=== PATIENT | female | born 1970 | race Caucasian/White ===

== ENCOUNTER 2023-02-14 13:06 | Outpatient (OUT) | payer BC, SELFPAY ==
--- NOTE | 2023-02-14 13:17 | XR_ITS ---
The [address] [address] Patient Name: FAUSTO CINTRON MRN: [id number] date: 1970 Sex: F Assigned Patient Location: [facility] Current Patient Location: [facility] Accession/Order Number: [id number] Exam Date: 02/14/2023 13:20 Report Date: 02/14/2023 13:38 At the request of: FANTASMA ALVAREZ Procedure: XR abdomen 1V EXAM: XR abdomen 1V HISTORY: Kidney Stone N20.0 COMPARISON: None. TECHNIQUE: AP view of the abdomen. FINDINGS: Nonobstructive bowel gas pattern is noted. There is no suspicious calcification. The osseous structures are intact. XR/XR abdomen 1V IMPRESSION: Nonobstructive bowel gas pattern. Constipation. Electronically authenticated by: DAYANA VALDERRAMA Date: 02/14/2023 13:38
== END 2023-02-14 13:07 | disposition home or self-care (01) ==
LOC: RAD 13:11
PROVIDERS: PCP Family Medicine; Visit Provider Urology
DX: N20.0 Calculus of kidney (principal)
CPT/HCPCS: 74018

== ENCOUNTER 2023-03-01 12:26 | Outpatient (REF) | payer BC, SELFPAY ==
[2023-03-01 13:23] LABS: Calcium 8.2 mg/dL (8.5-10.1); Carbon Dioxide 26.1 mmol/L (21.0-32.0); Chloride 106 mmol/L (98-107); Estimated GFR (African America >60 (>=60); Estimated GFR (Non-African Ame >60 (>=60); Phosphorus 3.4 mg/dL (2.6-4.7); Sodium 139 mmol/L (136-145)
[2023-03-01 13:44] LABS: Calcium Urine Random 5.2 mg/dL (5.1-21.0); Sodium Urine Random 55 mmol/L (30-90)
[2023-03-01 14:34] LABS: Calcium 24 Hour Urine 153.4 mg/24hr (100.0-300.0); Sodium 24 Hour Urine 162 mmol/24h (40-220); Total Volume 24 Hour Urine 2950 mL/24hr
[2023-03-02 06:09] LABS: Magnesium, U 3.9 mg/dL (Not Estab.); Magnesium,Urine 24hr 115.1 mg/24 hr (12.0-293.0); Phosphorus,Urine 24h 649 mg/24 hr (261-1078); Uric Acid, Urine 11.6 mg/dL (Not Estab.); Uric Acid,Urine 24hr 342.2 mg/24 hr (173.7-902.1)
[2023-03-02 11:09] LABS: PTH, Intact 28 pg/mL (15-65)
[2023-03-02 14:09] LABS: Citric Acid, U, 24hr 516 mg/24 hr (320-1240); Citric Acid, Urine 175 mg/L (Undefined)
[2023-03-08 15:08] LABS: Oxalates, Urine 5 mg/L (Undefined); Oxalates, Urine 24hr 15 mg/24 hr (4-31)
== END 2023-03-01 12:27 | disposition home or self-care (01) ==
LOC: LAB 12:26
PROVIDERS: PCP Family Medicine; Visit Provider Urology
DX: N20.0 Calculus of kidney (principal)
CPT/HCPCS: 36415; 82310; 82340; 82374; 82435; 82507; 82565; 82570; 83735; 83945; 83970; 84100; 84105; 84295; 84300; 84520; 84550; 84560

== ENCOUNTER 2023-09-10 15:19 | Outpatient (OUT) | payer BC, SELFPAY ==
[2023-09-10 15:45] LABS: Basophils Absolute Auto 0.1 10^3/uL (0.0-0.1); Basophils Percent Auto 0.8 % (0.2-2.0); Eosinophils Absolute Auto 0.4 10^3/uL (0.0-0.7); Hematocrit 37.7 % (36.0-48.0); Hemoglobin 12.4 g/dL (12.0-16.0); Immature Granulocytes Abs Auto 0.02 10^3/uL (0.00-0.03); Immature Granulocytes Pct Auto 0.2 % (0.0-0.5); Lymphocytes Absolute Auto 3.2 10^3/uL (1.2-3.8); Lymphocytes Percent Auto 30.1 % (20.5-60.0); Mean Corpuscular HGB Conc 32.9 g/dL (29.9-35.2); Mean Corpuscular Hemoglobin 32.5 pg (26.7-34.0); Mean Corpuscular Volume 98.7 fL (81.0-99.0); Mean Platelet Volume 10.6 fL (9.5-13.5); Monocytes Absolute Auto 0.7 10^3/uL (0.3-0.8); Monocytes Percent Auto 6.7 % (1.7-12.0); Neutrophils Absolute Auto 6.2 10^3/uL (1.4-6.5); Neutrophils Percent Auto 58.2 % (43.0-75.0); Platelet Count 233 10^3/uL (150-450); Red Blood Count 3.82 10^6/uL (4.20-5.40); Red Cell Distribution Width 13.1 % (11.0-15.0); White Blood Count 10.7 10^3/uL (4.0-11.0)
[2023-09-11 05:15] LABS: C-Reactive Protein, Cardiac 1.51 mg/L (0.00-3.00)
== END 2023-09-10 15:20 | disposition home or self-care (01) ==
LOC: LAB 15:23
PROVIDERS: PCP Family Medicine; Visit Provider Internal Medicine
DX: R19.7 Diarrhea, unspecified (principal)
CPT/HCPCS: 36415; 85025; 86140

== ENCOUNTER 2023-09-13 10:01 | Outpatient (OUT) | payer BC, SELFPAY ==
[2023-09-14 15:10] LABS: Cryptosporidium EIA Negative (Negative); Giardia lamblia Ag, EIA Negative (Negative)
[2023-09-20 16:09] LABS: Ova + Parasite Exam Final report (.)
== END 2023-09-13 10:02 | disposition home or self-care (01) ==
LOC: LAB 10:04
PROVIDERS: PCP Family Medicine; Visit Provider Internal Medicine
DX: R19.7 Diarrhea, unspecified (principal)
CPT/HCPCS: 87045; 87046; 87177; 87209; 87328; 87329; 87427

== ENCOUNTER 2023-12-20 15:55 | Outpatient (OUT) | payer BC, SELFPAY ==
--- NOTE | 2023-12-20 16:03 | XR_ITS ---
The [address] [address] Patient Name: FAUSTO CINTRON MRN: [id number] date: 1970 Sex: F Assigned Patient Location: [facility] Current Patient Location: Accession/Order Number: [id number] Exam Date: 12/20/2023 16:04 Report Date: 12/21/2023 07:04 At the request of: NON-STAFF PHYSICIAN Procedure: XR abdomen 1V EXAMINATION: XR abdomen 1V HISTORY: Renal calculus N20.0 COMPARISON: No relevant comparison available. FINDINGS: KIDNEY/URETER - RIGHT: Punctate nephroliths KIDNEY/URETER - LEFT: r nephrolithiasis, the largest measures 1.2 cm PELVIS: No visible ureteral calcifications. Any visible calcifications favor phleboliths. BOWEL: No abnormal dilation or deviation. Moderate stool right colon BONES: No acute abnormality. Mild levocurvature OTHER: Negative. No abnormal gaseous collections. XR/XR abdomen 1V IMPRESSION: Bilateral nephrolithiasis Electronically authenticated by: YAN JOHNSON Date: 12/21/2023 07:04
--- OUTSIDE RECORDS SUMMARY | 2023-12-20 16:07 | XMS_ITS | CCD ---
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 Name Role Phone Jerson Goldsmith Unavailable LARRY JONES Primary Care Physician [phone] KIM, DR MEEK Consulting Unavailable YVONNE, DR MERCADO Primary Care Unavailable KIM, DR MEEK Admitting Unavailable KIM, DR MEEK Attending Unavailable BUDDY, DR CRISTOFER Broderick Consulting Unavailable YVONNE, DR MERCADO Primary Care Unavailable KIM, DR MEEK Admitting Unavailable KIM, DR MEEK Attending Unavailable KIM, DR MEEK Consulting Unavailable YVONNE, DR MERCADO Admitting Unavailable YVONNE, DR MERCADO Attending Unavailable YVONNE, DR MERCADO Consulting Unavailable YVONNE, DR MERCADO Primary Care Unavailable MD Phuong Hall Primary Care Provider [phone] MD Arash Field Attending Provider MD Phuong Hall Primary Care Provider MD Arash Field Attending Provider Arash Field Admitting Unavailable Arash Field Attending Unavailable Phuong Hall Primary Care Unavailable LARRY JONES Primary Care Physician Arash FIELD Attending Unavailable Arash FIELD Attending Unavailable Phuong Hall MD Primary Care Provider KIMBERLY BURTON Referring Unavailable PHUONG HALL Primary Care Unavailable KIMBERLY BURTON Referring Unavailable PHUONG HALL Primary Care Unavailable KIMBERLY BURTON Admitting Unavailable KIMBERLY BURTON Attending Unavailable PHUONG HALL Primary Care Unavailable Medications Current Medications Medication Drug Class(es) Dates Sig (Normalized) Sig (Original) 24 hr buPROPion hydrochloride 300 mg extended release oral tablet (5 sources) Aminoketone Start: 09-21-2021 take 300 mg by mouth once daily Bupropion Hcl Active 300 MG PO Daily September 20, 2021 11:00pm Start: 03-26-2020 take 1 tablet by naveen th every twenty-four hours Wellbutrin XL 300 mg/24 hours Tab-ER mg tab(s), Oral, q24hr, Refills(s) 0 Start Date: 03/26/20 Status: Ordered esomeprazole 40 mg delayed release oral capsule (10 sources) Proton Pump Inhibitor Start: 09-13-2023 take 1 capsule by mouth once daily before breakfast esomeprazole (NEXIUM) 40 MG delayed release capsule Take 1 capsule by mouth every morning (before breakfast) 0 09/13/2023 Active Start: 03-26-2020 take 1 mg by mouth once daily Nexium 40 mg Cap-EC mg cap(s), Oral, Daily, Refills(s) 0 Start Date: 03/26/20 Status: Ordered fluticasone propionate 0.05 mg/actuat metered dose nasal spray (8 sources) Corticosteroid Start: 07-30-2023 fluticasone (F LONASE) 50 MCG/ACT nasal spray 1 spray by Nasal route daily 0 07/30/2023 Active Start: 03-26-2020 Flonase Nasal, Daily, Refill(s) 0 Start Date: 03/26/20 Status: Ordered take 1 spray(s) nasa l route once daily Flonase 50 MCG/DOSE 1 spray in each nostril Nasally Once a day Active take 1 spray(s) nasa l route once daily Flonase 50 MCG/DOSE 1 spray in each nostril Nasally Once a day Active levothyroxine sodium 0.125 mg oral tablet (10 sources) l-Thyroxine Start: 07-06-2023 End: 07-05-2024 take 1 tablet by mouth once daily levothyroxine (SYNTHROID) 125 MCG tablet Take 1 tablet by mouth Daily 0 07/06/2023 07/05/2024 Active Start: 01-02-2022 levothyroxine 112 mcg (0.112 mg) Tab Refills(s) 0 Start Date: 01/02/22 Status: Ordered Start: 09-21-2021 take 137 ug by mouth once hugo y Levothyroxine Active 137 MCG PO Daily September 20, 2021 11:00pm take 1 tablet by naveen th once daily in the morning Synthroid 137 MCG 1 tablet on an empty stomach in the morning Orally Once a day for 30 day(s) Active mesalamine 1200 mg delayed release oral tablet (10 sources) Aminosalicylate Start: 03-26-2020 Lialda gram, O ral, Daily, Refill(s) 0 Start Date: 03/26/20 Status: Ordered Start: 07-04-2013 take 4 tablets by [facility] once daily mesalamine (LIALDA) 1.2 g EC tablet Take 4 tablets by mouth daily 0 07/12/2023 Active Start: 07-04-2013 take 4 tablets by [facility] every twenty-four hours Lialda 1.2 GM 4 tablets Orally Once a day for 90 days Jun, Active valACYclovir 1000 mg oral tablet (10 sources) Herpesvirus Nucleoside Analog DNA Polymerase Inhibitor, Herpes Simplex Virus Nucleoside Analog DNA Polymerase Inhibitor, Herpes Zoster Virus Nucleoside Analog DNA Polymerase Inhibitor Start: 09-21-2021 take 1000 mg by mouth once daily Valacyclovir Active 1000 MG PO Daily September 20, 2021 11:00pm Start: 03-26-2020 take 1 tablet by [facility] twice daily Valtrex 1 g Tab gram tab(s), Oral, BID, Refills(s) 0 Start Date: 03/26/20 Status: Ordered take 1 tablet by [facility] twice daily valACYclovir (VALTREX) 500 MG tablet Take 1 tablet by mouth 2 times daily 0 Active take 2 tablets by [facility] every twelve hours Valtrex 500 MG 2 tablets Orally every 12 hrs for 10 day(s) Active Vitamin D (3 sources) Start: 03-26-2020 Vitamin D Oral , Refills(s) 0 Start Date: 03/26/20 Status: Ordered Vitamin D 63280 U (4 sources) Vitamin D 12019 U as directed Orally Active Completed/Discontinued Medications Medication Drug Class(es) Dates Sig (Normalized) Sig (Original) Ketorolac (4 sources) Nonsteroidal Anti-inflammatory Drug, Cyclooxygenase Inhibitor Start: 02-13-2020 Toradol per 15 mg Jan, 30 mg Triamcinolone (4 sources) Corticosteroid Start: 02-13-2020 KENALOG - 10 mg Jan, 10 mg Problems Problem Classification Problem Date Documented Da te Episodic/Chronic Abdominal pain (10 sources) Abdominal pain; Translations: [Unspecified abdominal pain] Onset: 2 Episodic Calculus of urinary tract (14 sources) Kidney stone; Translations: [Calculus of kidney] Onset: 2 Episodic Deficiency and other anemia (4 sources) Iron deficiency anemia; Translations: [Iron deficiency anemia, unspecified] Episodic Deficiency and other anemia (3 sources) Anemia 03-26-2020 Episodic Esophageal disorders (7 sources) Gastroesophageal reflux disease; Translations: [Gastro-esophageal reflux disease without esophagitis] 03-26-2020 Chronic Gastrointestinal hemorrhage (4 sources) Hematochezia; Translations: [Melena] Episodic Genitourinary symptoms and ill-defined conditions (6 sources) Stress incontinence (female) (male); Translations: [Genuine stress incontinence] Onset: 2 Chronic Headache; including migraine (3 sources) Headache 03-26-2020 Episodic Mood disorders (3 sources) Depressive disorder 03-26-2020 Chronic Osteoarthritis (3 sources) Arthritis 03-26-2020 Chronic Regional enteritis and ulcerative colitis (11 sources) Ulcerative colitis; Translations: [Ulcerative colitis, unspecified, without complications] Onset: 2 Resolved: 2 Chronic Spondylosis; intervertebral disc disorders; other back problems (8 sources) Sciatica; Translations: [Sciatica, left side] Episodic Thyroid disorders (7 sources) Hypothyroidism; Translations: [Hypothyroidism, unspecified] Onset: 1 03-26-2020 Chronic Results Test Name Value Interpretation Reference Range Facility FLUORO FOR SURGICAL PROCEDUR ESon 10-23-2023 FLUORO FOR SURGICAL PROCEDURES Radiology exam is complete. No Radiologist dictation. Please follow up with ordering provider. Final result Normal [facility] HCG, ,Urineon 10-22 Beta HCG ( test) Ql (U) Negative Normal NEG [facility] Comment on above: Result Comment: Spec imens with hCG levels near the threshold of the test (25 mIU/mL) may give a negative or indeterminate result. In such cases, another test should be performed with a new specimen in 48-72 hours. If early is suspected clinically in this setting, correlation with quantitative serum b-hCG level is suggested. [employer] has confirmed the use of plasma for this test. This has not been cleared or approved by the U.S. Food and Drug Administration. The FDA has determined that such clearance is not necessary. Performed By: #### U HCG #### [facility] [address] [place], [place] [id number] Health/Safety Job Titles: Michoacano Gomez MD Basic Metabolic Profon 09-19 Anion gap [Moles/Vol] 9 mmol/L Normal 9-17 [facility] Comment on above: Performed By: #### B MP, CDP #### [facility] [address] [place], [place] [id number] Health/Safety Job Titles: Michoacano Gomez MD BUN/CRE Ratio 23 High 9-20 [facility] Comment on above: Performed By: #### B MP, CDP #### [facility] [address] [place], [place] [address] Health/Safety Job Titles: Michoacano Gomez MD Calcium [Mass/Vol] 8.7 mg/dL Normal 8.6-10.4 [facility] Comment on above: Performed By: #### B MP, CDP #### [facility] [address] [place], [place] [id number] Health/Safety Job Titles: Michoacano Gomez MD Chloride [Moles/Vol] 105 mmol/L Normal 98-107 [facility] Comment on above: Performed By: #### B MP, CDP #### [facility] [address] [place], [place] [address] Health/Safety Job Titles: Michoacano Gomez MD CO2 [Moles/Vol] 25 mmol/L Normal 20-31 [facility] Comment on above: Performed By: #### B MP, CDP #### [facility] [address] [place], [place] [id number] Health/Safety Job Titles: Michoacano Gomez MD Creatinine [Mass/Vol] 0.7 mg/dL Normal 0.5-0.9 [facility] Comment on above: Performed By: #### B MP, CDP #### [facility] [address] [place], [place] [id number] Health/Safety Job Titles: Michoacano Gomez MD GFR/1.73 sq M.predicted among non-blacks MDRD (S/P/Bld) [Vol rate/Area] mL/min/{1.73_m2} Normal >60 [facility] Comment on above: Result Comment: These results are not intended for use in patients <18 years of age. eGFR results are calculated without a race factor using the 2020 CKD-EPI equation. Careful clinical correlation is recommended, particularly when comparing to results calculated using previous equations. The CKD-EPI equation is less accurate in patients with extremes of muscle mass, extra-renal metabolism of creatine, excessive creatine ingestion, or following therapy that affects renal tubular secretion. Performed By: #### B FRANKLIN, CDP #### [facility] [address] [place] [address] [place] [address] Health/Safety Job Titles: Michoacano Gomez MD Glucose [Mass/Vol] 97 mg/dL Normal 70-99 [facility] Comment on above: Performed By: #### B FRANKLIN, CDP #### [facility] [address] [place] [address] [place] [address] Health/Safety Job Titles: Michoacano Gomez MD Potassium [Moles/Vol] 4.0 mmol/L Normal 3.7-5.3 [facility] Comment on above: Performed By: #### B FRANKLIN, CDP #### [address] [place], [place] [id number] Health/Safety Job Titles: Michoacano Gomez MD Sodium [Moles/Vol] 139 mmol/L Normal 135-144 [facility] Comment on above: Performed By: #### B FRANKLIN, CDP #### [facility] [address] [place] [address] [place] [address] Health/Safety Job Titles: Michoacano Gomez MD Urea nitrogen [Mass/Vol] 16 mg/dL Normal 6-20 [facility] Comment on above: Performed By: #### B FRANKLIN, CDP #### [facility] [address] [place] [address] [place] [address] Health/Safety Job Titles: Michoacano Gomez MD CBC with Diffon 09-20-2023 Abs. Basophil 0.07 k/uL Normal 0.00-0.20 [facility] Comment on above: Performed By: #### B FRANKLIN, CDP #### [facility] [address] [place] [address] [place] [address] Health/Safety Job Titles: Michoacano Gomez MD Abs.Imm.Granulocyte <0.03 Normal 0.00-0.30 [facility] Comment on above: Performed By: #### B MP, CDP #### [facility] [address] [place], [facility] Health/Safety Job Titles: Michoacano Gomez MD Abs.Neutrophil (Seg) 3.98 k/uL Normal 1.50-8.10 [facility] Comment on above: Performed By: #### B FRANKLIN, CDP #### [address] [place], [facility] Health/Safety Job Titles: Michoacano Gomez MD Basophils/100 WBC (Bld) 1 % Normal 0-2 [facility] Comment on above: Performed By: #### B FRANKLIN, CDP #### [address] [place] [address] Health/Safety Job Titles: Michoacano Gomez MD Eosinophils (Bld) [#/Vol] 0.43 10*3/uL Normal 0.00-0.44 [facility] Comment on above: Performed By: #### B FRANKLIN, CDP #### [facility] [address] [place] [address] [place] [address] Health/Safety Job Titles: Michoacano Gomez MD Eosinophils/100 WBC (Bld) 6 % High 1-4 [facility] Comment on above: Performed By: #### B FRANKLIN, CDP #### [address] [place], [place] [address] Health/Safety Job Titles: Michoacano Gomez MD Erythrocyte distribution width (RBC) [Ratio] 13.1 % Normal 11.8-14.4 [facility] Comment on above: Performed By: #### B MP, CDP #### [facility] [address] [place], [place] [id number] Health/Safety Job Titles: Michoacano Gomez MD Hematocrit (Bld) [Volume fraction] 38.3 % Normal 36.3-47.1 [facility] Comment on above: Performed By: #### B MP, CDP #### [facility] [address] [place], [place] [id number] Health/Safety Job Titles: Michoacano Gomez MD Hemoglobin (Bld) [Mass/Vol] 12.9 g/dL Normal 11.9-15.1 [facility] Comment on above: Performed By: #### B MP, CDP #### [address] [place], [place] [address] Health/Safety Job Titles: Michoacano Gomez MD Immature granulocytes/100 WBC (Bld) 0 % Normal 0 [facility] Comment on above: Performed By: #### B MP, CDP #### [facility] [address] [place] [address] [place] [place], [place] [address] Health/Safety Job Titles: Michoacano Gomez MD Lymphocytes (Bld) [#/Vol] 2.69 10*3/uL Normal 1.10-3.70 [facility] Comment on above: Performed By: #### B MP, CDP #### [facility] [address] [place] [address] [address] [place], [place] [address]83 Health/Safety Job Titles: Michoacano Gomez MD Lymphocytes/100 WBC (Bld) 35 % Normal 24-43 [facility] Comment on above: Performed By: #### B MP, CDP #### [facility] [address] [place], [place] [address] Health/Safety Job Titles: Michoacano Gomez MD MCH (RBC) [Entitic mass] 33.2 pg Normal 25.2-33.5 [facility] Comment on above: Performed By: #### B MP, CDP #### [facility] [address] [place] [address] [address] [place], [place] [address]83 Health/Safety Job Titles: Michoacano Gomez MD MCHC (RBC) [Mass/Vol] 33.7 g/dL Normal 28.4-34.8 [facility] Comment on above: Performed By: #### B MP, CDP #### [facility] [address] [place] [address] [address] [place], [place] 137[address]183 Health/Safety Job Titles: Michoacano Gomez MD MCV (RBC) [Entitic vol] 98.7 fL Normal 82.6-102.9 [facility] Comment on above: Performed By: #### B MP, CDP #### [address] [place], [place] [address] Health/Safety Job Titles: Michoacano Gomez MD Monocytes (Bld) [#/Vol] 0.55 10*3/uL Normal 0.10-1.20 [facility] Comment on above: Performed By: #### B MP, CDP #### [address] [place], [place] [address] Health/Safety Job Titles: Michoacano Gomez MD Monocytes/100 WBC (Bld) 7 % Normal 3-12 [facility] Comment on above: Performed By: #### B MP, CDP #### [address] [place], [place] [address]83 Health/Safety Job Titles: Michoacano Gomez MD Neutrophil (Seg) 51 % Normal 36-65 [facility] Comment on above: Performed By: #### B MP, CDP #### [facility] [address] [place] [address] [address] [place], [place] [address]3583 Health/Safety Job Titles: Michoacano Gomez MD NRBC Automated 0.0 per 100 WBC Normal 0.0 [facility] Comment on above: Performed By: #### B MP, CDP #### [facility] [address] [place] [address] [place] [place], [place] [address]83 Health/Safety Job Titles: Michoacano Gomez MD Platelet mean volume (Bld) [Entitic vol] 10.1 fL Normal 8.1-13.5 [facility] Comment on above: Performed By: #### B FRANKLIN, CDP #### [facility] [address] [place] [address] Health/Safety Job Titles: Michoacano Gomez MD Platelets (Bld) [#/Vol] 252 10*3/uL Normal 138-453 [facility] Comment on above: Performed By: #### B FRANKLIN, CDP #### [facility] [address] [place] [address] Health/Safety Job Titles: Michoacano Gomez MD RBC (Bld) [#/Vol] 3.88 10*6/uL Low 3.95-5.11 [facility] Comment on above: Performed By: #### B FRANKLIN, CDP #### [facility] [address] [place] [address] Health/Safety Job Titles: Michoacano Gomez MD WBC (Bld) [#/Vol] 7.7 10*3/uL Normal 3.5-11.3 [facility] Comment on above: Performed By: #### B FRANKLIN, CDP #### [facility] [address] [place] [address] Health/Safety Job Titles: Michoacano Gomez MD EKG 12 LeadOrdered By: Julito Marino hmamy on 09-20-2023 Atrial Rate 64 BPM [facility] [employer] [facility]Contently Phone: P [place] -4 degrees [facility] [employer] [facility] Phone: P-R Interval 132 ms [facility] Phone: Q-T Interval 420 ms [facility] [employer] [facility] Phone: QRS Duration 74 ms [employer] [facility] Phone: QTc Calculation (Bazett) 433 ms [employer] [facility] Phone: R [place] 65 degrees [employer] [facility] Phone: T [place] 54 degrees [employer] Work Phone: Ventricular Rate 64 BPM [employer] Work Phone: [employer] Work Phone: EKG 12 Leadon 09-20-2023 Normal sinus rhythm Normal ECG No previous ECGs available Confirmed by Julito Pate MD ([id number]) on 09/20/2023 8:55:15 PM [facility] RADIOLOGY Julito Pate MD - 09/20/2023 Normal sinus rhythm Normal ECG No previous ECGs available Confirmed by Julito Pate MD ([id number]) on 09/20/2023 8:55:15 PM [facility]apVid [facility] Physician Orderon 06-07-2023 Physician Order [id number]#1.0 0TIFF Normal [facility] RAD - CT Reporton 05-16-2023 RAD - CT Report [id number]#1.0 0TIFF Normal [facility] Reminderson 05-16-2023 Reminders - From: Celena Beauchamp To: [facility] - Recalls Field; Sent: 02/23/2023 12:29:57 EDT Show up: 07/26/2023 12:29:00 EST Subject: Ct urogram Due Date/Time: 08/13/2023 12:29:00 EST Reminder/Recall Pt needs Ct Urogram done prior to August 2023 appt. Pt needs to have done at [facility] per PRW. pt completed in Apr. already addressed. BG Normal [facility] CT urogramon 05-08-2023 CT urogram [facility] Main [address] [address] [address] Scan Report Signed Patient: Fausto Merrill MR#: [id number] : 1970 Acct:[id number] Age/Sex: 52 / F ADM Date: 05/08/23 Loc: CT Room: Type: [facility] Attending Dr: Arash Field MD Copies to: Arash Field MD Ordering Provider: Arash Field MD Date of Service: 05/08/23 CT/CT urogram: N20.0 CT ABDOMEN AND PELVIS WITH AND WITHOUT INTRAVENOUS CONTRAST: CLINICAL HISTORY: Left-sided kidney stone failed lithotripsy. COMPARISON: CT urogram 01/23/2022 TECHNIQUE: Spiral images were obtained through the abdomen and pelvis before and after the administration of intravenous contrast. This CT exam was performed using one or more following dose reduction techniques: Automated exposure control, adjustment of the mA and/or kV according to patient size, or use of iterative reconstruction technique. FINDINGS: Lung Bases: [No acute findings.] Organs:Noncontrast images demonstrate bilateral nephrolithiasis, largest stone measuring 1 cm in greatest axial dimension involving the left kidney. No ureteral or urinary bladder calculus. Postcontrast imaging demonstrates no enhancing renal or collecting system mass. Opacified ureters appear grossly unremarkable. Urinary bladder is grossly unremarkable. Liver gallbladder portal vein spleen pancreas and adrenal glands all appear unremarkable. Abdominal aorta appears normal in caliber.[ GI: Stomach is grossly unremarkable. Small bowel appears nondilated. No acute colonic abnormality.[ Pelvis:[Occlusion device placement is seen. Uterus is grossly unremarkable. No adnexal mass. Peritoneum/Retroperito neum:No free air, free fluid or lymphadenopathy.[ Abd wall/Bones:Abdominal wall demonstrates no acute findings. Osseous structures demonstrate degenerative change.[ CT/CT urogram IMPRESSION: Bilateral nephrolithiasis largest stone measuring 1 cm involving the left kidney. No obstructive uropathy Impression dictated by: Erwin Waldron Jr., D.OMaggi05/08/2023 2:21 PM Dictation Location: [place] [address] Transcribed By: [facility] 05/08/23 1421 Dictated By: Erwin Waldron Jr, DO 05/08/23 1419 Signed By: 05/08/23 1421 [facility] Lab Reportson 03-30-2023 Lab Reports [id number] 0TIFF [facility] Lab Reports [id number]#1.0 0TIFF Normal [facility] Lab Reportson 03-04-2023 Lab Reports [id number]#1.00 CD:127 Normal [facility] Lab Reports [id number] 0CD:127 Normal [facility] Lab Reports [id number] CD:127 Normal [facility] Ambulatory Visit Summaryon 0 02-23-2023 Ambulatory Visit Summary FAUSTO MERRILL :1970 Visit Date:02/23/2023 Ambulatory Visit Instructions Your Diagnosis Kidney stone Flank pain Stress incontinence Tests Performed Urnls Dip Stick Auto w/o Microscopy POC [id number] CT Urogram -- Results Pending -- Please visit your patient portal for your results or contact your primary care physician. Your Care Team Attending Physician - Arash FIELD MD Primary Care Physician - LARRY JONES CNP This Is Your Medications List Contact prescribing physician if questions or concerns ergocalciferol (Vitamin D) esomeprazole (Nexium 40 mg Cap-EC) fluticasone nasal (Flonase) levothyroxine (levothyroxine 112 mcg (0.112 mg) Tab) mesalamine (Lialda) valacyclovir (Valtrex 1 g Tab) Procedures Performed ESWL of kidney (03/2020), Colonoscopy, Colonoscopy, Tubal ligation. Discharge Vitals Temperature (Tympanic) 37.1 ?C Heart Rate (Peripheral) 71 Respiratory Rate 16 Blood Pressure 106/75 Height 165 cm Height 65 in Weight 56 kg Weight 123.2 lb BMI 20.57 What to do next You Need to Schedule the Following Appointments Follow Up with Arash FIELD MD, SEGUNDO When: In 6 months Comments: w/CTU & 24hr Urine Where: [facility] [address] [place] [address]- Medications What How Much When Instructions Unchanged ergocalciferol (Vitamin D) Contact prescribing physician if questions or concerns Unchanged esomeprazole (Nexium 40 mg Cap-EC) Every day Contact prescribing physician if questions or concerns Unchanged fluticasone nasal (Flonase) Every day Contact prescribing physician if questions or concerns Unchanged levothyroxine (levothyroxine 112 mcg (0.112 mg) Tab) Contact prescribing physician if questions or concerns Unchanged mesalamine (Lialda) Every day Contact prescribing physician if questions or concerns Unchanged valacyclovir (Valtrex 1 g Tab) 2 times a day Contact prescribing physician if questions or concerns Test Results Urnls Dip Stick Auto w/o Microscopy POC 18319 (02/23/2023) Bilirubin Urine Dipstick - Negative Blood Urine Dipstick - 2+ Moderate Glucose Urine Dipstick - Negative Ketones Urine Dipstick - Negative Leukocytes Urine Dipstick - Negative Nitrite Urine Dipstick - Negative Protein Urine Dipstick - Negative Specific [place] Urine Dipstick - 1.025 Urine Appearance Urine Dipstick - Clear Urine Color Urine Dipstick - Yellow Urobilinogen Urine Dipstick - Normal 0.2-1 EU/dl pH Urine Dipstick - 5.5 Allergies No Known Allergies Problems Ongoing - Any problem that you are currently receiving treatment for. Anemia Arthritis Chronic GERD Depression Flank pain Headache Hypothyroid Kidney stone Stress incontinence UC (ulcerative colitis) Education Materials Dietary Guidelines to Help Prevent Kidney Stones Kidney stones are deposits of minerals and salts that form inside your kidneys. Your risk of developing kidney stones may be greater depending on your diet, your lifestyle, the medicines you take, and whether you have certain medical conditions. Most people can lower their chances of developing kidney stones by following the instructions below. Your dietitian may give you more specific instructions depending on your overall health and the type of kidney stones you tend to develop. What are tips for following this plan? Reading food labels ? Choose foods with no salt added or low-salt labels. Limit your salt (sodium) intake to less than 1,500 mg a day. ? Choose foods with calcium for each meal and snack. Try to eat about 300 mg of calcium at each meal. Foods that contain 200?500 mg of calcium a serving include: ? 8 oz (237 mL) of milk, nbdzxeb-piytwhnekkdg-t airy milk, and calcium-fortifiedfruit juice. Calcium-fortified means that calcium has been added to these drinks. ? 8 oz (237 mL) of kefir, yogurt, and soy yogurt. ? 4 oz (114 g) of tofu. ? 1 oz (28 g) of cheese. ? 1 cup (150 g) of dried figs. ? 1 cup (91 g) of cooked broccoli. ? One 3 oz (85 g) can of sardines or mackerel. Most people need 1,000?1,500 mg of calcium a day. Talk to your dietitian about how much calcium is recommended for you. Shopping ? Buy plenty of fresh fruits and vegetables. Most people do not need to avoid fruits and vegetables, even if these foods contain nutrients that may contribute to kidney stones. ? When shopping for convenience foods, choose: ? Whole pieces of fruit. ? Pre-made salads with dressing on the side. ? Low-fat fruit and yogurt smoothies. ? Avoid buying frozen meals or prepared deli foods. These can be high in sodium. ? Look for foods with live cultures, such as yogurt and kefir. ? Choose high-fiber grains, such as whole-wheat breads, oat bran, and wheat cereals. Cooking ? Do not add salt to food when cooking. Place a salt shaker on the table and allow each person to add his (more content not included)... Normal [facility] Patient Educationon 02-24-20 Patient Education Nephrology Dietary Guidelines to Help Prevent Kidney Stones Kidney stones are deposits of minerals and salts that form inside your kidneys. Your risk of developing kidney stones may be greater depending on your diet, your lifestyle, the medicines you take, and whether you have certain medical conditions. Most people can lower their chances of developing kidney stones by following the instructions below. Your dietitian may give you more specific instructions depending on your overall health and the type of kidney stones you tend to develop. What are tips for following this plan? Reading food labels ? Choose foods with no salt added or low-salt labels. Limit your salt (sodium) intake to less than 1,500 mg a day. ? Choose foods with calcium for each meal and snack. Try to eat about 300 mg of calcium at each meal. Foods that contain 200?500 mg of calcium a serving include: ? 8 oz (237 mL) of milk, rgsaazi-uajfilijorrs-d airy milk, and calcium-fortifiedfruit juice. Calcium-fortified means that calcium has been added to these drinks. ? 8 oz (237 mL) of kefir, yogurt, and soy yogurt. ? 4 oz (114 g) of tofu. ? 1 oz (28 g) of cheese. ? 1 cup (150 g) of dried figs. ? 1 cup (91 g) of cooked broccoli. ? One 3 oz (85 g) can of sardines or mackerel. Most people need 1,000?1,500 mg of calcium a day. Talk to your dietitian about how much calcium is recommended for you. Shopping ? Buy plenty of fresh fruits and vegetables. Most people do not need to avoid fruits and vegetables, even if these foods contain nutrients that may contribute to kidney stones. ? When shopping for convenience foods, choose: ? Whole pieces of fruit. ? Pre-made salads with dressing on the side. ? Low-fat fruit and yogurt smoothies. ? Avoid buying frozen meals or prepared deli foods. These can be high in sodium. ? Look for foods with live cultures, such as yogurt and kefir. ? Choose high-fiber grains, such as whole-wheat breads, oat bran, and wheat cereals. Cooking ? Do not add salt to food when cooking. Place a salt shaker on the table and allow each person to add his or her own salt to taste. ? Use vegetable protein, such as beans, textured vegetable protein (TVP), or tofu, instead of meat in pasta, casseroles, and soups. Meal planning ? Eat less salt, if told by your dietitian. To do this: ? Avoid eating processed or pre-made food. ? Avoid eating fast food. ? Eat less animal protein, including cheese, meat, poultry, or fish, if told by your dietitian. To do this: ? Limit the number of times you have meat, poultry, fish, or cheese each week. Eat a diet free of meat at least 2 days a week. ? Eat only one serving each day of meat, poultry, fish, or seafood. ? When you prepare animal protein, cut pieces into small portion sizes. For most meat and fish, one serving is about the size of the palm of your hand. ? Eat at least five servings of fresh fruits and vegetables each day. To do this: ? Keep fruits and vegetables on hand for snacks. ? Eat one piece of fruit or a handful of berries with breakfast. ? Have a salad and fruit at lunch. ? Have two kinds of vegetables at dinner. ? Limit foods that are high in a substance called oxalate. These include: ? Spinach (cooked), rhubarb, beets, sweet potatoes, and Kosovan chard. ? Peanuts. ? Potato chips, icelandic fries, and baked potatoes with skin on. ? Nuts and nut products. ? Chocolate. ? If you regularly take a diuretic medicine, make sure to eat at least 1 or 2 servings of fruits or vegetables that are high in potassium each day. These include: ? Avocado. ? Banana. ? [place], prune, carrot, or tomato juice. ? Baked potato. ? Cabbage. ? Beans and split peas. Lifestyle ? Drink enough fluid to keep your urine pale yellow. This is the most important thing you can do. Spread your fluid intake throughout the day. ? If you drink alcohol: ? Limit how much you use to: ? 0?1 drink a day for women who are not . ? 0?2 drinks a day for men. ? Be aware of how much alcohol is in your drink. In the [place] one drink equals one 12 oz bottle of beer (355 mL), one 5 oz glass of wine (148 mL), or one 1? oz glass of hard liquor (44 mL). ? Lose weight if told by your health care provider. Work with your dietitian to find an eating plan and weight loss strategies that work best for you. General information ? Talk to your health care provider and dietitian about taking daily supplements. You may be told the following depending on your health and the cause of your kidney stones: ? Not to take supplements with vitamin C. ? To take a calcium supplement. ? To take a daily probiotic supplement. ? To take other supplements such as magnesium, fish oil, or vitamin B6. ? Take xwnz-yme-dyiiukv and prescription medicines only as told by your health care provider. These include supplements. What foods should I limit? Limit your in (more content not included)... Normal [facility] Urology Office/Clinic Noteon 02-23-2023 Urology Office/Clinic Note Chief Complaint 1 year with KUB HPI Staff 1 year f/u with KUB. Previous dx of kidney stone, flank pain left sided and stress incontinence. Current KUB done 02/14/23 shows no suspicious calcification. Dysuria: no Incomplete bladder emptying: no Hematuria: no Frequency: every couple of hours. Drinks a lot of water Urgency: no Nocturia: most nights pt does not get up Stream: no straining Leaking: no Post void dripping: no Wearing pads/ Depends: no Urge incontinence: no Stress incontinence: yes Incontinence without Sensory Awareness: no Abdominal pain: no Flank pain: left sided every now and then pt states it is not sharp just a discomfort Sexual complaints: no History of Present Illness Tests reviewed: reviewed UA and KUB I have reviewed the previous health record information and history for this patient from . I have reviewed and verified the staff HPI to be accurate for this encounter. There have been no associated fever, chills, flank pain, or blood in the urine. Denies any urinary infections since last encounter. Review of Systems PHQ Score Initial Depression Screen Score: 0 ROS - Provider Constitutional: denies weight loss, denies hot flashes. Eyes: denies eye problems. Gastrointestinal: denies nausea, denies vomiting. Cardiovascular: denies chest pain or angina. Integumentary: no dryness Musculoskeletal: denies musculoskeletal symptoms. ENMT: denies otolaryngeal symptoms. Respiratory: no shortness of breath. Heme/Lymph: denies easy bleeding tendency, denies easy bruising tendency. Psychiatric: no confusion, no anxiety. Genitourinary: See HPI. Physical Exam Vitals & Measurements T: 37.1 ?C(Tympanic) HR: 71(Peripheral) RR: 16 BP: 106/75 HT: 65 in HT: 165 cm WT: 56 kg WT: 123.2 lb BMI: 20.57 General Appearance: alert , no acute distress, well nourished, well developed female. Genitourinary: bladder nonpalpable, no flank pain. Assessment/Plan 1. Kidney stone (N20.0: Calculus of kidney) IVP 06/02/20 - suggests stone is separate from the urinary tract S/p Left ESWL 04/15/20 KUB 12/30/21 shows stable 1.4cm calcification suspected to be within the superior pole of the left kidney, stone is cracked into several pieces. Discussed at prior OV, that if the stones are in a sac that will not allow patient to pass fragments. CTU 01/23/22 - bilat stone, largest measuring 12mm in the Lt upper pole in a diverticulum KUB 02/14/23 - no suspicious calcification. UA today shows moderate blood. Pt states that the flank pain comes and goes on the Lt. Discussed the findings from recent imaging w/pt, advised pt that due to where the stones are and how big they are, we will not be able to do ESWL. Advised pt that there is a point where the pt will have to have these removed in the future, advised pt that this is not truly needed now due to the pt not having any bothersome sxs. Advised pt that we should do a repeat 24hr urine to see what we can do about prevention. After the metabolic workup, we can discuss stone prevention. Pt states her daughter just had 2 surgeries due to recently being dx w/ thyroid cancer and her mom has some surgeries that need done, due to these things going on, she would like to wait. Pt states she is willing to do the 24hr urine done. Advised pt to have a repeat CTU. Follow up in 6 mos w/ 24 hr urine and CTU. All questions/concerns were discussed. Pt to call the office if she encounters any issues prior. Pt acknowledges understanding. -Increase fluid intake. -24 hr Urine. -Will order a CTU, pt prefers [facility]. 2. Flank pain (R10.9: Unspecified abdominal pain) pt c/o of mild discomfort on the left side that comes and goes. She states it is not daily and not severe with the discomfort. Patient has a high tolerance for pain due to headaches almost daily. 3. Stress incontinence (N39.3: Stress incontinence (female) (male)) Mild leaking with sneezing and jumping. She does not wear any pads for leaking. Follow-up With When Contact Information KIM ADLER, Arash Broderick, SEGUNDO In 6 months [facility] [address], [place] [address]- Additional Instructions: w/CTU & 24hr Urine Patient Education Dietary Guidelines to Help Prevent Kidney Stones I, Edwige Barahona , personally scribed for Dr. Field on 02/23/2023 12:23:23. . Documentation recorded by the scribeEdwige, accurately reflects the services(s) I performed and decisions made by me. Problem List/Past Medical History Ongoing Anemia Arthritis Chronic GERD Depression Flank pain Headache Hypothyroid Kidney stone Stress incontinence UC (ulcerative colitis) Historical No qualifying data Procedure/Surgical History ESWL of kidney (03/2020), Colonoscopy, Colonoscopy, Tubal ligation. Medications Flonase, Nasal, Daily levothyroxine 112 mcg (0.112 mg) Tab Lialda, Oral, Daily Nexium 40 mg Cap-EC, (more content not included)... [facility] Comment on above: Result Comment: Elec tronically Signed By: KIM ADLER, Arash Broderick\.br\Date and Time Signed: 02/23/23 12:26 EDT\.br\Electronically Co-Signed By: Edwige Barahona\.br\Date and Time Co-Signed: 02/23/23 12:23 EDT RAD - MISCon 02-16-2023 RAD - MISC [id number] [facility] October 03, 2022 FAUSTO MERRILL [address] [place] [phone] FAUSTO MERRILL 1970 Dear Fausto Merrill, Our records indicate it is time to schedule your follow up appointment with Dr. Filed for kidney stones. Please call the office to schedule this appointment and have the KUB x-ray done prior (slip enclosed). Thank You, [facility] at [facility] option #3 [facility] XR KUB 1 VIEWon 12-30-2021 XR KUB 1 VIEW EXAMINATION: XR KUB 1 VIEW HISTORY: Kidney stone ; intermittent pain, left kidney stone COMPARISON: XR KUB 01/04/2021 FINDINGS: KIDNEY/URETER - RIGHT: No visible renal or ureteral calcifications. KIDNEY/URETER - LEFT: Stable 1.4 cm calcification within upper pole of left kidney. PELVIS: No visible ureteral stones. Stable pelvic calcifications favor phleboliths. Bilateral fallopian tube occlusive devices. BOWEL: No abnormal dilation or deviation. BONES: No acute abnormality. OTHER: Negative. No abnormal gaseous collections. IMPRESSION: 1. Stable 1.4 cm calcification suspected to be within superior pole of left kidney. This could also represent a granuloma overlying the kidney. Electronically authenticated by: CRISTOFER GOODWIN Date: 2021-12-30 17:52 Normal [facility] Free T4on 11-18-2021 Free T4 [Mass/Vol] 1.45 ng/dL Normal 0.80-1.80 [facility] Specialist Comment on above: Performed By: #### T SH reflex FT4, FT4 #### [facility] [address], [place] [id number] TSH w/ Reflex to Free T4on 0 11-18-2021 FT4 reflex Free T4 Normal [facility] Comment on above: Performed By: #### T SH reflex FT4, FT4 #### [facility] [address], [place] [id number] TSH 0.293 uIU/mL Low 0.400-4.500 [facility] Curriculum Development Manager Comment on above: Performed By: #### T SH reflex FT4, FT4 #### [facility] [address], [place] [id number] SCREENING MAMMOGRAM W/DAINA, BILATERAL*on 10-17-2021 SCREENING MAMMOGRAM W/DAINA, BILATERAL* COMPARISON: Dating back to November 13, 2018 and August 28, 2016 TECHNIQUE: 2D and 3D Tomosynthesis of the right and left breasts was performed. FINDINGS: Breast composition demonstrates scattered fibroglandular densities. Stable. No suspicious microcalcifications, asymmetry, architectural distortion or associated features are present. Typically benign calcifications. IMPRESSION: BI RADS 2 : BENIGN MAMMOGRAM Board Certified Radiologist. Accredited by the ACR and FDA. MAMMOGRAPHY IS VERY IMPORTANT TO YOUR HEALTH. THE CURRENT [employer] GUIDELINES RECOMMENDS ANNUAL MAMMOGRAPHY BEGINNING AT AGE 40. THIS FACILITY USES A REMINDER SYSTEM TO ENSURE ALL PATIENTS RECEIVE REMINDER NOTIFICATIONS AT THE APPROPRIATE TIME BASED ON THE RECOMMENDATIONS OF THIS EXAM. Report reported and signed by Erwin Blake on 10/25/2021 1137 Normal [facility] Complete Blood Count with Au to Diffon 10-05-2021 Basophils (Bld) [#/Vol] 0.08 10*3/uL Normal 0.00-0.20 [facility] Specialist Comment on above: Performed By: #### F T4, CMP, TSH reflex FT4, VITD, LIPD #### [facility] [address], [place] [id number] Basophils/100 WBC (Bld) 1.3 % Normal [facility] Specialist Comment on above: Performed By: #### F T4, CMP, TSH reflex FT4, VITD, LIPD #### [facility] [address], [place] [id number] Eosinophils (Bld) [#/Vol] 0.45 10*3/uL Normal 0.02-0.50 [facility] Specialist Comment on above: Performed By: #### F T4, CMP, TSH reflex FT4, VITD, LIPD #### [facility] [address], [place] [id number] Eosinophils/100 WBC (Bld) 7.3 % Normal [facility] Specialist Comment on above: Performed By: #### F T4, CMP, TSH reflex FT4, VITD, LIPD #### [facility] [address], [place] [id number] Erythrocyte distribution width (RBC) [Ratio] 13.6 % Normal 11.0-15.0 [facility] Specialist Comment on above: Performed By: #### F T4, CMP, TSH reflex FT4, VITD, LIPD #### [facility] [address], [place] [id number] Hematocrit (Bld) [Volume fraction] 38.1 % Normal 35.0-47.0 [facility] Specialist Comment on above: Performed By: #### F T4, CMP, TSH reflex FT4, VITD, LIPD #### [facility] [address], [place] [id number] Hemoglobin (Bld) [Mass/Vol] 12.3 g/dL Normal 11.6-15.5 [facility] Specialist Comment on above: Performed By: #### F T4, CMP, TSH reflex FT4, VITD, LIPD #### [facility] [address], [place] [id number] Lymphocytes (Bld) [#/Vol] 2.7 10*3/uL Normal 0.9-3.9 [facility] Specialist Comment on above: Performed By: #### F T4, CMP, TSH reflex FT4, VITD, LIPD #### [facility] [address], [place] [id number] Lymphocytes/100 WBC (Bld) 43.0 % Normal [facility] Specialist Comment on above: Performed By: #### F T4, CMP, TSH reflex FT4, VITD, LIPD #### [facility] [address], [place] [id number] MCH (RBC) [Entitic mass] 29.9 pg Normal 27.0-33.0 [facility] Specialist Comment on above: Performed By: #### F T4, CMP, TSH reflex FT4, VITD, LIPD #### [facility] [address], [place] [id number] MCHC (RBC) [Mass/Vol] 32.3 g/dL Normal 32.0-36.0 [facility] Specialist Comment on above: Performed By: #### F T4, CMP, TSH reflex FT4, VITD, LIPD #### [facility] [address], [place] [id number] MCV (RBC) [Entitic vol] 93 fL Normal 80-100 [facility] Specialist Comment on above: Performed By: #### F T4, CMP, TSH reflex FT4, VITD, LIPD #### [facility] [address], [place] [id number] Monocytes (Bld) [#/Vol] 0.4 10*3/uL Normal 0.2-0.9 [facility] Specialist Comment on above: Performed By: #### F T4, CMP, TSH reflex FT4, VITD, LIPD #### [facility] [address], [place] [id number] Monocytes/100 WBC (Bld) 6.8 % Normal [facility] Specialist Comment on above: Performed By: #### F T4, CMP, TSH reflex FT4, VITD, LIPD #### [facility] [address], [place] [id number] Neutrophils (Bld) [#/Vol] 2.6 10*3/uL Normal 1.5-7.8 [facility] Comment on above: Performed By: #### F T4, CMP, TSH reflex FT4, VITD, LIPD #### [facility] [address], [place] [id number] Neutrophils/100 WBC (Bld) 41.4 % Normal [facility] Comment on above: Performed By: #### F T4, CMP, TSH reflex FT4, VITD, LIPD #### [facility] [address], [place] [id number] Platelet mean volume (Bld) [Entitic vol] 11.00 fL Normal 7.50-12.50 [facility] Comment on above: Performed By: #### F T4, CMP, TSH reflex FT4, VITD, LIPD #### [facility] [address], [place] [id number] Platelets (Bld) [#/Vol] 264 10*3/uL Normal 140-400 [facility] Comment on above: Performed By: #### F T4, CMP, TSH reflex FT4, VITD, LIPD #### [facility] [address], [place] [id number] RBC (Bld) [#/Vol] 4.12 10*6/uL Normal 3.90-5.20 [facility] Comment on above: Performed By: #### F T4, CMP, TSH reflex FT4, VITD, LIPD #### [facility] [address], [place] [id number] RDW-SD 46.7 fL Normal 37.0-50.0 [facility] Comment on above: Performed By: #### F T4, CMP, TSH reflex FT4, VITD, LIPD #### [facility] [address], [place] [id number] WBC (Bld) [#/Vol] 6.2 10*3/uL Normal 3.8-11.0 [facility] Comment on above: Performed By: #### F T4, CMP, TSH reflex FT4, VITD, LIPD #### [facility] [address], [place] [id number] Comprehensive Metabolic Pane vanessa 10-05-2021 Albumin [Mass/Vol] 4.6 g/dL Normal 3.6-5.1 [facility] Comment on above: Performed By: #### F T4, CMP, TSH reflex FT4, VITD, LIPD #### [facility] [address], [place] [id number] Albumin/Globulin [Mass ratio] 1.5 {ratio} Normal 1.0-2.5 [facility] Comment on above: Performed By: #### F T4, CMP, TSH reflex FT4, VITD, LIPD #### [facility] [address], [place] [id number] ALP [Catalytic activity/Vol] 72 U/L Normal 35-119 [facility] Comment on above: Performed By: #### F T4, CMP, TSH reflex FT4, VITD, LIPD #### [facility] [address], [place] [id number] ALT [Catalytic activity/Vol] 15 U/L Normal 6-33 [facility] Comment on above: Result Comment: 05/25 Female reference range changed. Performed By: #### F T4, CMP, TSH reflex FT4, VITD, LIPD #### [facility] [address], [place] [id number] Anion gap [Moles/Vol] 17 mmol/L Normal 12-20 [facility] Comment on above: Result Comment: Effe ctive 06/30/2019 reference range changed. Performed By: #### F T4, CMP, TSH reflex FT4, VITD, LIPD #### [facility] [address], [place] [id number] AST [Catalytic activity/Vol] 18 U/L Normal 9-34 [facility] Comment on above: Performed By: #### F T4, CMP, TSH reflex FT4, VITD, LIPD #### [facility] [address], [place] [id number] Bilirubin [Mass/Vol] 0.35 mg/dL Normal 0.30-1.20 [facility] Comment on above: Performed By: #### F T4, CMP, TSH reflex FT4, VITD, LIPD #### [facility] [address], [place] [id number] BUN/CREA 18 Ratio Normal 6-22 [facility] Comment on above: Performed By: #### F T4, CMP, TSH reflex FT4, VITD, LIPD #### [facility] [address], [place] [id number] Calcium [Mass/Vol] 9.3 mg/dL Normal 8.6-10.2 [facility] Comment on above: Performed By: #### F T4, CMP, TSH reflex FT4, VITD, LIPD #### [facility] [address], [place] [id number] Chloride [Moles/Vol] 104 mmol/L Normal 98-107 [facility] Comment on above: Performed By: #### F T4, CMP, TSH reflex FT4, VITD, LIPD #### [facility] [address], [place] [id number] CO2 [Moles/Vol] 20 mmol/L Normal 20-31 [facility] Comment on above: Performed By: #### F T4, CMP, TSH reflex FT4, VITD, LIPD #### [facility] [address], [place] [id number] Creatinine [Mass/Vol] 0.8 mg/dL Normal 0.6-1.4 [facility] Comment on above: Performed By: #### F T4, CMP, TSH reflex FT4, VITD, LIPD #### [facility] [address], [place] [id number] eGFRAA 92 mL/min/1.73m2 Normal >60 [facility] Comment on above: Performed By: #### F T4, CMP, TSH reflex FT4, VITD, LIPD #### [facility] [address] [place], [place] [id number] eGFRNAA 76 mL/min/1.73m2 Normal >60 [facility] Comment on above: Performed By: #### F T4, CMP, TSH reflex FT4, VITD, LIPD #### [facility] [address] [place], [place] [id number] Globulin (S) [Mass/Vol] 3.0 g/dL Normal 1.9-3.7 [facility] [employer] Comment on above: Performed By: #### F T4, CMP, TSH reflex FT4, VITD, LIPD #### [facility] [address] [place], [place] [id number] Glucose [Mass/Vol] 87 mg/dL Normal 65-99 [facility] [employer] Comment on above: Result Comment: For FASTING Glucose --- ADA reference ranges: Normal 65-99 mg/dl Prediabetes 100-125 Diabetes >/= 126 Performed By: #### F T4, CMP, TSH reflex FT4, VITD, LIPD #### [facility] [address] [place], [place] [id number] Potassium [Moles/Vol] 4.3 mmol/L Normal 3.5-5.5 [facility] [employer] Comment on above: Performed By: #### F T4, CMP, TSH reflex FT4, VITD, LIPD #### [facility] [address] [place], [place] [id number] Protein [Mass/Vol] 7.6 g/dL Normal 6.1-8.1 [facility] [employer] Comment on above: Performed By: #### F T4, CMP, TSH reflex FT4, VITD, LIPD #### [facility] [address] [place], [place] [id number] Sodium [Moles/Vol] 137 mmol/L Normal 135-146 [facility] [employer] Comment on above: Performed By: #### F T4, CMP, TSH reflex FT4, VITD, LIPD #### [facility] [address] [place], [place] [id number] Urea nitrogen [Mass/Vol] 14 mg/dL Normal 7-25 [facility] [employer] Comment on above: Performed By: #### F T4, CMP, TSH reflex FT4, VITD, LIPD #### [facility] [address] [place], [place] [id number] Free T4on 10-05-2021 Free T4 [Mass/Vol] 1.23 ng/dL Normal 0.80-1.80 [facility] [employer] Comment on above: Performed By: #### F T4, CMP, TSH reflex FT4, VITD, LIPD #### [facility] [address] [place], [place] [id number] Lipid Panelon 10-05-2021 Cholesterol [Mass/Vol] 239 mg/dL High 125-200 [facility] Comment on above: Result Comment: Low risk < 200mg/dL Borderline risk 201-239 mg/dl High risk > or equal to 240 Performed By: #### F T4, CMP, TSH reflex FT4, VITD, LIPD #### [facility] [address] [place], [place] [id number] Cholesterol in HDL [Mass/Vol] 55 mg/dL Normal >40 [facility] Comment on above: Result Comment: High Cardiovascular Risk HDL <40 mg/dL Low Cardiovascular Risk HDL > or equal to 60 mg/dl Performed By: #### F T4, CMP, TSH reflex FT4, VITD, LIPD #### [facility] [address] [place], [place] [id number] Cholesterol in LDL [Mass/Vol] 168 mg/dL Normal [facility] Comment on above: Result Comment: LDL ATP III CLASSIFICATION LDL less than 100 mg/dl Optimal LDL 100-129 mg/dl Near or above optimal LDL 130-159 Borderline high LDL 160-189 High LDL greater than 189 mg/dl Very High Performed By: #### F T4, CMP, TSH reflex FT4, VITD, LIPD #### [facility] [address] [place], [place] [id number] Cholesterol in VLDL [Mass/Vol] 16 mg/dL Normal [facility] Comment on above: Performed By: #### F T4, CMP, TSH reflex FT4, VITD, LIPD #### [facility] [address] [place], [place] [id number] Cholesterol.total/C holesterol in HDL [Mass ratio] 4 {ratio} Normal [facility] Comment on above: Performed By: #### F T4, CMP, TSH reflex FT4, VITD, LIPD #### [facility] [address] [place], [place] [id number] Triglyceride [Mass/Vol] 78 mg/dL Normal 30-150 [facility] [employer] Comment on above: Result Comment: TRIG ATPIII CLASSIFICATIONS TRIG less than 150 mg/dl Normal TRIG 150-199 mg/dl Borderline High TRIG 200-500 mg/dl High TRIG greather than 500 mg/dl Very High Performed By: #### F T4, CMP, TSH reflex FT4, VITD, LIPD #### [facility] [address] [place], [place] [id number] TSH w/ Reflex to Free T4on 0 10-05-2021 FT4 reflex Free T4 Normal [facility] Comment on above: Performed By: #### F T4, CMP, TSH reflex FT4, VITD, LIPD #### [facility] [address] [place], [place] [id number] TSH 22.300 uIU/mL High 0.400-4.500 [facility] Comment on above: Performed By: #### F T4, CMP, TSH reflex FT4, VITD, LIPD #### [facility] [address] [place], [place] [id number] Vitamin B12/Folateon 022 Cobalamin (Vitamin B12) [Mass/Vol] 365 pg/mL Normal 211-946 [facility] Comment on above: Performed By: #### B 12/Fol #### [facility] [address] [place], [place] [id number] FOL 6.4 ng/mL Normal >4.7 [facility] Comment on above: Result Comment: Refe rence range change 05/11/2017. Prior reference range F 4.8-37.3 ng/mL, M 4.5-32.2 ng/mL. Performed By: #### B 12/Fol #### [facility] [address] [place], [place] [id number] Vitamin D 25-OHon 10-05-2021 VIT D 25 OH 31 ng/ml Normal >29 [facility] [employer] Development Manager Comment on above: Result Comment: Mckenzie min D Status Deficiency <20 ng/mL Insufficiency 20-29 ng/mL Optimal 30-100 ng/mL Possible Toxicity >=150 ng/mL Performed By: #### F T4, CMP, TSH reflex FT4, VITD, LIPD #### [facility] [address] [place], [place] [id number] XR Spine Cervical Complete w /Flex AND [place] 10-05-2021 XR Spine Cervical Complete w/Flex AND Ext FINDINGS: Mild to moderate disc space loss with minimal anterior and posterior osteophyte formation C5-6 and C6-7. Diffuse facet arthropathy. Mild neuroforaminal stenosis, left C5-6, bilateral C6-7. Flexion and extension: C1-2 through C4-5: Normal alignment, no change. C5-6 and C6-7: 1 mm retrolisthesis, no change. C7-T1: 1 mm anterolisthesis, no change. IMPRESSION: 1. Mid cervical arthritis, mild bilateral neuroforaminal stenosis. 2. No significant motion with flexion and extension. Report reported and signed by Erwin Blake on 10/05/2021 1150 Normal [facility] XR Spine Lumbar Complete w/F adolfo AND [place] 10-05-2021 XR Spine Lumbar Complete w/Flex AND Ext FINDINGS: Vertebral body heights are normal. Disc space heights are fairly well maintained. Sclerosis involves posterior elements of the mid and distal lumbar spine; however, no spondylolysis or spondylolisthesis is seen. SI joints are normal for this age. No acute fracture is identified. Soft tissues are relatively unremarkable. FLEXION AND EXTENSION: Normal alignment, no instability. 1.5 cm dense calcification within the left upper quadrant consistent with an intrarenal stone visualized on the prior CT of February 2020 (minimal change). IMPRESSION: 1. Minimal arthritis. 2. Normal alignment, no instability. 3. Left intrarenal stone. Report reported and signed by Erwin Blake on 10/05/2021 1151 Normal [facility] TSH w/ Reflex to Free T4on 0 09-08-2021 TSH 2.640 uIU/mL Normal 0.400-4.500 [facility] [employer] Development Manager Comment on above: Performed By: #### F T4, CMP, TSH reflex FT4, VITD, LIPD #### [facility] [address] [place], [place] [id number] FREE T4on 03-18-2021 Free T4 [Mass/Vol] 1.38 ng/dL Normal 0.78-2.19 [facility] Comment on above: Performed By: #### F T4 #### [facility] [address] [place], [place] [address] Dr. Jose Walden TSHon 03-18-2021 TSH 0.187 uIU/mL Critically low 0.470-4.680 [facility] Comment on above: Result Comment: refl ex FT4 Performed By: #### T SH #### [facility] [address] [place] [address] Dr. Jose Walden TSH RANGE SEE BELOW Normal [facility] Comment on above: Result Comment: <0.3 4 UIU/ml HYPERTHYROID 0.34-5.60 UIU/ml EUTHYROID >5.60 UIU/ml HYPOTHYROID Performed By: #### T SH #### [facility] [address] [place] [address] Dr. Jose Walden CITRATE URINE 24HRon 021 Citric Acid, U, 24hr Comment Normal 320-1240 [facility] Comment on above: Result Comment: No t otal volume submitted. Unable to calculate 24 hour result. This test was developed and its performance characteristics determined by [facility]. It has not been cleared or approved by the Food and Drug Administration. Performed By: #### C ITRATU #### [facility] [address] [place] [address] Allie Arianna Citric Acid, Urine 440 mg/L Normal [facility] Comment on above: Performed By: #### C ITRATU #### [facility] [address] [place] [address] Allie Arianna OXALATE 24HR URINEon 021 Oxalates, Urine 19 mg/L Normal Undefined [facility] Comment on above: Performed By: #### T SH #### [facility] [address] [place] [address] Dr. Jose Walden Oxalates, Urine 24hr 18 mg/24 hr Normal 4-31 [facility] Comment on above: Performed By: #### T SH #### [facility] [address] [place] [address] Dr. Jose Walden MAGNESIUM 24HR URINEon 01-26 Magnesium 24hr Urine 67.5 mg/24 hr Normal 12.0-293.0 [facility] Comment on above: Performed By: #### T SH #### [facility] [address] [place] [address] Dr. Jose Walden Magnesium UR 7.1 mg/dL Normal Not Estab. [facility] Comment on above: Performed By: #### T SH #### [facility] [address] [place] [address] [address] Jose Walden PHOSPHORUS 24HR URINEon Phosphorus, Urine 56.0 mg/dL Normal Not Estab. [facility] Comment on above: Performed By: #### P HOS 24 #### [facility] [address] [place], [place] [id number] Allie Arianna Phosphorus, Urine 24hr 532 mg/24 hr Normal 261-1078 [facility] Comment on above: Performed By: #### P HOS 24 #### [facility] [address] [place], [place] [id number] Allie Arianna URIC ACID 24 HR URINEon Uric Acid, Urine 38.5 mg/dL Normal Not Estab. [facility] Comment on above: Performed By: #### U JORGE 24 #### [facility] [address] [place] [address] Allie Arianna Uric Acid, Urine 24hr 365.8 mg/24 hr Normal 173.7-902.1 [facility] Comment on above: Performed By: #### U JORGE 24 #### [facility] [address] [place], [place] [id number] Allie Arianna CALCIUM 24 HR URINEon 2020 CALC, 24 HR UR 177.7 mg/24 hr Normal 100.0-300.0 [facility] Comment on above: Performed By: #### C ALC24U #### [facility] [address] [place], [place] [id number] Allie Arianna UR CALCIUM 18.7 mg/dL Normal 0.0-21.0 [facility] Comment on above: Performed By: #### C ALC24U #### [facility] [address] [place], [place] [id number] Allie Arianna CREA 24 HR URINEon CREA, 24 HR UR 1195.29 mg/24 hr Normal 800.00-1, 800.0 0 [facility] Comment on above: Performed By: #### N A24U, [id number] #### [facility] [address] [place] [address] Allie Arianna UR TOT VOL 950 ml/24 HR Normal [facility] Comment on above: Performed By: #### N A24U, [id number] #### [facility] [address] [place] [address] Allie Arianna Performed By: #### C ALC24U #### [facility] [address] [place] [address] Allie Arianna URINE CREAT 125.82 mg/dL Normal 20.00-300.[address] [facility] Comment on above: Performed By: #### N A24U, [id number] #### [facility] [address] [place] [address] Allie Arianna SODIUM 24 HR URINEon 021 NA, 24 HR UR 118 mmol/24 hr Normal 40-220 [facility] Comment on above: Performed By: #### N A24U, [id number] #### [facility] [address] [place] [address] Allie Arianna Sodium (U) [Moles/Vol] 124 mmol/L Critically high 30-90 [facility] Comment on above: Performed By: #### N A24U, [id number] #### [facility] [address] [place] [address] Allie Arianna PTH INTACTon 01-19-2021 PTH, Intact 27 pg/mL Normal 15-65 [facility] Comment on above: Performed By: #### P THINT #### [facility] [address] [place] [address] Allie Arianna BUNon 01-18-2021 Urea nitrogen [Mass/Vol] 14.0 mg/dL Normal 7.0-17.0 [facility] Comment on above: Performed By: #### T SH #### [facility] [address] [place] [address] Dr. Jose Walden CALCIUMon 01-18-2021 Calcium [Mass/Vol] 8.6 mg/dL Normal 8.4-10.2 [facility] Comment on above: Performed By: #### T SH #### [facility] [address] [place] [address] [address] Jose Walden CREATININEon 01-18-2021 Creatinine [Mass/Vol] 0.87 mg/dL Normal 0.52-1.04 [facility] Comment on above: Performed By: #### T SH #### [facility] [address] [place] [address] Dr. Jose Walden EGFR-AF SWISS >60 Normal >=60 [facility] Comment on above: Performed By: #### T SH #### [facility] [address] [place] [address] Dr. Jose Walden EGFR-NON AF SWISS >60 Normal >=60 [facility] Comment on above: Performed By: #### T SH #### [facility] [address] [place] [address] Dr. Jose Walden ELECTROLYTESon 01-18-2021 Anion gap [Moles/Vol] 13.3 mmol/L Normal [facility] Comment on above: Performed By: #### T SH #### [facility] [address] [place] [address] Dr. Jose Walden Chloride [Moles/Vol] 108 mmol/L Critically high 98-107 [facility] Comment on above: Performed By: #### T SH #### [facility] [address] [place] [address] Dr. Jose Walden CO2 [Moles/Vol] 25.4 mmol/L Normal 22.0-30.0 [facility] Comment on above: Performed By: #### T SH #### [facility] [address] [place] [address] Dr. Jose Walden Potassium [Moles/Vol] 3.7 mmol/L Normal 3.4-5.0 [facility] Comment on above: Performed By: #### T SH #### [facility] [address] [place] [address] Dr. Jose Walden Sodium [Moles/Vol] 143 mmol/L Normal 137-145 [facility] Comment on above: Performed By: #### T SH #### [facility] [address] [place], [place] [address] Dr. Jose Walden URIC ACID SERUMon 01-18-2021 Urate [Mass/Vol] 3.3 mg/dL Normal 2.5-6.2 [facility] Comment on above: Performed By: #### T SH #### [facility] [address] [place] [address] [address] Jose Walden Vital Signs Date Time Vital Sign Value Performing Clinician Facility 02-23-2023 11:13-0400 Blood Pressure Location Arash FIELD [facility] 02-23-2023 11:13-0400 Body temperature 98.78 [degF] Arash FIELD [facility] 02-23-2023 11:13-0400 Diastolic blood pressure 75 mm[Hg] Arash FIELD [facility] 02-23-2023 11:13-0400 Heart rate 71 /min Arash FIELD [facility] 02-23-2023 11:13-0400 Respiratory rate 16 /min Arash FIELD [facility] 02-23-2023 11:13-0400 Systolic blood pressure 106 mm[Hg] Arashkatherine FIELD [facility] 01-11-2023 13:15-0400 Body height 165.1 cm Jerson Goldsmith Other [facility] 01-11-2023 13:15-0400 Body mass index (BMI) [Ratio] 22.46 kg/m2 Jerson Goldsmith Other [facility] 01-11-2023 13:15-0400 Body weight 61.24 kg Jerson Goldsmith Other [facility] Other 01-11-2023 13:15-0400 Diastolic blood pressure 60 mm[Hg] Jerson Goldsmith Other [facility] Other 01-11-2023 13:15-0400 Systolic blood pressure 94 mm[Hg] Jerson Varelacristy Other [facility] Other 01-02-2022 10:14-0400 Blood Pressure Location Arash FIELD [facility] 01-02-2022 10:14-0400 Diastolic blood pressure 67 mm[Hg] Arash FIELD [facility] 01-02-2022 10:14-0400 Heart rate 74 /min Arash FIELD [facility] 01-02-2022 10:14-0400 Respiratory rate 16 /min Arash FIELD [facility] 01-02-2022 10:14-0400 Systolic blood pressure 98 mm[Hg] Arash FIELD [facility] 09-02-2021 12:15-0500 Body height 165.1 cm Jerson Goldsmith Other [facility] Other 09-02-2021 12:15-0500 Body mass index (BMI) [Ratio] 22.13 kg/m2 Jerson Goldsmith Other [facility] Other 09-02-2021 12:15-0500 Body weight 60.33 kg Jerson Goldsmith Other [facility] Other Encounters Encounter Date Encounter Type Care Provider Facility Start: 10-23-2023 End: 10-23-2023 ambulatory [facility] Start: 09-20-2023 End: 09-21-2023 ambulatory KIMBERLY [facility] Start: 09-20-2023 End: 09-20-2023 Subsequent hospital visit by physician Phuong Hall MD Work Phone: [facility] EKG Comment on above: Renal calculus Start: 09-03-2023 End: 09-04-2023 ambulatory Arash FIELD Facility: [facility] Start: 09-03-2023 End: 09-03-2023 Patient encounter procedure Arash FIELD [facility] Start: 07-12-2023 End: 07-12-2023 ambulatory Jerson Goldsmith Other [facility] Other Start: 07-12-[address] [facility] Start: 05-08-2023 End: 05-08-2023 ambulatory Arash Field Facility:[facility] Start: 05-08-2023 End: 05-08-2023 ambulatory MD Phuong Hall Work Phone: [facility] Work Phone: Start: 05-08-2023 End: 05-08-2023 Patient encounter procedure MD Phuong Hall Work Phone: [facility] [place] Work Phone: Start: 02-23-2023 End: 02-24-2023 ambulatory Arash FIELD Facility:[facility] Start: 02-23-2023 End: 02-23-2023 Patient encounter procedure Arash FIELD [facility] Start: 01-11-2023 End: 01-11-2023 ambulatory Jerson Goldsmith Other [facility] Other Start: 01-11-2023 Patient encounter procedure Jerson Goldsmith [facility] Start: 01-23-2022 End: 01-23-2022 Patient encounter procedure MD Phuong Hall Work Phone: [facility] Start: 01-02-2022 End: 01-02-2022 Patient encounter procedure Arash FIELD [facility] Start: 12-30-2021 End: 12-31-[address] ARASH FIELD Facility:[facility] Start: 10-24-2021 End: 10-24-2021 ambulatory Jerson Goldsmith Other [facility] Other Start: 10-24-2021 Telephone encounter Jerson Goldsmith [facility] Start: 09-02-2021 End: 09-02-2021 ambulatory Jerson Goldsmith Other [facility] Other Start: 09-02-2021 Patient encounter procedure Jerson Goldsmith [facility] Start: 03-18-2021 End: 03-19-[address] PHUONG HALL Facility:[facility] Start: 01-18-2021 End: 01-19-[address] PHUONG HALL Facility:[facility] Procedures Date Procedure Procedure Detail Performing Clinician Start: 09-20-2023 Ecg routine ecg w/le ast 12 lds w/i&r Kimberly Burton MD Work Phone: Start: 11-14-2023 CT of urinary tract MD Phuong Hall Work Phone: Start: 01-23-2022 CT of urinary tract MD Phuong Hall Work Phone: Start: 03-25-2020 Extracorporeal shock wave lithotripsy of calculus of kidney Arash FIELD Colonoscopy Arash FIELD Colonoscopy Arash FIELD Ligation of fallopian tube P clarita FIELD Plan of Treatment Date Care Activity Detail Author Start: 10-18-2023 Screening for malign ant neoplasm of breast Breast cancer screen [facility] [place] Start: 01-23-2023 Influenza vaccination Flu vaccine (# 1) [facility] Start: 2022 Shingles vaccine (1 of 2) Shingles vaccine (1 of 2) [facility] Start: 2017 Screening for malign ant neoplasm of colon [facility] [employer] Start: 2012 Lipid panel Lipids [facility] [employer] Start: 2002 Screening for malign ant neoplasm of cervix [facility] Start: 1993 Screening for malign ant neoplasm of cervix Pap smear [facility] Start: 1991 DTaP/Tdap/Td vaccine (1 - Tdap) DTaP/Tdap/Td vaccine (1 - Tdap) [facility] Start: 1990 Hepatitis C screening Hepatitis C sc reen [facility] Start: 1987 HIV screening HIV screen [facility] Start: 1984 Depression Screen Depression Screen [facility] Start: 01-11-1973 COVID-19 Vaccine (#1) COVID-19 Vacci ne (#1) [facility] Start: 1972 Hepatitis B vaccine (1 of 3 - 3-dose series) Hepatitis B vaccine (1 of 3 - 3-dose series) [facility] Immunizations Immunization Date Immunization Notes Care Provider Fa cility NEGATED: Highlighted row has not occurred!01-10-2021 SARS-CoV-2 (COVID-19) mRNA-1273 vaccine Arash FIELD [facility] Payers Date Payer Category Payer Self-pay [id number] 1970 Unknown [id number] 2.16.84 [id number] 1972 Unknown [id number] 2.16.84 [id number] 1972 Unknown [id number] 2.16.84 [id number] 1972 Unknown [id number] 2.16.8 [id number] 1972 Unknown [id number] 2.16.8 [id number] 1972 Unknown [id number] 2.16.8 [id number] 1972 Unknown [id number] 2.16.8 [id number] 1972 Unknown [id number] 2.16.8 [id number] 1957 [employer] [id number] Unknown [id number] 2.16.8 [id number] Social History Date Type Detail Facility Unknown if ever smoked [facility] Other Start: 09-20-2023 Sex Assigned At [facility] Start: 01-10-2021 End: 09-20-2023 Tobacco smoking status Never smoked tobacco (finding) [facility] Start: 1970 Sex Assigned At Female [facility] Start: 09-20-2023 Tobacco use and exposure Smokeless tobacco non-user [facility] Start: 09-20-2023 Alcohol intake Ex-drinker (finding) [facility] Start: 09-20-2023 History of Social function [facility] Start: 1970 Sex Assigned At Not on file [facility] NEGATED: Highlighted rowStart: NINF History of tobacco use Passive smoker [facility] Functional Status Date Assessment Result Facility 02-23-2023 Functional Status N/A [facility] 01-02-2022 Functional Status N/A [facility] Clinical Notes 09-02-2021 to 07-12-2023 Note Date & Type Note Facility 07-12-2023 Evaluation note Encounter Date Diagnosis Assessment Notes Jun, Ulcerative colitis (ICD-10 - K51.90) [facility] 09-01-2023 Hospital Discharge instructions Follow Up Care 02/23/2023 12:26:27 With:KIM ADLER, Arash Broderick, URL Address: [facility] [address], [place] [phone] When: Unknown [facility] 09-01-2023 Hospital Discharge instructions Patient Education 02/23/2023 12:19:32 Dietary Guidelines to Help Prevent Kidney Stones Dietary Guidelines to Help Prevent Kidney Stones Kidney stones are deposits of minerals and salts that form inside your kidneys. Your risk of developing kidney stones may be greater depending on your diet, your lifestyle, the medicines you take, and whether you have certain medical conditions. Most people can lower their chances of developing kidney stones by following the instructions below. Your dietitian may give you more specific instructions depending on your overall health and the type of kidney stones you tend to develop. What are tips for following this plan? Reading food labels Choose foods with no salt added or low-salt labels. Limit your salt (sodium) intake to less than 1,500 mg a day. Choose foods with calcium for each meal and snack. Try to eat about 300 mg of calcium at each meal.Foods that contain 200 500 mg of calcium a serving include: ?8 oz (237 mL) of milk, kammfjp-vdhsfwhkvfgn-kpfvw milk, and calcium- fortifiedfruit juice. Calcium-fortified means that calcium has been added to these drinks. ?8 oz (237 mL) of kefir, yogurt, and soy yogurt. ?4 oz (114 g) of tofu. ?1 oz (28 g) of cheese. ?1 cup (150 g) of dried figs. ?1 cup (91 g) of cooked broccoli. ?One 3 oz (85 g) can of sardines or mackerel. Most people need 1,000 1,500 mg of calcium a day. Talk to your dietitian about how much calcium is recommended for you. Shopping Buy plenty of fresh fruits and vegetables. Most people do not need to avoid fruits and vegetables, even if these foods contain nutrients that may contribute to kidney stones. When shopping for convenience foods, choose: ?Whole pieces of fruit. ?Pre-made salads with dressing on the side. ?Low-fat fruit and yogurt smoothies. Avoid buying frozen meals or prepared deli foods. These can be high in sodium. Look for foods with live cultures, such as yogurt and kefir. Choose high-fiber grains, such as whole-wheat breads, oat bran, and wheat cereals. Cooking Do not add salt to food when cooking. Place a salt shaker on the table and allow each person to addhis or her own salt to taste. Use vegetable protein, such as beans, textured vegetable protein (TVP), or tofu, instead of meat inpasta, casseroles, and soups. Meal planning Eat less salt, if told by your dietitian. To do this: ?Avoid eating processed or pre-made food. ?Avoid eating fast food. Eat less animal protein, including cheese, meat, poultry, or fish, if told by your dietitian. To dothis: ?Limit the number of times you have meat, poultry, fish, or cheese each week. Eat a diet free of meat at least 2 days a week. ?Eat only one serving each day of meat, poultry, fish, or seafood. ?When you prepare animal protein, cut pieces into small portion sizes. For most meat and fish, one serving is about the size of the palm of your hand. Eat at least five servings of fresh fruits and vegetables each day. To do this: ?Keep fruits and vegetables on hand for snacks. ?Eat one piece of fruit or a handful of berries with breakfast. ?Have a salad and fruit at lunch. ?Have two kinds of vegetables at dinner. Limit foods that are high in a substance called oxalate. These include: ?Spinach (cooked), rhubarb, beets, sweet potatoes, and Kosovan chard. ?Peanuts. ?Potato chips, icelandic fries, and baked potatoes with skin on. ?Nuts and nut products. ?Chocolate. If you regularly take a diuretic medicine, make sure to eat at least 1 or 2 servings of fruits or vegetables that are high in potassium each day. These include: ?Avocado. ?Banana. ?[place], prune, carrot, or tomato juice. ?Baked potato. ?Cabbage. ?Beans and split peas. Lifestyle Drink enough fluid to keep your urine pale yellow. This is the most important thing you can do. Spread your fluid intake throughout the day. If you drink alcohol: ?Limit how much you use to: ?0 1 drink a day for women who are not . ?0 2 drinks a day for men. ?Be aware of how much alcohol is in your drink. In the [place] one drink equals one 12 oz bottle of beer (355 mL), one 5 oz glass of wine (148 mL), or one 1 oz glass of hard liquor (44 mL). Lose weight if told by your health care provider. Work with your dietitian to find an eating plan and weight loss strategies that work best for you. General information Talk to your health care provider and dietitian about taking daily supplements. You may be told thefollowing depending on your health and the cause of your kidney stones: ?Not to take supplements with vitamin C. ?To take a calcium supplement. ?To take a daily probiotic supplement. ?To take other supplements such as magnesium, fish oil, or vitamin B6. Take mgfw-rnn-sixmvvb and prescription medicines only as told by your health care provider. These include supplements. What foods should I limit? Limit your intake of the following foods, or eat them as told by your dietitian. Vegetables Spinach. Rhubarb. Beets. Canned vegetables. Pickles. Olives. Baked potatoes with skin. Grains Wheat bran. Baked goods. Salted crackers. Cereals high in sugar. Meats and other proteins Nuts. Nut butters. Large portions of meat, poultry, or fish. Salted, precooked, or cured meats, such as sausages, meat loaves, and hot dogs. Dairy Cheese. Beverages Regular soft drinks. Regular vegetable juice. Seasonings and condiments Seasoning blends with salt. Salad dressings. Soy sauce. Ketchup. Barbecue sauce. Other foods Canned soups. Canned pasta sauce. Casseroles. Pizza. Lasagna. Frozen meals. Potato chips. Khmer fries. The items listed above may not be a complete list of foods and beverages you should limit. Contact a dietitian for more information. What foods should I avoid? Talk to your dietitian about specific foods you should avoid based on the type of kidney stones youhave and your overall health. Fruits Grapefruit. The item listed above may not be a complete list of foods and beverages you should avoid. Contact adietitian for more information. Summary Kidney stones are deposits of minerals and salts that form inside your kidneys. You can lower your risk of kidney stones by making changes to your diet. The most important thing you can do is drink enough fluid. Drink enough fluid to keep your urine pale yellow. Talk to your dietitian about how much calcium you should have each day, and eat less salt and animal protein as told by your dietitian. This information is not intended to replace advice given to you by your health care provider. Make sure you discuss any questions you have with your health care provider. Document Revised: 02/20/2022 Document Reviewed: 02/20/2022 [employer] Patient Education 2022 [employer] Follow Up Care 10/09/2022 10:30:40 With:KIM ADLER, Arash Broderick, URL Address: [facility] [address], [place] [address]- When:Within 6 Month(s) Comments:w/CTU & 24hr Urine [facility] [place] 07-20-2023 Evaluation note* Encounter Date Diagnosis Assessment Notes Treatment Notes Treatment Clinical Notes Dec, Ulcerative colitis (ICD-10 - K51.90) Continue lialda 4 tablets daily Rto 1 yr First [facility] Other 07-11-2022 Hospital Discharge instructions Patient Education 01/02/2022 10:36:11 Kidney Stones, Ziub-li-Dqgh Kidney Stones Kidney stones are rock-like masses that form inside of the kidneys. Kidneys are organs that make pee (urine). A kidney stone may move into other parts of the urinary tract, including: The tubes that connect the kidneys to the bladder (ureters). The bladder. The tube that carries urine out of the body (urethra). Kidney stones can cause very bad pain and can block the flow of pee. The stone usually leaves your body (passes) through your pee. You may need to have a doctor take out the stone. What are the causes? Kidney stones may be caused by: A condition in which certain glands make too much parathyroid hormone (primary hyperparathyroidism). A buildup of a type of crystals in the bladder made of a chemical called uric acid. The body makes uric acid when you eat certain foods. Narrowing (stricture) of one or both of the ureters. A kidney blockage that you were born with. Past surgery on the kidney or the ureters, such as gastric bypass surgery. What increases the risk? You are more likely to develop this condition if: You have had a kidney stone in the past. You have a family history of kidney stones. You do not drink enough water. You eat a diet that is high in protein, salt (sodium), or sugar. You are overweight or very overweight (obese). What are the signs or symptoms? Symptoms of a kidney stone may include: Pain in the side of the belly, right below the ribs (flank pain). Pain usually spreads (radiates) to the groin. Needing to pee often or right away (urgently). Pain when going pee (urinating). Blood in your pee (hematuria). Feeling like you may vomit (nauseous). Vomiting. Fever and chills. How is this treated? Treatment depends on the size, location, and makeup of the kidney stones. The stones will often pass out of the body through peeing. You may need to: Drink more fluid to help pass the stone. In some cases, you may be given fluids through an IV tube put into one of your veins at the hospital. Take medicine for pain. Make changes in your diet to help keep kidney stones from coming back. Sometimes, medical procedures are needed to remove a kidney stone. This may involve: A procedure to break up kidney stones using a beam of light (laser) or shock waves. Surgery to remove the kidney stones. Follow these instructions at home: Medicines Take amyk-qkk-mvzoblj and prescription medicines only as told by your doctor. Ask your doctor if the medicine prescribed to you requires you to avoid driving or using heavy machinery. Eating and drinking Drink enough fluid to keep your pee pale yellow. You may be told to drink at least 8 10 glasses of water each day. This will help you pass the stone. If told by your doctor, change your diet. This may include: ?Limiting how much salt you eat. ?Eating more fruits and vegetables. ?Limiting how much meat, poultry, fish, and eggs you eat. Follow instructions from your doctor about eating or drinking restrictions. General instructions Collect pee samples as told by your doctor. You may need to collect a pee sample: ?24 hours after a stone comes out. ?8 12 weeks after a stone comes out, and every 6 12 months after that. Strain your pee every time you pee (urinate), for as long as told. Use the strainer that your doctor recommends. Do not throw out the stone. Keep it so that it can be tested by your doctor. Keep all follow-up visits as told by your doctor. This is important. You may need follow-up tests. How is this prevented? To prevent another kidney stone: Drink enough fluid to keep your pee pale yellow. This is the best way to prevent kidney stones. Eat healthy foods. Avoid certain foods as told by your doctor. You may be told to eat less protein. Stay at a healthy weight. Where to find more information National Kidney Foundation (NKF): www.kidney.org Urology Care Foundation (UCF): www.urologyhealth.org Contact a doctor if: You have pain that gets worse or does not get better with medicine. Get help right away if: You have a fever or chills. You get very bad pain. You get new pain in your belly (abdomen). You pass out (faint). You cannot pee. Summary Kidney stones are rock-like masses that form inside of the kidneys. Kidney stones can cause very bad pain and can block the flow of pee. The stones will often pass out of the body through peeing. Drink enough fluid to keep your pee pale yellow. This information is not intended to replace advice given to you by your health care provider. Make sure you discuss any questions you have with your health care provider. Document Released: 11/27/2008 Document Revised: 10/28/2019 Document Reviewed: 10/28/2019 [employer] Patient Education 2020 [employer]. Follow Up Care 01/10/2021 10:24:51 With:KIM ADLER, Arash Broderick, URL Address: [facility] [address], [place] [address]- [phone] When: Unknown Comments:Will schedule Ct scan w/o * stone protocal [facility] 05-02-2022 Evaluation note* Encounter Date Diagnosis Assessment Notes Treatment Notes Treatment Clinical Notes October, Ulcerative colitis (ICD-10 - K51.90) [facility] Other 03-11-2022 Evaluation note* Encounter Date Diagnosis Assessment Notes Treatment Notes Treatment Clinical Notes Aug, Ulcerative colitis (ICD-10 - K51.90) PATIENT DOES CONTINUE ON THE LIALDA CONTINUE ON THE MEDICATION PROCEED WITH COLON [facility] Other Evaluation + Plan note No data available for this section [facility] evaluation + Plan note Future Appointments Appointment Date:09/03/2023 08:45:00 AM Scheduled Provider:Arash FIELD MD Location:[facility] Appointment Type:URO Office Visit [facility] evaluation noteNo assessment information available [facility] Work Phone: Evaluation note* Diagnosis Renal calculus Calculus of kidney documented in this encounter [facility] general Narrative - Reported* Type Description Date Medical History Hypothyroidism Medical History GERD (gastroesophageal reflux di sease) Medical History Depression Medical History Ulcerative colitis Surgical History inguinal hernia repair Surgical History laparoscopy [facility] Other Progress note No data available for this section [facility] Summary Purpose Family History No Family History Records Found Relationship Condition Age at Onset Recorded Date/T compa sister Malignant neoplasm of breast Unknown grandparent Diabetes mellitus Unknown Heart disease Unknown Advance Directives No Advanced Directives Records Found Advance Directive Response Recorded Date/ Time Advance Directives No February 1:26pm Advance Directive Response Recorded Date/ Time Advance Directives No February 12:26pm Chief Complaint and Reason for Visit Chief Complaint N20 R10.9 N39.3 Chief Complaint n20.0 Reason for Referral Specialty Diagnoses / Procedures Referred By Contac t Referred To Contact Cardiology Diagnoses Renal calculus Procedures EKG 12 Lead Kimberly Burton MD [address] [facility], [address] [place] [address] Referral ID Status Reason Start Date Expiration Date Visits Re quested Visits Authorized [id number] Open 09/20/2023 09/19/2024 1 1 Additional Source Comments INFORMATION SOURCE (unrecogn ized section and content) DATE CREATED AUTHOR 11/19/2021 [facility] dical Specialist DATE CREATED AUTHOR AUTHOR'S ORGANIZ ATION 01/10/2022 [facility] DATE CREATED AUTHOR AUTHOR'S ORGANIZ ATION 05/14/2023 [facility] DATE CREATED AUTHOR AUTHOR'S ORGANIZ ATION 09/05/2023 [facility] DATE CREATED AUTHOR AUTHOR'S ORGANIZ ATION 10/24/2023 [facility] REASON FOR VISIT (unrecogniz ed section and content) PATIENT HERE FOR FOLLOW UP U LCERATIVE COLITIS. 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 This clinical summary was aggregated from multiple sources. Caution should be exercised in using it in the provision of clinical care. This summary normalizes information from multiple sources, and as a consequence, information in this document may materially change the coding, format and clinical context of patient data. In addition, data may be omitted in some cases. CLINICAL DECISIONS SHOULD BE BASED ON THE PRIMARY CLINICAL RECORDS. [employer] [facility]. provides no warranty or guarantee of the accuracy or completeness of information in this document.
== END 2023-12-20 15:56 | disposition home or self-care (01) ==
LOC: RAD 15:58
PROVIDERS: PCP Family Medicine
DX: N20.0 Calculus of kidney (principal)
CPT/HCPCS: 74018

== ENCOUNTER 2024-12-15 14:18 | Outpatient (OUT) | payer BC, SELFPAY ==
--- OUTSIDE RECORDS SUMMARY | 2024-07-28 07:28 | XMS_ITS | Continuity of Care Document ---
Author Organization [facility] Address [address] [place] [address] Phone Care Team Providers Care Corporate Communications Specialist Name Role Phone Theron Higgins Unavailable Unavailable Procedures Procedure Date IMMUNIZATION ADMIN HEP B VACCINE, ADULT, IM ROUTINE VENIPUNCTURE IMMUNIZATION ADMIN, EACH ADD Covid-19 Vaccine, 50 Mcg Moderna 12y Plu s IMMUNIZATION ADMIN TDAP VACCINE >7 IM Advance Directives Directive Yes / No Effective Date File Name No Information Encounters Encounter Description Practice Location Reason(s) For Visit Diagnoses Date Provider Providers Copied on Encounter [facility], [address] [place] [address], [id number], tel:[phone] [facility] No Information Bibi Briseno. [address] [place] [address], [id number], [place]. tel:[phone] [facility], [address] [place] [address], [id number], [place] tel:[phone] [facility] lab draw (chief complaint) Encounter for screening for other viral diseases Bibi Briseno. [address] [place] [address], [id number], [place]. tel:[phone] Family History Family Member Type Diagnosis Age At Onset No Information Immunizations Vaccine Date Status Comments Hep B, adult, 3 dose administered Source: New Immunization Record Spikevax 12y+ administered Source: New Im munization Record Tdap (Boostrix) administered Source: New Immunization Record Influenza, MDCK, trivalent, PF administered Source: Other Regist ry Influenza, split virus, quadrivalent, PF administered Source: Other Regist ry Influenza, split virus, quadrivalent, PF administered Source: Other Regist ry MMR administered Source: Other R egistry MMR administered Source: Other R egistry Influenza, split virus, trivalent, PF administered Source: Other Regist ry tetanus toxoid, adsorbed administered Louann rce: Other Registry Payers Payer name Insurance type Covered libertarian ID Authoriza tion(s) Self Pay Cap 09 Self Pay Cap 09 Social History Type Description Quantity Date Captured Comments Alcohol Use Details Unknown Caffeine Use Details Unknown Tobacco Use Status No Information Smoking Status No Information Sex Female Sexual Orientation Straight or heterosexual Jun Gender Identity Female Chief Complaint And Reason For Visit No Information Reason For Referral Reason For Referral No Information Plan Of Treatment Date Type Action Status Goal PRAPARE ASSESSMENT. Due on due Goal Lipid panel. Due on due Goal Colonoscopy. Due on due Goal Zoster vaccine (1st). Due on due Goal FIT. Due on due Goal FOBT. Due on due Goal Influenza vaccine. Due on due Goal FIT-DNA. Due on due Goal Unhealthy drug use screening . Due on due Goal CT-Colonography. Due on due Goal Mammogram. Due on due Goal Hepatitis C screening. Due o n due Goal Tdap Vaccine. Due on 2034 due Goal HPV. Due on due Goal Depression screening. Due on due Goal Tdap due Goal FOBT. Due on due Goal FIT-DNA. Due on due Goal Colonoscopy. Due on due Goal CT-Colonography. Due on due Goal Zoster vaccine (). Due on due Goal Hepatitis C screening. Due o n due Goal HPV. Due on due Goal Tdap due Goal Mammogram. Due on due Goal Unhealthy drug use screening . Due on due Goal PRAPARE ASSESSMENT. Due on due Goal Lipid panel. Due on due Goal FIT. Due on due Goal Tdap Vaccine. Due on 2034 due Goal Influenza vaccine. Due on due Goal Depression screening. Due on due History Of Present Illness Encounter Date Complaint History Of Prese nt Illness lab draw Labs obtained LA C x1 attempt. 2x2 and bandage applied. Patient tolerated well.//JOSER OBERTO Morel Functional Status Date Functional Assessmen t No Information Instructions Date Instruction Additional Infor mation No Information Assessments Type Assessment Date No Information Patient Care Teams Name Effective Dates (start - stop) Status Members No Information
--- OUTSIDE RECORDS SUMMARY | 2024-12-15 14:22 | XMS_ITS | Clinical Summary ---
Author Organization [employer] [facility] tem Address [id number] [address] [place] [address] Care Team Providers Care Sole Conditioner Name Role Phone Phuong Hall MD Primary Care Provider [phone] Social History Tobacco Use Types Packs/Day Years Used Date Smoking Tobacco: Never Assessed Childcare Answer Date Recorded Childcare Unknown 12/04/2018 Employment Answer Date Recorded Employment Unknown 12/04/2018 Purpose - Life Answer Date Recorded Purpose and direction in life Unknown Comments Unknown Sex and Gender Information Value Date Recorded Sex Assigned at Not on file Legal Sex Female 11:44 AM EDT Gender Identity Not on file Sexual Orientation Not on file Plan of Treatment Health Maintenance Due Date Last Done Comments Depression Screening 1984 Tobacco Screening 1984 Adult BMI Screening 1990 DTaP,Tdap and Td Vaccines (1 - Tdap) 1991 Pap Smear 1993 Zoster (Shingles) Vaccine (1 of 2) 2022 Influenza Vaccine 02/23/2025 Medical Devices Not on file Insurance ANTHEM Care Teams Sole Conditioner Relationship Specialty Start Date End Date Phuong Hall MD PCP - General Family Medicine 12/05/18
--- OUTSIDE RECORDS SUMMARY | 2024-12-15 14:22 | XMS_ITS | Encounter Summary ---
Author Organization [facility] Address [address] [place] [address] Care Team Providers Care Forklift Truck Operator Name Role Phone Phuong Hall MD Primary Care Provider [phone] Encounter Details Date Type Department Care Team (Late st Contact Info) Description 10/16/2023 Orders Only [facility] [address] [place] [phone] Provider, MD Sandra Social History Tobacco Use Types Packs/Day Years Used Date Smoking Tobacco: Never Passive Smoke Exposure: Never Smokeless Tobacco: Never Alcohol Use Standard Drinks/Week Comments Not Currently 0 (1 standard drink = 0.6 oz pur e alcohol) Interpersonal Safety Domain Source: IP Abuse Scr eening Answer Date Recorded Read-Only, Retired: Physical Abuse Denies 10/10/2023 Read-Only, Retired: Verbal Abuse Denies 10/10/2023 Read-Only, Retired: Emotional abuse Denies 10/10/2023 Read-Only, Retired: Financial Abuse Denies 10/10/2023 Read-Only, Retired: Sexual abuse Denies 10/10/2023 Comments Unknown Sex and Gender Information Value Date Recorded Sex Assigned at Not on file Legal Sex Female 9:44 AM EDT Gender Identity Not on file Sexual Orientation Not on file documented as of this encounter Plan of Treatment Upcoming Encounters Date Type Department Care Team (Late st Contact Info) Description 12/24/2024 3:15 PM EDT Office Visit [facility] [address]OLOG[address] [place] [address] Hugh Stern PA-C [address] [place], [place] [id number] 1 year KUB documented as of this encounter Procedures Procedure Name Priority Date/Time Associated Diagnosis Comments URIC ACID Routine 03/01/2023 5:10 PM EDT documented in this encounter Results * Uric Acid (03/01/2023 5:10 PM EDT) Blood BLOOD SPECIMEN / Unknown us Historical Provider CHEMISTRY ORDERABLES Cleo l Result documented in this encounter Visit Diagnoses Not on filedocumented in this encounter Care Teams Forklift Truck Operator Relationship Specialty Start Date End Date Phuong Hall MD [address] [place] [address] PCP - General 09/20/23 documented as of this encounter
--- OUTSIDE RECORDS SUMMARY | 2024-12-15 14:22 | XMS_ITS | Referral Summary ---
Author Organization [facility] Address [address] [place] [address] Care Team Providers Care Library Historian Name Role Phone Unavailable Primary Care Provider Unavailabl e Social History Tobacco Use Types Packs/Day Years Used Date Smoking Tobacco: Never Assessed Comments Unknown Sex and Gender Information Value Date Recorded Sex Assigned at Not on file Legal Sex Female 12:15 AM EDT Gender Identity Not on file Sexual Orientation Not on file Last Filed Vital Signs Vital Sign [place] Time Taken Comments Blood Pressure 114/77 12/04/2018 1:56 PM EDT Pulse 76 12/04/2018 1:57 PM EDT Temperature - - Respiratory Rate 15 12/04/2018 1:56 PM EDT Oxygen Saturation 99% 12/04/2018 1:56 PM EDT Inhaled Oxygen Concentration - - Weight 58.6 kg (129 lb 1.6 oz) 12/04/2018 1:43 P M EDT Height 165.1 cm (5' 5 ) 12/04/2018 1:45 PM EDT Body Mass Index 21.48 12/04/2018 1:43 PM EDT Plan of Treatment Not on file
--- OUTSIDE RECORDS SUMMARY | 2024-12-15 14:22 | XMS_ITS | Clinical Summary ---
Author Organization [facility] Address [address] [place] [address] Care Team Providers Care Crane Operator Name Role Phone Phuong Hall MD Primary Care Provider [phone] Allergies No known active allergies Medications levothyroxine (SYNTHROID) 125 MCG tablet Take 1 tablet by mouth Daily 07/06/2023 Active fluticasone (FLONASE) 50 MCG/ACT nasal spray 1 spray by Nasal route daily 07/30/2023 Active esomeprazole (NEXIUM) 40 MG delayed release capsule Take 1 capsule by mouth every morning (before breakfast) 09/13/2023 Active mesalamine (LIALDA) 1.2 g EC tablet Take 4 tablets by mouth daily 07/12/2023 Active valACYclovir (VALTREX) 500 MG tablet Take 1 tablet by mouth 2 times daily Active Active Problems Problem Noted Date Diagnosed Date Renal calculus 10/22/2023 Social History Tobacco Use Types Packs/Day Years Used Date Smoking Tobacco: Never Passive Smoke Exposure: Never Smokeless Tobacco: Never Tobacco Cessation:Counseling Given: Not Answered Alcohol Use Standard Drinks/Week Comments Not Currently 0 (1 standard drink = 0.6 oz pur e alcohol) Interpersonal Safety Domain Source: IP Abuse Scr eening Answer Date Recorded Read-Only, Retired: Physical Abuse Denies 10/23/2023 Read-Only, Retired: Verbal Abuse Denies 10/23/2023 Read-Only, Retired: Emotional abuse Denies 10/23/2023 Read-Only, Retired: Financial Abuse Denies 10/23/2023 Read-Only, Retired: Sexual abuse Denies 10/23/2023 Comments Unknown Sex and Gender Information Value Date Recorded Sex Assigned at Not on file Legal Sex Female 9:44 AM EDT Gender Identity Not on file Sexual Orientation Not on file Last Filed Vital Signs Vital Sign [place] Time Taken Comments Blood Pressure 101/68 12/26/2023 3:23 PM EDT Pulse 78 12/26/2023 3:23 PM EDT Temperature 37.1 C (98.7 F) 12/26/2023 3:23 PM EDT Respiratory Rate 16 10/23/2023 11:45 AM EDT Oxygen Saturation 98% 10/23/2023 11:45 AM EDT Inhaled Oxygen Concentration - - Weight 63.6 kg (140 lb 3.2 oz) 12/26/2023 3:23 P M EDT Height 165.1 cm (5' 5 ) 12/26/2023 3:23 PM EDT Body Mass Index 23.33 12/26/2023 3:23 PM EDT Plan of Treatment Upcoming Encounters Date Type Department Care Team (Late st Contact Info) Description 12/24/2024 3:15 PM EDT Office Visit [facility] UROLOGY Part of [address] [place] [address] Hugh Stern PALelaC [address] [place] [address] [address] [place] [id number] 1 year KUB Health Maintenance Due Date Last Done Comments Depression Screen 1984 HIV screen 1987 Hepatitis C screen 1990 DTaP/Tdap/Td vaccine (1 - Tdap) 1991 Hepatitis B vaccine (1 of 3 - 19+ 3-dose series) 1991 Pap smear 1993 Cervical cancer screen 2002 HPV (without or with Pap) 2002 Lipids 2012 Colonoscopy 2017 Colorectal Cancer Screen 2017 FIT/FOBT: Average risk 2017 Fecal-DNA (Cologuard): [place] ge risk 2017 Sigmoidoscopy/CT colonography 2017 Pneumococcal 50+ years Vacci ne (1 of 1 - PCV) 2022 Shingles vaccine (1 of 2) 2022 Breast cancer screen 10/18/2023 10/17/2021, 11/13/2018, 11/13/2018 COVID-19 Vaccine (1 - 2023-2 5 season) 2024 Flu vaccine (Season Ended) 2025 Hepatitis A vaccine Aged Out No longe r eligible based on patient's age to complete this topic Hib vaccine Aged Out No longer eligi ble based on patient's age to complete this topic Meningococcal (ACWY) vaccine Aged Out No longer eligible based on patient's age to complete this topic Meningococcal B vaccine Aged Out No l onger eligible based on patient's age to complete this topic Polio vaccine Aged Out No longer elig ible based on patient's age to complete this topic Medical Devices Implanted Type Area Electrical Appliance Mechanic Device Identifier Shelf Expiration Date Model / Serial / Lot Stent Uret 6fr L26cm Hydr+ Pgtl Tapr Tip Grad Bldr Mrk - [id number] Implanted:Qty: 1 on 10/23/2023 by Jasper Steele MD at [facility] Left: Ureter [facility] 04/18/2026 [id number] / / [id number] Insurance BCBS OUT OF STATE Advance Directives * Full Code (Latest Code Status on File) Date Activated Date Inactivated Comments 10/23/2023 7:42 AM 10/23/2023 2:07 PM Care Teams Crane Operator Relationship Specialty Start Date End Date Phuong Hall MD [address] [place] [address] PCP - General 09/20/23
--- NOTE | 2024-12-15 14:28 | XR_ITS ---
[facility] [place] [id number] Patient Name: FAUSTO CINTRON MRN: [id number] date: 1970 Sex: F Assigned Patient Location: [facility] Current Patient Location: [facility] Accession/Order Number: [id number] Exam Date: 12/15/2024 16:37 Report Date: 12/15/2024 16:40 At the request of: ROGELIO RUSSELL Procedure: XR abdomen 1V XR abdomen 1V 12/15/2024 2:52 PM SIGNS AND SYMPTOMS: ^Renal Calculus PROTOCOL: Frontal radiographs of the abdomen and pelvis COMPARISON: 01/23/2022 and 02/14/2023 FINDINGS: There are bilateral radiodense renal stones redemonstrated measuring up to 1.2 cm in greatest dimension on the left and 3 mm in greatest dimension on the right. There is a nonobstructive bowel gas pattern. The bony structures are within normal limits. XR/XR abdomen 1V IMPRESSION: There are bilateral radiodense renal stones redemonstrated measuring up to 1.2 cm in greatest dimension on the left and 3 mm in greatest dimension on the right. Impression dictated by: Javier Lopez M.D. 12/15/2024 4:40 PM Dictation Location: [place] [address] Electronically authenticated by: [id number] Y Date: 12/15/2024 16:40
== END 2024-12-15 14:19 | disposition home or self-care (01) ==
LOC: RAD 14:20
PROVIDERS: PCP Family Medicine; Visit Provider Family Medicine
DX: N20.0 Calculus of kidney (principal)
CPT/HCPCS: 74018

== ENCOUNTER 2024-12-15 14:21 | Outpatient (OUT) | payer BC, SELFPAY ==
[2024-12-16 04:14] LABS: DHEA-Sulfate 50.5 ug/dL (41.2-243.7); Progesterone <0.1 ng/mL (.)
== END 2024-12-15 14:22 | disposition home or self-care (01) ==
LOC: LAB 14:22
PROVIDERS: PCP Family Medicine; Visit Provider Nurse Practitioner Family
DX: N20.0 Calculus of kidney (principal); E34.9 Endocrine disorder, unspecified
CPT/HCPCS: 36415; 74018; 82530; 82627; 82652; 82670; 82679; 84144; 84402; 84403

== ENCOUNTER 2025-01-12 15:41 | Outpatient (REF) | payer BC, SELFPAY ==
--- OUTSIDE RECORDS SUMMARY | 2024-07-28 07:28 | XMS_ITS | Continuity of Care Document ---
Author Organization [facility] Address [address] [place] [address] Phone Care Team Providers Care Repeat Chief Name Role Phone Theron Higgins Unavailable Unavailable [...] Diagnoses Date Provider Providers Copied on Encounter [facility], [address] [place] [address], [id number], tel:[phone] [facility] No Information Bibi Briseno. [address] [place] [address], [id number], [place]. tel:[phone] [facility], [address] [place] [address], [id number], [place] tel:[phone] [facility] lab draw (chief complaint) Encounter for screening for other viral diseases Bibi Briseno. [address] [place] [address], [id number], [place]. tel:[phone] Family History Family Member Type Diagnosis Age [...] Registry Payers Payer name Insurance type Covered republican ID Authoriza tion(s) Self Pay Cap 09 [...] attempt. 2x2 and bandage applied. Patient tolerated well.//JOSE ROBERTO Morel Functional Status Date Functional Assessmen t No Information Instructions Date Instruction Additional Infor mation No Information Assessments Type Assessment Date No Information Patient Care Teams Name Effective Dates (start - stop) Status Members No Information
--- OUTSIDE RECORDS SUMMARY | 2025-01-12 15:44 | XMS_ITS | Clinical Summary ---
Author Organization [facility] Address [address], [address] [place] [address] Care Team Providers Care Home School Teacher Name Role Phone Phuong Hall MD Primary Care Provider [phone] Allergies No known active allergies Medications levothyroxine (SYNTHROID) 125 MCG tablet Take 112 mcg by mouth Daily 4 Active fluticasone (FLONASE) 50 MCG/ACT nasal spray 1 spray by Nasal route daily 4 Active esomeprazole (NEXIUM) 40 MG delayed release capsule Take 1 capsule by mouth every morning (before breakfast) 4 Active mesalamine (LIALDA) 1.2 g EC tablet Take 4 tablets by mouth daily ulcerative colitis 4 Active valACYclovir (VALTREX) 500 MG tablet Take 1 tablet by mouth 2 times daily Active Active Problems Problem Noted Date Diagnosed Date Renal calculus 10/22/2023 Encounters Date Type Department Care Team Description 12/24/2024 3:15 PM EDT Office Visit [facility] UROLOGY Part of [address] [place] [address] Hugh Stern PA-C Renal calculus (Primary Dx) 12/24/2024 Orders Only [facility] UROLOGY Part [address] [place] [address] Nils Haywood nurse clinician calculus from Last 3 Months Social History Tobacco Use Types Packs/Day Years Used Date Smoking Tobacco: Never Passive Smoke Exposure: Never Smokeless Tobacco: Never Tobacco Cessation:Counseling Given: No Alcohol Use Standard Drinks/Week Comments Not Currently [...] Sign [place] Time Taken Comments Blood Pressure 97/61 12/24/2024 3:14 PM EDT Pulse 62 12/24/2024 3:14 PM EDT Temperature 36.5 C (97.7 F) 12/24/2024 3:14 PM EDT Respiratory Rate 16 10/23/2023 11:45 AM EDT Oxygen Saturation 98% 10/23/2023 11:45 AM EDT Inhaled Oxygen Concentration - - Weight 63 kg (139 lb) 12/24/2024 3:14 PM EDT Height 165.1 cm (5' 5 ) 12/24/2024 3:14 PM EDT Body Mass Index 23.13 12/24/2024 3:14 PM EDT Plan of Treatment Upcoming Encounters Date Type Department Care Team (Late st Contact Info) Description 06/26/2025 9:15 AM EST Appointment [facility] CT Scan [address] [place] [address] epic sched with ofc nils 07/03/2025 10:00 AM EST Office Visit [facility] UROLOGY Part of [address] [place] [address] Jasper Steele MD [address] [facility], [address] [place] [address]/ with Health Maintenance Due Date Last Done Comments Depression Screen 1984 HIV screen 1987 Hepatitis C screen 1990 Hepatitis B vaccine (1 of 3 - 19+ 3-dose series) 1991 Pap smear 1993 Cervical cancer screen 2002 HPV (without or with Pap) 2002 Lipids 2012 Colonoscopy 2017 Colorectal Cancer Screen 2017 FIT/FOBT: Average risk 2017 Fecal-DNA (Cologuard): Average risk 2017 Sigmoidoscopy/CT colonography 2017 Pneumococcal 50+ years Vaccine (1 of 1 - PCV) 2022 Shingles vaccine (1 of 2) 2022 Flu vaccine (#1) 01/23/2025 06/24/2024, , 05/24/2021 Breast cancer screen 09/01/2026 09/01/2024, 10/17/2021, 11/13/2018, Additional history exists DTaP/Tdap/Td vaccine (2 - Td or Tdap) 07/07/2034 07/07/2024 COVID-19 Vaccine Completed 07/07/2024 Hepatitis A vaccine Aged Out No longe [...] this topic Medical Devices Implanted Type Area Supervisor Filtration Device Identifier Shelf Expiration Date Model / Serial / Lot Stent Uret 6fr L26cm Hydr+ Pgtl Tapr Tip Grad Bldr Mrk Lo - [id number] Implanted:Qty: 1 on 10/23/2023 by Jasper Steele MD at [facility] Left: [employer] [facility] 04/18/2026 [id number] / / [id number] Insurance BCBS OUT OF STATE Advance Directives * Full Code (Latest Code Status on File) Date Activated Date Inactivated Comments 10/23/2023 7:42 AM 10/23/2023 2:07 PM Care Teams Home School Teacher Relationship Specialty Start Date End Date Phuong Hall MD [address] [place] [address] PCP - General 09/20/23
--- OUTSIDE RECORDS SUMMARY | 2025-01-12 15:44 | XMS_ITS | Encounter Summary ---
Author Organization [facility] Address [address] [facility], [address] [place] [address] Care Team Providers Care Electroencephalogram Technologist Name Role Phone Phuong Hall MD Primary Care Provider [phone] Encounter Details Date Type Department Care Team (Late st Contact Info) Description 10/16/[address] [facility] UROLOGY Part of [facility] [address] [address] [place] [address] Provider, MD Sandra Social History Tobacco Use [...] Info) Description 06/26/2025 9:15 AM EST Appointment [facility] CT Scan [address] [place], [place] [id number] epic sched with ofc nils 07/03/2025 10:00 AM EST Office Visit [facility] UROLOGY Part of [address] [place] [address] Jasper Steele MD [address] [facility], [address] [place] [address]/ with dr documented as of this encounter Procedures Procedure Name Priority Date/Time Associated Diagnosis Comments URIC ACID Routine 03/01/2023 5:10 PM EDT documented in this encounter Results * Uric Acid (03/01/2023 5:10 PM EDT) Blood BLOOD SPECIMEN / Unknown us Historical Provider CHEMISTRY ORDERABLES Cleo l Result documented in this encounter Visit Diagnoses Not on filedocumented in this encounter Care Teams Electroencephalogram Technologist Relationship Specialty Start Date End Date Phuong Hall MD [address] [place] [address] PCP - General 09/20/23 documented as of this encounter
--- OUTSIDE RECORDS SUMMARY | 2025-01-12 15:44 | XMS_ITS | Clinical Summary ---
Author Organization [facility] Address [id number] [address] [place] [address] Care Team Providers Care Accounting Supervisor Name Role Phone Phuong Hall MD Primary Care Provider [phone] Social History Tobacco Use Types Packs/Day Years [...] Not on file Insurance ANTHEM Care Teams Accounting Supervisor Relationship Specialty Start Date End Date Phuong Hall MD PCP - General Family Medicine 12/05/18
--- OUTSIDE RECORDS SUMMARY | 2025-01-12 15:44 | XMS_ITS | Encounter Summary ---
Author Organization [facility] Address [address], [address] [place] [address] Care Team Providers Care Desulphurizer Operator Name Role Phone Phuong Hall MD Primary Care Provider [phone] Encounter Details Date Type Department Care Team (Late st Contact Info) Description 12/24/2024 Orders Only [facility] UROLOGY Part of [facility] [address] [facility] [address] [place] [phone] Nils Haywood library page calculus Social History Tobacco Use Types Packs/Day Years [...] Info) Description 06/26/2025 9:15 AM EST Appointment [facility] CT Scan [address] [place] [id number] epic sched with ofc nils 07/03/2025 10:00 AM EST Office Visit [facility] UROLOGY Part of [facility] [address] [facility] [address] [place] [address] Jasper Steele MD [address] [facility], [address] [place] [address]/ with dr documented as of this encounter Visit Diagnoses Diagnosis Renal calculus Calculus of kidney documented in this encounter Care Teams Desulphurizer Operator Relationship Specialty Start Date End Date Phuong Hall MD [address] [place] [address] PCP - General 09/20/23 documented as of this encounter
--- OUTSIDE RECORDS SUMMARY | 2025-01-12 15:44 | XMS_ITS | Clinical Summary ---
Author Organization [facility] Address [address] [place] [address] Care Team Providers Care Vp Research Name Role Phone Unavailable Primary Care Provider [...]
--- OUTSIDE RECORDS SUMMARY | 2025-01-12 17:03 | XMS_ITS | CCD ---
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 Name Role Phone Jerson Goldsmith Unavailable LARRY JONES Primary Care Physician [phone] EMIR, DR MEEK Consulting Unavailable RAFAEL, DR MERCADO Primary Care Unavailable EMIR, DR MEEK Admitting Unavailable FIELD, DR MEEK Attending Unavailable ZIEBER, DR CRISTOFER Broderick Consulting Unavailable RAFAEL, DR MERCADO Primary Care Unavailable EMIR, DR MEEK Admitting Unavailable EMIR, DR MEEK Attending Unavailable EMIR, DR MEEK Consulting Unavailable RAFAEL, DR MERCADO Admitting Unavailable RAFAEL, DR MERCADO Attending Unavailable RAFAEL, DR MERCADO Consulting Unavailable RAFAEL, DR MERCADO Primary Care Unavailable MD Phuong Hall Primary Care Provider MD Arash Field Attending Provider [phone] MD Phoung Hall Primary Care Provider MD Arash Field Attending Provider Arash Field Admitting Unavailable Arash Field Attending Unavailable Rafael, Phuong Primary Care Unavailable LARRY JONES Primary Care Physician Arash FIELD Attending Unavailable Arash FIELD Attending Unavailable Phuong Hall MD Primary Care Provider [phone] KIMBERLY BURTON Referring Unavailable PHUONG HALL Primary Care Unavailable KIMBERLY BURTON Referring Unavailable PHUONG HALL Primary Care Unavailable KIMBERLY BURTON Admitting Unavailable KIMBERLY BURTON Attending Unavailable PHUONG HALL Primary Care Unavailable Phuong Hall MD Primary Care Provider DIANA WANG Attending Unavailable PHUONG HALL Attending Unavailable PHUONG HALL Referring Unavailable QIANA TORO Attending Unavailable Medications Current Medications Medication Drug Class(es) [...] esomeprazole 40 mg delayed release oral capsule (20 sources) Proton Pump Inhibitor Start: 12-15-2024 End: 03-15-2025 take 1 capsule by mouth once daily esomeprazole (NexIUM) [address] capsule Indications: Acute gastroenteritis TAKE 1 CAPSULE BY MOUTH EVERY DAY FOR 90 DAYS 30 capsule 5 12/15/2024 03/15/2025 Active Start: 03-26-2020 End: 08-22-2024 take 1 capsule by mouth once daily esomeprazole (NexIUM) [address] capsule Indications: Acute gastroenteritis TAKE 1 CAPSULE BY MOUTH EVERY DAY FOR 90 DAYS 30 capsule 20 11/20/2023 Active estradiol 0.1 mg/ml vaginal cream (2 sources) Estrogen Start: 01-12-2025 estradiol (Est race) 0.1 MG/GM vaginal cream Indications: Postmenopausal state 2g vaginal daily for 2 weeks, then 2 times weekly following initial 2 weeks 42.5 g 01/12/2025 Active Start: 01-12-2025 estradiol (Est race) 0.1 MG/GM vaginal cream Indications: Postmenopausal state 2g vaginal daily for 2 weeks, then 2 times weekly following initial 2 weeks 42.5 g 01/12/2025 Active fluticasone propionate 0.05 mg/actuat metered dose nasal spray (20 sources) Corticosteroid Start: 07-30-2023 End: 05-16-2024 fluticasone (Flonase) 50 MCG/ACT nasal spray Indications: Seasonal allergic rhinitis due to pollen USE 1-2 SPRAYS IN EACH NOSTRIL IN MORNING.SHAKE GENTLY.PRIME PUMP BEFORE FIRST USE.CLEAN TIP AFTER. 48 mL 11 05/16/2024 Active Start: 07-30-2023 fluticasone (F LONASE) 50 MCG/ACT nasal spray 1 spray by Nasal route daily 0 07/30/2023 Active Start: 03-26-2020 Flonase Nasal, Daily, Refill(s) 0 Start Date: 03/26/20 Status: Ordered End: 08-22-2024 fluticasone (Flonase) 50 MCG /ACT nasal spray 1 (one) time each day at the same time 08/22/2024 Discontinued (Therapy completed) take 1 spray(s) nasa l route once daily Flonase 50 MCG/DOSE 1 spray in each nostril Nasally Once a day Active take 1 spray(s) nasa l route once daily Flonase 50 MCG/DOSE 1 spray in each nostril Nasally Once a day Active levothyroxine sodium 0.112 mg oral tablet (20 sources) l-Thyroxine Start: 08-24-2024 End: 08-24-2025 take 1 tablet by mouth before mealtime levothyroxine (Synthroid, Levoxyl) 112 MCG tablet Indications: Hypothyroidism, unspecified type Take 1 tablet (112 mcg) by mouth in the morning. Take before meals. 90 tablet 3 08/24/2024 08/24/2025 Active Start: 07-06-2023 End: 08-12-2025 take 1 tablet by mouth before mealtime levothyroxine (Synthroid, Levoxyl) 125 MCG tablet Indications: Hypothyroidism, unspecified type (CMS/HCC) Take 1 tablet (125 mcg) by mouth in the morning. Take before meals. 90 tablet 3 08/12/2024 08/24/2024 Discontinued (Reorder) Start: 01-02-2022 levothyroxine 112 mcg (0.112 mg) Tab Refills(s) 0 Start Date: 01/02/22 Status: Ordered Start: 09-21-2021 take 137 ug by mouth once daily Levothyroxine Active 137 MCG PO Daily September 20, 2021 11:00pm take 1 tablet by naveen once daily in the morning Synthroid 137 MCG 1 tablet on an empty stomach in the morning Orally Once a day for 30 day(s) Active mesalamine 1200 mg delayed release oral tablet (20 sources) Aminosalicylate Start: 03-26-2020 Lialda gram, O ral, Daily, Refill(s) 0 Start Date: 03/26/20 Status: Ordered Start: 07-04-2013 take 4 tablets by mo [facility] once daily mesalamine (LIALDA) 1.2 g EC tablet Take 4 tablets by mouth daily 0 07/12/2023 Active Start: 07-04-2013 take 4 tablets by [facility] every twenty-four hours Lialda 1.2 GM 4 tablets Orally Once a day for 90 days Jun, Active Lialda 1.2 g EC tablet Take 1,200 mg by mouth Active methylPREDNISolone (2 sources) Corticosteroid Start: 10-13-2024 End: 10-20-2024 methylPREDNISolone (Medrol Dospak) 4 MG tablets Indications: Leg pain, left Follow schedule on package instructions 21 tablet 10/13/2024 10/20/2024 Active valACYclovir 500 mg oral tablet (20 sources) Herpesvirus Nucleoside Analog DNA Polymerase Inhibitor, Herpes Simplex Virus Nucleoside Analog DNA Polymerase Inhibitor, Herpes Zoster Virus Nucleoside Analog DNA Polymerase Inhibitor Start: 12-18-2024 take 2 tablets by mouth once daily valACYclovir (Valtrex) 500 MG tablet Indications: Herpes TAKE 2 TABLETS BY MOUTH DAILY 60 tablet 2 12/18/2024 Active Start: 08-08-2024 End: 09-07-2024 take 2 tablets by mouth once daily valACYclovir (Valtrex) 500 MG tablet Indications: Herpes Take 2 tablets (1,000 mg) by mouth Daily 60 tablet 2 08/08/2024 09/07/2024 Active Start: 09-21-2021 take 1000 mg by mout h once daily Valacyclovir Active 1000 MG PO Daily September 20, 2021 11:00pm Start: 03-26-2020 take 1 tablet by naveen th twice daily Valtrex 1 g Tab gram tab(s), Oral, BID, Refills(s) 0 Start Date: 03/26/20 Status: Ordered take 1 tablet by naveen twice daily valACYclovir (VALTREX) 500 MG tablet Take 1 tablet by mouth 2 times daily 0 Active take 2 tablets by [facility] every twelve hours Valtrex 500 MG 2 tablets Orally every 12 hrs for 10 day(s) Active 24 hr venlafaxine 37.5 mg extended release oral capsule (20 sources) Serotonin and Norepinephrine Reuptake Inhibitor Start: 08-18-2024 End: 01-12-2025 take 1 capsule by mouth once daily venlafaxine XR (Effexor XR) 37.5 MG 24 hr capsule Indications: Perimenopausal vasomotor symptoms Take 1 capsule (37.5 mg) by mouth Daily Do not crush or chew. 08/22/2024 01/12/2025 Discontinued Vitamin D (3 sources) Start: 03-26-2020 Vitamin D Oral, Refills(s) 0 Start Date: 03/26/20 Status: Ordered Vitamin D 91936 U (4 sources) Vitamin D 74268 U as directed Orally Active Completed/Discontinued Medications Medication Drug Class(es) Dates Sig (Normalized) Sig (Original) Ketorolac (4 sources) Nonsteroidal Anti-inflammatory Drug, Cyclooxygenase Inhibitor Start: 02-13-2020 Toradol per 15 mg Jan, 30 mg Triamcinolone (4 sources) Corticosteroid Start: 02-13-2020 KENALOG - 10 mg Jan, 10 mg Problems Problem Classification Problem Date Documented Da te Episodic/Chronic Abdominal pain (12 sources) Abdominal pain; Translations: [Unspecified abdominal pain] [...] including migraine (3 sources) Headache 03-26-2020 Episodic Menopausal disorders (4 sources) Menopausal flushing; Translations: [Menopausal and female climacteric states] 08-18-2024 Chronic Mood disorders (5 sources) Depressive disorder; Translations: [Depression, unspecified depression type (CMS/HCC)] 03-26-2020 Chronic Osteoarthritis (3 sources) Arthritis 03-26-2020 Chronic Other connective tissue disease (4 sources) Pain in left lower limb; Translations: [Pain in left leg] 10-13-2024 Episodic Other endocrine disorders (2 sources) Disorder of endocrine system; Translations: [Endocrine disorder, unspecified] 08-18-2024 Episodic Other gastrointestinal disorders (2 sources) Dysphagia; Translations: [Dysphagia, unspecified] 08-22-2024 Episodic Other nervous system disorders (4 sources) Numbness; Translations: [Anesthesia of skin] 10-13-2024 Episodic Other screening for suspected conditions (not mental disorders or infectious disease) (4 sources) Patient encounter status; Translations: [Encounter for screening mammogram for malignant neoplasm of breast] 08-22-2024 Episodic Other upper respiratory disease (1 source) Allergic rhinitis due to pollen; Translations: [Allergic rhinitis due to pollen] 05-16-2024 Chronic Regional enteritis and ulcerative colitis (11 sources) Ulcerative colitis; Translations: [Ulcerative colitis, unspecified, without complications] Onset: 2 Resolved: 2 Chronic Residual codes; unclassified (2 sources) Menopause present; Translations: [Asymptomatic menopausal state] 08-18-2024 Episodic Residual codes; unclassified (2 sources) Postmenopausal state; Translations: [Asymptomatic menopausal state] 01-12-2025 Episodic Spondylosis; intervertebral disc disorders; other back problems (8 sources) Sciatica; Translations: [Sciatica, left side] Episodic Thyroid disorders (20 sources) Hypothyroidism; Translations: [Hypothyroidism, unspecified] Onset: 1 03-26-2020 Chronic Results Test Name Value Interpretation Reference Range Facility XR ABDOMEN 1Von 12-15-2024 [place] [address] XRay Report Signed Patient: FAUSTO MERRILL MR#: [id number] : 1970 Acct:[id number] Age/Sex: 54 / F ADM Date: 12/15/24 Loc: RAD Attending Dr: PHUONG HALL Ordering Physician: PHUONG HALL Date of Service: 12/15/24 Procedure(s): XR abdomen 1V Accession Number(s): [id number] cc: PHUONG HALL [place] [address] Patient Name: FAUSTO MERRILL MRN: [id number] date: 1970 Sex: F Assigned Patient Location: RAD Current Patient Location: RAD Accession/Order Number: [id number] Exam Date: 12/15/2024 16:37 Report Date: 12/15/2024 16:40 At the request of: PHUONG HALL Procedure: XR abdomen 1V XR abdomen 1V 12/15/2024 2:52 PM SIGNS AND SYMPTOMS: Renal Calculus PROTOCOL: Frontal radiographs of the abdomen and pelvis COMPARISON: 01/23/2022 and 02/14/2023 FINDINGS: There are bilateral radiodense renal stones redemonstrated measuring up to 1.2 cm in greatest dimension on the left and 3 mm in greatest dimension on the right. There is a nonobstructive bowel gas pattern. The bony structures are within normal limits. XR/XR abdomen 1V IMPRESSION: There are bilateral radiodense renal stones redemonstrated measuring up to 1.2 cm in greatest dimension on the left and 3 mm in greatest dimension on the right. Impression dictated by: Javier Lopez M.D. 12/15/2024 4:40 PM Dictation Location: [place] [address] Electronically authenticated by: [id number] Y Date: 12/15/2024 16:40 Dictated By: Javier Lopez M.D. Signed By: 12/15/24 1643 DD/ 1640 TD/TT: Electronic Engineering Draftsperson: [facility] Radiology, Radiologist, MD - 12/15/2024 [place] [address] XRay Report Signed Patient: FAUSTO MERRILL MR#: [id number] : 1970 Acct:[id number] Age/Sex: 54 / F ADM Date: 12/15/24 Loc: RAD Attending Dr: PHUONG HALL Ordering Physician: PHUONG HALL Date of Service: 12/15/24 Procedure(s): XR abdomen 1V Accession Number(s): [id number] cc: PHUONG HALL [place] [address] Patient Name: FAUSTO MERRILL MRN: [facility]:[id number] date: 1970 Sex: F Assigned Patient Location: RAD Current Patient Location: RAD Accession/Order Number: [id number] Exam Date: 12/15/2024 16:37 Report Date: 12/15/2024 16:40 At the request of: PHUONG HALL Procedure: XR abdomen 1V XR abdomen 1V 12/15/2024 2:52 PM SIGNS AND SYMPTOMS: Renal Calculus PROTOCOL: Frontal radiographs of the abdomen and pelvis COMPARISON: 01/23/2022 and 02/14/2023 FINDINGS: There are bilateral radiodense renal stones redemonstrated measuring up to 1.2 cm in greatest dimension on the left and 3 mm in greatest dimension on the right. There is a nonobstructive bowel gas pattern. The bony structures are within normal limits. XR/XR abdomen 1V IMPRESSION: There are bilateral radiodense renal stones redemonstrated measuring up to 1.2 cm in greatest dimension on the left and 3 mm in greatest dimension on the right. Impression dictated by: Javier Lopez M.D. 12/15/2024 4:40 PM Dictation Location: [place] [address] Electronically authenticated by: [id number] Y Date: 12/15/2024 16:40 Dictated By: Javier Lopez M.D. Signed By: 12/15/24 1643 DD/ 1640 TD/TT: Electronic Engineering Draftsperson: [facility] [employer] Radiology Study observation (narrative) [facility] [employer] XR ABDOMEN 1VOrdered By: Johan iologist Radiology on 12-15-2024 [facility] [employer] Work Phone: BI MAMMOGRAM SCREENING TOMOS YNTHESIS BILATERALon 09-01-2024 BI MAMMOGRAM SCREENING TOMOSYNTHESIS BILATERAL This is a summary report. The complete report is available in the patient's medical record. If you cannot access the medical record, please contact the sending organization for a detailed fax or copy. Examination: BI MAMMOGRAM SCREENING TOMOSYNTHESIS BILATERAL Clinical History: screen Technique: Screening digital mammography study of both breasts was performed with 2-D and 3-D tomosynthesis imaging. Study was compared to the prior exam dated 10/17/2021. Findings: There is no evidence of interval dominant spiculated mass, grouped microcalcifications, or skin thickening which would be suggestive of malignancy. A few benign-appearing calcifications are seen bilaterally. Axillary lymph nodes are noted bilaterally which appear grossly unremarkable. IMPRESSION: Impression: No specific evidence of malignancy seen in either breast. BIRADS 2 - Benign Findings DENSITY: There are scattered areas of fibroglandular density. FOLLOW-UP: Routine Screening Mammogram ELECTRONICALLY SIGNED BY: Cristobal Husain M.D. Normal Not Available US THYROIDon 09-01-2024 US THYROID Exam: US THYROID Clinical History: Enlarged thyroid Reference Exam: No comparison TECHNIQUE: Real-time ultrasonographic evaluation with color-flow Doppler imaging is provided for the soft tissues of the neck to evaluate the thyroid gland. FINDINGS: The right lobe of the thyroid gland measures 3.3 x 0.6 x 1.2 cm. The left lobe of the thyroid gland measures 2.7 x 0.7 x 1.0 cm. Subtle heterogeneity of echotexture of each lobe of the thyroid gland. No cystic or solid mass identified. Normal color flow Doppler imaging. IMPRESSION: Slightly heterogeneous parenchymal echotexture of each lobe of the thyroid gland. No space-occupying mass identified. ASSESSMENT: TI-RADS 1 Recommendation: Follow-up as per clinical indication. Dictated on: 09/01/2024 3:09 PM This report has been electronically signed and approved by the interpreting Radiologist. Normal Not Available FLUORO FOR SURGICAL PROCEDUR ESon 10-23-2023 FLUORO FOR SURGICAL PROCEDURES Radiology exam is complete. No Radiologist dictation. Please follow up with ordering provider. Final result Normal [facility] HCG, ,Urineon 10-22 Beta HCG ( test) Ql (U) Negative Normal NEG [facility] Comment on above: Result Comment: Spec imens with hCG levels near the threshold of the test (25 mIU/mL) may give a negative or indeterminate result. In such cases, another test should be performed with a new specimen in 48-72 hours. If early is suspected clinically in this setting, correlation with quantitative serum b-hCG level is suggested. [facility] the use of plasma for this test. This has not been cleared or approved by the U.S. Food and Drug Administration. The FDA has determined that such clearance is not necessary. Performed By: #### U HCG #### [facility] [address] [place] [address] [place] [address] Manager Pulmonary: Michoacano Gomez MD Basic Metabolic Profon 09-19 Anion gap [Moles/Vol] 9 mmol/L Normal 9-17 [facility] Comment on above: Performed By: #### B FRANKLIN, CDP #### [facility] [address] [place] [address] Manager Pulmonary: Michoacano Gomez MD BUN/CRE Ratio 23 High 9-20 [facility] Comment on above: Performed By: #### B FRANKLIN, CDP #### [facility] [address] [place], [place] [id number] Manager Pulmonary: Michoacano Gomez MD Calcium [Mass/Vol] 8.7 mg/dL Normal 8.6-10.4 [facility] Comment on above: Performed By: #### B FRANKLIN, CDP #### [facility] [address] [place], [place] [phone] Manager Pulmonary: Michoacano Gomez MD Chloride [Moles/Vol] 105 mmol/L Normal 98-107 [facility] Comment on above: Performed By: #### B FRANKLIN, CDP #### [facility] [address] [place], [place] [id number] Manager Pulmonary: Michoacano Gomez MD CO2 [Moles/Vol] 25 mmol/L Normal 20-31 [facility] Comment on above: Performed By: #### B FRANKLIN, CDP #### [facility] [address] [place], [place] [id number] Manager Pulmonary: Michoacano Gomez MD Creatinine [Mass/Vol] 0.7 mg/dL Normal 0.5-0.9 [facility] Comment on above: Performed By: #### B FRANKLIN, CDP #### [facility] [address] [place] [address] Manager Pulmonary: Michoacano Gomez MD GFR/1.73 sq M.predicted among non-blacks MDRD (S/P/Bld) [Vol rate/Area] mL/min/{1.73_m2} Normal >60 [facility] Comment on above: Result Comment: These results [...] Performed By: #### B FRANKLIN, CDP #### [facility] [address] [place] [address] [place] [address] Manager Pulmonary: Michoacano Gomez MD Glucose [Mass/Vol] 97 mg/dL Normal 70-99 [facility] Comment on above: Performed By: #### B FRANKLIN, CDP #### [facility] [address] [place] [address] [place] [address] Manager Pulmonary: Michoacano Gomez MD Potassium [Moles/Vol] 4.0 mmol/L Normal 3.7-5.3 [facility] Comment on above: Performed By: #### B FRANKLIN, CDP #### [facility] [address] [place] [address] [place] [address] Manager Pulmonary: Michoacano Gomez MD Sodium [Moles/Vol] 139 mmol/L Normal 135-144 [facility] Comment on above: Performed By: #### B FRANKLIN, CDP #### [facility] [address] [place] [address] [place] [address] Manager Pulmonary: Michoacano Gomez MD Urea nitrogen [Mass/Vol] 16 mg/dL Normal 6-20 [facility] Comment on above: Performed By: #### B FRANKLIN, CDP #### [facility] [address] [place] [address] [place], [place] [id number] Manager Pulmonary: Michoacano Gomez MD CBC with Diffon 09-20-2023 Abs. Basophil 0.07 k/uL Normal 0.00-0.20 [facility] Comment on above: Performed By: #### B FRANKLIN, CDP #### [facility] [address] [place] [address] [place] [place], [place] [id number] Manager Pulmonary: Michoacano Gomez MD Abs.Imm.Granulocyte <0.03 Normal 0.00-0.30 [facility] Comment on above: Performed By: #### B MP, CDP #### [address] [place], [facility] Manager Pulmonary: Michoacano Gomez MD Abs.Neutrophil (Seg) 3.98 k/uL Normal 1.50-8.10 [facility] Comment on above: Performed By: #### B MP, CDP #### [address] [place], [facility] Manager Pulmonary: Michoacano Gomez MD Basophils/100 WBC (Bld) 1 % Normal 0-2 [facility] Comment on above: Performed By: #### B FRANKLIN, CDP #### [address] [place], [facility] Manager Pulmonary: Michoacano Gomez MD Eosinophils (Bld) [#/Vol] 0.43 10*3/uL Normal 0.00-0.44 [facility] Comment on above: Performed By: #### B MP, CDP #### [address] [place], [facility] Manager Pulmonary: Michoacano Gomez MD Eosinophils/100 WBC (Bld) 6 % High 1-4 [facility] Comment on above: Performed By: #### B MP, CDP #### [address] [place], [place] [id number] Manager Pulmonary: Michoacano Gomez MD Erythrocyte distribution width (RBC) [Ratio] 13.1 % Normal 11.8-14.4 [facility] Comment on above: Performed By: #### B MP, CDP #### [address] [place], [facility] Manager Pulmonary: Michoacano Gomez MD Hematocrit (Bld) [Volume fraction] 38.3 % Normal 36.3-47.1 [facility] Comment on above: Performed By: #### B FRANKLIN, CDP #### [facility] [address] [place] [address] [place]. [place], [place] [id number] Manager Pulmonary: Michoacano Gomez MD Hemoglobin (Bld) [Mass/Vol] 12.9 g/dL Normal 11.9-15.1 [facility] Comment on above: Performed By: #### B FRANKLIN, CDP #### [facility] [address] [place] [address] [place] [address] Manager Pulmonary: Michoacano Gomez MD Immature granulocytes/100 WBC (Bld) 0 % Normal 0 [facility] Comment on above: Performed By: #### B FRANKLIN, CDP #### [address] [place], [place] [phone] Manager Pulmonary: Michoacano Gomez MD Lymphocytes (Bld) [#/Vol] 2.69 10*3/uL Normal 1.10-3.70 [facility] Comment on above: Performed By: #### B FRANKLIN, CDP #### [address] [place], [place] [id number] Manager Pulmonary: Michoacano Gomez MD Lymphocytes/100 WBC (Bld) 35 % Normal 24-43 [facility] Comment on above: Performed By: #### B FRANKLIN, CDP #### [facility] [address] [place] [address] [place]. [place], [place] [phone] Manager Pulmonary: Michoacano Gomez MD MCH (RBC) [Entitic mass] 33.2 pg Normal 25.2-33.5 [facility] Comment on above: Performed By: #### B MP, CDP #### [address] [place], [place] [id number] Manager Pulmonary: Michoacano Gomez MD MCHC (RBC) [Mass/Vol] 33.7 g/dL Normal 28.4-34.8 [facility] Comment on above: Performed By: #### B MP, CDP #### [facility] [address] [place] [address] Dr. [place], [facility]83 Manager Pulmonary: Michoacano Gomez MD MCV (RBC) [Entitic vol] 98.7 fL Normal 82.6-102.9 [facility] Comment on above: Performed By: #### B MP, CDP #### [address] [place], [facility]83 Manager Pulmonary: Michoacano Gomez MD Monocytes (Bld) [#/Vol] 0.55 10*3/uL Normal 0.10-1.20 [facility] Comment on above: Performed By: #### B MP, CDP #### [address] [place], [facility]83 Manager Pulmonary: Michoacano Gomez MD Monocytes/100 WBC (Bld) 7 % Normal 3-12 [facility] Comment on above: Performed By: #### B MP, CDP #### [address] [place], [facility]83 Manager Pulmonary: Michoacano Gomez MD Neutrophil (Seg) 51 % Normal 36-65 [facility] Comment on above: Performed By: #### B MP, CDP #### [address] [place], [place] [address] Manager Pulmonary: Michoacano Gomez MD NRBC Automated 0.0 per 100 WBC Normal 0.0 [facility] Comment on above: Performed By: #### B MP, CDP #### [address] [place], [facility]83 Manager Pulmonary: Michoacano Gomez MD Platelet mean volume (Bld) [Entitic vol] 10.1 fL Normal 8.1-13.5 [facility] Comment on above: Performed By: #### B MP, CDP #### [address] [place], [place] [id number] Manager Pulmonary: Michoacano Gomez MD Platelets (Bld) [#/Vol] 252 10*3/uL Normal 138-453 [facility] Comment on above: Performed By: #### B MP, CDP #### [facility] [address] [place] [address] [place] [place], [place] [id number] Manager Pulmonary: Michoacano Gomez MD RBC (Bld) [#/Vol] 3.88 10*6/uL Low 3.95-5.11 [facility] Comment on above: Performed By: #### B MP, CDP #### [address] [place], [place] [id number] Manager Pulmonary: Michoacano Gomez MD WBC (Bld) [#/Vol] 7.7 10*3/uL Normal 3.5-11.3 [facility] Comment on above: Performed By: #### B MP, CDP #### [address] [place], [place] [address] Manager Pulmonary: Michoacano Gomez MD EKG 12 LeadOrdered By: Julito gutierrez on 09-20-2023 Atrial Rate 64 BPM [employer] Phone: P [place] -4 degrees [employer] Phone: P-R Interval 132 ms [employer] Phone: Q-T Interval 420 ms [employer] Phone: QRS Duration 74 ms [employer] Phone: QTc Calculation (Bazett) 433 ms [employer] Phone: R [place] 65 degrees [employer] Phone: T [place] 54 degrees [employer] Phone: Ventricular Rate 64 BPM [facility] [employer] Phone: [facility] [employer] Phone: EKG 12 Leadon 09-20-2023 Normal sinus rhythm Normal ECG No previous ECGs available Confirmed by Julito Pate MD ([id number]) on 09/20/2023 8:55:15 PM [facility] RADIOLOGY Julito Pate MD - 09/20/2023 Normal sinus rhythm Normal ECG No previous ECGs available Confirmed by Julito Pate MD ([id number]) on 09/20/2023 8:55:15 PM [facility] Physician Orderon 06-07-2023 Physician Order [id number]#1.0 0TIFF [facility] RAD - CT Reporton 05-16-20[address] RAD - CT Report [id number] 0TIFF [facility] Reminderson 05-16-2023 Reminders - From: Celena Beauchamp To: EU - Recalls Emir; Sent: 02/23/2023 12:29:57 EDT Show up: 07/26/2023 12:29:00 EST Subject: Ct urogram Due Date/Time: 08/13/2023 12:29:00 EST Reminder/Recall Pt needs Ct Urogram done prior to August 2023 appt. Pt needs to have done at [facility] per PRW. pt completed in Apr. already addressed. BG Normal [facility] CT urogramon 05-08-2023 CT urogram [facility] [place] [address] CT Scan Report Signed Patient: Fausto Merrill MR#: [id number] : 1970 Acct:[id number] Age/Sex: 52 / F ADM Date: 05/08/23 Loc: CT Room: Type: [facility] Attending Dr: Arash Field MD Copies to: [...] uropathy Impression dictated by: Erwin Waldron Jr., WilliamsOMaggi05/08/2023 2:21 PM Dictation Location: [place] [address] Transcribed By: [facility] 05/08/23 1421 Dictated By: Erwin Waldron Jr, DO 05/08/23 1419 Signed By: 05/08/23 1421 [facility] Lab Reportson 03-30-2023 Lab Reports [id number] 0TIFF Normal [facility] Lab Reports [id number]#1.0 0TIFF Normal [facility] Lab Reportson 03-04-2023 Lab Reports [id number]#1.00 CD:127 Normal [facility] Lab Reports [id number] 0CD:127 Normal [facility] Lab Reports [id number] CD:127 Normal [facility] Ambulatory Visit Summaryon 0 02-23-2023 Ambulatory Visit Summary FASUTO MERRILL :1970 Visit Date:02/23/2023 Ambulatory Visit Instructions Your Diagnosis Kidney stone Flank pain Stress incontinence Tests Performed Urnls Dip Stick Auto w/o Microscopy POC [address] CT Urogram -- Results Pending -- Please [...] Schedule the Following Appointments Follow Up with EMIR ADLER, Arash Broderick, SEGUNDO When: In 6 months Comments: w/CTU & 24hr Urine Where: [facility] [address] [place] [address]- Medications What How Much When Instructions Unchanged [...] Urnls Dip Stick Auto w/o Microscopy POC 94289 (02/23/2023) Bilirubin Urine Dipstick - Negative Blood Urine Dipstick - 2+ Moderate Glucose Urine Dipstick - Negative Ketones Urine Dipstick - Negative Leukocytes Urine Dipstick - Negative Nitrite Urine Dipstick - Negative Protein Urine Dipstick - Negative Specific [place] Urine Dipstick - 1.025 Urine Appearance Urine [...] ? 8 oz (237 mL) of milk, kcsbavb-irxzdmxntjnq-x airy milk, and calcium-fortifiedfruit juice. Calcium-fortified means [...] add his (more content not included)... Normal [facility] Patient Educationon 02-24-20 Patient Education Nephrology [...] ? 8 oz (237 mL) of milk, cogbced-hfrdkuvwaeul-f airy milk, and calcium-fortifiedfruit juice. Calcium-fortified means [...] Spinach (cooked), rhubarb, beets, sweet potatoes, and Citizen [place] chard. ? Peanuts. ? Potato chips, tajik fries, and baked potatoes with skin on. ? Nuts and nut products. ? Chocolate. ? If you regularly take a diuretic medicine, make sure to eat at least 1 or 2 servings of fruits or vegetables that are high in potassium each day. These include: ? Avocado. ? Banana. ? [place], prune, carrot, or tomato juice. ? Baked [...] fish oil, or vitamin B6. ? Take gjld-fgs-ffowdax and prescription medicines only as told by your health care provider. These include supplements. What foods should I limit? Limit your in (more content not included)... Normal [facility] Urology Office/Clinic Noteon 02-23-2023 Urology Office/Clinic Note [...] Urine. -Will order a CTU, pt prefers [facility]. 2. Flank pain (R10.9: Unspecified abdominal pain) [...] for leaking. Follow-up With When Contact Information EMIR ADLER, SEGUNDO Padgett In 6 months [facility] [address], [place] [address]- Additional Instructions: w/CTU & 24hr Urine Patient Education Dietary Guidelines to Help Prevent Kidney Stones I, Edwige Barahona , personally scribed for Dr. Field on 02/23/2023 12:23:23. . Documentation recorded by the scribe, Edwige Barahona, accurately reflects the services(s) I performed and [...] 40 mg Cap-EC, (more content not included)... Normal [facility] Comment on above: Result Comment: Elec tronically Signed By: EMIR ADLER, Arash Broderick\.br\Date and Time Signed: 02/23/23 12:26 EDT\.br\Electronically Co-Signed By: Edwige Barahona\.br\Date and Time Co-Signed: 02/23/23 12:23 EDT RAD - MISCon 02-16-2023 RAD - MISC [id number] 0CD:127 Normal [facility] [place] [facility] [place] [place] Patient Letter [facility] [place] [place] October 03, 2022 FAUSTO MERRILL [address] [place] [id number] FAUSTO MERRILL 1970 Dear Fausto Merrill, Our records indicate it is time to schedule your follow up appointment with Dr. Field for kidney stones. Please call the office to schedule this appointment and have the KUB x-ray done prior (slip enclosed). Thank You, [facility] at [facility] [place] [place] option #3 Normal [facility] XR KUB 1 VIEWon 12-30-2021 XR KUB [...] by: CRISTOFER GOODWIN Date: 2021-12-30 17:52 Normal [facility] Free T4on 11-18-2021 Free T4 [Mass/Vol] 1.45 ng/dL Normal 0.80-1.80 [facility] Entomology Teacher Comment on above: Performed By: #### T SH reflex FT4, FT4 #### [facility] [address] [place], [place] [id number] TSH w/ Reflex to Free T4on 0 11-18-2021 FT4 reflex Free T4 Normal [facility] Comment on above: Performed By: #### T SH reflex FT4, FT4 #### [facility] [address] [place], [place] [id number] TSH 0.293 uIU/mL Low 0.400-4.500 [facility] Entomology Teacher Comment on above: Performed By: #### T SH reflex FT4, FT4 #### [facility] [address], [place] [id number] SCREENING MAMMOGRAM W/DAINA, BILATERAL*on 10-17-2021 SCREENING MAMMOGRAM [...] VERY IMPORTANT TO YOUR HEALTH. THE CURRENT [employer] GUIDELINES RECOMMENDS ANNUAL MAMMOGRAPHY BEGINNING AT AGE 40. THIS FACILITY USES A REMINDER SYSTEM TO ENSURE ALL PATIENTS RECEIVE REMINDER NOTIFICATIONS AT THE APPROPRIATE TIME BASED ON THE RECOMMENDATIONS OF THIS EXAM. Report reported and signed by Erwin Blake on 10/25/2021 1137 Normal [facility] Specialist Complete Blood Count with Au to Diffon 10-05-2021 Basophils (Bld) [#/Vol] 0.08 10*3/uL Normal 0.00-0.20 [facility] Comment on above: Performed By: #### F T4, CMP, TSH reflex FT4, VITD, LIPD #### [facility] [address] [place], [place] [id number] Basophils/100 WBC (Bld) 1.3 % Normal [facility] Specialist Comment on above: Performed By: #### F T4, CMP, TSH reflex FT4, VITD, LIPD #### [facility] [address] [place], [place] [id number] Eosinophils (Bld) [#/Vol] 0.45 10*3/uL Normal 0.02-0.50 [facility] Specialist Comment on above: Performed By: #### F T4, CMP, TSH reflex FT4, VITD, LIPD #### [facility] [address] [place], [place] [id number] Eosinophils/100 WBC (Bld) 7.3 % Normal [facility] Specialist Comment on above: Performed By: #### F T4, CMP, TSH reflex FT4, VITD, LIPD #### [facility] [address], [place] [id number] Erythrocyte distribution width (RBC) [Ratio] 13.6 % Normal 11.0-15.0 [facility] Special[facility] Comment on above: Performed By: #### F T4, CMP, TSH reflex FT4, VITD, LIPD #### [facility] [address] [place], [place] [id number] Hematocrit (Bld) [Volume fraction] 38.1 % Normal 35.0-47.0 [facility] Special[facility] Comment on above: Performed By: #### F T4, CMP, TSH reflex FT4, VITD, LIPD #### [facility] [address] [place], [place] [id number] Hemoglobin (Bld) [Mass/Vol] 12.3 g/dL Normal 11.6-15.5 [facility] Special[facility] Comment on above: Performed By: #### F T4, CMP, TSH reflex FT4, VITD, LIPD #### [facility] [address], [place] [id number] Lymphocytes (Bld) [#/Vol] 2.7 10*3/uL Normal 0.9-3.9 [facility] Special[facility] Comment on above: Performed By: #### F T4, CMP, TSH reflex FT4, VITD, LIPD #### [facility] [address], [place] [id number] Lymphocytes/100 WBC (Bld) 43.0 % Normal [facility] Comment on above: Performed By: #### F T4, CMP, TSH reflex FT4, VITD, LIPD #### [facility] [address] [place], [place] [id number] MCH (RBC) [Entitic mass] 29.9 pg Normal 27.0-33.0 [facility] Special[facility] Comment on above: Performed By: #### F T4, CMP, TSH reflex FT4, VITD, LIPD #### [facility] [address] [place], [place] [id number] MCHC (RBC) [Mass/Vol] 32.3 g/dL Normal 32.0-36.0 [facility] Comment on above: Performed By: #### F T4, CMP, TSH reflex FT4, VITD, LIPD #### [facility] [address] [place], [place] [id number] MCV (RBC) [Entitic vol] 93 fL Normal 80-100 [facility] Special[facility] Comment on above: Performed By: #### F T4, CMP, TSH reflex FT4, VITD, LIPD #### [facility] [address], [place] [id number] Monocytes (Bld) [#/Vol] 0.4 10*3/uL Normal 0.2-0.9 [facility] Specialist Comment on above: Performed By: #### F T4, CMP, TSH reflex FT4, VITD, LIPD #### [facility] [address], [place] [id number] Monocytes/100 WBC (Bld) 6.8 % Normal [facility] Specialist Comment on above: Performed By: #### F T4, CMP, TSH reflex FT4, VITD, LIPD #### [facility] [address] [place], [place] [id number] Neutrophils (Bld) [#/Vol] 2.6 10*3/uL Normal 1.5-7.8 [facility] Special[facility] Comment on above: Performed By: #### F T4, CMP, TSH reflex FT4, VITD, LIPD #### [facility] [address] [place], [place] [id number] Neutrophils/100 WBC (Bld) 41.4 % Normal [facility] Entomology Teacher Comment on above: Performed By: #### F T4, CMP, TSH reflex FT4, VITD, LIPD #### [facility] [address] [place], [place] [id number] Platelet mean volume (Bld) [Entitic vol] 11.00 fL Normal 7.50-12.50 [facility] Entomology Teacher Comment on above: Performed By: #### F T4, CMP, TSH reflex FT4, VITD, LIPD #### [facility] [address] [place], [place] [id number] Platelets (Bld) [#/Vol] 264 10*3/uL Normal 140-400 [facility] Entomology Teacher Comment on above: Performed By: #### F T4, CMP, TSH reflex FT4, VITD, LIPD #### [facility] [address] [place], [place] [id number] RBC (Bld) [#/Vol] 4.12 10*6/uL Normal 3.90-5.20 [facility] Entomology Teacher Comment on above: Performed By: #### F T4, CMP, TSH reflex FT4, VITD, LIPD #### [facility] [address] [place], [place] [id number] RDW-SD 46.7 fL Normal 37.0-50.0 [facility] Entomology Teacher Comment on above: Performed By: #### F T4, CMP, TSH reflex FT4, VITD, LIPD #### [facility] [address] [place], [place] [id number] WBC (Bld) [#/Vol] 6.2 10*3/uL Normal 3.8-11.0 [facility] Entomology Teacher Comment on above: Performed By: #### F T4, CMP, TSH reflex FT4, VITD, LIPD #### [facility] [address], [place] [id number] Comprehensive Metabolic Pane vanessa 10-05-2021 Albumin [Mass/Vol] 4.6 g/dL Normal 3.6-5.1 [facility] Entomology Teacher Comment on above: Performed By: #### F T4, CMP, TSH reflex FT4, VITD, LIPD #### [facility] [address], [place] [id number] Albumin/Globulin [Mass ratio] 1.5 {ratio} Normal 1.0-2.5 [facility] Specialist Comment on above: Performed By: #### F T4, CMP, TSH reflex FT4, VITD, LIPD #### [facility] [address] [place], [place] [id number] ALP [Catalytic activity/Vol] 72 U/L Normal 35-119 [facility] Specialist Comment on above: Performed By: #### F T4, CMP, TSH reflex FT4, VITD, LIPD #### [facility] [address] [place], [place] [id number] ALT [Catalytic activity/Vol] 15 U/L Normal 6-33 [facility] Specialist Comment on above: Result Comment: 05/25 Female reference range changed. Performed By: #### F T4, CMP, TSH reflex FT4, VITD, LIPD #### [facility] [address] [place], [place] [id number] Anion gap [Moles/Vol] 17 mmol/L Normal 12-20 [facility] Specialist Comment on above: Result Comment: Effe ctive 06/30/2019 reference range changed. Performed By: #### F T4, CMP, TSH reflex FT4, VITD, LIPD #### [facility] [address] [place], [place] [id number] AST [Catalytic activity/Vol] 18 U/L Normal 9-34 [facility] Special[facility] Comment on above: Performed By: #### F T4, CMP, TSH reflex FT4, VITD, LIPD #### [facility] [address] [place], [place] [id number] Bilirubin [Mass/Vol] 0.35 mg/dL Normal 0.30-1.20 [facility] Specialist Comment on above: Performed By: #### F T4, CMP, TSH reflex FT4, VITD, LIPD #### [facility] [address], [place] [id number] BUN/CREA 18 Ratio Normal 6-22 [facility] Specialist Comment on above: Performed By: #### F T4, CMP, TSH reflex FT4, VITD, LIPD #### [facility] [address], [place] [id number] Calcium [Mass/Vol] 9.3 mg/dL Normal 8.6-10.2 [facility] Comment on above: Performed By: #### F T4, CMP, TSH reflex FT4, VITD, LIPD #### [facility] [address] [place], [place] [id number] Chloride [Moles/Vol] 104 mmol/L Normal 98-107 [facility] Comment on above: Performed By: #### F T4, CMP, TSH reflex FT4, VITD, LIPD #### [facility] [address], [place] [id number] CO2 [Moles/Vol] 20 mmol/L Normal 20-31 [facility] Comment on above: Performed By: #### F T4, CMP, TSH reflex FT4, VITD, LIPD #### [facility] [address], [place] [id number] Creatinine [Mass/Vol] 0.8 mg/dL Normal 0.6-1.4 [facility] Comment on above: Performed By: #### F T4, CMP, TSH reflex FT4, VITD, LIPD #### [facility] [address] [place], [place] [id number] eGFRAA 92 mL/min/1.73m2 Normal >60 [facility] Specialist Comment on above: Performed By: #### F T4, CMP, TSH reflex FT4, VITD, LIPD #### [facility] [address] [place], [place] [id number] eGFRNAA 76 mL/min/1.73m2 Normal >60 [facility] Specialist Comment on above: Performed By: #### F T4, CMP, TSH reflex FT4, VITD, LIPD #### [facility] [address], [place] [id number] Globulin (S) [Mass/Vol] 3.0 g/dL Normal 1.9-3.7 [facility] Comment on above: Performed By: #### F T4, CMP, TSH reflex FT4, VITD, LIPD #### [facility] [address] [place], [place] [id number] Glucose [Mass/Vol] 87 mg/dL Normal 65-99 [facility] [place] [facility] Teacher Comment on above: Result Comment: For FASTING Glucose --- ADA reference ranges: Normal 65-99 mg/dl Prediabetes 100-125 Diabetes >/= 126 Performed By: #### F T4, CMP, TSH reflex FT4, VITD, LIPD #### [facility] [address] [place], [place] [id number] Potassium [Moles/Vol] 4.3 mmol/L Normal 3.5-5.5 [facility] Entomology Teacher Comment on above: Performed By: #### F T4, CMP, TSH reflex FT4, VITD, LIPD #### [facility] [address] [place], [place] [id number] Protein [Mass/Vol] 7.6 g/dL Normal 6.1-8.1 [facility] [facility] [place] [facility] Teacher Comment on above: Performed By: #### F T4, CMP, TSH reflex FT4, VITD, LIPD #### [facility] [address] [place], [place] [id number] Sodium [Moles/Vol] 137 mmol/L Normal 135-146 [facility] Entomology Teacher Comment on above: Performed By: #### F T4, CMP, TSH reflex FT4, VITD, LIPD #### [facility] [address] [place], [place] [id number] Urea nitrogen [Mass/Vol] 14 mg/dL Normal 7-25 [facility] Entomology Teacher Comment on above: Performed By: #### F T4, CMP, TSH reflex FT4, VITD, LIPD #### [facility] [address], [place] [id number] Free T4on 10-05-2021 Free T4 [Mass/Vol] 1.23 ng/dL Normal 0.80-1.80 [facility] Entomology Teacher Comment on above: Performed By: #### F T4, CMP, TSH reflex FT4, VITD, LIPD #### [facility] [address], [place] [id number] Lipid Panelon 10-05-2021 Cholesterol [Mass/Vol] 239 mg/dL High 125-200 [place] [facility] Teacher Comment on above: Result Comment: Low risk < 200mg/dL Borderline risk 201-239 mg/dl High risk > or equal to 240 Performed By: #### F T4, CMP, TSH reflex FT4, VITD, LIPD #### [facility] [address] [place], [place] [id number] Cholesterol in HDL [Mass/Vol] 55 mg/dL Normal >40 [facility] Specialist Comment on above: Result Comment: High Cardiovascular Risk HDL <40 mg/dL Low Cardiovascular Risk HDL > or equal to 60 mg/dl Performed By: #### F T4, CMP, TSH reflex FT4, VITD, LIPD #### [facility] [address], [place] [id number] Cholesterol in LDL [Mass/Vol] 168 mg/dL Normal [facility] Specialist Comment on above: Result Comment: LDL ATP III CLASSIFICATION LDL less than 100 mg/dl Optimal LDL 100-129 mg/dl Near or above optimal LDL 130-159 Borderline high LDL 160-189 High LDL greater than 189 mg/dl Very High Performed By: #### F T4, CMP, TSH reflex FT4, VITD, LIPD #### [facility] [address], [place] [id number] Cholesterol in VLDL [Mass/Vol] 16 mg/dL Normal [facility] Specialist Comment on above: Performed By: #### F T4, CMP, TSH reflex FT4, VITD, LIPD #### [facility] [address], [place] [id number] Cholesterol.total/C holesterol in HDL [Mass ratio] 4 {ratio} Normal [facility] Specialist Comment on above: Performed By: #### F T4, CMP, TSH reflex FT4, VITD, LIPD #### [facility] [address] [place], [place] [id number] Triglyceride [Mass/Vol] 78 mg/dL Normal 30-150 [facility] Specialist Comment on above: Result Comment: TRIG ATPIII CLASSIFICATIONS TRIG less than 150 mg/dl Normal TRIG 150-199 mg/dl Borderline High TRIG 200-500 mg/dl High TRIG greather than 500 mg/dl Very High Performed By: #### F T4, CMP, TSH reflex FT4, VITD, LIPD #### [facility] [address] [place], [place] [id number] TSH w/ Reflex to Free T4on 0 10-05-2021 FT4 reflex Free T4 Normal [facility] Specialist Comment on above: Performed By: #### F T4, CMP, TSH reflex FT4, VITD, LIPD #### [facility] [address] [place], [place] [id number] TSH 22.300 uIU/mL High 0.400-4.500 [facility] Specialist Comment on above: Performed By: #### F T4, CMP, TSH reflex FT4, VITD, LIPD #### [facility] [address] [place], [place] [id number] Vitamin B12/Folateon 022 Cobalamin (Vitamin B12) [Mass/Vol] 365 pg/mL Normal 211-946 [facility] Specialist Comment on above: Performed By: #### B 12/Fol #### [facility] [address], [place] [id number] FOL 6.4 ng/mL Normal >4.7 [facility] Specialist Comment on above: Result Comment: Refe rence range change 05/11/2017. Prior reference range F 4.8-37.3 ng/mL, M 4.5-32.2 ng/mL. Performed By: #### B 12/Fol #### [facility] [address] [place], [place] [id number] Vitamin D 25-OHon 10-05-2021 VIT D 25 OH 31 ng/ml Normal >29 [facility] Entomology Teacher Comment on above: Result Comment: Mckenzie min D Status Deficiency <20 ng/mL Insufficiency 20-29 ng/mL Optimal 30-100 ng/mL Possible Toxicity >=150 ng/mL Performed By: #### F T4, CMP, TSH reflex FT4, VITD, LIPD #### [facility] [address] [place], [place] [id number] XR Spine Cervical Complete w /Flex AND [place] 10-05-2021 XR Spine Cervical Complete w/Flex AND [...] by Erwin Blake on 10/05/2021 1150 Normal [facility] Entomology Teacher XR Spine Lumbar Complete w/F adolfo AND [place] 10-05-2021 XR Spine Lumbar Complete w/Flex AND [...] by Erwin Blake on 10/05/2021 1151 Normal [facility] Entomology Teacher TSH w/ Reflex to Free T4on 0 09-08-2021 TSH 2.640 uIU/mL Normal 0.400-4.500 [facility] Entomology Teacher Comment on above: Performed By: #### F T4, CMP, TSH reflex FT4, VITD, LIPD #### [facility] [address] [place], [place] [id number] FREE T4on 03-18-2021 Free T4 [Mass/Vol] 1.38 ng/dL Normal 0.78-2.19 [facility] Comment on above: Performed By: #### F T4 #### [facility] [address] [place], [place] [address] Dr. Jose Walden TSHon 03-18-2021 TSH 0.187 uIU/mL Critically low 0.470-4.680 [facility] Comment on above: Result Comment: refl ex FT4 Performed By: #### T SH #### [facility] [address] [place] [address] [address] Jose Walden TSH RANGE SEE BELOW Normal [facility] Comment on above: Result Comment: <0.3 4 UIU/ml HYPERTHYROID 0.34-5.60 UIU/ml EUTHYROID >5.60 UIU/ml HYPOTHYROID Performed By: #### T SH #### [facility] [address] [place] [address] Dr. Jose Walden CITRATE URINE 24HRon 021 Citric Acid, U, 24hr Comment Normal 320-1240 [facility] Comment on above: Result Comment: No t otal volume submitted. Unable to calculate 24 hour result. This test was developed and its performance characteristics determined by [employer]. It has not been cleared or approved by the Food and Drug Administration. Performed By: #### C ITRATU #### [facility] [address] [place] [address] Allie Arianna Citric Acid, Urine 440 mg/L Normal [facility] Comment on above: Performed By: #### C ITRATU #### [facility] [address] [place] [address] Allie Arianna OXALATE 24HR URINEon 021 Oxalates, Urine 19 mg/L Normal Undefined [facility] Comment on above: Performed By: #### T SH #### [facility] [address] [place] [address] Dr. Jose Walden Oxalates, Urine 24hr 18 mg/24 hr Normal 4-31 [facility] Comment on above: Performed By: #### T SH #### [facility] [address] [place] [address] Dr. Jose Walden MAGNESIUM 24HR URINEon 01-26 Magnesium 24hr Urine 67.5 mg/24 hr Normal 12.0-293.0 [facility] Comment on above: Performed By: #### T SH #### [facility] [address] [place] [address] Dr. Jose Walden Magnesium UR 7.1 mg/dL Normal Not Estab. [facility] Comment on above: Performed By: #### T SH #### [facility] [address] [place] [address] [address] [address] Jose Walden PHOSPHORUS 24HR URINEon Phosphorus, Urine 56.0 mg/dL Normal Not Estab. [facility] Comment on above: Performed By: #### P HOS 24 #### [facility] [address] [place], [place] [address] Allie Arianna Phosphorus, Urine 24hr 532 mg/24 hr Normal 261-1078 [facility] Comment on above: Performed By: #### P HOS 24 #### [facility] [address] [place] [address] Allie Arianna URIC ACID 24 HR URINEon Uric Acid, Urine 38.5 mg/dL Normal Not Estab. [facility] Comment on above: Performed By: #### U JORGE 24 #### [facility] [address] [place] [address] Allie Arianna Uric Acid, Urine 24hr 365.8 mg/24 hr Normal 173.7-902.1 [facility] [facility] Comment on above: Performed By: #### U JORGE 24 #### [facility] [address] [place] [id number] Allie Arianna CALCIUM 24 HR URINEon 2020 CALC, 24 HR UR 177.7 mg/24 hr Normal 100.0-300.0 [facility] Comment on above: Performed By: #### C [id number] #### [facility] [address] [place] [address] Allie Arianna UR CALCIUM 18.7 mg/dL Normal 0.0-21.0 [facility] Comment on above: Performed By: #### C [id number] #### [facility] [address] [place] [address] Allie Arianna CREA 24 HR URINEon CREA, 24 HR UR 1195.29 mg/24 hr Normal 800.00-1, 800.0 0 [facility] Comment on above: Performed By: #### N A24U, [id number] #### [facility] [address] [place] [address] Allie Arianna UR TOT VOL 950 ml/24 HR Normal [facility] Comment on above: Performed By: #### N A24U, [id number] #### [facility] [address] [place] [address] Allie Arianna Performed By: #### C [id number] #### [facility] [address] [place] [address] Allie Arianna URINE CREAT 125.82 mg/dL Normal 20.00-300.00 [facility] Comment on above: Performed By: #### N A24U, [id number] #### [facility] [address] [place] [address] Allie Arianna SODIUM 24 HR URINEon 021 NA, 24 HR UR 118 mmol/24 hr Normal 40-220 [facility] Comment on above: Performed By: #### N A24U, [id number] #### [facility] [address] [place] [address] Allie Arianna Sodium (U) [Moles/Vol] 124 mmol/L Critically high 30-90 [facility] Comment on above: Performed By: #### N A24U, [id number] #### [facility] [address] [place] [address] Allie Arianna PTH INTACTon 01-19-2021 PTH, Intact 27 pg/mL Normal 15-65 [facility] Comment on above: Performed By: #### P THINT #### [facility] [address] [place] [address] Allie Arianna BUNon 01-18-2021 Urea nitrogen [Mass/Vol] 14.0 mg/dL Normal 7.0-17.0 [facility] Comment on above: Performed By: #### T SH #### [facility] [address] [place] [address] Dr. Jose Walden CALCIUMon 01-18-2021 Calcium [Mass/Vol] 8.6 mg/dL Normal 8.4-10.2 [facility] Comment on above: Performed By: #### T SH #### [facility] [address] [place] [address] Dr. Jose Walden CREATININEon 01-18-2021 Creatinine [Mass/Vol] 0.87 mg/dL Normal 0.52-1.04 [facility] Comment on above: Performed By: #### T SH #### [facility] [address] [place] [address] Dr. Jose Walden EGFR-AF GERMAN >60 Normal >=60 [facility] Comment on above: Performed By: #### T SH #### [facility] [address] [place] [address] Dr. Jose Walden EGFR-NON AF GERMAN >60 Normal >=60 [facility] Comment on above: Performed By: #### T SH #### [facility] [address] [place] [address] Dr. Jose Walden ELECTROLYTESon 01-18-2021 Anion gap [Moles/Vol] 13.3 mmol/L Normal [facility] Comment on above: Performed By: #### T SH #### [facility] [address] [place] [address] Dr. Jose Walden Chloride [Moles/Vol] 108 mmol/L Critically high 98-107 [facility] Comment on above: Performed By: #### T SH #### [facility] [address] [place] [address] Dr. Jose Walden CO2 [Moles/Vol] 25.4 mmol/L Normal 22.0-30.0 [facility] Comment on above: Performed By: #### T SH #### [facility] [address] [place] [address] Dr. Jose Walden Potassium [Moles/Vol] 3.7 mmol/L Normal 3.4-5.0 [facility] Comment on above: Performed By: #### T SH #### [facility] [address] [place] [address] Dr. Jose Walden Sodium [Moles/Vol] 143 mmol/L Normal 137-145 [facility] Comment on above: Performed By: #### T SH #### [facility] [address] [place] [address] Dr. Jose Walden URIC ACID SERUMon 01-18-2021 Urate [Mass/Vol] 3.3 mg/dL Normal 2.5-6.2 [facility] Comment on above: Performed By: #### T #### [facility] [address] [place] [address] Dr. Jose Walden Vital Signs Date Time Vital Sign Value Performing Clinician Facility 01-12-2025 11:14-0400 Body mass index (BMI) [Ratio] 23.53 kg/m2 Diana CARLOS Work Phone: [facility] 01-12-2025 11:14-0400 Body weight 64.14 kg Diana CARLOS Work Phone: [facility] 01-12-2025 11:14-0400 Diastolic blood pressure 68 mm[Hg] Diana Wang PA Work Phone: [facility] 01-12-2025 11:14-0400 Systolic blood pressure 110 mm[Hg] Diana Wang PA Work Phone: [facility] 10-13-2024 09:00-0400 Body mass index (BMI) [Ratio] 23.13 kg/m2 Qiana Toro [employer] Work Phone: [facility] 10-13-2024 09:00-0400 Body temperature 97.3 [degF] Qiana Majors [employer] Work Phone: [facility] 10-13-2024 09:00-0400 Body weight 63.05 kg Qiana Majors [employer] Work Phone: [facility] 10-13-2024 09:00-0400 Diastolic blood pressure 64 mm[Hg] Qiana Majors [employer] Work Phone: [facility] 10-13-2024 09:00-0400 Heart rate 76 /min Qiana Majors [employer] Work Phone: [facility] 10-13-2024 09:00-0400 SaO2% (BldA) [Mass fraction] 97 % Qiana Majors [employer] Work Phone: [facility] 10-13-2024 09:00-0400 Systolic blood pressure 108 mm[Hg] Qiana Majors [employer] Work Phone: [facility] 08-22-2024 14:06-0500 Body height 165.1 cm Phuong Hall MD Work Phone: [facility] 08-22-2024 14:06-0500 Body mass index (BMI) [Ratio] 23.5 kg/m2 Phuong Hall MD Work Phone: [facility] 08-22-2024 14:06-0500 Body weight 64.05 kg Phuong Hall MD Work Phone: [facility] 08-22-2024 14:06-0500 Diastolic blood pressure 62 mm[Hg] Phuong Hall MD Work Phone: [facility] 08-22-2024 14:06-0500 Heart rate 69 /min Phuong Hall MD Work Phone: [facility] 08-22-2024 14:06-0500 Respiratory rate 18 /min Phuong Hall MD Work Phone: [facility] 08-22-2024 14:06-0500 SaO2% (BldA) [Mass fraction] 99 % Phuong Hall MD Work Phone: [facility] 08-22-2024 14:06-0500 Systolic blood pressure 118 mm[Hg] Phuong Hall MD Work Phone: [facility] 02-23-2023 11:13-0400 Blood Pressure Location Arash FIELD [facility] 02-23-2023 11:13-0400 Body temperature 98.78 [degF] Arash FIELD [facility] 02-23-2023 11:13-0400 Diastolic blood pressure 75 mm[Hg] Arash FIELD [facility] 02-23-2023 11:13-0400 Heart rate 71 /min Arash FIELD [facility] 02-23-2023 11:13-0400 Respiratory rate 16 /min Arash FIELD [facility] 02-23-2023 11:13-0400 Systolic blood pressure 106 mm[Hg] Arash FIELD [facility] 01-11-2023 13:15-0400 Body height 165.1 cm Jerson Goldsmith Other [employer] Other 01-11-2023 13:15-0400 Body mass index (BMI) [Ratio] 22.46 kg/m2 Jerson Goldsmith Other [employer] Other 01-11-2023 13:15-0400 Body weight 61.24 kg Jerson Goldsmith Other [employer] Other 01-11-2023 13:15-0400 Diastolic blood pressure 60 mm[Hg] Jerson Varelay Other [employer] Other 01-11-2023 13:15-0400 Systolic blood pressure 94 mm[Hg] Jerson Varelay Other [employer] Other 01-02-2022 10:14-0400 Blood Pressure Location Arash FIELD [facility] 01-02-2022 10:14-0400 Diastolic blood pressure 67 mm[Hg] Arash FIELD [facility] 01-02-2022 10:14-0400 Heart rate 74 /min Arash FIELD [facility] 01-02-2022 10:14-0400 Respiratory rate 16 /min Arash FIELD [facility] 01-02-2022 10:14-0400 Systolic blood pressure 98 mm[Hg] Arash FIELD [facility] 09-02-2021 12:15-0500 Body height 165.1 cm Jerson Varelacristy Other [employer] Other 09-02-2021 12:15-0500 Body mass index (BMI) [Ratio] 22.13 kg/m2 Jerson Goldsmith Other [employer] Other 09-02-2021 12:15-0500 Body weight 60.33 kg Jerson Goldsmith Other [employer] Other Encounters Encounter Date Encounter Type Care Provider Facility Start: 01-12-2025 End: 01-12-2025 Bamboo flowsheet Diana CARLOS Work Phone: [facility] Start: 01-12-2025 End: 01-12-2025 Bamboo flowsheet Diana CARLOS Work Phone: [facility] Start: 01-12-2025 End: 01-12-2025 Patient encounter procedure Diana CARLOS Work Phone: [facility] Work Phone: Start: 01-12-2025 End: 01-12-2025 Periodic preventive med est patient 40-64yrs Diana CARLOS Work Phone: [facility] Comment on above: Well woman exam with routine gynecological exam; Breast cancer screening by mammogram; Postmenopausal state Start: 12-15-2024 End: 12-15-2024 Clinisync Result Encounter Phuong Hall MD Work Phone: [facility] Unsolicited Start: 12-15-2024 End: 12-15-2024 Clinisync Result Encounter Phuong Hall MD Work Phone: [facility] Unsolicited Start: 10-13-2024 End: 10-13-2024 Bamboo flowsheet Qiana Toro [employer]URE TE[employer] Work Phone: [facility] Start: 10-13-2024 End: 10-13-2024 Bamboo flowsheet Qiana Gutierrezs [employer]URE TE[employer] Work Phone: [facility] Start: 10-13-2024 End: 10-13-2024 Office outpatient visit 15 minutes Qiana Toro [employer] Work Phone: [facility] Comment on above: Numbness (Primary Dx ); Leg pain, left Start: 10-13-2024 End: 10-13-2024 ambulatory QIANA TORO Not Available Start: 09-01-2024 End: 09-01-2024 ambulatory PHUONG HALL Not Available Start: 08-24-2024 End: 08-24-2024 Orders Only Phuong Hall MD Work Phone: [facility] Comment on above: Hypothyroidism, unsp ecified type (CMS/HCC) (Primary Dx) Start: 08-22-2024 End: 08-22-2024 Bamboo flowsheet Phuong Hall MD Work Phone: [facility] Start: 08-22-2024 End: 08-22-2024 Bamboo flowsheet Phuong Hall MD Work Phone: [facility] Start: 08-22-2024 End: 08-22-2024 Patient encounter status Phuong Hall MD Work Phone: [facility] Start: 08-22-2024 End: 08-22-2024 Periodic preventive med est patient 40-64yrs Phuong Hall MD Work Phone: [facility] Comment on above: Hypothyroidism, unsp ecified type (CMS/HCC) (Primary Dx); Depression, unspecified depression type (CMS/HCC); Screening mammogram for breast cancer; Dysphagia, unspecified type; Thyroid enlargement (CMS/HCC); Perimenopausal vasomotor symptoms; Routine general medical examination at a health care facility Start: 08-22-2024 End: 08-22-2024 ambulatory PHUONG HALL Not Available Start: 08-18-2024 End: 08-18-2024 Office outpatient visit 15 minutes Diana CARLOS Work Phone: [facility] Comment on above: Perimenopausal vasom otor symptoms (Primary Dx); Menopause; Hormone disorder; Pelvic pain in female Start: 08-18-2024 End: 08-18-2024 ambulatory DIANA WANG Not Available Start: 08-18-2024 End: 08-18-2024 Bamboo flowsheet Diana CARLOS Work Phone: [facility] Start: 08-18-2024 End: 08-18-2024 Bamboo flowsheet Diana CARLOS Work Phone: [facility] Start: 08-12-2024 End: 08-12-2024 Refill Phuong Hall MD Work Phone: [facility] Comment on above: Hypothyroidism, unsp ecified type (CMS/HCC) Start: 07-18-2024 End: 07-18-2024 Refill Phuong Hall MD Work Phone: [facility] Comment on above: Hypothyroidism, unsp ecified type (CMS/HCC) Start: 05-16-2024 End: 05-16-2024 Refill Phuong Hall MD Work Phone: [facility] Comment on above: Seasonal allergic rh initis due to pollen Start: 10-23-2023 End: 10-23-2023 ambulatory KIMBERLY Asencio [facility] Start: 09-20-2023 End: 09-21-2023 ambulatory KIMBERLY Asencio [facility] Start: 09-20-2023 End: 09-20-2023 Subsequent hospital visit by physician Phuong Hall MD Work Phone: [facility] Comment on above: Renal calculus Start: 09-03-2023 End: 09-04-2023 ambulatory Arashkatherine FIELD Facility:[facility] Start: 09-03-2023 End: 09-03-2023 Patient encounter procedure Arash FIELD [facility] Start: 07-12-2023 End: 07-12-2023 ambulatory Jerson Goldsmith Other [employer] Other Start: 07-12-[address] [facility] Start: 05-08-2023 End: 05-08-2023 ambulatory Arashkatherine Field Facility:[facility] Start: 05-08-2023 End: 05-08-2023 ambulatory MD Phuong Hall Work Phone: [facility] Work Phone: Start: 05-08-2023 End: 05-08-2023 Patient encounter procedure MD Phuong Hall Work Phone: [facility] Work Phone: Start: 02-23-2023 End: 02-24-2023 ambulatory Arashkatherine FIELD Facility:[facility] Start: 02-23-2023 End: 02-23-2023 Patient encounter procedure Arash Broderick FIELD [facility] Start: 01-11-2023 End: 01-11-2023 ambulatory Jerson Goldsmith Other [employer] Other Start: 01-11-2023 Patient encounter procedure Jerson Goldsmith [facility] Start: 01-23-2022 End: 01-23-2022 Patient encounter procedure MD Phuong Hall Work Phone: [facility] [place] Start: 01-02-2022 End: 01-02-2022 Patient encounter procedure Arash FIELD [facility] Start: 12-30-2021 End: 12-31-[address] ARASH FIELD Facility:[facility] Start: 10-24-2021 End: 10-24-2021 ambulatory Jerson Goldsmith Other [employer] Other Start: 10-24-2021 Telephone encounter Jerson Goldsmith [facility] Start: 09-02-2021 End: 09-02-2021 ambulatory Jerson Goldsmith Other [employer] Other Start: 09-02-2021 Patient encounter procedure Jerson RUBIN [facility] Start: 03-18-2021 End: 03-19-[address] PHUONG HALL Facility:[facility] Start: 01-18-2021 End: 01-19-[address] PHUONG HALL Facility:[facility] Procedures Date Procedure Procedure Detail Performing Clinician Start: 12-15-2024 XR ABDOMEN 1V Phuong hazel MD Work Phone: Start: 09-01-2024 Mammography Qiana rios [employer] Work Phone: Start: 09-20-2023 Ecg routine ecg w/le ast 12 lds w/i&r Kimberly Burton MD Work Phone: Start: 05-08-2023 CT of urinary tract MD Phuong Hall Work Phone: Start: 01-23-2022 CT of urinary tract MD Phuong Hall Work Phone: Start: 10-17-2021 Mammography Phuong Hall MD Work Phone: Start: 09-22-2021 Colonoscopy Phuong Hall MD Work Phone: Start: 03-25-2020 Extracorporeal shock wave lithotripsy of calculus of kidney Arash FIELD Colonoscopy Arash FIELD Colonoscopy Arash FIELD Ligation of fallopian tube P clarita FIELD Plan of Treatment Date Care Activity Detail Author Start: 09-23-2031 Screening for malign ant neoplasm of colon [facility] Start: 09-01-2025 Screening for malign ant neoplasm of breast Mammogram [facility] Start: 02-23-2025 Influenza vaccination Influenza Vacc ine (#1) [facility] Start: 01-12-2025 End: 01-12-2026 DXA Skeletal system Views for bone density DEXA bone density Imaging Routine Postmenopausal state Expected: 01/12/2025 (Approximate), Expires: 01/12/2026 [facility] [employer] Work Phone: Comment on above: Expected: 01/12/2025 (Approximate), Expires: 01/12/2026 Start: 01-12-2025 End: 01-12-2025 Patient encounter procedure [facility] Comment on above: Arrived Start: 11-24-2024 End: 08-24-2025 TSH W/REFLEX TO FT4 TSH W/REFLEX TO FT4 Lab Routine Hypothyroidism, unspecified type (CMS/HCC) Expected: 11/24/2024 (Approximate), Expires: 08/24/2025 [facility] Work Phone: Comment on above: Expected: 11/24/2024 (Approximate), Expires: 08/24/2025 Start: 10-13-2024 End: 10-13-2025 EMG AND NERVE CONDUCTION STUDY EMG AND NERVE CONDUCTION STUDY Neurology Routine Numbness Leg pain, left Expected: 10/13/2024 (Approximate), Expires: 10/13/2025 [facility] Work Phone: Comment on above: Expected: 10/13/2024 (Approximate), Expires: 10/13/2025 Start: 10-13-2024 End: 10-13-2024 Patient encounter procedure 10/13/2024 9:00 AM EDT Office Visit [facility] [address] [facility] [address] [place] [address] Qiana Toro NP [address] [place] [address] Arrived [facility] Comment on above: Arrived Start: 09-29-2024 End: 09-29-2024 Patient encounter procedure 09/29/2024 2:00 PM EDT Office Visit [facility] [address] [place] [id number] Diana Wang PA [address] [place] [address] [facility] Start: 09-09-2024 End: 09-09-2024 Professional / ancillary services management 09/09/2024 8:00 AM EDT Ancillary Procedure [facility] [address] [place] [id number] [facility] Start: 08-22-2024 End: 08-22-2025 CBC W Auto Differential panel - Blood CBC and differential Lab Routine Hypothyroidism, unspecified type (CMS/HCC) Expected: 08/22/2024 (Approximate), Expires: 08/22/2025 [facility] Comment on above: Expected: 08/22/2024 (Approximate), Expires: 08/22/2025 Start: 08-22-2024 End: 08-22-2025 Comprehensive metabolic 2000 panel - Serum or Plasma Comprehensive metabolic panel Lab Routine Hypothyroidism, unspecified type (CMS/HCC) Expected: 08/22/2024, Expires: 08/22/2025 [facility] Comment on above: Expected: 08/22/2024 , Expires: 08/22/2025 Start: 08-22-2024 End: 10-20-2025 DBT Breast - bilateral screening Bilateral screening mammogram with tomosynthesis Imaging Routine Screening mammogram for breast cancer Expected: 08/22/2024, Expires: 10/20/2025 [facility] Comment on above: Expected: 08/22/2024 , Expires: 10/20/2025 Start: 08-22-2024 End: 08-22-2025 Lipid 1996 panel - Serum or Plasma Lipid panel Lab Routine Hypothyroidism, unspecified type (CMS/HCC) Expected: 08/22/2024 (Approximate), Expires: 08/22/2025 [facility] Comment on above: Expected: 08/22/2024 (Approximate), Expires: 08/22/2025 Start: 08-22-2024 End: 08-22-2024 Patient encounter procedure [facility] Comment on above: Arrived Start: 08-22-2024 End: 08-22-2025 TSH W/REFLEX TO FT4 TSH W/REFLEX TO FT4 Lab Routine Hypothyroidism, unspecified type (CMS/HCC) Expected: 08/22/2024 (Approximate), Expires: 08/22/2025 [facility] Work Phone: Comment on above: Expected: 08/22/2024 (Approximate), Expires: 08/22/2025 Start: 08-22-2024 End: 08-22-2025 US Thyroid gland US thyroid Imaging Routine Thyroid enlargement (CMS/HCC) Expected: 08/22/2024, Expires: 08/22/2025 [facility] Comment on above: Expected: 08/22/2024 , Expires: 08/22/2025 Start: 08-18-2024 End: 08-18-2024 Patient encounter procedure [facility] Comment on above: Arrived Start: 08-18-2024 End: 08-18-2025 Cortisol free Cortisol, free Lab Routine Hormone disorder Expected: 08/18/2024 (Approximate), Expires: 08/18/2025 [facility] Comment on above: Expected: 08/18/2024 (Approximate), Expires: 08/18/2025 Start: 08-18-2024 End: 08-18-2025 US Pelvis US Pelvis w/ TV Imaging Routine Pelvic pain in female Expected: 08/18/2024, Expires: 08/18/2025 [facility] Work Phone: Comment on above: Expected: 08/18/2024 , Expires: 08/18/2025 Start: 02-24-2024 Influenza vaccination Influenza Vacc ine (#1) [facility] Start: 10-18-2023 Screening for malign ant neoplasm of breast Breast cancer screen [facility] Start: 01-23-2023 Influenza vaccination Flu vaccine (# 1) [facility] Start: 10-17-2022 Screening for malign ant neoplasm of breast Mammogram [facility] Start: 2022 Shingles vaccine (1 of 2) Shingles vaccine (1 of 2) [facility] Start: 2017 Screening for malign ant neoplasm of colon [facility] Start: 2012 Lipid panel Lipids [facility] Start: 2002 Screening for malign ant neoplasm of cervix [facility] Start: 1993 Screening for malign ant neoplasm of cervix Pap smear [facility] Start: 1991 DTaP/Tdap/Td vaccine (1 - Tdap) DTaP/Tdap/Td vaccine (1 - Tdap) [facility] Start: 1990 Hepatitis C screening Hepatitis C sc reen [facility] Start: 1987 HIV screening HIV screen [facility] Start: 1984 Depression Screen Depression Screen [facility] Start: 01-11-1973 COVID-19 Vaccine (#1) COVID-19 Vacci ne (#1) [facility] Start: 1972 Hepatitis B vaccine (1 of 3 - 3-dose series) Hepatitis B vaccine (1 of 3 - 3-dose series) [facility] Start: 1972 Screening for malign ant neoplasm of colon [facility] DHEA-sulfate DHEA-sulfate Lab Routine Hormone disorder Ordered: 08/18/2024 [facility] Comment on above: Ordered: 08/18/2024 Estradiol Estradiol Lab Ro utine Hormone disorder Ordered: 08/18/2024 [facility] Comment on above: Ordered: 08/18/2024 Estrone Estrone Lab Rout ine Hormone disorder Ordered: 08/18/2024 [facility] Comment on above: Ordered: 08/18/2024 Progesterone Progesterone Lab Routine Hormone disorder Ordered: 08/18/2024 [facility] Comment on above: Ordered: 08/18/2024 TESTOSTERONE, FREE TESTOSTERONE, FREE Lab Routine Hormone disorder Ordered: 08/18/2024 [facility] Comment on above: Ordered: 08/18/2024 Testosterone, free, total Testosterone, free, total Lab Routine Hormone disorder Ordered: 08/18/2024 [facility] Comment on above: Ordered: 08/18/2024 THIN PREP TIS PAP AN D HR HPV DNA THIN PREP TIS PAP AND HR HPV DNA Pathology and Cytology Routine Well woman exam with routine gynecological exam Ordered: 01/12/2025 [facility] Comment on above: Ordered: 01/12/2025 Vitamin D 1,25 dihydroxy Vitamin D 1,25 dihydroxy Lab Routine Hormone disorder Ordered: 08/18/2024 [facility] Comment on above: Ordered: 08/18/2024 Immunizations Immunization Date Immunization Notes Care Provider Fa cili 06-24-2024 influenza virus vaccine, unspecified formulation Diana CARLOS Work Phone: [facility] 06-22-2022 influenza virus vaccine, unspecified formulation Phuong Hall MD Work Phone: [facility] NEGATED: Highlighted row has not occurred!01-10-2021 SARS-CoV-2 (COVID-19) mRNA-1273 vaccine Arash FIELD [facility] Payers Date Payer Category Payer Self-pay [id number] 2022 [facility] er [id number] 1972 Unknown [id number]. 2.593 1972 Unknown [id number] 2.16.840.1.922948.3.579. 2.593 1972 Unknown [id number] 2.16.840.1.918634.3.579. 2.593 1972 Unknown [id number] 2.16.840.1.670951.3.579. 2.727 1972 Unknown [id number] 2.16.840.1.822538.3.579. 2.727 1972 Unknown [id number] 2.16.840.1.995782.3.579. 2.173 1972 Unknown [id number] 2.16.840.1.695834.3.579. 2.173 1972 Unknown [id number] 2.16.840.1.951234.3.579. 2.173 1972 Unknown [id number] 2.16.840.1.039713.3.579. 2.1259 1972 Unknown [id number] 2.16.840.1.655692.3.579. 2.1259 1972 Unknown [id number] 2.16.840.1.176294.3.579. 2.1259 1972 Unknown [id number] 2.16.840.1.602418.3.579. 2.1259 1972 Unknown [id number] 2.16.840.1.268148.3.579. 2.1259 1959 [facility] [id number] Unknown [id number] [id number]. 2.531 Social History Date Type Detail Facility Unknown if ever smoked [employer] Other Start: 09-20-2023 End: 10-11-2024 Sex Assigned At [employer] Other Start: 01-10-2021 End: 08-22-2024 Tobacco smoking status Never smoked tobacco (finding) [facility] Start: 1970 Sex Assigned At Female F [facility] Start: 09-20-2023 End: 08-22-2024 Tobacco use and exposure Smokeless tobacco non-user [facility] [employer] Start: 09-20-2023 End: 01-12-2025 Alcohol intake Ex-drinker (finding) [employer] Start: 09-20-2023 End: 10-11-2024 History of Social function [facility] [employer] Start: 1970 Sex Assigned At Not on file B [facility] [employer] Tobacco [facility] stat [facility] [facility] How often do you nee d to have someone help you when you read instructions, pamphlets, or other written material from your doctor or pharmacy [SILS] Never [facility] Within the last year , have you been afraid of your partner or ex-partner? No [facility] Do you belong to any clubs or organizations such as gnosticism groups, unions, fraFon or athletic groups, or school groups? Yes [facility] Are you now , , , , never or living with a partner? [facility] How many standard drinks containing alcohol do you have on a typical day? Patient does not drink [facility] Do you feel stress - tense, restless, nervous, or anxious, or unable to sleep at night because your mind is troubled all the time - these days [OSQ] To some extent [facility] (I/We) worried wheth er (my/our) food would run out before (I/we) got money to buy more. Never true [facility] NEGATED: Highlighted rowStart: NINF History of tobacco use Passive smoker [facility] [employer] Functional Status Date Assessment Result Facility 02-23-2023 Functional Status N/A [facility] 01-02-2022 Functional Status N/A [facility] Clinical Notes 09-02-2021 to 01-12-2025 TERRANCE Ruiz - 01/12/2025 11:00 AM John Toro NP - 10/13/2024 9:00 AM Iman Hall MD - 08/22/2024 2:00 PM TERRANCE Chow - 08/18/2024 3:30 PM EST Note Date & Type Note Facility 01-12-2025 History of Presen t illness Narrative Images from the original note were not included. Reason for Appointment: Patient ID: Fausto Merrill is a 54 y.o. female who presents for Well Women Visit Patient presents today for Annual Exam. MEDICATIONS Current Outpatient Medications Medication Instructions esomeprazole (NEXIUM) 40 mg, Oral, Daily estradiol (Estrace) 0.1 MG/GM vaginal cream 2g vaginal daily for 2 weeks, then 2 times weekly following initial 2 weeks fluticasone (Flonase) 50 MCG/ACT nasal spray USE 1-2 SPRAYS IN EACH NOSTRIL IN MORNING.SHAKE GENTLY.PRIME PUMP BEFORE FIRST USE.CLEAN TIP AFTER. levothyroxine (SYNTHROID, LEVOXYL) 112 mcg, Oral, Daily before breakfast Lialda 1,200 mg valACYclovir (VALTREX) 1,000 mg, Oral, Daily ALLERGIES No Known Allergies PROBLEMS Active Ambulatory Problems Diagnosis Date Noted Hypothyroidism 08/22/2024 Resolved Ambulatory Problems Diagnosis Date Noted No Resolved Ambulatory Problems No Additional Past Medical History HISTORY PAST MEDICAL HISTORY SOCIAL HISTORY History reviewed. No pertinent past medical history. Social History Tobacco Use Smoking status: Never Smokeless tobacco: Never Substance Use Topics Alcohol use: Not Currently Drug use: Never FAMILY HISTORY Family History Problem Relation Name Age of Onset Other (fatty liver) Son Ulcerative colitis Son SURGICAL HISTORY Past Surgical History: Procedure Laterality Date TUBAL LIGATION HAS ESSURES COILS REVIEW OF SYSTEMS Review of Systems: Review of Systems Constitutional: Negative. HENT: Negative. Eyes: Negative. Respiratory: Negative. Cardiovascular: Negative. Gastrointestinal: Negative. Genitourinary: Negative. Musculoskeletal: Negative. Skin: Negative. Neurological: Negative. All other systems reviewed and are negative. Hematological: Negative. Endocrine: Negative. Allergic/Immunologic: Negative. OBJECTIVE Objective: Physical Exam Constitutional: Appearance: Normal appearance. Genitourinary: Genitourinary Comments: Linear crease with redness and tenderness to touch Right Adnexa: not tender and no mass present. Left Adnexa: not tender and no mass present. No cervical discharge. Breasts: Breasts are soft. Right: Normal. Left: Normal. HENT: Head: Normocephalic. Nose: Nose normal. Mouth/Throat: Mouth: Mucous membranes are moist. Cardiovascular: Rate and Rhythm: Normal rate. Pulmonary: Effort: Pulmonary effort is normal. Abdominal: General: Bowel sounds are normal. Palpations: Abdomen is soft. Musculoskeletal: General: Normal range of motion. Cervical back: Normal range of motion. Neurological: General: No focal deficit present. Mental Status: She is alert. Skin: General: Skin is warm and dry. Psychiatric: Mood and Affect: Mood normal. Vitals and nursing note reviewed. Exam conducted with a rural health consultant present. Vitals: Estimated body mass index is 23.53 kg/m as calculated from the following: Height as of 08/22/24: 5' 5 . Weight as of this encounter: 141 lb 6.4 oz. BP: 110/68 Patient's last menstrual period was 01/02/2025. ASSESSMENT & PLAN ICD-10-CM 1. Well woman exam with routine gynecological exam Z01.419 THIN PREP TIS PAP AND HR HPV DNA 2. Breast cancer screening by mammogram Z12.31 3. Postmenopausal state Z78.0 DEXA bone density estradiol (Estrace) 0.1 MG/GM vaginal cream Annual: Patient presents today for an annual exam. Patient states she is doing well and has no complaints. Pap was obtained without difficulty and patient given mammogram order to have scheduled/obtained. Orders Placed This Encounter Procedures DEXA bone density Patient has a linear crease along outer edge of labia that is red and tender to touch states she has had on and off for years. We will try estradiol cream apply once a day for 2 weeks followed by twice weekly. Patient also states she had to stop effexor due to lack of meeting climax. We discussed trying Bijuva for perimenopausal symptoms. Pt will follow up with telehealth or may call back earlier if she decides to start using hormone replacement Follow Up: Patient is to return in one year for annual unless needed otherwise. Documented by TERRANCE Ruiz on behalf of: TERRANCE Ruiz documented in this encounter [facility] 10-13-2024 History of Presen t illness Narrative Images from the original note were not included. Fausto Merrill is a 54 y.o. female presents with chief complaint of Knee Pain HPI: History of Present Illness The patient presents for evaluation of leg pain and toe pain. A persistent burning sensation in the leg has been experienced for several months, suspected to be neuropathy. The discomfort is localized to a specific area on the leg, with no symptoms reported in the foot or other areas. The sensation is described as similar to road rash, with any contact exacerbating the discomfort. Occasional tingling and throbbing sensations are reported, jermaine to pins and needles, particularly when experiencing goosebumps or chills. The intensity of the discomfort appears to be less severe upon waking in the morning but tends to worsen as the day progresses. Uncertainty exists regarding whether the discomfort disrupts sleep. No associated back pain or weakness in the affected leg is reported. No injury to area. Additionally, chronic pain of her right big toe is reported, attributed to arthritis. The pain intensifies during certain activities such as planking, push-ups, or wearing heels. No symptoms suggestive of gout, such as redness, swelling, or extreme tenderness upon touch, are experienced. HPI SUBJECTIVE: MEDICATIONS: Current Outpatient Medications Medication Instructions esomeprazole (NexIUM) [address] capsule TAKE 1 CAPSULE BY MOUTH EVERY DAY FOR 90 DAYS fluticasone (Flonase) 50 MCG/ACT nasal spray USE 1-2 SPRAYS IN EACH NOSTRIL IN MORNING.SHAKE GENTLY.PRIME PUMP BEFORE FIRST USE.CLEAN TIP AFTER. levothyroxine (SYNTHROID, LEVOXYL) 112 mcg, Oral, Daily before breakfast Lialda 1,200 mg venlafaxine XR (EFFEXOR XR) 37.5 mg, Oral, Daily, Do not crush or chew. I have reviewed and reconciled the history and medication list with the patient today. REVIEW OF SYMPTOMS: Review of Systems Constitutional: Negative. HENT: Negative. Respiratory: Negative. Gastrointestinal: Negative. Genitourinary: Negative. Musculoskeletal: Negative. Skin: Negative. Neurological: Positive for numbness. Burning sensation left lateral ankle up to mid calf Psychiatric/Behavioral: Negative. OBJECTIVE: Visit Vitals BP 108/64 (BP Location: Left arm, Patient Position: Sitting, BP Cuff Size: Adult) Pulse 76 Temp 97.3 F (Temporal) Wt 139 lb SpO2 97% BMI 23.13 kg/m Smoking Status Never BSA 1.7 m Physical Exam Vitals and nursing note reviewed. Constitutional: Appearance: Normal appearance. HENT: Head: Normocephalic and atraumatic. Cardiovascular: Rate and Rhythm: Normal rate and regular rhythm. Pulses: Normal pulses. Heart sounds: Normal heart sounds. Pulmonary: Effort: Pulmonary effort is normal. No respiratory distress. Breath sounds: Normal breath sounds. No stridor. No wheezing, rhonchi or rales. Musculoskeletal: Left ankle: Normal. No swelling, deformity or ecchymosis. No tenderness. Normal range of motion. Legs: Comments: Burning/prickling sensation left lateral ankle up to mid calf with touch. Skin: General: Skin is warm and dry. Neurological: General: No focal deficit present. Mental Status: She is alert and oriented to person, place, and time. Sensory: Sensation is intact. Motor: No weakness. Psychiatric: Mood and Affect: Mood normal. Behavior: Behavior normal. ASSESSMENT AND PLAN: Assessment/Plan Problem List Items Addressed This Visit None Visit Diagnoses Numbness - Primary Relevant Orders EMG AND NERVE CONDUCTION STUDY Leg pain, left Relevant Medications methylPREDNISolone (Medrol Dospak) 4 MG tablets Follow schedule on package instructions Other Relevant Orders EMG AND NERVE CONDUCTION STUDY Assessment & Plan 1. Leg pain. - Reports a burning sensation in the leg, ongoing for months, described as similar to road rash, exacerbated by touch, chills, or goosebumps. - No numbness or tingling, but occasional throbbing and prickly sensations are noted. Pain is better in the mornings and worsens throughout the day. No associated back pain, foot involvement, or weakness. EMG will be ordered to rule out any nerve issues. Medrol dose pack will be prescribed in case any inflammation is causing this sensation. 2. Toe pain. - Reports chronic pain in a toe, believed to be due to arthritis. Pain is constant and worsens with activities like planking or wearing heels. - No redness, swelling, or extreme pain indicative of gout. - An x-ray of the affected toe will be considered if the pain persists or worsens. Declined x-ray at this visit Follow up in 1-2 weeks to reassess left lower extremity documented in this encounter [facility] 08-22-2024 History of Presen t illness Narrative Images from the original note were not included. Fausto Merrill is a 54 y.o. female presents with chief complaint of Follow-up HPI: HPI History of Present Illness The patient is a 54-year-old female who presents for evaluation of thyroid issues, depression, and kidney stones. She has been experiencing fluctuations in her thyroid hormone levels, which she believes may be contributing to her current symptoms. She has been on thyroid medication for approximately 8 weeks. She reports feeling overwhelmed due to the recent loss of her mother in January 2024 and her daughter's diagnosis of thyroid cancer, which required two surgeries. Additionally, her [id number] recently suffered a miscarriage. She has been experiencing amenorrhea for the past 50 days, which she initially attributed to menopause, but menstruation resumed this morning. She describes feeling macias and emotional. She has been engaging in regular exercise, including treadmill walking and weightlifting, and maintains a healthy diet. However, she admits to occasional indulgences, such as pizza pops. She has been experiencing fatigue and feels as though she is struggling. She has been consuming a healthy breakfast and lunch daily but often skips dinner. 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 She has an upcoming appointment with a counselor, which she previously canceled but plans to reschedule. She was prescribed low-dose Effexor on Sunday but has not yet started the medication as she had previously weaned herself off it years ago. She has multiple kidney stones and is unsure about the treatment plan. FAMILY HISTORY Her mother had stomach cancer and at the end of January. Her daughter has thyroid cancer and has undergone two surgeries. MEDICATIONS Current: Effexor (not yet picked up) SUBJECTIVE: MEDICATIONS: Current Outpatient Medications Medication Instructions esomeprazole (NexIUM) [address] capsule TAKE 1 CAPSULE BY MOUTH EVERY DAY FOR 90 DAYS esomeprazole (NexIUM) [address] capsule 1 capsule, Every 24 hours fluticasone (Flonase) 50 MCG/ACT nasal spray USE 1-2 SPRAYS IN EACH NOSTRIL IN MORNING.SHAKE GENTLY.PRIME PUMP BEFORE FIRST USE.CLEAN TIP AFTER. fluticasone (Flonase) 50 MCG/ACT nasal spray Every 24 hours levothyroxine (Synthroid, Levoxyl) 125 MCG tablet TAKE 1 TABLET BY MOUTH EVERY DAY IN THE MORNING ON EMPTY STOMACH FOR 30 DAYS for 30 levothyroxine (SYNTHROID, LEVOXYL) 125 mcg, Oral, Daily before breakfast Lialda 1,200 mg valACYclovir (VALTREX) 1,000 mg, Oral, Daily venlafaxine XR (EFFEXOR XR) 37.5 mg, Oral, Daily, Do not crush or chew. venlafaxine XR (EFFEXOR XR) 37.5 mg, Oral, Daily, Do not crush or chew. ALLERGIES: No Known Allergies SURGICAL HISTORY: Past Surgical History: Procedure Laterality Date TUBAL LIGATION HAS ESSURES COILS FAMILY HISTORY: No family history on file. SOCIAL HISTORY: Social History Tobacco Use Smoking status: Never Smokeless tobacco: Never Substance Use Topics Alcohol use: Not Currently Drug use: Never Depression: Not at risk (08/22/2024) PHQ-2 PHQ-2 Score: 0 REVIEW OF SYMPTOMS: Review of Systems Respiratory: Negative. Cardiovascular: Negative. OBJECTIVE: Visit Vitals BP 118/62 (BP Location: Left arm, Patient Position: Sitting, BP Cuff Size: Adult) Pulse 69 Resp 18 Ht 5' 5 Wt 141 lb 3.2 oz SpO2 99% BMI 23.50 kg/m Smoking Status Never BSA 1.71 m Physical Exam Constitutional: Appearance: Normal appearance. She is normal weight. HENT: Head: Normocephalic and atraumatic. Nose: Nose normal. Mouth/Throat: Mouth: Mucous membranes are moist. Eyes: Pupils: Pupils are equal, round, and reactive to light. Cardiovascular: Rate and Rhythm: Normal rate and regular rhythm. Heart sounds: No murmur heard. Pulmonary: Effort: Pulmonary effort is normal. Breath sounds: Normal breath sounds. No wheezing or rhonchi. Abdominal: General: Bowel sounds are normal. Palpations: Abdomen is soft. There is no mass. Tenderness: There is no abdominal tenderness. Musculoskeletal: General: No swelling. Cervical back: Normal range of motion and neck supple. Right lower leg: No edema. Left lower leg: No edema. Skin: General: Skin is warm and dry. Findings: No rash. Neurological: Mental Status: She is alert and oriented to person, place, and time. Sensory: No sensory deficit. Gait: Gait normal. Psychiatric: Mood and Affect: Mood normal. Thought Content: Thought content normal. Judgment: Judgment normal. ASSESSMENT AND PLAN: Assessment/Plan Problem List Items Addressed This Visit Hypothyroidism (CMS/HCC) - Primary Relevant Orders TSH W/REFLEX TO FT4 CBC and differential Comprehensive metabolic panel Lipid panel Other Visit Diagnoses Depression, unspecified depression type (CMS/HCC) Screening mammogram for breast cancer Relevant Orders Bilateral screening mammogram with tomosynthesis Dysphagia, unspecified type Thyroid enlargement (CMS/HCC) Relevant Orders US thyroid Perimenopausal vasomotor symptoms Relevant Medications venlafaxine XR (Effexor XR) 37.5 MG 24 hr capsule As of your wellness visit , the medical team reviewed your chart and chronic problems and treatment. Your information regarding healthy diet, activity, immunizations, depression screening, cancer screening and risk factors for disease were reviewed or addressed Assessment & Plan 1. Thyroid dysfunction. Her symptoms suggest that her thyroid condition may be under-treated. An ultrasound of the thyroid will be conducted to assess its current state. Blood work will be ordered to evaluate kidney function, liver function, thyroid levels, blood count, and cholesterol levels. 2. Depression. She has been experiencing significant stress and grief due to multiple family issues, including the passing of her mother and her daughter's thyroid cancer. She is encouraged to follow up with her electron beam machine welder setter and consider professional counseling to address ongoing emotional and psychological stress. Effexor has been prescribed but not yet picked up; she is advised to start taking it. 3. Kidney stones. She reports having multiple kidney stones and difficulty with their management. 4. Health maintenance. A mammogram will be ordered as she is due for this screening. Follow-up The patient will follow up in 12 weeks. documented in this encounter [facility] 08-18-2024 History of Presen t illness Narrative Reason for Appointment: Patient ID: Fausto Merrill is a 54 y.o. female who presents for perimenopause symptoms Patient presents today for Acute Visit.Reason for Appointment: Patient ID: Fausto Merrill is a 54 y.o. female who presents for Discuss menopause She reports symptoms of hot flashes, concerns with e-sure clips and pelvic pain, mood changes from feelings of anger to crying. Would like to know if she is in menopause and would like to control some of her symptoms. Current Medications: has a current medication list which includes the following prescription(s): esomeprazole, esomeprazole, fluticasone, fluticasone, levothyroxine, levothyroxine, lialda, valacyclovir, and venlafaxine xr. Medical History: Active Ambulatory Problems Diagnosis Date Noted No Active Ambulatory Problems Resolved Ambulatory Problems Diagnosis Date Noted No Resolved Ambulatory Problems No Additional Past Medical History No family history on file. Social History Tobacco Use Smoking status: Not on file Smokeless tobacco: Not on file Substance Use Topics Alcohol use: Not on file Drug use: Not on file Past Surgical History: Procedure Laterality Date TUBAL LIGATION HAS ESSURES COILS No Known Allergies Vitals: Estimated body mass index is 22.63 kg/m as calculated from the following: Height as of 06/22/22: 5' 5 . Weight as of 06/22/22: 136 lb. BP: No LMP recorded. Assessment/Plan Encounter Diagnoses Name Primary? Menopause Perimenopausal vasomotor symptoms Yes Hormone disorder Pelvic pain in female Complaints of perimenopausal/menopausal symptoms with mood swings, hot flashes, decreased sex drive and intermittent pelvic pain and concern related to e sure clips. We discussed the use of hormonal versus nonhormonal treatment. She has opted for non hormonal treatment and will trial Effexor. Given complaints of intermittent pelvic pain we have ordered a transvaginal ultrasound and discussed possible removal of e sure clips. Perimenopausal labs were ordered. She will follow up in our office for review of labs and ultrasound and will schedule her yearly exam. Documented by Krystina Funk NP on behalf of: TERRANCE Ruiz MEDICATIONS Current Outpatient Medications Medication Instructions esomeprazole (NexIUM) [address] capsule TAKE 1 CAPSULE BY MOUTH EVERY DAY FOR 90 DAYS esomeprazole (NexIUM) [address] capsule 1 capsule, Every 24 hours fluticasone (Flonase) 50 MCG/ACT nasal spray USE 1-2 SPRAYS IN EACH NOSTRIL IN MORNING.SHAKE GENTLY.PRIME PUMP BEFORE FIRST USE.CLEAN TIP AFTER. fluticasone (Flonase) 50 MCG/ACT nasal spray Every 24 hours levothyroxine (Synthroid, Levoxyl) 125 MCG tablet TAKE 1 TABLET BY MOUTH EVERY DAY IN THE MORNING ON EMPTY STOMACH FOR 30 DAYS for 30 levothyroxine (SYNTHROID, LEVOXYL) 125 mcg, Oral, Daily before breakfast Lialda 1,200 mg, Oral valACYclovir (VALTREX) 1,000 mg, Oral, Daily venlafaxine XR (EFFEXOR XR) 37.5 mg, Oral, Daily, Do not crush or chew. ALLERGIES No Known Allergies PROBLEMS Active Ambulatory Problems Diagnosis Date Noted No Active Ambulatory Problems Resolved Ambulatory Problems Diagnosis Date Noted No Resolved Ambulatory Problems No Additional Past Medical History HISTORY PAST MEDICAL HISTORY SOCIAL HISTORY No past medical history on file. Social History Tobacco Use Smoking status: Not on file Smokeless tobacco: Not on file Substance Use Topics Alcohol use: Not on file Drug use: Not on file FAMILY HISTORY No family history on file. SURGICAL HISTORY Past Surgical History: Procedure Laterality Date TUBAL LIGATION HAS ESSURES COILS REVIEW OF SYSTEMS Review of Systems: Review of Systems Constitutional: Positive for night sweats and hot flashes. Reports mood changes and is quick to anger and sometimes feels just like crying Genitourinary: Positive for pelvic pain. Reports pelvic discomfort and is concerned that it is related to her e-sure clips. All other systems reviewed and are negative. OBJECTIVE Objective: Physical Exam Constitutional: Appearance: Normal appearance. She is normal weight. HENT: Head: Normocephalic. Pulmonary: Effort: Pulmonary effort is normal. Breath sounds: Normal breath sounds. Abdominal: General: Abdomen is flat. Palpations: Abdomen is soft. Musculoskeletal: General: Normal range of motion. Neurological: General: No focal deficit present. Mental Status: She is alert and oriented to person, place, and time. Mental status is at baseline. Skin: General: Skin is warm and dry. Psychiatric: Mood and Affect: Mood normal. Behavior: Behavior normal. Thought Content: Thought content normal. Vitals: Estimated body mass index is 22.63 kg/m as calculated from the following: Height as of 06/22/22: 5' 5 . Weight as of 06/22/22: 136 lb. BP: No LMP recorded. ASSESSMENT & PLAN ICD-10-CM 1. Perimenopausal vasomotor symptoms N95.1 venlafaxine XR (Effexor XR) 37.5 MG 24 hr capsule 2. Menopause Z78.0 3. Hormone disorder E34.9 Estradiol Estrone Cortisol, free DHEA-sulfate Progesterone Vitamin D 1,25 dihydroxy TESTOSTERONE, FREE Testosterone, free, total Cortisol, free 4. Pelvic pain in female R10.2 US Pelvis w/ TV Patient give lab orders and will be started on low dose effexor to help with hot flashed. Patient will follow up with annual and is scheduled for ultrasound in near future Documented by Krystina Funk NP on behalf of: TERRANCE Ruiz documented in this encounter [facility] 05-16-2024 Telephone encount er Note Approvals with refills [facility] 05-16-2024 Miscellaneous Notes Formattin g of this note might be different from the original. Approvals with refills documented in this encounter [facility] 07-12-2023 Evaluation note Encounter Date Diagnosis Assessment Notes Jun, Ulcerative colitis (ICD-10 - K51.90) [employer] Other 09-01-2023 Hospital Discharge instructions Follow Up Care 02/23/2023 12:26:27 With:EMIR ADLER, Arash Broderick, URL Address: [facility] [address] [place] [address] [phone] When: Unknown [facility] 09-01-2023 Hospital Discharge instructions Patient Education 02/23/2023 [...] include: ?8 oz (237 mL) of milk, tdokebs-tqjyzrlqncpp-kmcqd milk, and calcium- fortifiedfruit juice. Calcium-fortified means [...] ?Spinach (cooked), rhubarb, beets, sweet potatoes, and Citizen [place] chard. ?Peanuts. ?Potato chips, tajik fries, and baked potatoes with skin on. ?Nuts and nut products. ?Chocolate. If you regularly take a diuretic medicine, make sure to eat at least 1 or 2 servings of fruits or vegetables that are high in potassium each day. These include: ?Avocado. ?Banana. ?[place], prune, carrot, or tomato juice. ?Baked potato. [...] magnesium, fish oil, or vitamin B6. Take dxpl-wiq-gddfsdb and prescription medicines only as told by [...] Casseroles. Pizza. Lasagna. Frozen meals. Potato chips. Hungarian fries. The items listed above may not [...] provider. Document Revised: 02/20/2022 Document Reviewed: 02/20/2022 [employer] Patient Education 2022 [employer]. Follow Up Care 10/09/2022 10:30:40 With:EMIR ADLER, Arash Broderick, URL Address: [facility] [address] [place] [address]- When:Within 6 Month(s) Comments:w/CTU & 24hr Urine [facility] 07-20-2023 Evaluation note* Encounter Date Diagnosis Assessment Notes Treatment Notes Treatment Clinical Notes Dec, Ulcerative colitis (ICD-10 - K51.90) Continue lialda 4 tablets daily Rto 1 yr [employer] Other 07-11-2022 Hospital Discharge instructions Patient Education 01/02/2022 10:36:11 Kidney Stones, [id number] Kidney Stones Kidney stones are rock-like masses [...] Follow these instructions at home: Medicines Take [id number] and prescription medicines only as told by [...] 11/27/2008 Document Revised: 10/28/2019 Document Reviewed: 10/28/2019 [employer] Patient Education 2020 [employer]. Follow Up Care 01/10/2021 10:24:51 With:EMIR ADLER, Arash Broderick, URL Address: [facility] [address] , [place] [id number]- [phone] When: Unknown Comments:Will schedule Ct scan w/o * stone protocal [facility] 05-02-2022 Evaluation note* Encounter Date Diagnosis Assessment Notes Treatment Notes Treatment Clinical Notes October, Ulcerative colitis (ICD-10 - K51.90) [employer] Other 03-11-2022 Evaluation note* Encounter Date Diagnosis Assessment Notes Treatment Notes Treatment Clinical Notes Aug, Ulcerative colitis (ICD-10 - K51.90) PATIENT DOES CONTINUE ON THE LIALDA CONTINUE ON THE MEDICATION PROCEED WITH COLON [employer] Other Evaluation + Plan note No data available for this section [facility] evaluation + Plan note Future Appointments Appointment Date:09/03/2023 08:45:00 AM Scheduled Provider:Arash FIELD MD Location:[facility] Appointment Type:URO Office Visit [facility] evaluation noteNo assessment information available [facility] Work Phone: Evaluation note* Diagnosis Renal calculus Calculus of kidney [facility] Diagnosis Seasonal allergic rhinitis due to pollen [facility] Diagnosis Hypothyroidism, unspecified type (CMS/HCC) [facility] Diagnosis Hypothyroidism, unspecified type (CMS/HCC) [facility] Diagnosis Perimenopausal vasomotor symptoms- Primary Menopause Symptomatic menopausal or female climacteric states Hormone disorder Unspecified endocrine disorder Pelvic pain in female Unspecified symptom associated with female genital organs [facility] Diagnosis Hypothyroidism, unspecified type (CMS/HCC)- Primary Depression, unspecified depression type (CMS/HCC) Screening mammogram for breast cancer Dysphagia, unspecified type Thyroid enlargement (CMS/HCC) Goiter, unspecified Perimenopausal vasomotor symptoms Routine general medical examination at a health care facility documented [facility] encounter [facility]* Diagnosis Hypothyroidism, unspecified type (CMS/HCC)- Primary documented in this encounter [facility]* Diagnosis Numbness- Primary Disturbance of skin sensation Leg pain, left Pain in soft tissues of limb [facility]* Diagnosis Well woman exam with routine gynecological exam Routine gynecological examination Breast cancer screening by mammogram Postmenopausal state Asymptomatic postmenopausal status (age-related) (natural) [facility] N[facility]ative - Reported* Type Description Date Medical History Hypothyroidism Medical History GERD (gastroesophageal reflux di sease) Medical History Depression Medical History Ulcerative colitis Surgical History inguinal hernia repair Surgical History laparoscopy [employer] Other Progress note No data available for this section [facility] Summary Purpose Family History Relationship Condition Age at Onset Recorded Date/T compa sister Malignant neoplasm of breast Unknown grandparent Diabetes mellitus Unknown Heart disease Unknown Advance Directives Advance Directive Response Recorded Date/ Time Advance Directives No February 1:26pm Advance Directive Response Recorded Date/ Time Advance Directives No February 12:26pm Chief Complaint and Reason for Visit Chief Complaint N20 R10.9 N39.3 Chief Complaint n20.0 Reason for Referral Specialty Diagnoses / Procedures Referred By Contac t Referred To Contact Cardiology Diagnoses Renal calculus Procedures EKG 12 Lead Kimberly Burton MD [address] [place], [address] [place] [address] Referral ID Status Reason Start Date Expiration Date Visits Re quested Visits Authorized [id number] Open 09/20/2023 09/19/2024 1 1 Additional Source Comments INFORMATION SOURCE (unrecogn ized section and content) DATE CREATED AUTHOR 11/19/2021 [facility] dical Specialist DATE CREATED AUTHOR AUTHOR'S ORGANIZ ATION 01/10/2022 [facility] DATE CREATED AUTHOR AUTHOR'S ORGANIZ ATION 05/14/2023 [facility] DATE CREATED AUTHOR AUTHOR'S ORGANIZ ATION 09/05/2023 Abel Bernardo [facility] DATE CREATED AUTHOR AUTHOR'S ORGANIZ ATION 10/24/2023 [facility] DATE CREATED AUTHOR AUTHOR'S ORGANIZ ATION 10/13/2024 [facility] dical Specialists EPIC REASON FOR VISIT (unrecogniz ed section and content) Reason Comments Med Refill Reason Comments Med Change Request Reason Comments Discuss menopause Reason Comments Follow-up Reason Comments Knee Pain Reason Comments [facility] Visit Care Team (unrecognized sect ion and content) Team Status: Active Member Role Status Tiesha Hall MD Primary Care Provider Active Team Status: Inactive Member Role Status Tiesha Hall MD Primary Care Provider Active Arash Field MD Attending Provider Active 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 Relationship Specialty Start Date End Date Phuong Hall MD [address] [facility] [place] [address] PCP - General 09/20/23 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 Relationship Specialty Start Date End Date Phuong Hall MD [address] [facility] [address] [place], [place] [id number] PCP - General Family Medicine 10/31/22 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 Relationship Specialty Start Date End Date Phuong Hall MD [address] [facility] [place], [place] [id number] PCP - General Family Medicine 10/31/22 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 Relationship Specialty Start Date End Date Phuong Hall MD [address] [facility] [place] [address] PCP - General Family Medicine 10/31/22 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 Relationship Specialty Start Date End Date Phuong Hall MD [address] [facility] [place] [address] PCP - General Family Medicine 10/31/22 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 Relationship Specialty Start Date End Date Phuong Hall MD [address] [facility] [place] [address] PCP - General Family Medicine 10/31/22 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 Relationship Specialty Start Date End Date Phuong Hall MD [address] [facility] [place] [address] PCP - General Family Medicine 10/31/22 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 Relationship Specialty Start Date End Date Phuong Hall MD [address] [facility] [place] [address] PCP - General Family Medicine 10/31/22 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 Relationship Specialty Start Date End Date Phuong Hall MD [address] [facility] [place] [address] PCP - General Family Medicine 10/31/22 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 Relationship Specialty Start Date End Date Phuong Hall MD [address] [facility] [place] [address] PCP - General Family Medicine 10/31/22 Goals (unrecognized section and content) Goals may [...] BE BASED ON THE PRIMARY CLINICAL RECORDS. [facility], [facility]. provides no warranty or guarantee of the accuracy or completeness of information in this document.
[2025-01-15 16:09] LABS: Age Gdln ACOG Testing Note (.); IGP, Aptima HPV, rfx 16/18,45 Note (.)
== END 2025-01-12 15:42 | disposition home or self-care (01) ==
LOC: LAB 15:41
PROVIDERS: PCP Family Medicine; Visit Provider Physician Assistant
DX: Z01.419 Encounter for gynecological examination (general) (routine) without abnormal findings (principal)
CPT/HCPCS: 87624; 88175

== ENCOUNTER 2025-01-30 10:54 | Outpatient (OUT) | payer BC, SELFPAY ==
--- OUTSIDE RECORDS SUMMARY | 2025-01-30 11:13 | XMS_ITS | CCD ---
Author Organization [facility] Care Team Providers Care Remote Inpatient Coder Name Role Phone Jerson Goldsmith Unavailable LARRY JONES Primary Care Physician [phone] KIM, DR MEEK Consulting Unavailable YVONNE, DR MERCADO Primary Care Unavailable KIM, DR MEEK Admitting Unavailable FIELD, DR MEEK Attending Unavailable ZIEBER, DR CRISTOFER Broderick Consulting Unavailable YVONNE, DR MERCADO Primary Care Unavailable KIM, DR MEEK Admitting Unavailable KIM, DR MEEK Attending Unavailable KIM, DR MEEK Consulting Unavailable YVONNE, DR MERCADO Admitting Unavailable YVONNE, DR MERCADO Attending Unavailable YVONNE, DR MERCADO Consulting Unavailable YVONNE, DR MERCADO Primary Care Unavailable MD Phuong Hall Primary Care Provider [phone] MD Arash Field Attending Provider MD Phuong Hall Primary Care Provider MD Arash Field Attending Provider Arash Field Admitting Unavailable Arash Field Attending Unavailable Phuong Hall Primary Care Unavailable LARRY JONES Primary Care Physician [phone] Arash FIELD Attending Unavailable Arash FIELD Attending Unavailable Phuong Hall MD Primary Care Provider [phone] KIMBERLY BURTON Referring Unavailable PHUONG HALL Primary Care Unavailable KIMBERLY BURTON Referring Unavailable PHUONG HALL Primary Care Unavailable KIMBERLY BURTON Admitting Unavailable KIMBERLY BURTON Attending Unavailable PHUONG HALL Primary Care Unavailable Phuong Hall MD Primary Care Provider DIANA WANG Attending Unavailable PHUONG HALL Attending Unavailable PHUONG HALL Referring Unavailable QIANA TORO Attending Unavailable DIANA WANG Attending Unavailable Medications Current Medications Medication Drug [...] 11/20/2023 Active estradiol 0.1 mg/ml vaginal cream (3 sources) Estrogen Start: 01-12-2025 estradiol (Est race) [...] Start: 07-04-2013 take 4 tablets by mo [facility] once daily mesalamine (LIALDA) 1.2 g EC tablet Take 4 tablets by mouth daily 0 07/12/2023 Active Start: 07-04-2013 take 4 tablets by mo [facility] every twenty-four hours Lialda 1.2 GM [...] Start: 09-21-2021 take 1000 mg by mout once daily Valacyclovir Active 1000 MG PO Daily September 20, 2021 11:00pm Start: 03-26-2020 take 1 tablet by naveen twice daily Valtrex 1 g Tab gram tab(s), Oral, BID, Refills(s) 0 Start Date: 03/26/20 Status: Ordered take 1 tablet by naveen twice daily valACYclovir (VALTREX) 500 MG tablet Take 1 tablet by mouth 2 times daily 0 Active take 2 tablets by mo [facility] every twelve hours Valtrex 500 MG [...] Start Date: 03/26/20 Status: Ordered Vitamin D 01332 U (4 sources) Vitamin D 67368 U as directed Orally Active Completed/Discontinued Medications [...] Test Name Value Interpretation Reference Range Facility IGP,APTIMA HPV,AGE GDLNon AGE GDLN ACOG TESTING Note . [facility] Comment on above: TESTS RESULT FLAG UN ITS REF RANGE LAB Clinician Provided Cytology Information Source.............Cervix;Endocervix No. of containers..01 ThinPrep Vial Age Algo ACOG Niyah... 3065 FLAG LEGEND: L-Low Normal,H-High Normal,LL-Alert Low,HH-Alert High <-Panic Low,>-Panic High,A-Abnormal,AA-Critical Abnormal Performed at: 01 =[address] [address] Trixie Ramirez MD, HPV APTIMA Negative Negative [facility] Comment on above: This nucleic acid am plification test detects fourteen high- risk HPV types (16,18,31,33,35,39,45,51,52,56,58,59,66,68) without differentiation. Performed at: =[address] [id number] Chief Technician: Trixie Ramirez MD, Phone: [phone] Performed at: [address] [id number] Chief Technician: Trixie Ramirez MD, Phone: [phone] IGP, APTIMA HPV, RFX 16/18,45 Note . [facility] Comment on above: TESTS RESULT FLAG UN ITS REF RANGE LAB DIAGNOSIS: 02 NEGATIVE FOR INTRAEPITHELIAL LESION OR MALIGNANCY. Specimen adequacy: 02 Satisfactory for evaluation. No endocervical component is identified. Performed by: 02 Nixon Marin, [employer] ([facility]) . 02 Note: Note 02 The Pap smear is a screening test designed to aid in the detection of premalignant and malignant conditions of the uterine cervix. It is not a diagnostic procedure and should not be used as the sole means of detecting cervical cancer. Both false-positive and false-negative reports do occur. Test Methodology: Note 02 This liquid based ThinPrep(R) pap test was screened with the use of an image guided system. HPV Genotype Reflex Note 02 Criteria not met, HPV Genotype not performed. FLAG LEGEND: L-Low Normal,H-High Normal,LL-Alert Low,HH-Alert High <-Panic Low,>-Panic High,A-Abnormal,AA-Critical Abnormal Performed at: 02 [facility] [address] [address] Trixie Ramirez MD, BRUSH-SPATULA CERVIX ENDOCERVIX [facility] XR ABDOMEN 1Von 12-15-[address] [address] XRay Report Signed Patient: FAUSTO MERRILL MR#: [id number] : 1970 Acct:[id number] Age/Sex: 54 / F ADM Date: 12/15/24 Loc: [facility] Attending Dr: PHUONG HALL Ordering Physician: PHUONG HALL Date of Service: 12/15/24 Procedure(s): XR abdomen 1V Accession Number(s): [id number] cc: PHUONG HALL [address] [address] Patient Name: FAUSTO MERRILL MRN: [id number] date: 1970 Sex: F Assigned Patient Location: [facility] Current Patient Location: RAD Accession/Order Number: [id number] Exam Date: 12/15/2024 16:37 Report Date: 12/15/2024 [...] Lopez M.D. 12/15/2024 4:40 PM Dictation Location: [place] [address] Electronically authenticated by: [id number] Y Date: 12/15/2024 16:40 Dictated By: Javier Lopez M.D. Signed By: 12/15/24 1643 DD/ 1640 TD/TT: Digital Production Manager: [facility] Radiology, Radiologist, MD - 12/15/2024 [facility] [place] [id number] XRay Report Signed Patient: FAUSTO MERRILL MR#: [id number] : 1970 Acct:[id number] Age/Sex: 54 / F ADM Date: 12/15/24 Loc: RAD Attending Dr: PHUONG HALL Ordering Physician: PHUONG HALL Date of Service: 12/15/24 Procedure(s): XR abdomen 1V Accession Number(s): [id number] cc: PHUONG HALL [address] [address] Patient Name: FAUSTO MERRILL MRN: [facility]:[id number] date: 1970 Sex: F Assigned Patient Location: RAD Current Patient Location: RAD Accession/Order Number: [id number] Exam Date: 12/15/2024 16:37 Report Date: 12/15/2024 [...] Lopez M.D. 12/15/2024 4:40 PM Dictation Location: [place] [address] Electronically authenticated by: [id number] Y Date: 12/15/2024 16:40 Dictated By: Javier Lopez M.D. Signed By: 12/15/24 1643 DD/ 1640 TD/TT: Digital Production Manager: [facility] Radiology Study observation (narrative) [facility] XR ABDOMEN 1VOrdered By: Johan nioggeorgiana Radiology on 12-15-2024 [facility] Work Phone: BI MAMMOGRAM SCREENING TOMOS YNTHESIS [...] ordering provider. Final result Normal [facility] HCG, ,Urineon 10-22 Beta HCG ( test) Ql (U) Negative Normal NEG [facility] Comment on above: Result Comment: Spec imens with hCG levels near the threshold of the test (25 mIU/mL) may give a negative or indeterminate result. In such cases, another test should be performed with a new specimen in 48-72 hours. If early is suspected clinically in this setting, correlation with quantitative serum b-hCG level is suggested. [facility] has confirmed the use of plasma for this test. This has not been cleared or approved by the U.S. Food and Drug Administration. The FDA has determined that such clearance is not necessary. Performed By: #### U HCG #### [facility] [address] [place] [address] Chief Technician: Michoacano Gomez MD Basic Metabolic Profon 09-19 Anion gap [Moles/Vol] 9 mmol/L Normal 9-17 [facility] Comment on above: Performed By: #### B MP, CDP #### [facility] [address] [place], [place] [address] Chief Technician: Michoacano Gomez MD BUN/CRE Ratio 23 High 9-20 [facility] Comment on above: Performed By: #### B MP, CDP #### [facility] [address] [place], [place] [address] Chief Technician: Michoacano Gomez MD Calcium [Mass/Vol] 8.7 mg/dL Normal 8.6-10.4 [facility] Comment on above: Performed By: #### B MP, CDP #### [facility] [address] [place], [place] [address] Chief Technician: Michoacano Gomez MD Chloride [Moles/Vol] 105 mmol/L Normal 98-107 [facility] Comment on above: Performed By: #### B FRANKLIN, CDP #### [facility] [address] [place], [place] [address] Chief Technician: Michoacano Gomez MD CO2 [Moles/Vol] 25 mmol/L Normal 20-31 [facility] Comment on above: Performed By: #### B MP, CDP #### [facility] [address] [place], [place] [address] Chief Technician: Michoacano Gomez MD Creatinine [Mass/Vol] 0.7 mg/dL Normal 0.5-0.9 [facility] Comment on above: Performed By: #### B MP, CDP #### [facility] [address] [place], [place] [address] Chief Technician: Michoacano Gomez MD GFR/1.73 sq M.predicted among non-blacks MDRD (S/P/Bld) [Vol rate/Area] mL/min/{1.73_m2} Normal >60 [facility] Comment on above: Result Comment: These results are not intended for use in patients <18 years of age. eGFR results are calculated without a race factor using the 2021 CKD-EPI equation. Careful clinical correlation is recommended, particularly when comparing to results calculated using previous equations. The CKD-EPI equation is less accurate in patients with extremes of muscle mass, extra-renal metabolism of creatine, excessive creatine ingestion, or following therapy that affects renal tubular secretion. Performed By: #### B FRANKLIN, CDP #### [facility] [address] [place] [address] Chief Technician: Michoacano Gomez MD Glucose [Mass/Vol] 97 mg/dL Normal 70-99 [facility] Comment on above: Performed By: #### B FRANKLIN, CDP #### [address] [place] [address] Chief Technician: Michoacano Gomez MD Potassium [Moles/Vol] 4.0 mmol/L Normal 3.7-5.3 [facility] Comment on above: Performed By: #### B FRANKLIN, CDP #### [facility] [address] [place] [address] [place] [address] Chief Technician: Michoacano Gomez MD Sodium [Moles/Vol] 139 mmol/L Normal 135-144 [facility] Comment on above: Performed By: #### B FRANKLIN, CDP #### [address] [place] [address] Chief Technician: Michoacano Gomez MD Urea nitrogen [Mass/Vol] 16 mg/dL Normal 6-20 [facility] Comment on above: Performed By: #### B FRANKLIN, CDP #### [facility] [address] [place] [address] [place] [address] Chief Technician: Michoacano Gomez MD CBC with Diffon 09-20-2023 Abs. Basophil 0.07 k/uL Normal 0.00-0.20 [facility] Comment on above: Performed By: #### B FRANKLIN, CDP #### [facility] [address] [place] [address] [place] [address] Chief Technician: Michoacano Gomez MD Abs.Imm.Granulocyte <0.03 Normal 0.00-0.30 [facility] Comment on above: Performed By: #### B FRANKLIN, CDP #### [address] [place], [place] [address] Chief Technician: Michoacano Gomez MD Abs.Neutrophil (Seg) 3.98 k/uL Normal 1.50-8.10 [facility] Comment on above: Performed By: #### B MP, CDP #### [address] [place], [place] [address] Chief Technician: Michoacano Gomez MD Basophils/100 WBC (Bld) 1 % Normal 0-2 [facility] Comment on above: Performed By: #### B FRANKLIN, CDP #### [address] [place], [facility] Chief Technician: Michoacano Gomez MD Eosinophils (Bld) [#/Vol] 0.43 10*3/uL Normal 0.00-0.44 [facility] Comment on above: Performed By: #### B FRANKLIN, CDP #### [address] [place], [place] [address] Chief Technician: Michoacano Gomez MD Eosinophils/100 WBC (Bld) 6 % High 1-4 [facility] Comment on above: Performed By: #### B FRANKLIN, CDP #### [address] [place], [place] [address] Chief Technician: Michoacano Gomez MD Erythrocyte distribution width (RBC) [Ratio] 13.1 % Normal 11.8-14.4 [facility] Comment on above: Performed By: #### B FRANKLIN, CDP #### [address] [place] [address] Chief Technician: Michoacano Gomez MD Hematocrit (Bld) [Volume fraction] 38.3 % Normal 36.3-47.1 [facility] Comment on above: Performed By: #### B MP, CDP #### [facility] [address] [place], [place] [address] Chief Technician: Michoacano Gomez MD Hemoglobin (Bld) [Mass/Vol] 12.9 g/dL Normal 11.9-15.1 [facility] Comment on above: Performed By: #### B MP, CDP #### [facility] [address] [place], [place] [address] Chief Technician: Michoacano Gomez MD Immature granulocytes/100 WBC (Bld) 0 % Normal 0 [facility] Comment on above: Performed By: #### B MP, CDP #### [address] [place], [place] [address] Chief Technician: Michoacano Gomez MD Lymphocytes (Bld) [#/Vol] 2.69 10*3/uL Normal 1.10-3.70 [facility] Comment on above: Performed By: #### B FRANKLIN, CDP #### [address] [place], [place] [address]783 Chief Technician: Michoacano Gomez MD Lymphocytes/100 WBC (Bld) 35 % Normal 24-43 [facility] Comment on above: Performed By: #### B MP, CDP #### [address] [place], [place] [address]83 Chief Technician: Michoacano Gomez MD MCH (RBC) [Entitic mass] 33.2 pg Normal 25.2-33.5 [facility] Comment on above: Performed By: #### B MP, CDP #### [address] [place], [place] [address] Chief Technician: Michoacano Gomez MD MCHC (RBC) [Mass/Vol] 33.7 g/dL Normal 28.4-34.8 [facility] Comment on above: Performed By: #### B MP, CDP #### [address] [place], [place] [address]383 Chief Technician: Michoacano Gomez MD MCV (RBC) [Entitic vol] 98.7 fL Normal 82.6-102.9 [facility] Comment on above: Performed By: #### B FRANKLIN, CDP #### [facility] [address] [place] [address] Chief Technician: Michoacano Gomez MD Monocytes (Bld) [#/Vol] 0.55 10*3/uL Normal 0.10-1.20 [facility] Comment on above: Performed By: #### B FRANKLIN, CDP #### [address] [place] [address] Chief Technician: Michoacano Gomez MD Monocytes/100 WBC (Bld) 7 % Normal 3-12 [facility] Comment on above: Performed By: #### B FRANKLIN, CDP #### [address] [place], [facility] Chief Technician: Michoacano Gomez MD Neutrophil (Seg) 51 % Normal 36-65 [facility] Comment on above: Performed By: #### B FRANKLIN, CDP #### [address] [place] [address] Chief Technician: Michoacano Gomez MD NRBC Automated 0.0 per 100 WBC Normal 0.0 [facility] Comment on above: Performed By: #### B FRANKLIN, CDP #### [address] [place], [facility]83 Chief Technician: Michoacano Gomez MD Platelet mean volume (Bld) [Entitic vol] 10.1 fL Normal 8.1-13.5 [facility] Comment on above: Performed By: #### B FRANKLIN, CDP #### [address] [place] [address] Chief Technician: Michoacano Gomez MD Platelets (Bld) [#/Vol] 252 10*3/uL Normal 138-453 [facility] Comment on above: Performed By: #### B MP, CDP #### [facility] [address] [place], [place] [address] Chief Technician: Michoacano Gomez MD RBC (Bld) [#/Vol] 3.88 10*6/uL Low 3.95-5.11 [facility] Comment on above: Performed By: #### B MP, CDP #### [facility] [address] [place], [place] [address] Chief Technician: Michoacano Gomez MD WBC (Bld) [#/Vol] 7.7 10*3/uL Normal 3.5-11.3 [facility] Comment on above: Performed By: #### B MP, CDP #### [facility] [address] [place], [place] [address] Chief Technician: Michoacano Gomez MD EKG 12 LeadOrdered By: Julito gutierrez on 09-20-2023 Atrial Rate 64 BPM [email or web address] Work Phone: P [place] -4 degrees [email or web address] Work Phone: P-R Interval 132 ms [email or web address] Work Phone: Q-T Interval 420 ms [employer] Phone: QRS Duration 74 ms [email or web address] Work Phone: QTc Calculation (Bazett) 433 ms [email or web address] Work Phone: R [place] 65 degrees [employer] Phone: T [place] 54 degrees [employer] Work Phone: Ventricular Rate 64 BPM [facility] [employer] Work Phone: [facility] [employer] Phone: EKG 12 Leadon 09-20-2023 Normal sinus rhythm Normal ECG No previous ECGs available Confirmed by Julito Pate MD ([id number]) on 09/20/2023 8:55:15 PM [facility] Julito Pate MD - 09/20/2023 Normal sinus rhythm Normal ECG No previous ECGs available Confirmed by Julito Pate MD ([id number]) on 09/20/2023 8:55:15 PM [facility] Physician Orderon 06-07-2023 Physician Order [id number]#1.0 0TIFF [address] [facility] RAD - CT Reporton 05-16-2023 RAD - CT Report [id number]#1.0 0TIFF Normal [facility] Reminderson 05-16-2023 Reminders - From: Celena Beauchamp To: JULIÁN - Sylvia Field; Sent: 02/23/2023 12:29:57 EDT Show up: 07/26/2023 12:29:00 EST Subject: Ct urogram Due Date/Time: 08/13/2023 12:29:00 EST Reminder/Recall Pt needs Ct Urogram done prior to August 2023 appt. Pt needs to have done at [facility] per PRW. pt completed in Apr. already addressed. BG Normal [facility] CT urogramon 05-08-2023 CT urogram [facility] [place] [address] CT Scan Report Signed Patient: Fausto Merrill MR#: [id number] : 1970 Acct:[id number] Age/Sex: 52 / F ADM Date: 05/08/23 Loc: CT Room: Type: [facility] Attending Dr: Arash Field MD Copies to: [...] kidney. No obstructive uropathy Impression dictated by: rEwin Waldron Jr., DMaggiOMaggi05/08/2023 2:21 PM Dictation Location: [place] [address] Transcribed By: [facility] 05/08/23 1421 Dictated By: Erwin Waldron Jr, DO 05/08/23 1419 Signed By: 05/08/23 1421 [facility] Lab Reportson 03-30-2023 Lab Reports [id number] 0TIFF [facility] Lab Reports [id number]#1.0 0TIFF [facility] Lab Reportson 03-04-2023 Lab Reports [id number]#1.00 CD:[address] [facility] Lab Reports [id number]#1.0 0CD:[address] [facility] Lab Reports [id number]#1.00 CD:127 Normal [facility] Ambulatory Visit Summaryon 0 02-23-2023 Ambulatory Visit Summary FAUSTO MERRILL :1970 Visit Date:02/23/2023 Ambulatory Visit Instructions Your Diagnosis Kidney stone Flank pain Stress incontinence Tests Performed Urnls Dip Stick Auto w/o Microscopy POC [address] CT Urogram -- Results Pending -- Please [...] Schedule the Following Appointments Follow Up with KIM ADLER, SEGUNDO Padgett When: In 6 months Comments: w/CTU & 24hr Urine Where: [facility] [address] [place] [address]- Medications What How Much When Instructions Unchanged [...] Urnls Dip Stick Auto w/o Microscopy POC 27982 (02/23/2023) Bilirubin Urine Dipstick - Negative Blood Urine Dipstick - 2+ Moderate Glucose Urine Dipstick - Negative Ketones Urine Dipstick - Negative Leukocytes Urine Dipstick - Negative Nitrite Urine Dipstick - Negative Protein Urine Dipstick - Negative Specific Phenix Urine Dipstick - 1.025 Urine Appearance Urine [...] ? 8 oz (237 mL) of milk, lcjvtrv-sdhhgitsimgj-j airy milk, and calcium-fortifiedfruit juice. Calcium-fortified means [...] add his (more content not included)... Normal [facility] Patient Educationon 02-24-20 Patient Education Nephrology [...] ? 8 oz (237 mL) of milk, xqlaggk-pwjmjoxjqeau-t airy milk, and calcium-fortifiedfruit juice. Calcium-fortified means [...] Spinach (cooked), rhubarb, beets, sweet potatoes, and Kyrgyz chard. ? Peanuts. ? Potato chips, zambian fries, and baked potatoes with skin on. ? Nuts and nut products. ? Chocolate. ? If you regularly take a diuretic medicine, make sure to eat at least 1 or 2 servings of fruits or vegetables that are high in potassium each day. These include: ? Avocado. ? Banana. ? [place], prune, carrot, or tomato juice. ? Baked [...] fish oil, or vitamin B6. ? Take ngfg-qwd-ogvncbr and prescription medicines only as told by your health care provider. These include supplements. What foods should I limit? Limit your in (more content not included)... Normal [facility] Urology Office/Clinic Noteon 02-23-2023 Urology Office/Clinic [...] Urine. -Will order a CTU, pt prefers [facility]. 2. Flank pain (R10.9: Unspecified abdominal pain) [...] Follow-up With When Contact Information KIM ADLER, SEGUNDO Padgett In 6 months [facility] [address] [place] [address]- Additional Instructions: w/CTU & 24hr Urine Patient [...] mg Cap-EC, (more content not included)... Normal [facility] Comment on above: Result Comment: Elec tronically Signed By: Arash FIELD MD\.br\Date and Time Signed: 02/23/23 12:26 EDT\.br\Electronically Co-Signed By: Edwige [email or web address].br\Date and Time Co-Signed: 02/23/23 12:23 EDT RAD - MISCon 02-16-2023 RAD - MISC [id number] 0CD:[address] [facility] October 03, 2022 FAUSTO MERRILL [address] [place] [phone] FAUSTO MERRILL 1970 Dear Fausto Merrill, Our records indicate it is time to schedule your follow up appointment with Dr. Field for kidney stones. Please call the office to schedule this appointment and have the KUB x-ray done prior (slip enclosed). Thank You, [facility] at [facility] option #[address] [facility] XR KUB 1 VIEWon 12-30-2021 XR [...] by: CRISTOFER GOODWIN Date: 2021-12-30 17:52 Normal [facility] Free T4on 11-18-2021 Free T4 [Mass/Vol] 1.45 ng/dL Normal 0.80-1.80 [facility] Specialist Comment on above: Performed By: #### T SH reflex FT4, FT4 #### [facility] [address] [place], [place] [id number] TSH w/ Reflex to Free T4on 0 11-18-2021 FT4 reflex Free T4 Normal [facility] Comment on above: Performed By: #### T SH reflex FT4, FT4 #### [facility] [address] [place], [place] [id number] TSH 0.293 uIU/mL Low 0.400-4.500 [facility] Hot Dip Plating Supervisor Comment on above: Performed By: #### T SH reflex FT4, FT4 #### [facility] [address] [place], [place] [id number] SCREENING MAMMOGRAM W/DAINA, BILATERAL*on 10-17-2021 SCREENING MAMMOGRAM [...] VERY IMPORTANT TO YOUR HEALTH. THE CURRENT [employer] GUIDELINES RECOMMENDS ANNUAL MAMMOGRAPHY BEGINNING AT AGE 40. THIS FACILITY USES A REMINDER SYSTEM TO ENSURE ALL PATIENTS RECEIVE REMINDER NOTIFICATIONS AT THE APPROPRIATE TIME BASED ON THE RECOMMENDATIONS OF THIS EXAM. Report reported and signed by Erwin Blake on 10/25/2021 1137 Normal [facility] Complete Blood Count with Au to Diffon 10-05-2021 Basophils (Bld) [#/Vol] 0.08 10*3/uL Normal 0.00-0.20 [facility] Specialist Comment on above: Performed By: #### F T4, CMP, TSH reflex FT4, VITD, LIPD #### [facility] [address] [place], [place] [id number] Basophils/100 WBC (Bld) 1.3 % Normal [facility] Comment on above: Performed By: #### F T4, CMP, TSH reflex FT4, VITD, LIPD #### [facility] [address], [place] [id number] Eosinophils (Bld) [#/Vol] 0.45 10*3/uL Normal 0.02-0.50 [facility] Comment on above: Performed By: #### F T4, CMP, TSH reflex FT4, VITD, LIPD #### [facility] [address], [place] [id number] Eosinophils/100 WBC (Bld) 7.3 % Normal [facility] Comment on above: Performed By: #### F T4, CMP, TSH reflex FT4, VITD, LIPD #### [facility] [address], [place] [id number] Erythrocyte distribution width (RBC) [Ratio] 13.6 % Normal 11.0-15.0 [facility] [employer] Comment on above: Performed By: #### F T4, CMP, TSH reflex FT4, VITD, LIPD #### [facility] [address], [place] [id number] Hematocrit (Bld) [Volume fraction] 38.1 % Normal 35.0-47.0 [facility] [employer] Comment on above: Performed By: #### F T4, CMP, TSH reflex FT4, VITD, LIPD #### [facility] [address], [place] [id number] Hemoglobin (Bld) [Mass/Vol] 12.3 g/dL Normal 11.6-15.5 [facility] [employer] Comment on above: Performed By: #### F T4, CMP, TSH reflex FT4, VITD, LIPD #### [facility] [address], [place] [id number] Lymphocytes (Bld) [#/Vol] 2.7 10*3/uL Normal 0.9-3.9 [facility] [employer] Comment on above: Performed By: #### F T4, CMP, TSH reflex FT4, VITD, LIPD #### [facility] [address], [place] [id number] Lymphocytes/100 WBC (Bld) 43.0 % Normal [facility] Comment on above: Performed By: #### F T4, CMP, TSH reflex FT4, VITD, LIPD #### [facility] [address], [place] [id number] MCH (RBC) [Entitic mass] 29.9 pg Normal 27.0-33.0 [facility] Comment on above: Performed By: #### F T4, CMP, TSH reflex FT4, VITD, LIPD #### [facility] [address], [place] [id number] MCHC (RBC) [Mass/Vol] 32.3 g/dL Normal 32.0-36.0 [facility] Comment on above: Performed By: #### F T4, CMP, TSH reflex FT4, VITD, LIPD #### [facility] [address], [place] [id number] MCV (RBC) [Entitic vol] 93 fL Normal 80-100 [facility] [employer] Comment on above: Performed By: #### F T4, CMP, TSH reflex FT4, VITD, LIPD #### [facility] [address], [place] [id number] Monocytes (Bld) [#/Vol] 0.4 10*3/uL Normal 0.2-0.9 [facility] [employer] Comment on above: Performed By: #### F T4, CMP, TSH reflex FT4, VITD, LIPD #### [facility] [address], [place] [id number] Monocytes/100 WBC (Bld) 6.8 % Normal [facility] [employer] Comment on above: Performed By: #### F T4, CMP, TSH reflex FT4, VITD, LIPD #### [facility] [address], [place] [id number] Neutrophils (Bld) [#/Vol] 2.6 10*3/uL Normal 1.5-7.8 [facility] [employer] Comment on above: Performed By: #### F T4, CMP, TSH reflex FT4, VITD, LIPD #### [facility] [address], [place] [id number] Neutrophils/100 WBC (Bld) 41.4 % Normal [facility] [employer] Comment on above: Performed By: #### F T4, CMP, TSH reflex FT4, VITD, LIPD #### [facility] [address], [place] [id number] Platelet mean volume (Bld) [Entitic vol] 11.00 fL Normal 7.50-12.50 [facility] Comment on above: Performed By: #### F T4, CMP, TSH reflex FT4, VITD, LIPD #### [facility] [address], [place] [id number] Platelets (Bld) [#/Vol] 264 10*3/uL Normal 140-400 [facility] [employer] Comment on above: Performed By: #### F T4, CMP, TSH reflex FT4, VITD, LIPD #### [facility] [address], [place] [id number] RBC (Bld) [#/Vol] 4.12 10*6/uL Normal 3.90-5.20 [facility] [employer] Comment on above: Performed By: #### F T4, CMP, TSH reflex FT4, VITD, LIPD #### [facility] [address], [place] [id number] RDW-SD 46.7 fL Normal 37.0-50.0 [facility] Comment on above: Performed By: #### F T4, CMP, TSH reflex FT4, VITD, LIPD #### [facility] [address], [place] [id number] WBC (Bld) [#/Vol] 6.2 10*3/uL Normal 3.8-11.0 [facility] [employer] Comment on above: Performed By: #### F T4, CMP, TSH reflex FT4, VITD, LIPD #### [facility] [address], [place] [id number] Comprehensive Metabolic Pane vanessa 10-05-2021 Albumin [Mass/Vol] 4.6 g/dL Normal 3.6-5.1 [facility] [employer] Comment on above: Performed By: #### F T4, CMP, TSH reflex FT4, VITD, LIPD #### [facility] [address], [place] [id number] Albumin/Globulin [Mass ratio] 1.5 {ratio} Normal 1.0-2.5 [facility] Comment on above: Performed By: #### F T4, CMP, TSH reflex FT4, VITD, LIPD #### [facility] [address], [place] [id number] ALP [Catalytic activity/Vol] 72 U/L Normal 35-119 [facility] Comment on above: Performed By: #### F T4, CMP, TSH reflex FT4, VITD, LIPD #### [facility] [address], [place] [id number] ALT [Catalytic activity/Vol] 15 U/L Normal 6-33 [facility] Comment on above: Result Comment: 05/25 Female reference range changed. Performed By: #### F T4, CMP, TSH reflex FT4, VITD, LIPD #### [facility] [address], [place] [id number] Anion gap [Moles/Vol] 17 mmol/L Normal 12-20 [facility] Comment on above: Result Comment: Effe ctive 06/30/2019 reference range changed. Performed By: #### F T4, CMP, TSH reflex FT4, VITD, LIPD #### [facility] [address], [place] [id number] AST [Catalytic activity/Vol] 18 U/L Normal 9-34 [facility] Comment on above: Performed By: #### F T4, CMP, TSH reflex FT4, VITD, LIPD #### [facility] [address], [place] [id number] Bilirubin [Mass/Vol] 0.35 mg/dL Normal 0.30-1.20 [facility] Comment on above: Performed By: #### F T4, CMP, TSH reflex FT4, VITD, LIPD #### [facility] [address], [place] [id number] BUN/CREA 18 Ratio Normal 6-22 [facility] Comment on above: Performed By: #### F T4, CMP, TSH reflex FT4, VITD, LIPD #### [facility] [address], [place] [id number] Calcium [Mass/Vol] 9.3 mg/dL Normal 8.6-10.2 [facility] [place] [employer] Comment on above: Performed By: #### F T4, CMP, TSH reflex FT4, VITD, LIPD #### [facility] [address], [place] [id number] Chloride [Moles/Vol] 104 mmol/L Normal 98-107 [facility] [employer] [facility] Comment on above: Performed By: #### F T4, CMP, TSH reflex FT4, VITD, LIPD #### [facility] [address], [place] [id number] CO2 [Moles/Vol] 20 mmol/L Normal 20-31 [facility] [employer] Comment on above: Performed By: #### F T4, CMP, TSH reflex FT4, VITD, LIPD #### [facility] [address], [place] [id number] Creatinine [Mass/Vol] 0.8 mg/dL Normal 0.6-1.4 [facility] [employer] [facility] Comment on above: Performed By: #### F T4, CMP, TSH reflex FT4, VITD, LIPD #### [facility] [address], [place] [id number] eGFRAA 92 mL/min/1.73m2 Normal >60 [facility] [employer] [facility] Comment on above: Performed By: #### F T4, CMP, TSH reflex FT4, VITD, LIPD #### [facility] [address], [place] [id number] eGFRNAA 76 mL/min/1.73m2 Normal >60 [facility] [employer] [facility] Comment on above: Performed By: #### F T4, CMP, TSH reflex FT4, VITD, LIPD #### [facility] [address], [place] [id number] Globulin (S) [Mass/Vol] 3.0 g/dL Normal 1.9-3.7 [facility] [employer] [facility] Comment on above: Performed By: #### F T4, CMP, TSH reflex FT4, VITD, LIPD #### [facility] [address], [place] [id number] Glucose [Mass/Vol] 87 mg/dL Normal 65-99 [facility] [place] [employer] [facility] Comment on above: Result Comment: For FASTING Glucose --- ADA reference ranges: Normal 65-99 mg/dl Prediabetes 100-125 Diabetes >/= 126 Performed By: #### F T4, CMP, TSH reflex FT4, VITD, LIPD #### [facility] [address], [place] [id number] Potassium [Moles/Vol] 4.3 mmol/L Normal 3.5-5.5 [facility] [employer] [facility] Comment on above: Performed By: #### F T4, CMP, TSH reflex FT4, VITD, LIPD #### [facility] [address], [place] [id number] Protein [Mass/Vol] 7.6 g/dL Normal 6.1-8.1 [facility] [place] [employer] [facility] Comment on above: Performed By: #### F T4, CMP, TSH reflex FT4, VITD, LIPD #### [facility] [address], [place] [id number] Sodium [Moles/Vol] 137 mmol/L Normal 135-146 [facility] [place] [employer] [facility] Comment on above: Performed By: #### F T4, CMP, TSH reflex FT4, VITD, LIPD #### [facility] [address], [place] [id number] Urea nitrogen [Mass/Vol] 14 mg/dL Normal 7-25 [facility] [employer] [facility] Comment on above: Performed By: #### F T4, CMP, TSH reflex FT4, VITD, LIPD #### [facility] [address], [place] [id number] Free T4on 10-05-2021 Free T4 [Mass/Vol] 1.23 ng/dL Normal 0.80-1.80 [facility] [place] [employer] [facility] Comment on above: Performed By: #### F T4, CMP, TSH reflex FT4, VITD, LIPD #### [facility] [address], [place] [id number] Lipid Panelon 10-05-2021 Cholesterol [Mass/Vol] 239 mg/dL High 125-200 [facility] [employer] [facility] Comment on above: Result Comment: Low risk < 200mg/dL Borderline risk 201-239 mg/dl High risk > or equal to 240 Performed By: #### F T4, CMP, TSH reflex FT4, VITD, LIPD #### [facility] [address], [place] [id number] Cholesterol in HDL [Mass/Vol] 55 mg/dL Normal >40 [facility] [employer] [facility] Comment on above: Result Comment: High Cardiovascular Risk HDL <40 mg/dL Low Cardiovascular Risk HDL > or equal to 60 mg/dl Performed By: #### F T4, CMP, TSH reflex FT4, VITD, LIPD #### [facility] [address], [place] [id number] Cholesterol in LDL [Mass/Vol] 168 mg/dL Normal [facility] Comment on above: Result Comment: LDL ATP III CLASSIFICATION LDL less than 100 mg/dl Optimal LDL 100-129 mg/dl Near or above optimal LDL 130-159 Borderline high LDL 160-189 High LDL greater than 189 mg/dl Very High Performed By: #### F T4, CMP, TSH reflex FT4, VITD, LIPD #### [facility] [address], [place] [id number] Cholesterol in VLDL [Mass/Vol] 16 mg/dL Normal [facility] Comment on above: Performed By: #### F T4, CMP, TSH reflex FT4, VITD, LIPD #### [facility] [address], [place] [id number] Cholesterol.total/C holesterol in HDL [Mass ratio] 4 {ratio} Normal [facility] Comment on above: Performed By: #### F T4, CMP, TSH reflex FT4, VITD, LIPD #### [facility] [address], [place] [id number] Triglyceride [Mass/Vol] 78 mg/dL Normal 30-150 [facility] Comment on above: Result Comment: TRIG ATPIII CLASSIFICATIONS TRIG less than 150 mg/dl Normal TRIG 150-199 mg/dl Borderline High TRIG 200-500 mg/dl High TRIG greather than 500 mg/dl Very High Performed By: #### F T4, CMP, TSH reflex FT4, VITD, LIPD #### [facility] [address], [place] [id number] TSH w/ Reflex to Free T4on 0 10-05-2021 FT4 reflex Free T4 Normal [facility] Comment on above: Performed By: #### F T4, CMP, TSH reflex FT4, VITD, LIPD #### [facility] [address], [place] [id number] TSH 22.300 uIU/mL High 0.400-4.500 [facility] Comment on above: Performed By: #### F T4, CMP, TSH reflex FT4, VITD, LIPD #### [facility] [address], [place] [id number] Vitamin B12/Folateon 022 Cobalamin (Vitamin B12) [Mass/Vol] 365 pg/mL Normal 211-946 [facility] [employer] [facility] Comment on above: Performed By: #### B 12/Fol #### [facility] [address], [place] [id number] FOL 6.4 ng/mL Normal >4.7 [facility] [employer] [facility] Comment on above: Result Comment: Refe rence range change 05/11/2017. Prior reference range F 4.8-37.3 ng/mL, M 4.5-32.2 ng/mL. Performed By: #### B 12/Fol #### [facility] [address], [place] [id number] Vitamin D 25-OHon 10-05-2021 VIT D 25 OH 31 ng/ml Normal >29 [facility] [employer] [facility] Comment on above: Result Comment: Mckenzie min D Status Deficiency <20 ng/mL Insufficiency 20-29 ng/mL Optimal 30-100 ng/mL Possible Toxicity >=150 ng/mL Performed By: #### F T4, CMP, TSH reflex FT4, VITD, LIPD #### [facility] [address], [place] [id number] XR Spine Cervical Complete w /Flex AND Low [place] 10-05-2021 XR Spine Cervical Complete w/Flex AND [...] by Erwin Blake on 10/05/2021 1150 Normal [facility] [employer] [facility] XR Spine Lumbar Complete w/F adolfo AND Low [place] 10-05-2021 XR Spine Lumbar Complete w/Flex AND [...] by Erwin Blake on 10/05/2021 1151 Normal [facility] [employer] [facility] TSH w/ Reflex to Free T4on 0 09-08-2021 TSH 2.640 uIU/mL Normal 0.400-4.500 [facility] [employer] Comment on above: Performed By: #### F T4, CMP, TSH reflex FT4, VITD, LIPD #### [facility] [address], [place] [id number] FREE T4on 03-18-2021 Free T4 [Mass/Vol] 1.38 ng/dL Normal 0.78-2.19 [facility] Comment on above: Performed By: #### F T4 #### [facility] [address] [address] [address] Jose Walden TSHon 03-18-2021 TSH 0.187 uIU/mL Critically low 0.470-4.680 [facility] Comment on above: Result Comment: refl ex FT4 Performed By: #### T SH #### [facility] [address] [address] [address] Jose Walden TSH RANGE SEE BELOW Normal [facility] Comment on above: Result Comment: <0.3 4 UIU/ml HYPERTHYROID 0.34-5.60 UIU/ml EUTHYROID >5.60 UIU/ml HYPOTHYROID Performed By: #### T SH #### [facility] [address] [place] [address] Dr. Jose Walden CITRATE URINE 24HRon 021 Citric Acid, U, 24hr Comment Normal 320-1240 [facility] Comment on above: Result Comment: No t otal volume submitted. Unable to calculate 24 hour result. This test was developed and its performance characteristics determined by [employer]. It has not been cleared or approved by the Food and Drug Administration. Performed By: #### C ITRATU #### [facility] [address] [place] [address] Allie Arianna Citric Acid, Urine 440 mg/L Normal [facility] Comment on above: Performed By: #### C ITRATU #### [facility] [address] [place] [address] Allie Arianna OXALATE 24HR URINEon 021 Oxalates, Urine 19 mg/L Normal Undefined [facility] Comment on above: Performed By: #### T SH #### [facility] [address] [place] [address] Dr. Jose Walden Oxalates, Urine 24hr 18 mg/24 hr Normal 4-31 [facility] Comment on above: Performed By: #### T SH #### [facility] [address] [place] [address] Dr. Jose Walden MAGNESIUM 24HR URINEon 01-26 Magnesium 24hr Urine 67.5 mg/24 hr Normal 12.0-293.0 [facility] Comment on above: Performed By: #### T SH #### [facility] [address] [place] [address] Dr. Jose Walden Magnesium UR 7.1 mg/dL Normal Not Estab. [facility] Comment on above: Performed By: #### T SH #### [facility] [address] [place] [address] Dr. Jose Walden PHOSPHORUS 24HR URINEon 08-0 Phosphorus, Urine 56.0 mg/dL Normal Not Estab. [facility] Comment on above: Performed By: #### P HOS 24 #### [facility] [address] [place] [address] Allie Arianna Phosphorus, Urine 24hr 532 mg/24 hr Normal 261-1078 [facility] Comment on above: Performed By: #### P HOS 24 #### [facility] [address] [place] [address] Allie Arianna URIC ACID 24 HR URINEon 08 Uric Acid, Urine 38.5 mg/dL Normal Not Estab. [facility] Comment on above: Performed By: #### U JORGE 24 #### [facility] [address] [place] [address] Allie Arianna Uric Acid, Urine 24hr 365.8 mg/24 hr Normal 173.7-902.1 [facility] Comment on above: Performed By: #### U JORGE 24 #### [facility] [address] [place], [place] [id number] Allie Arianna CALCIUM 24 HR URINEon 2020 CALC, 24 HR UR 177.7 mg/24 hr Normal 100.0-300.0 [facility] Comment on above: Performed By: #### C [id number] #### [facility] [address] [place], [place] [id number] Allie Arianna UR CALCIUM 18.7 mg/dL Normal 0.0-21.0 [facility] Comment on above: Performed By: #### C [id number] #### [facility] [address] [place], [place] [address] Allie Arianna CREA 24 HR URINEon CREA, 24 HR UR 1195.29 mg/24 hr Normal 800.00-1, 800.0 0 [facility] Comment on above: Performed By: #### N A24U, [id number] #### [facility] [address] [place], [place] [address] Allie Arianna UR TOT VOL 950 ml/24 HR Normal [facility] Comment on above: Performed By: #### N A24U, [id number] #### [facility] [address] [place] [address] Allie Arianna Performed By: #### C [id number] #### [facility] [address] [place] [address] Allie Keller URINE CREAT 125.82 mg/dL Normal 20.00-300.00 [facility] Comment on above: Performed By: #### N A24U, [id number] #### [facility] [address] [place], [place] [id number] Allie Keller SODIUM 24 HR URINEon 021 NA, 24 HR UR 118 mmol/24 hr Normal 40-220 [facility] Comment on above: Performed By: #### N A24U, [id number] #### [facility] [address] [place] [address] Allie Keller Sodium (U) [Moles/Vol] 124 mmol/L Critically high 30-90 [facility] Comment on above: Performed By: #### N A24U, [id number] #### [facility] [address] [place] [address] Allie Keller PTH INTACTon 01-19-2021 PTH, Intact 27 pg/mL Normal 15-65 [facility] Comment on above: Performed By: #### P THINT #### [facility] [address] [place] [address] Allie Keller BUNon 01-18-2021 Urea nitrogen [Mass/Vol] 14.0 mg/dL Normal 7.0-17.0 [facility] Comment on above: Performed By: #### T SH #### [facility] [address] [place] [address] Dr. Jose Walden CALCIUMon 01-18-2021 Calcium [Mass/Vol] 8.6 mg/dL Normal 8.4-10.2 [facility] Comment on above: Performed By: #### T SH #### [facility] [address] [place] [address] Dr. Jose Walden CREATININEon 01-18-2021 Creatinine [Mass/Vol] 0.87 mg/dL Normal 0.52-1.04 [facility] Comment on above: Performed By: #### T SH #### [facility] [address] [address] [address] Jose Walden EGFR-AF FIJIAN >60 Normal >=60 [facility] Comment on above: Performed By: #### T SH #### [facility] [address] [place] [address] Dr. Jose Walden EGFR-NON AF FIJIAN >60 Normal >=60 [facility] Comment on above: Performed By: #### T SH #### [facility] [address] [address] [address] Jose Walden ELECTROLYTESon 01-18-2021 Anion gap [Moles/Vol] 13.3 mmol/L Normal [facility] Comment on above: Performed By: #### T SH #### [facility] [address] [place] [address] Dr. Jose Walden Chloride [Moles/Vol] 108 mmol/L Critically high 98-107 [facility] Comment on above: Performed By: #### T SH #### [facility] [address] [place] [address] Dr. Jose Walden CO2 [Moles/Vol] 25.4 mmol/L Normal 22.0-30.0 [facility] Comment on above: Performed By: #### T SH #### [facility] [address] [place] [address] Dr. Jose Walden Potassium [Moles/Vol] 3.7 mmol/L Normal 3.4-5.0 [facility] Comment on above: Performed By: #### T SH #### [facility] [address] [place] [address] Dr. Jose Walden Sodium [Moles/Vol] 143 mmol/L Normal 137-145 [facility] Comment on above: Performed By: #### T SH #### [facility] [address] [place] [address] Dr. Jose Walden URIC ACID SERUMon 01-18-2021 Urate [Mass/Vol] 3.3 mg/dL Normal 2.5-6.2 [facility] Comment on above: Performed By: #### T SH #### [facility] [address] [address] [address] Jose Walden Vital Signs Date Time Vital Sign Value Performing Clinician Facility 01-12-2025 11:14-0400 Body mass index (BMI) [Ratio] 23.53 kg/m2 Diana CARLOS [facility] 01-12-2025 11:14-0400 Body weight 64.14 kg Diana CARLOS Work Phone: [facility] 01-12-2025 11:14-0400 Diastolic blood pressure 68 mm[Hg] Diana CARLOS Work Phone: [facility] 01-12-2025 11:14-0400 Systolic blood pressure 110 mm[Hg] Diana CARLOS Work Phone: [facility] 10-13-2024 09:00-0400 Body mass index (BMI) [Ratio] 23.13 kg/m2 Qiana Toro [employer] Work Phone: [facility] 10-13-2024 09:00-0400 Body temperature 97.3 [degF] Qiana Toro [employer] Work Phone: [facility] 10-13-2024 09:00-0400 Body weight 63.05 kg Qiana Toro [employer] Work Phone: [facility] 10-13-2024 09:00-0400 Diastolic blood pressure 64 mm[Hg] Qiana Toro [employer] Work Phone: [facility] 10-13-2024 09:00-0400 Heart rate 76 /min Qiana Toro [employer] Work Phone: [facility] 10-13-2024 09:00-0400 SaO2% (BldA) [Mass fraction] 97 % Qiana Toro [employer] Work Phone: [facility] 10-13-2024 09:00-0400 Systolic blood pressure 108 mm[Hg] Qiana Toro [employer] Work Phone: [facility] 08-22-2024 14:06-0500 Body height 165.1 cm Phuong Hall MD Work Phone: [facility] 08-22-2024 14:06-0500 Body mass index (BMI) [Ratio] 23.5 kg/m2 Phuong Hall MD Work Phone: [facility] 08-22-2024 14:06-0500 Body weight 64.05 kg Phuong Hall MD Work Phone: [facility] 08-22-2024 14:06-0500 Diastolic blood pressure 62 mm[Hg] Phuong Hall MD Work Phone: [facility] 08-22-2024 14:06-0500 Heart rate 69 /min Phuong Hall MD Work Phone: [facility] 08-22-2024 14:06-0500 Respiratory rate 18 /min Phuong Hall MD Work Phone: [facility] 08-22-2024 14:06-0500 SaO2% (BldA) [Mass fraction] 99 % Phuong Hall MD Work Phone: [facility] 08-22-2024 14:06-0500 Systolic blood pressure 118 mm[Hg] Phuong Hall MD Work Phone: [facility] 02-23-2023 11:13-0400 Blood Pressure Location Arash FIELD [facility] 02-23-2023 11:13-0400 Body temperature 98.78 [degF] Arash FIELD [facility] 02-23-2023 11:13-0400 Diastolic blood pressure 75 mm[Hg] Arash FIELD [facility] 02-23-2023 11:13-0400 Heart rate 71 /min Arash FIELD [facility] 02-23-2023 11:13-0400 Respiratory rate 16 /min Arash FIELD [facility] 02-23-2023 11:13-0400 Systolic blood pressure 106 mm[Hg] Arash FIELD [facility] 01-11-2023 13:15-0400 Body height 165.1 cm Jerson Nicholecristy Other [employer] Other 01-11-2023 13:15-0400 Body mass index (BMI) [Ratio] 22.46 kg/m2 Jerson Goldsmith Other [employer] Other 01-11-2023 13:15-0400 Body weight 61.24 kg Jerson Goldsmith Other [employer] Other 01-11-2023 13:15-0400 Diastolic blood pressure 60 mm[Hg] Jerson Goldsmith Other [employer] Other 01-11-2023 13:15-0400 Systolic blood pressure 94 mm[Hg] Jerson Goldsmith Other [employer] Other 01-02-2022 10:14-0400 Blood Pressure Location Arash FIELD [facility] 01-02-2022 10:14-0400 Diastolic blood pressure 67 mm[Hg] Arash FIELD [facility] 01-02-2022 10:14-0400 Heart rate 74 /min Arash FIELD [facility] 01-02-2022 10:14-0400 Respiratory rate 16 /min Arash FIELD [facility] [place] 01-02-2022 10:14-0400 Systolic blood pressure 98 mm[Hg] Arash FIELD [facility] 09-02-2021 12:15-0500 Body height 165.1 cm Jerson Varelacristy Other [employer] Other 09-02-2021 12:15-0500 Body mass index (BMI) [Ratio] 22.13 kg/m2 Jerson Solizbeto Other [employer] Other 09-02-2021 12:15-0500 Body weight 60.33 kg Jerson Varelacristy Other [employer] Other Encounters Encounter Date Encounter Type Care Provider Facility Start: 01-12-2025 End: 01-12-2025 Bamboo flowsheet Diana CARLOS Work Phone: [facility] Start: 01-12-2025 End: 01-15-2025 Bamboo flowsheet Diana CARLOS Work Phone: [facility] Start: 01-12-2025 End: 01-15-2025 Clinisync Result Encounter Diana CARLOS Work Phone: [facility] External Department Unsolicited Start: 01-12-2025 End: 01-12-2025 Patient encounter procedure Diana CARLOS Work Phone: [facility] Work Phone: Start: 01-12-2025 End: 01-12-2025 Periodic preventive med est patient 40-64yrs Diana CARLOS Work Phone: [facility] Comment on above: Well woman exam with routine gynecological exam; Breast cancer screening by mammogram; Postmenopausal state Start: 01-12-2025 End: 01-12-2025 ambulatory DIANA WANG Not Available Start: 12-15-2024 End: 12-15-2024 Clinisync Result Encounter Phuong Hall MD Work Phone: [facility] Unsolicited Start: 12-15-2024 End: 12-15-2024 Clinisync Result Encounter Phuong Hall MD Work Phone: [facility] Unsolicited Start: 10-13-2024 End: 10-13-2024 Bamboo flowsheet Qiana Majors PRODUCT CONTROLLER Work Phone: [facility] Start: 10-13-2024 End: 10-13-2024 Bamboo flowsheet Qiana Majors PRODUCT CONTROLLER Work Phone: [facility] Start: 10-13-2024 End: 10-13-2024 Office outpatient visit 15 minutes Qiana Toro PRODUCT CONTROLLER Work Phone: [facility] Comment on [...] visit 15 minutes Diana CARLOS Work Phone: [facility] Comment on above: Perimenopausal vasom otor symptoms (Primary Dx); Menopause; Hormone disorder; Pelvic pain in female Start: 08-18-2024 End: 08-18-2024 ambulatory DIANA WANG Not Available Start: 08-18-2024 End: 08-18-2024 Bamboo flowsheet Diana CARLOS Work Phone: [facility] Start: 08-18-2024 End: 08-18-2024 Bamboo flowsheet Diana CARLOS Work Phone: [facility] Start: 08-12-2024 End: 08-12-2024 Refill [...] Start: 10-23-2023 End: 10-23-2023 ambulatory [facility] Start: 09-20-2023 End: 09-21-2023 ambulatory [facility] Start: 09-20-2023 End: 09-20-2023 Subsequent hospital visit by physician Phuong Hall MD Work Phone: [facility] EKG Comment on above: Renal calculus Start: 09-03-2023 End: 09-04-2023 ambulatory Arash FIELD Facility:[facility] Start: 09-03-2023 End: 09-03-2023 Patient encounter procedure Arash FIELD [facility] [place] Start: 07-12-2023 End: 07-12-2023 ambulatory Jerson Goldsmith Other [employer] Other Start: 07-12-2023 Telephone encounter Jerson Goldsmith [facility] Start: 05-08-2023 End: 05-08-2023 ambulatory Arash Field Facility:[facility] Start: 05-08-2023 End: 05-08-2023 ambulatory MD Phuong Hall Work Phone: [facility] Work Phone: Start: 05-08-2023 End: 05-08-2023 Patient encounter procedure MD Phuong Hall Work Phone: [facility] [place] Work Phone: Start: 02-23-2023 End: 02-24-2023 ambulatory Arash FIELD Facility:[facility] [place] Start: 02-23-2023 End: 02-23-2023 Patient encounter procedure Arash FIELD [facility] Start: 01-11-2023 End: 01-11-2023 ambulatory Jerson Goldsmith Other [employer] Other Start: 01-11-2023 Patient encounter procedure Jerson Goldsmith [facility] Start: 01-23-2022 End: 01-23-2022 Patient encounter procedure MD Phuong Hall Work Phone: [facility] [place] Start: 01-02-2022 End: 01-02-2022 Patient encounter procedure Arash FIELD [facility] Start: 12-30-2021 End: 12-31-[address] ARASH FIELD Facility:[facility] Start: 10-24-2021 End: 10-24-2021 ambulatory Jerson Goldsmith Other [employer] Other Start: 10-24-[address] [facility] Start: 09-02-2021 End: 09-02-2021 ambulatory Jerson Goldsmith Other [employer] Other Start: 09-02-2021 Patient encounter procedure Jerson Goldsmith [facility] Start: 03-18-2021 End: 03-19-[address] PHUONG HALL Facility:[facility] Start: 01-18-2021 End: 01-19-[address] PHUONG HALL Facility:[facility] Procedures Date Procedure Procedure Detail Performing Clinician Start: 01-12-2025 IGP,APTIMA HPV,AGE GDLN Generic External Data Provider Start: 12-15-2024 XR ABDOMEN 1V Phuong hazel MD Work Phone: Start: 09-01-2024 Mammography Qiana riso PRODUCT CONTROLLER Work Phone: Start: 09-20-2023 Ecg routine ecg [...] Colonoscopy Arash FIELD Ligation of fallopian tube Howard FIELD Plan of Treatment Date Care Activity Detail Author Start: 09-23-2031 Screening for malign ant neoplasm of colon [facility] Start: 09-01-2025 Screening for malign ant neoplasm of breast Mammogram [facility] Start: 02-23-2025 Influenza vaccination Influenza Vacc ine (#1) [facility] Start: 01-12-2025 End: 01-12-2026 DXA Skeletal system Views for bone density DEXA bone density Imaging Routine Postmenopausal state Expected: 01/12/2025 (Approximate), Expires: 01/12/2026 [facility] Work Phone: Comment on above: Expected: 01/12/2025 (Approximate), Expires: 01/12/2026 Start: 01-12-2025 End: 01-12-2025 Patient encounter procedure [facility] Comment on above: Arrived Start: 11-24-2024 End: 08-24-2025 TSH W/REFLEX TO FT4 TSH W/REFLEX TO FT4 Lab Routine Hypothyroidism, unspecified type (CMS/HCC) Expected: 11/24/2024 (Approximate), Expires: 08/24/2025 [facility] Work Phone: Comment on above: Expected: 11/24/2024 (Approximate), Expires: 08/24/2025 Start: 10-13-2024 End: 10-13-2025 EMG AND NERVE CONDUCTION STUDY EMG AND NERVE CONDUCTION STUDY Neurology Routine Numbness Leg pain, left Expected: 10/13/2024 (Approximate), Expires: 10/13/2025 [facility] Work Phone: Comment on above: Expected: 10/13/2024 (Approximate), Expires: 10/13/2025 Start: 10-13-2024 End: 10-13-2024 Patient encounter procedure 10/13/2024 9:00 AM EDT Office Visit [facility] [address] [place] [address] Qiana Toro, MORENA [address] [place] [address] Arrived [facility] Comment on above: Arrived Start: 09-29-2024 End: 09-29-2024 Patient encounter procedure 09/29/2024 2:00 PM EDT Office Visit [facility] [address] [place] [address] Diana Wang PA [address] [place] [address] [facility] Start: 09-09-2024 End: 09-09-2024 Professional / ancillary services management 09/09/2024 8:00 AM EDT Ancillary Procedure [facility] [address] [place] [address] [facility] Start: 08-22-2024 End: 08-22-2025 CBC W Auto Differential panel - Blood CBC and differential Lab Routine Hypothyroidism, unspecified type (CMS/HCC) Expected: 08/22/2024 (Approximate), Expires: 08/22/2025 [facility] Comment on above: Expected: 08/22/2024 (Approximate), Expires: 08/22/2025 Start: 08-22-2024 End: 08-22-2025 Comprehensive metabolic 2000 panel - Serum or Plasma Comprehensive metabolic panel Lab Routine Hypothyroidism, unspecified type (CMS/HCC) Expected: 08/22/2024, Expires: 08/22/2025 [facility] Comment on above: Expected: 08/22/2024 , Expires: 08/22/2025 Start: 08-22-2024 End: 10-20-2025 DBT Breast - bilateral screening Bilateral screening mammogram with tomosynthesis Imaging Routine Screening mammogram for breast cancer Expected: 08/22/2024, Expires: 10/20/2025 [facility] Comment on above: Expected: 08/22/2024 , Expires: 10/20/2025 Start: 08-22-2024 End: 08-22-2025 Lipid 1996 panel - Serum or Plasma Lipid panel Lab Routine Hypothyroidism, unspecified type (CMS/HCC) Expected: 08/22/2024 (Approximate), Expires: 08/22/2025 [facility] Comment on above: Expected: 08/22/2024 (Approximate), Expires: 08/22/2025 Start: 08-22-2024 End: 08-22-2024 Patient encounter procedure [facility] Comment on above: Arrived Start: 08-22-2024 End: 08-22-2025 TSH W/REFLEX TO FT4 TSH W/REFLEX TO FT4 Lab Routine Hypothyroidism, unspecified type (CMS/HCC) Expected: 08/22/2024 (Approximate), Expires: 08/22/2025 [facility] Work Phone: Comment on above: Expected: 08/22/2024 (Approximate), Expires: 08/22/2025 Start: 08-22-2024 End: 08-22-2025 US Thyroid gland US thyroid Imaging Routine Thyroid enlargement (CMS/HCC) Expected: 08/22/2024, Expires: 08/22/2025 [facility] Comment on above: Expected: 08/22/2024 , Expires: 08/22/2025 Start: 08-18-2024 End: 08-18-2024 Patient encounter procedure [facility] Comment on above: Arrived Start: 08-18-2024 End: 08-18-2025 Cortisol free Cortisol, free Lab Routine Hormone disorder Expected: 08/18/2024 (Approximate), Expires: 08/18/2025 [facility] Comment on above: Expected: 08/18/2024 (Approximate), Expires: 08/18/2025 Start: 08-18-2024 End: 08-18-2025 US Pelvis US Pelvis w/ TV Imaging Routine Pelvic pain in female Expected: 08/18/2024, Expires: 08/18/2025 [facility] Work Phone: Comment on above: Expected: 08/18/2024 , Expires: 08/18/2025 Start: 02-24-2024 Influenza vaccination Influenza Vacc ine (#1) [facility] Start: 10-18-2023 Screening for malign ant neoplasm of breast Breast cancer screen [facility] Start: 01-23-2023 Influenza vaccination Flu vaccine (# 1) [facility] Start: 10-17-2022 Screening for malign ant neoplasm of breast Mammogram [facility] Start: 2022 Shingles vaccine (1 of 2) Shingles vaccine (1 of 2) [facility] Start: 2017 Screening for malign ant neoplasm of colon [facility] Start: 2012 Lipid panel Lipids [facility] Start: 2002 Screening for malign ant neoplasm of cervix [facility] Start: 1993 Screening for malign ant neoplasm of cervix Pap smear [facility] Start: 1991 DTaP/Tdap/Td vaccine (1 - Tdap) DTaP/Tdap/Td vaccine (1 - Tdap) [facility] Start: 1990 Hepatitis C screening Hepatitis C sc reen [facility] Start: 1987 HIV screening HIV screen [facility] Start: 1984 Depression Screen Depression Screen [facility] Start: 01-11-1973 COVID-19 Vaccine (#1) COVID-19 Vacci ne (#1) [facility] Start: 1972 Hepatitis B vaccine (1 of 3 - 3-dose series) Hepatitis B vaccine (1 of 3 - 3-dose series) [facility] Start: 1972 Screening for malign ant neoplasm of colon [facility] DHEA-sulfate DHEA-sulfate Lab Routine Hormone disorder Ordered: 08/18/2024 [facility] Comment on above: Ordered: 08/18/2024 Estradiol Estradiol Lab Ro utine Hormone disorder Ordered: 08/18/2024 [facility] Comment on above: Ordered: 08/18/2024 Estrone Estrone Lab Rout ine Hormone disorder Ordered: 08/18/2024 [facility] Comment on above: Ordered: 08/18/2024 Progesterone Progesterone Lab Routine Hormone disorder Ordered: 08/18/2024 [facility] Comment on above: Ordered: 08/18/2024 TESTOSTERONE, FREE TESTOSTERONE, FREE Lab Routine Hormone disorder Ordered: 08/18/2024 [facility] Comment on above: Ordered: 08/18/2024 Testosterone, free, total Testosterone, free, total Lab Routine Hormone disorder Ordered: 08/18/2024 [facility] Comment on above: Ordered: 08/18/2024 THIN PREP TIS PAP AN D HR HPV DNA THIN PREP TIS PAP AND HR HPV DNA Pathology and Cytology Routine Well woman exam with routine gynecological exam Ordered: 01/12/2025 [facility] Comment on above: Ordered: 01/12/2025 Vitamin D 1,25 dihydroxy Vitamin D 1,25 dihydroxy Lab Routine Hormone disorder Ordered: 08/18/2024 [facility] Comment on above: Ordered: 08/18/2024 Immunizations Immunization Date Immunization Notes Care Provider Fa cili 06-24-2024 influenza virus vaccine, unspecified formulation Diana CARLOS Work Phone: [facility] 06-22-2022 influenza virus vaccine, unspecified formulation Phuong Hall MD Work Phone: [facility] NEGATED: Highlighted row has not occurred!01-10-2021 SARS-CoV-2 (COVID-19) mRNA-1273 vaccine Arash FIELD [facility] Payers Date Payer Category Payer Self-pay [id number] 2022 [facility] [id number] 1972 Unknown [id number] 2.16.840.1.251951.3.579. 2.593 1972 Unknown [id number] 2.16.840.1.176409.3.579. 2.593 1972 Unknown [id number] 2.16.840.1.821822.3.579. 2.593 1972 Unknown [id number] 2.16.840.1.669318.3.579. 2.727 1972 Unknown [id number] 2.16.840.1.165831.3.579. 2.727 1972 Unknown [id number] 2.16.840.1.442149.3.579. 2.173 1972 Unknown [id number] 2.16.840.1.113926.3.579. 2.173 1972 Unknown [id number] 2.16.840.1.994913.3.579. 2.173 1972 Unknown [id number] 2.16.840.1.903192.3.579. 2.1259 1972 Unknown [id number] 2.16.840.1.600157.3.579. 2.1259 1972 Unknown [id number] 2.16.840.1.629256.3.579. 2.1259 1972 Unknown [id number] 2.16.840.1.866022.3.579. 2.1259 1972 Unknown [id number] 2.16.840.1.730385.3.579. 2.1259 1972 Unknown [id number] 2.16.840.1.710482.3.579. 2.1259 1957 [place] [id number] 2.16.840.1.646078.19 Unknown [id number] 2.16.840.1.487645.3.579. 2.531 Social History Date Type Detail Facility Unknown if ever smoked [employer] Other Start: 09-20-2023 End: 10-11-2024 Sex Assigned At [facility] [employer] Other Start: 01-10-2021 End: 08-22-2024 Tobacco smoking status Never smoked tobacco (finding) [facility] Start: 1970 Sex Assigned At Female F [facility] Start: 09-20-2023 End: 08-22-2024 Tobacco use and exposure Smokeless tobacco non-user [email or web address] Start: 09-20-2023 End: 01-12-2025 Alcohol intake Ex-drinker (finding) [email or web address] Start: 09-20-2023 End: 10-11-2024 History of Social function [email or web address] Start: 1970 Sex Assigned At Not on file [facility] How often do you nee d to have someone help you when you read instructions, pamphlets, or other written material from your doctor or pharmacy [SILS] Never [facility] Within the last year , have you been afraid of your partner or ex-partner? No [facility] Do you belong to any clubs or organizations such as lutheran groups, unions, fraternal or athletic groups, or school groups? Yes [...] NINF History of tobacco use Passive smoker [facility] Functional Status Date Assessment Result Facility 02-23-2023 Functional Status N/A [facility] 01-02-2022 Functional Status N/A [facility] Clinical Notes 09-02-2021 to 01-12-2025 TERRANCE Ruiz [...] nursing note reviewed. Exam conducted with a end touching machine operator present. Vitals: Estimated body mass index is [...] of: TERRANCE Ruiz documented in this encounter [facility] 10-13-2024 History of Presen t illness Narrative [...] left lower extremity documented in this encounter [facility] 08-22-2024 History of Presen t illness Narrative [...] cancer, which required two surgeries. Additionally, her prbknhtz-hx-tte recently suffered a miscarriage. She has been [...] been seeking support from her father and supervisor [employer]. 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 documented in this encounter [facility] 08-18-2024 History of Presen t illness Narrative [...] of: TERRANCE Ruiz documented in this encounter [facility] 05-16-2024 Telephone encount er Note Approvals with refills [facility] 05-16-2024 Miscellaneous Notes Formattin g of this note might be different from the original. Approvals with refills documented in this encounter [facility] 07-12-2023 Evaluation note Encounter Date Diagnosis Assessment Notes Jun, Ulcerative colitis (ICD-10 - K51.90) [employer] Other 09-01-2023 Hospital Discharge instructions Follow Up Care 02/23/2023 12:26:27 With:KIM ADLER, Arash Broderick, URL Address: [facility] [address] [place] [address]- [phone] When: Unknown [facility] 09-01-2023 Hospital Discharge instructions Patient Education 02/23/2023 [...] include: ?8 oz (237 mL) of milk, yutbsfp-inugbirjkgiz-pgfja milk, and calcium- fortifiedfruit juice. Calcium-fortified means [...] ?Spinach (cooked), rhubarb, beets, sweet potatoes, and Kyrgyz chard. ?Peanuts. ?Potato chips, zambian fries, and baked potatoes with skin on. ?Nuts and nut products. ?Chocolate. If you regularly take a diuretic medicine, make sure to eat at least 1 or 2 servings of fruits or vegetables that are high in potassium each day. These include: ?Avocado. ?Banana. ?[place], prune, carrot, or tomato juice. ?Baked potato. [...] magnesium, fish oil, or vitamin B6. Take odyd-srx-sfoudnt and prescription medicines only as told by [...] Casseroles. Pizza. Lasagna. Frozen meals. Potato chips. Armenian fries. The items listed above may not [...] provider. Document Revised: 02/20/2022 Document Reviewed: 02/20/2022 [employer] Patient Education 2022 [employer] Follow Up Care 10/09/2022 10:30:40 With:KIM ADLER, Arash Broderick, SEGUNDO Address: [facility] [address], [place] [address]- When:Within 6 Month(s) Comments:w/CTU & 24hr Urine [facility] 07-20-2023 Evaluation note* Encounter Date Diagnosis Assessment Notes Treatment Notes Treatment Clinical Notes Dec, Ulcerative colitis (ICD-10 - K51.90) Continue lialda 4 tablets daily Rto 1 yr [employer] Other 07-11-2022 Hospital Discharge instructions Patient Education 01/02/2022 10:36:11 Kidney Stones, Jvie-pl-Mccs Kidney Stones Kidney stones are rock-like masses [...] Follow these instructions at home: Medicines Take sqbe-elq-sylwpon and prescription medicines only as told by [...] 11/27/2008 Document Revised: 10/28/2019 Document Reviewed: 10/28/2019 [employer] Patient Education 2020 [employer]. Follow Up Care 01/10/2021 10:24:51 With:KIM ADLER, Arash Broderick, URL Address: [facility] [address], [place] [address]- [phone] When: Unknown Comments:Will schedule Ct scan w/o * stone protocal [facility] 05-02-2022 Evaluation note* Encounter Date Diagnosis Assessment Notes Treatment Notes Treatment Clinical Notes October, Ulcerative colitis (ICD-10 - K51.90) [employer] Other 03-11-2022 Evaluation note* Encounter Date Diagnosis Assessment Notes Treatment Notes Treatment Clinical Notes Aug, Ulcerative colitis (ICD-10 - K51.90) PATIENT DOES CONTINUE ON THE LIALDA CONTINUE ON THE MEDICATION PROCEED WITH COLON [employer] Other Evaluation + Plan note No data available for this section [facility] evaluation + Plan note Future Appointments Appointment Date:09/03/2023 08:45:00 AM Scheduled Provider:Arash FIELD MD Location:[facility] Appointment Type:URO Office Visit [facility] [place] evaluation noteNo assessment information available [facility] Work Phone: Evaluation note* Diagnosis Renal calculus Calculus of kidney [facility] Diagnosis Seasonal allergic rhinitis due to [...] health care facility [facility] Diagnosis Hypothyroidism, unspecified type (CMS/HCC)- Primary [facility] Diagnosis Numbness- Primary Disturbance of [...] History inguinal hernia repair Surgical History laparoscopy [employer] Other Progress note No data available for this section [facility] Summary Purpose Family History Relationship Condition Age [...] Procedures EKG 12 Lead Kimberly Burton MD [address] [place] [address], [address] [place] [address] Referral ID Status Reason Start Date Expiration Date Visits Re quested Visits Authorized [id number] Open 09/20/2023 09/19/2024 1 1 Additional Source Comments INFORMATION SOURCE (unrecogn ized section and content) DATE CREATED AUTHOR 11/19/2021 [facility] dical Specialist DATE CREATED AUTHOR AUTHOR'S ORGANIZ ATION 01/10/2022 [facility] [place] [facility] DATE CREATED AUTHOR AUTHOR'S ORGANIZ ATION 05/14/2023 [facility] DATE CREATED AUTHOR AUTHOR'S ORGANIZ ATION 09/05/2023 [facility] DATE CREATED AUTHOR AUTHOR'S ORGANIZ ATION 10/24/2023 [facility] DATE CREATED AUTHOR AUTHOR'S ORGANIZ ATION 01/13/2025 [facility] dical Specialists EPIC REASON FOR VISIT (unrecogniz [...] Active Arash Field MD Attending Provider Active Remote Inpatient Coder Relationship Specialty Start Date End Date Phuong Hall MD [address] [place], [place] [id number] PCP - General 09/20/23 Remote Inpatient Coder Relationship Specialty Start Date End Date Phuong Hall MD [address] [place], [place] [id number] PCP - General Family Medicine 10/31/22 Remote Inpatient Coder Relationship Specialty Start Date End Date Phuong Hall MD [address] [facility] [place] [address] PCP - General Family Medicine 10/31/22 Remote Inpatient Coder Relationship Specialty Start Date End Date Phuong Hall MD [address] [facility] [place] [address] PCP - General Family Medicine 10/31/22 Remote Inpatient Coder Relationship Specialty Start Date End Date Phuong Hall MD [address] [facility] [place] [address] PCP - General Family Medicine 10/31/22 Remote Inpatient Coder Relationship Specialty Start Date End Date Phuong Hall MD [address] [facility] [place] [address] PCP - General Family Medicine 10/31/22 Remote Inpatient Coder Relationship Specialty Start Date End Date Phuong Hall MD [address] [facility] [place] [address] PCP - General Family Medicine 10/31/22 Remote Inpatient Coder Relationship Specialty Start Date End Date Phuong Hall MD [address] [facility] [place] [address] PCP - General Family Medicine 10/31/22 Remote Inpatient Coder Relationship Specialty Start Date End Date Phuong Hall MD [address] [facility] [place] [address] PCP - General Family Medicine 10/31/22 Remote Inpatient Coder Relationship Specialty Start Date End Date Phuong Hall MD [address] [place] [address] PCP - General Family Medicine 10/31/22 Goals [...] BE BASED ON THE PRIMARY CLINICAL RECORDS. [employer] provides no warranty or guarantee of the accuracy or completeness of information in this document.
== END 2025-01-30 10:55 | disposition home or self-care (01) ==
LOC: RAD 10:54
PROVIDERS: PCP Family Medicine; Visit Provider Physician Assistant
DX: Z78.0 Asymptomatic menopausal state (principal)
CPT/HCPCS: 77080

== ENCOUNTER 2025-03-02 14:12 | Outpatient (OUT) | payer BC, SELFPAY ==
--- OUTSIDE RECORDS SUMMARY | 2025-03-02 14:14 | XMS_ITS | Clinical Summary ---
Author Organization [facility] 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 from Last 3 Months Social History [...] Info) Description 06/26/2025 9:15 AM EST Appointment [facility] [place] [facility] Scan [address] [place] [address] epic sched with ofc nils 07/03/2025 10:00 AM EST Office Visit [facility] Part of [address] [place] [phone] Jasper Steele MD [address] [facility], [address] [place] [address]/ with Health [...] this topic Medical Devices Implanted Type Area Certified Personal Trainer Device Identifier Shelf Expiration Date Model / Serial / Lot Stent Uret 6fr L26cm Hydr+ Pgtl Tapr Tip Grad Bldr Mrk Lo - [id number] Implanted:Qty: 1 on 10/23/2023 by Jasper Steele MD at [facility] Left: [employer]re[employer] 04/18/2026 [id number] / / [id number] Insurance BCBS OUT OF STATE Advance Directives * Full Code (Latest Code Status on File) Date Activated Date Inactivated Comments 10/23/2023 7:42 AM 10/23/2023 2:07 PM Care Teams Fish Egg Packer Relationship Specialty Start Date End Date Phuong Hall MD [address] [place] [address] PCP - General 09/20/23
--- OUTSIDE RECORDS SUMMARY | 2025-03-02 14:14 | XMS_ITS | Encounter Summary ---
Author Organization [facility] Address [address], [address] [place] [address] Care Team Providers Care Fisheries Management Biologist Name Role Phone Phuong Hall MD Primary Care Provider [phone] Encounter Details Date Type Department Care Team (Late st Contact Info) Description 10/16/2023 Orders Only [facility] Part of [facility] [address] [facility] [address] [place] [address] Provider, MD Sandra Social History [...] Info) Description 06/26/2025 9:15 AM EST Appointment [facility] CT Scan [address] [place], [place] [phone] epic sched with ofc nils 07/03/2025 10:00 AM EST Office Visit [facility] Part of [address] [place] [address] Jasper Steele MD [address] [facility], [address] [place] [address]/ with dr [...] on filedocumented in this encounter Care Teams Fisheries Management Biologist Relationship Specialty Start Date End Date Phuong Hall MD [address] [place] [address] PCP - General 09/20/23 documented as of this encounter
--- OUTSIDE RECORDS SUMMARY | 2025-03-02 14:14 | XMS_ITS | Clinical Summary ---
Author Organization [employer] [facility] tem Address [facility] [id number] [address] [place] [address] Care Team Providers Care Rebar Worker Name Role Phone Phuong Hall MD Primary Care Provider [phone] Social History Tobacco Use Types Packs/Day Years [...] Not on file Insurance [employer] Care Teams Rebar Worker Relationship Specialty Start Date End Date Phuong Hall MD PCP - General Family Medicine 12/05/18
[2025-03-02 15:19] LABS: TSH W/ REFLEX FT4 1.875 uIU/mL (0.358-3.740)
--- OUTSIDE RECORDS SUMMARY | 2025-03-02 16:09 | XMS_ITS | CCD ---
Author Organization [facility] Care Team Providers Care Gun Striper Name Role Phone Jerson Goldsmith Unavailable LARRY JONES Primary Care Physician [phone] KIM, DR MEEK Consulting Unavailable RAFAEL, DR MERCADO Primary Care Unavailable KIM, DR MEEK Admitting Unavailable KIM, DR MEEK Attending Unavailable ZIRAMOSER, DR CRISTOFER Broderick Consulting Unavailable RAFAEL, DR MERCADO Primary Care Unavailable KIM, DR MEEK Admitting Unavailable KIM, DR MEEK Attending Unavailable KIM, DR MEEK Consulting Unavailable RAFAEL, DR MERCADO Admitting Unavailable RAFAEL, DR MERCADO Attending Unavailable RAFAEL, DR MERCADO Consulting Unavailable RAFAEL, DR MERCADO Primary Care Unavailable MD Rafael Phuong Primary Care Provider MD Arash Field Attending Provider MD Phuong Hall Primary Care Provider [phone] MD Arash Field Attending Provider Arash Field [...] TORO Attending Unavailable DIANA WANG Attending Unavailable Rafael ADLER Phuong Primary Care Provider Rupal ADLER, Jerson Bolden Attending Provider [phone] Medications Current Medications Medication Drug Class(es) Dates Sig (Normalized) Sig (Original) Calcium Citrate / Vitamin D (1 source) Start: 02-09-2025 esomeprazole 40 mg delayed release oral capsule (20 sources) Proton Pump Inhibitor Start: 03-26-2020 End: 03-15-2025 take 1 capsule by mouth once daily esomeprazole (NexIUM) [address] capsule Indications: Acute gastroenteritis TAKE 1 CAPSULE BY MOUTH EVERY DAY FOR 90 DAYS 30 capsule 5 12/15/2024 03/15/2025 Active estradiol 0.1 mg/ml vaginal cream (5 sources) Estrogen Start: 01-12-2025 estradiol (Estrace) 0.1 MG/GM vaginal cream Indications: Postmenopausal state 2g vaginal daily for 2 weeks, then 2 times weekly following initial 2 weeks 42.5 g 01/12/2025 Active fluticasone propionate 0.05 mg/actuat metered dose nasal spray (20 sources) Corticosteroid Start: 01-14-2024 take 1 spray(s) nasal route once daily Fluticasone Propionate (Allergy Relief (Fluticasone)) 50 mcg/actuation spray,suspension Active 1 SPRAY INTRANASAL Daily January 14, 2024 12:00am administer into each nostril Complies with drug therapy Start: 07-30-2023 End: 05-16-2024 fluticasone (Flonase) 50 MCG /ACT nasal spray Indications: Seasonal allergic rhinitis due [...] day Active levothyroxine sodium 0.112 mg oral capsule (20 sources) l-Thyroxine Start: 02-09-2025 take 1 capsule by mouth once daily Levothyroxine 112 mcg capsule Active 112 MCG PO Daily February 09, 2025 12:00am Complies with drug therapy Start: 08-24-2024 End: 08-24-2025 take 1 tablet [...] Start Date: 01/02/22 Status: Ordered Start: 09-21-2021 End: 02-09-2025 take 1 tablet by mouth once daily Levothyroxine 137 mcg tablet Discontinued 137 MCG PO Daily September 21, 2021 12:00am February 09, 2025 9:20am take 1 tablet by naveen th once daily in the morning Synthroid 137 MCG 1 tablet on an empty stomach in the morning Orally Once a day for 30 day(s) Active mesalamine 1200 mg delayed release oral tablet (20 sources) Aminosalicylate Start: 03-26-2020 Lialda gram, O ral, Daily, Refill(s) 0 Start Date: 03/26/20 Status: Ordered Start: 07-04-2013 End: 02-09-2025 take 4 tablets by mouth once daily Mesalamine (Lialda) 1.2 gram tablet,delayed release (DR/EC) Active 4.8 GM PO Daily 360 90 February 09, 2025 9:33am Complies with drug therapy Start: 07-04-2013 take 4 tablets by mo [facility] every twenty-four hours Lialda 1.2 GM [...] tablet 2 08/08/2024 09/07/2024 Active Start: 09-21-2021 Valacyclovir 1 gram tablet Active 1000 MG PO Daily September 21, 2021 12:00am Complies with drug therapy Start: 09-21-2021 take 1000 mg by mout h once daily Valacyclovir Active 1000 MG PO Daily September 20, 2021 11:00pm Start: 03-26-2020 take 1 tablet by naveen twice daily Valtrex 1 g Tab gram tab(s), Oral, BID, Refills(s) 0 Start Date: 03/26/20 Status: [facility] valACYclovir (VALTREX) 500 MG tablet Take 1 tablet by mouth 2 times daily 0 Active take 2 tablets by [facility] every twelve hours Valtrex 500 MG [...] Start Date: 03/26/20 Status: Ordered Vitamin D 28545 U (4 sources) Vitamin D 76770 U as directed Orally Active Completed/Discontinued Medications Medication Drug Class(es) Dates Sig (Normalized) Sig (Original) 24 hr buPROPion hydrochloride 300 mg extended release oral tablet (6 sources) Aminoketone Start: 09-21-2021 End: 01-14-2024 take 1 tablet by mouth once daily Bupropion Hcl 300 mg tablet extended release 24 hr Discontinued 300 MG PO Daily September 21, 2021 12:00am January 14, 2024 11:10am Start: 03-26-2020 take 1 tablet by naveen every twenty-four hours Wellbutrin XL 300 mg/24 hours Tab-ER mg tab(s), Oral, q24hr, Refills(s) 0 Start Date: 03/26/20 Status: Ordered ferrous sulfate 325 mg oral tablet (1 source) Start: 01-14-2024 End: 02-09-2025 take 0.2 tablet by mouth every week Ferrous Sulfate 325 mg (65 mg iron) tablet Discontinued 325 MG PO .2 per week January 14, 2024 12:00am February 09, 2025 9:20am Ketorolac (4 sources) Nonsteroidal Anti-inflammatory Drug, Cyclooxygenase [...] Deficiency and other anemia (3 sources) Anemia 10-02-2020 Episodic Esophageal disorders (9 sources) Gastroesophageal reflux disease; Translations: [Gastro-esophageal reflux [...] Dysphagia; Translations: [Dysphagia, unspecified] 08-22-2024 Episodic Other gastrointestinal disorders (1 source) Diarrhea; Translations: [Diarrhea, unspecified] 09-10-2023 Episodic Other nervous system disorders (4 sources) [...] 05-16-2024 Chronic Regional enteritis and ulcerative colitis (13 sources) Ulcerative colitis; Translations: [Ulcerative colitis, unspecified, [...] (20 sources) Hypothyroidism; Translations: [Hypothyroidism, unspecified] Onset: 03-26-2020 Chronic Results Test Name Value Interpretation Reference Range Facility ALL CBC WITH AUTO DIFFon BASOPHILS ABSOLUTE AUTO 0.1 [facility] Basophils/100 WBC (Bld) 1 % 0.2 - 2.0 % [facility] Eosinophils/100 WBC (Bld) 4.3 % 0.9 - 7.0 % [facility] Erythrocyte distribution width (RBC) [Ratio] 13 % 11.0 - 15.0 % [facility] Hematocrit (Bld) [Volume fraction] 35.4 % Low 36.0 - 48.0 % [facility] Hemoglobin (Bld) [Mass/Vol] 11.8 g/dL Low 12.0 - 16.0 g/dL [facility] IMMATURE GRANULOCYTES ABS AUTO 0.01 [facility] Immature granulocytes/100 WBC (Bld) 0.1 % 0.0 - 0.5 % [facility] Interpretation and review of laboratory results Abnormal [facility] LYMPHOCYTES ABSOLUTE AUTO 2.9 [facility] Lymphocytes/100 WBC (Bld) 35.1 % 20.5 - 60.0 % [facility] MCH (RBC) [Entitic mass] 32.2 pg 26.7 - 34.0 pg [facility] MCHC (RBC) [Mass/Vol] 33.3 g/dL 29.9 - 35.2 g/dL [facility] MCV (RBC) [Entitic vol] 96.5 fL 81.0 - 99.0 fL [facility] MONOCYTES ABSOLUTE AUTO 0.5 [facility] Monocytes/100 WBC (Bld) 6 % 1.7 - 12.0 % [facility] NEUTROPHILS ABSOLUTE AUTO 4.5 [facility] Neutrophils/100 WBC (Bld) 53.5 % 43.0 - 75.0 % [facility] Platelet mean volume (Bld) [Entitic vol] 10.8 fL 9.5 - 13.5 fL [facility] TBH EO # 0.4 [facility] TB PLT 246 [facility] TB RBC 3.67 Low [facility] TB WBC 8.4 [facility] ALL SED RATEon 03-02-2025 TBH SED RATE 22 NINF [facility] IGP,APTIMA HPV,AGE GDLNon AGE GDLN ACOG TESTING Note . [facility] Comment on above: TESTS RESULT FLAG UN ITS REF RANGE LAB Clinician Provided Cytology Information Source.............Cervix;Endocervix No. of containers..01 ThinPrep Vial Age Algo ACOG Niyah... - FLAG LEGEND: L-Low Normal,H-High Normal,LL-Alert Low,HH-Alert High <-Panic Low,>-Panic High,A-Abnormal,AA-Critical Abnormal Performed at: 01 =G [address] [place] [address] Trixie Ramirez MD, HPV APTIMA Negative Negative [facility] Comment on above: This nucleic acid am plification test detects fourteen high- risk HPV types (16,18,31,33,35,39,45,51,52,56,58,59,66,68) without differentiation. Performed at: =[address] [id number] [employer] Operator: Trixie Ramirez MD, Phone: [phone] Performed at: [address] [id number] [employer] Operator: Trixie Ramirez MD, Phone: [phone] IGP, APTIMA HPV, RFX 16/18,45 Note . [facility] Comment on above: TESTS RESULT FLAG UN ITS REF RANGE LAB DIAGNOSIS: 02 NEGATIVE FOR INTRAEPITHELIAL LESION OR MALIGNANCY. Specimen adequacy: 02 Satisfactory for evaluation. No endocervical component is identified. Performed by: 02 Nixon Marin, Commissions Analyst (ASCP) . 02 Note: Note 02 The Pap [...] High,A-Abnormal,AA-Critical Abnormal Performed at: 02 [address] [facility] [address] [place] [address] Trixie Ramirez MD, BRUSH-SPATULA CERVIX ENDOCERVIX [facility] XR ABDOMEN 1Von 12-15-[address] [address] XRay Report Signed Patient: FAUSTO MERRILL MR#: [id number] : 1970 Acct:[id number] Age/Sex: 54 / F ADM Date: 12/15/24 Loc: RAD Attending Dr: PHUONG HALL Ordering Physician: PHUONG HALL Date of Service: 12/15/24 Procedure(s): XR abdomen 1V Accession Number(s): [id number] cc: PHUONG HALL [place] [id number] Patient Name: FAUSTO MERRILL MRN: [facility]:[id number] date: 1970 Sex: F Assigned Patient Location: [facility] Current Patient Location: RAD Accession/Order Number: [id number] Exam Date: 12/15/2024 16:37 Report Date: 12/15/2024 [...] Lopez M.D. 12/15/2024 4:40 PM Dictation Location: [place] [address] Electronically authenticated by: [id number] Y Date: 12/15/2024 16:40 Dictated By: Javier Lopez M.D. Signed By: 12/15/24 1643 DD/ 1640 TD/TT: Shirt Bander: [facility] Radiology, Radiologist, - 12/15/2024 [place] [address] XRay Report Signed Patient: FAUSTO MERRILL MR#: [id number] : 1970 Acct:[id number] Age/Sex: 54 / F ADM Date: 12/15/24 Loc: RAD Attending Dr: PHUONG HALL Ordering Physician: PHUONG HALL Date of Service: 12/15/24 Procedure(s): XR abdomen 1V Accession Number(s): [id number] cc: PHUONG HALL [place] [id number] Patient Name: FAUSTO MERRILL MRN: [facility]:[id number] date: 1970 Sex: F Assigned Patient Location: RAD Current Patient Location: RAD Accession/Order Number: [id number] Exam Date: 12/15/2024 16:37 Report Date: 12/15/2024 [...] Lopez M.D. 12/15/2024 4:40 PM Dictation Location: [place] [address] Electronically authenticated by: [id number] Y Date: 12/15/2024 16:40 Dictated By: Javier Lopez M.D. Signed By: 12/15/24 1643 DD/ 1640 TD/TT: Shirt Bander: [facility] Radiology Study observation (narrative) [facility] XR ABDOMEN 1VOrdered By: Johan iologist Radiology on 12-15-2024 [facility] Work Phone: BI MAMMOGRAM SCREENING TOMOS YNTHESIS [...] up with ordering provider. Final result Normal [facility] HCG, ,Urineon 10-22 Beta HCG ( test) Ql (U) Negative Normal NEG [facility] Comment on above: Result Comment: Spec imens with hCG levels near the threshold of the test (25 mIU/mL) may give a negative or indeterminate result. In such cases, another test should be performed with a new specimen in 48-72 hours. If early is suspected clinically in this setting, correlation with quantitative serum b-hCG level is suggested. [facility] has confirmed the use of plasma for this test. This has not been cleared or approved by the U.S. Food and Drug Administration. The FDA has determined that such clearance is not necessary. Performed By: #### U HCG #### [facility] [address] [place] [address] [employer] Operator: Michoacano Gomez MD Basic Metabolic Profon 09-19 Anion gap [Moles/Vol] 9 mmol/L Normal 9-17 [facility] Comment on above: Performed By: #### B MP, CDP #### [facility] [address] [place] [address] [place] [address] [employer] Operator: Michoacano Gomez MD BUN/CRE Ratio 23 High 9-20 [facility] Comment on above: Performed By: #### B MP, CDP #### [address] [place] [address] [employer] Operator: Michoacano Gomez MD Calcium [Mass/Vol] 8.7 mg/dL Normal 8.6-10.4 [facility] Comment on above: Performed By: #### B MP, CDP #### [facility] [address] [place] [address] [place] [address] [employer] Operator: Michoacano Gomez MD Chloride [Moles/Vol] 105 mmol/L Normal 98-107 [facility] Comment on above: Performed By: #### B MP, CDP #### [facility] [address] [place] [address] [place] [address] [employer] Operator: Michoacano Gomez MD CO2 [Moles/Vol] 25 mmol/L Normal 20-31 [facility] Comment on above: Performed By: #### B MP, CDP #### [facility] [address] [place] [address] [employer] Operator: Michoacano Gomez MD Creatinine [Mass/Vol] 0.7 mg/dL Normal 0.5-0.9 [facility] Comment on above: Performed By: #### B FRANKLIN, CDP #### [facility] [address] [place] [address] [employer] Operator: Michoacano Gomez MD GFR/1.73 sq M.predicted among non-blacks MDRD (S/P/Bld) [Vol rate/Area] mL/min/{1.73_m2} Normal >60 [facility] Comment on above: Result Comment: These results [...] Performed By: #### B FRANKLIN, CDP #### [facility] [address] [place] [address] [employer] Operator: Michoacano Gomez MD Glucose [Mass/Vol] 97 mg/dL Normal 70-99 [facility] Comment on above: Performed By: #### B FRANKLIN, CDP #### [facility] [address] [place] [address] [employer] Operator: Michoacano Gomez MD Potassium [Moles/Vol] 4.0 mmol/L Normal 3.7-5.3 [facility] Comment on above: Performed By: #### B FRANKLIN, CDP #### [facility] [address] [place] [address] [employer] Operator: Michoacano Gomez MD Sodium [Moles/Vol] 139 mmol/L Normal 135-144 [facility] Comment on above: Performed By: #### B FRANKLIN, CDP #### [facility] [address] [place], [place] [address] [employer] Operator: Michoacano Gomez MD Urea nitrogen [Mass/Vol] 16 mg/dL Normal 6-20 [facility] Comment on above: Performed By: #### B MP, CDP #### [facility] [address] [place], [place] [id number] [employer] Operator: Michoacano Gomez MD CBC with Diffon 09-20-2023 Abs. Basophil 0.07 k/uL Normal 0.00-0.20 [facility] Comment on above: Performed By: #### B FRANKLIN, CDP #### [address] [place], [place] [id number] [employer] Operator: Michoacano Gomez MD Abs.Imm.Granulocyte <0.03 Normal 0.00-0.30 [facility] Comment on above: Performed By: #### B FRANKLIN, CDP #### [address] [place], [place] [id number] [employer] Operator: Michoacano Gomez MD Abs.Neutrophil (Seg) 3.98 k/uL Normal 1.50-8.10 [facility] Comment on above: Performed By: #### B FRANKLIN, CDP #### [address] [place], [place] [id number] [employer] Operator: Michoacano Gomez MD Basophils/100 WBC (Bld) 1 % Normal 0-2 [facility] Comment on above: Performed By: #### B MP, CDP #### [facility] [address] [place] [address] [place], [place] [phone] [employer] Operator: Michoacano Gomez MD Eosinophils (Bld) [#/Vol] 0.43 10*3/uL Normal 0.00-0.44 [facility] Comment on above: Performed By: #### B FRANKLIN, CDP #### [facility] [address] [place] [address] [place], [place] [address] [employer] Operator: Michoacano Gomez MD Eosinophils/100 WBC (Bld) 6 % High 1-4 [facility] Comment on above: Performed By: #### B FRANKLIN, CDP #### [facility] [address] [place], [place] [phone] [employer] Operator: Michoacano Gomez MD Erythrocyte distribution width (RBC) [Ratio] 13.1 % Normal 11.8-14.4 [facility] Comment on above: Performed By: #### B FRANKLIN, CDP #### [facility] [address] [place] [address] [place], [place] [address] [employer] Operator: Michoacano Gomez MD Hematocrit (Bld) [Volume fraction] 38.3 % Normal 36.3-47.1 [facility] Comment on above: Performed By: #### B FRANKLIN, CDP #### [address] [place], [place] [address] [employer] Operator: Michoacano Gomez MD Hemoglobin (Bld) [Mass/Vol] 12.9 g/dL Normal 11.9-15.1 [facility] Comment on above: Performed By: #### B FRANKLIN, CDP #### [address] [place], [place] [address] [employer] Operator: Michoacano Gomez MD Immature granulocytes/100 WBC (Bld) 0 % Normal 0 [facility] Comment on above: Performed By: #### B FRANKLIN, CDP #### [facility] [address] [place] [address] [place], [place] [address] [employer] Operator: Michoacano Gomez MD Lymphocytes (Bld) [#/Vol] 2.69 10*3/uL Normal 1.10-3.70 [facility] Comment on above: Performed By: #### B FRANKLIN, CDP #### [address] [place], [place] [address] [employer] Operator: Michoacano Gomez MD Lymphocytes/100 WBC (Bld) 35 % Normal 24-43 [facility] Comment on above: Performed By: #### B FRANKLIN, CDP #### [facility] [address] [place], [place] [address] [employer] Operator: Michoacano Gomez MD MCH (RBC) [Entitic mass] 33.2 pg Normal 25.2-33.5 [facility] Comment on above: Performed By: #### B MP, CDP #### [facility] [address] [place], [place] [address] [employer] Operator: Michoacano Gomez MD MCHC (RBC) [Mass/Vol] 33.7 g/dL Normal 28.4-34.8 [facility] Comment on above: Performed By: #### B FRANKLIN, CDP #### [facility] [address] [place], [place] [address] [employer] Operator: Michoacano Gomez MD MCV (RBC) [Entitic vol] 98.7 fL Normal 82.6-102.9 [facility] Comment on above: Performed By: #### B FRANKLIN, CDP #### [facility] [address] [place], [place] [address]83 [employer] Operator: Michoacano Gomez MD Monocytes (Bld) [#/Vol] 0.55 10*3/uL Normal 0.10-1.20 [facility] Comment on above: Performed By: #### B FRANKLIN, CDP #### [facility] [address] [place], [place] [address]83 [employer] Operator: Michoacano Gomez MD Monocytes/100 WBC (Bld) 7 % Normal 3-12 [facility] Comment on above: Performed By: #### B FRANKLIN, CDP #### [facility] [address] [place], [place] [address] [employer] Operator: Michoacano Gomez MD Neutrophil (Seg) 51 % Normal 36-65 [facility] Comment on above: Performed By: #### B FRANKLIN, CDP #### [facility] [address] [place], [place] [address] [employer] Operator: Michoacano Gomez MD NRBC Automated 0.0 per 100 WBC Normal 0.0 [facility] Comment on above: Performed By: #### B FRANKLIN, CDP #### [facility] [address] [place], [place] [address] [employer] Operator: Michoacano Gomez MD Platelet mean volume (Bld) [Entitic vol] 10.1 fL Normal 8.1-13.5 [facility] Comment on above: Performed By: #### B FRANKLIN, CDP #### [facility] [address] [place], [place] [phone] [employer] Operator: Michoacano Gomez MD Platelets (Bld) [#/Vol] 252 10*3/uL Normal 138-453 [facility] Comment on above: Performed By: #### B FRANKLIN, CDP #### [address] [place], [place] [address]394[address] [employer] Operator: Michoacano Gomez MD RBC (Bld) [#/Vol] 3.88 10*6/uL Low 3.95-5.11 [facility] Comment on above: Performed By: #### B FRANKLIN, CDP #### [address] [place], [place] 3207383 [employer] Operator: Michoacano Gomez MD WBC (Bld) [#/Vol] 7.7 10*3/uL Normal 3.5-11.3 [facility] Comment on above: Performed By: #### B FRANKLIN, CDP #### [facility] [address] [place], [place] [address] [employer] Operator: Michoacano Gomez MD EKG 12 LeadOrdered By: Julito gutierrez on 09-20-2023 Atrial Rate 64 BPM [employer] [facility] Phone: P Bill[place] -4 degrees [facility] [employer] [facility] Phone: P-R Interval 132 ms [facility] Work Phone: Q-T Interval 420 ms [employer] Work Phone: QRS Duration 74 ms [employer] Work Phone: QTc Calculation (Bazett) 433 ms [employer] Work Phone: R Billingsley 65 degrees [employer] Work Phone: T Billingsley 54 degrees [employer] Work Phone: Ventricular Rate 64 BPM [employer] STALEYO STEPHON [employer] Work Phone: [employer] Work Phone: EKG 12 Leadon 09-20-2023 Normal sinus rhythm Normal ECG No previous ECGs available Confirmed by Julito Pate MD ([id number]) on 09/20/2023 8:55:[address] [facility] Julito Pate MD - 09/20/2023 Normal sinus rhythm Normal ECG No previous ECGs available Confirmed by Julito Pate MD ([id number]) on 09/20/2023 8:55:15 PM [employer] Physician Orderon 06-07-2023 Physician Order [id number]#1.0 0TIFF Normal [facility] RAD - CT Reporton 05-16-2023 RAD - CT Report [id number]#1.0 0TIFF Normal [facility] Reminderson 05-16-2023 Reminders - From: Celena Beauchamp To: EU - Recalls Field; Sent: 02/23/2023 12:29:57 EDT Show up: 07/26/2023 12:29:00 EST Subject: Ct urogram Due Date/Time: 08/13/2023 12:29:00 EST Reminder/Recall Pt needs Ct Urogram done prior to August 2023 appt. Pt needs to have done at [facility] per PRW. pt completed in Apr. already addressed. BG Normal [facility] CT urogramon 05-08-2023 CT urogram [facility] [address] [place] [address] CT Scan Report Signed Patient: Fausto Merrill MR#: [id number] : 1970 Acct:[id number] Age/Sex: 52 / F ADM Date: 05/08/23 Loc: CT Room: Type: [facility] Attending Dr: Arash Field MD Copies to: [...] Waldron Jr., D.OMaggi05/08/2023 2:21 PM Dictation Location: RADIO-PC-12 Transcribed By: MURALI 05/08/23 1421 Dictated By: Erwin Waldron Jr, DO 05/08/23 1419 Signed By: 05/08/23 1421 [facility] Lab Reportson 03-30-2023 Lab Reports [id number]#1.0 0TIFF Normal [facility] Lab Reports [id number]#1.0 0TIFF Normal [facility] Lab Reportson 03-04-2023 Lab Reports [id number]#1.00 CD:127 [facility] Lab Reports [id number]#1.0 0CD:127 [facility] Lab Reports [id number]#1.00 CD:127 Normal [facility] Ambulatory Visit Summaryon 0 02-23-2023 Ambulatory Visit Summary FAUSTO MERRILL :1970 Visit Date:02/23/2023 Ambulatory Visit Instructions Your Diagnosis Kidney stone Flank pain Stress incontinence Tests Performed Urnls Dip Stick Auto w/o Microscopy POC 41959 CT Urogram -- Results Pending -- Please [...] 24hr Urine Where: [facility] [address], [place] [address]- Medications What How Much When Instructions Unchanged [...] Urnls Dip Stick Auto w/o Microscopy POC 68484 (02/23/2023) Bilirubin Urine Dipstick - Negative Blood Urine Dipstick - 2+ Moderate Glucose Urine Dipstick - Negative Ketones Urine Dipstick - Negative Leukocytes Urine Dipstick - Negative Nitrite Urine Dipstick - Negative Protein Urine Dipstick - Negative Specific [place] Urine Dipstick - 1.025 Urine Appearance Urine [...] ? 8 oz (237 mL) of milk, qgvygza-xzhcavuqlrhn-y airy milk, and calcium-fortifiedfruit juice. Calcium-fortified means [...] (more content not included)... Normal [facility] Patient Educationon 02-24-20 23 Patient Education Nephrology Dietary Guidelines to Help [...] ? 8 oz (237 mL) of milk, eceishl-jzqkwuyllnie-t airy milk, and calcium-fortifiedfruit juice. Calcium-fortified means [...] Spinach (cooked), rhubarb, beets, sweet potatoes, and Cameroonian chard. ? Peanuts. ? Potato chips, kyrgyz fries, and baked potatoes with skin on. ? Nuts and nut products. ? Chocolate. ? If you regularly take a diuretic medicine, make sure to eat at least 1 or 2 servings of fruits or vegetables that are high in potassium each day. These include: ? Avocado. ? Banana. ? [place], prune, carrot, or tomato juice. ? Baked [...] fish oil, or vitamin B6. ? Take owsn-bdr-bivntyv and prescription medicines only as told by your health care provider. These include supplements. What foods should I limit? Limit your in (more content not included)... Normal [facility] Office/Clinic Noteon 02-23-2023 Urology Office/Clinic [...] Urine. -Will order a CTU, pt prefers [facility]. 2. Flank pain [...] for leaking. Follow-up With When Contact Information Arash FIELD MD, URL In 6 months [facility] [address] [place] [address]- Additional Instructions: w/CTU & 24hr Urine Patient [...] 40 mg Cap-EC, (more content not included)... [facility] Comment on above: Result Comment: Elec tronically Signed By: Arash FIELD MD\.br\Date and Time Signed: 02/23/23 12:26 EDT\.br\Electronically Co-Signed By: Edwige Barahona\.br\Date and Time Co-Signed: 02/23/23 12:23 EDT RAD - MISCon 02-16-2023 RAD - MISC [id number] [facility] Patient [place] [facility] [facility] [place] 03, 2022 FAUSTO MERRILL [address] [place] [id number] FAUSTO MERRILL 1970 Dear Fausto Merrill, Our records indicate it is time to schedule your follow up appointment with Dr. Field for kidney stones. Please call the office to schedule this appointment and have the KUB x-ray done prior (slip enclosed). Thank You, [facility] at [facility] [place] #3 [facility] XR KUB 1 VIEWon 12-30-2021 XR [...] by: CRISTOFER GOODWIN Date: 2021-12-30 17:52 Normal [facility] Free T4on 11-18-2021 Free T4 [Mass/Vol] 1.45 ng/dL Normal 0.80-1.80 Theodore [facility] [employer] Comment on above: Performed By: #### T SH reflex FT4, FT4 #### [facility] [address] [place], [place] [id number] TSH w/ Reflex to Free T4on 0 11-18-2021 FT4 reflex Free T4 Normal [facility] Comment on above: Performed By: #### T SH reflex FT4, FT4 #### [facility] [address] [place], [place] [id number] TSH 0.293 uIU/mL Low 0.400-4.500 [facility] [employer] Comment on above: Performed By: #### T SH reflex FT4, FT4 #### [facility] [address] [place], [place] [id number] SCREENING MAMMOGRAM W/DAINA, BILATERAL*on 10-17-2021 SCREENING MAMMOGRAM [...] VERY IMPORTANT TO YOUR HEALTH. THE CURRENT [place] [employer] GUIDELINES RECOMMENDS ANNUAL MAMMOGRAPHY BEGINNING AT AGE 40. THIS FACILITY USES A REMINDER SYSTEM TO ENSURE ALL PATIENTS RECEIVE REMINDER NOTIFICATIONS AT THE APPROPRIATE TIME BASED ON THE RECOMMENDATIONS OF THIS EXAM. Report reported and signed by Erwin Blake on 10/25/2021 1137 Normal [facility] Complete Blood Count with Au to Diffon 10-05-2021 Basophils (Bld) [#/Vol] 0.08 10*3/uL Normal 0.00-0.20 [facility] Comment on above: Performed By: #### F T4, CMP, TSH reflex FT4, VITD, LIPD #### [facility] [address] [place], [place] [id number] Basophils/100 WBC (Bld) 1.3 % Normal [facility] Comment on above: Performed By: #### F T4, CMP, TSH reflex FT4, VITD, LIPD #### [facility] [address] [place], [place] [id number] Eosinophils (Bld) [#/Vol] 0.45 10*3/uL Normal 0.02-0.50 [facility] Comment on above: Performed By: #### F T4, CMP, TSH reflex FT4, VITD, LIPD #### [facility] [address] [place], [place] [id number] Eosinophils/100 WBC (Bld) 7.3 % Normal [facility] Comment on above: Performed By: #### F T4, CMP, TSH reflex FT4, VITD, LIPD #### [facility] [address] [place], [place] [id number] Erythrocyte distribution width (RBC) [Ratio] 13.6 % Normal 11.0-15.0 [facility] Comment on above: Performed By: #### F T4, CMP, TSH reflex FT4, VITD, LIPD #### [facility] [address] [place], [place] [id number] Hematocrit (Bld) [Volume fraction] 38.1 % Normal 35.0-47.0 [facility] Comment on above: Performed By: #### F T4, CMP, TSH reflex FT4, VITD, LIPD #### [facility] [address] [place], [place] [id number] Hemoglobin (Bld) [Mass/Vol] 12.3 g/dL Normal 11.6-15.5 [facility] Comment on above: Performed By: #### F T4, CMP, TSH reflex FT4, VITD, LIPD #### [facility] [address] [place], [place] [id number] Lymphocytes (Bld) [#/Vol] 2.7 10*3/uL Normal 0.9-3.9 [facility] [employer] Comment on above: Performed By: #### F T4, CMP, TSH reflex FT4, VITD, LIPD #### [facility] [address] [place], [place] [id number] Lymphocytes/100 WBC (Bld) 43.0 % Normal [facility] Comment on above: Performed By: #### F T4, CMP, TSH reflex FT4, VITD, LIPD #### [facility] [address] [place], [place] [id number] MCH (RBC) [Entitic mass] 29.9 pg Normal 27.0-33.0 [facility] Comment on above: Performed By: #### F T4, CMP, TSH reflex FT4, VITD, LIPD #### [facility] [address] [place], [place] [id number] MCHC (RBC) [Mass/Vol] 32.3 g/dL Normal 32.0-36.0 [facility] [employer] Comment on above: Performed By: #### F T4, CMP, TSH reflex FT4, VITD, LIPD #### [facility] [address] [place], [place] [id number] MCV (RBC) [Entitic vol] 93 fL Normal 80-100 [facility] [employer] Comment on above: Performed By: #### F T4, CMP, TSH reflex FT4, VITD, LIPD #### [facility] [address] [place], [place] [id number] Monocytes (Bld) [#/Vol] 0.4 10*3/uL Normal 0.2-0.9 [facility] [employer] Comment on above: Performed By: #### F T4, CMP, TSH reflex FT4, VITD, LIPD #### [facility] [address] [place], [place] [id number] Monocytes/100 WBC (Bld) 6.8 % Normal [facility] Comment on above: Performed By: #### F T4, CMP, TSH reflex FT4, VITD, LIPD #### [facility] [address] [place], [place] [id number] Neutrophils (Bld) [#/Vol] 2.6 10*3/uL Normal 1.5-7.8 [facility] Comment on above: Performed By: #### F T4, CMP, TSH reflex FT4, VITD, LIPD #### [facility] [address] [place], [place] [id number] Neutrophils/100 WBC (Bld) 41.4 % Normal [facility] Comment on above: Performed By: #### F T4, CMP, TSH reflex FT4, VITD, LIPD #### [facility] [address] [place], [place] [id number] Platelet mean volume (Bld) [Entitic vol] 11.00 fL Normal 7.50-12.50 [facility] Comment on above: Performed By: #### F T4, CMP, TSH reflex FT4, VITD, LIPD #### [facility] [address] [place], [place] [id number] Platelets (Bld) [#/Vol] 264 10*3/uL Normal 140-400 [facility] Comment on above: Performed By: #### F T4, CMP, TSH reflex FT4, VITD, LIPD #### [facility] [address] [place], [place] [id number] RBC (Bld) [#/Vol] 4.12 10*6/uL Normal 3.90-5.20 [facility] Specialist Comment on above: Performed By: #### F T4, CMP, TSH reflex FT4, VITD, LIPD #### [facility] [address] [place], [place] [id number] RDW-SD 46.7 fL Normal 37.0-50.0 [facility] Comment on above: Performed By: #### F T4, CMP, TSH reflex FT4, VITD, LIPD #### [facility] [address] [place], [place] [id number] WBC (Bld) [#/Vol] 6.2 10*3/uL Normal 3.8-11.0 Theodore rn [place] [employer] Comment on above: Performed By: #### F T4, CMP, TSH reflex FT4, VITD, LIPD #### [facility] [address] [place], [place] [id number] Comprehensive Metabolic Pane vanessa 10-05-2021 Albumin [Mass/Vol] 4.6 g/dL Normal 3.6-5.1 Theodore [place] [employer] Comment on above: Performed By: #### F T4, CMP, TSH reflex FT4, VITD, LIPD #### [facility] [address] [place], [place] [id number] Albumin/Globulin [Mass ratio] 1.5 {ratio} Normal 1.0-2.5 [facility] [employer] Comment on above: Performed By: #### F T4, CMP, TSH reflex FT4, VITD, LIPD #### [facility] [address] [place], [place] [id number] ALP [Catalytic activity/Vol] 72 U/L Normal 35-119 [facility] [employer] Comment on above: Performed By: #### F T4, CMP, TSH reflex FT4, VITD, LIPD #### [facility] [address] [place], [place] [id number] ALT [Catalytic activity/Vol] 15 U/L Normal 6-33 [facility] [employer] Comment on above: Result Comment: 05/25 Female reference range changed. Performed By: #### F T4, CMP, TSH reflex FT4, VITD, LIPD #### [facility] [address] [place], [place] [id number] Anion gap [Moles/Vol] 17 mmol/L Normal 12-20 [facility] [employer] Comment on above: Result Comment: Effe ctive 06/30/2019 reference range changed. Performed By: #### F T4, CMP, TSH reflex FT4, VITD, LIPD #### [facility] [address] [place], [place] [id number] AST [Catalytic activity/Vol] 18 U/L Normal 9-34 [facility] Comment on above: Performed By: #### F T4, CMP, TSH reflex FT4, VITD, LIPD #### [facility] [address] [place], [place] [id number] Bilirubin [Mass/Vol] 0.35 mg/dL Normal 0.30-1.20 [facility] Comment on above: Performed By: #### F T4, CMP, TSH reflex FT4, VITD, LIPD #### [facility] [address] [place], [place] [id number] BUN/CREA 18 Ratio Normal 6-22 [facility] Comment on above: Performed By: #### F T4, CMP, TSH reflex FT4, VITD, LIPD #### [facility] [address] [place], [place] [id number] Calcium [Mass/Vol] 9.3 mg/dL Normal 8.6-10.2 [facility] Comment on above: Performed By: #### F T4, CMP, TSH reflex FT4, VITD, LIPD #### [facility] [address] [place], [place] [id number] Chloride [Moles/Vol] 104 mmol/L Normal 98-107 [facility] Comment on above: Performed By: #### F T4, CMP, TSH reflex FT4, VITD, LIPD #### [facility] [address] [place], [place] [id number] CO2 [Moles/Vol] 20 mmol/L Normal 20-31 [facility] Comment on above: Performed By: #### F T4, CMP, TSH reflex FT4, VITD, LIPD #### [facility] [address] [place], [place] [id number] Creatinine [Mass/Vol] 0.8 mg/dL Normal 0.6-1.4 [facility] Comment on above: Performed By: #### F T4, CMP, TSH reflex FT4, VITD, LIPD #### [facility] [address] [place], [place] [id number] eGFRAA 92 mL/min/1.73m2 Normal >60 [facility] Comment on above: Performed By: #### F T4, CMP, TSH reflex FT4, VITD, LIPD #### [facility] [address] [facility] [place] [place] [id number] eGFRNAA 76 mL/min/1.73m2 Normal >60 [facility] [employer] Comment on above: Performed By: #### F T4, CMP, TSH reflex FT4, VITD, LIPD #### [facility] [address] [facility] [place] [id number] Globulin (S) [Mass/Vol] 3.0 g/dL Normal 1.9-3.7 [facility] [employer] Comment on above: Performed By: #### F T4, CMP, TSH reflex FT4, VITD, LIPD #### [facility] [address] [facility] [place] [id number] Glucose [Mass/Vol] 87 mg/dL Normal 65-99 [place] [employer] Comment on above: Result Comment: For FASTING Glucose --- ADA reference ranges: Normal 65-99 mg/dl Prediabetes 100-125 Diabetes >/= 126 Performed By: #### F T4, CMP, TSH reflex FT4, VITD, LIPD #### [facility] [address] [place], [place] [id number] Potassium [Moles/Vol] 4.3 mmol/L Normal 3.5-5.5 [facility] [employer] Comment on above: Performed By: #### F T4, CMP, TSH reflex FT4, VITD, LIPD #### [facility] [address] [facility] [place] [id number] Protein [Mass/Vol] 7.6 g/dL Normal 6.1-8.1 Theodore rn [place] [employer] Comment on above: Performed By: #### F T4, CMP, TSH reflex FT4, VITD, LIPD #### [facility] [address] [facility] [place] [id number] Sodium [Moles/Vol] 137 mmol/L Normal 135-146 Theodore rn [place] [employer] Comment on above: Performed By: #### F T4, CMP, TSH reflex FT4, VITD, LIPD #### [facility] [address] [facility] [place] [id number] Urea nitrogen [Mass/Vol] 14 mg/dL Normal 7-25 [place] [employer] Comment on above: Performed By: #### F T4, CMP, TSH reflex FT4, VITD, LIPD #### [facility] [address] [place], [place] [id number] Free T4on 10-05-2021 Free T4 [Mass/Vol] 1.23 ng/dL Normal 0.80-1.80 [facility] Comment on above: Performed By: #### F T4, CMP, TSH reflex FT4, VITD, LIPD #### [facility] [address] [place], [place] [id number] Lipid Panelon 10-05-2021 Cholesterol [Mass/Vol] 239 mg/dL High 125-200 [facility] Comment on above: Result Comment: Low risk < 200mg/dL Borderline risk 201-239 mg/dl High risk > or equal to 240 Performed By: #### F T4, CMP, TSH reflex FT4, VITD, LIPD #### [facility] [address] [place], [place] [id number] Cholesterol in HDL [Mass/Vol] 55 mg/dL Normal >40 [facility] Comment on above: Result Comment: High Cardiovascular Risk HDL <40 mg/dL Low Cardiovascular Risk HDL > or equal to 60 mg/dl Performed By: #### F T4, CMP, TSH reflex FT4, VITD, LIPD #### [facility] [address] [place], [place] [id number] Cholesterol in LDL [Mass/Vol] 168 mg/dL Normal [facility] Comment on above: Result Comment: LDL ATP III CLASSIFICATION LDL less than 100 mg/dl Optimal LDL 100-129 mg/dl Near or above optimal LDL 130-159 Borderline high LDL 160-189 High LDL greater than 189 mg/dl Very High Performed By: #### F T4, CMP, TSH reflex FT4, VITD, LIPD #### [facility] [address] [place], [place] [id number] Cholesterol in VLDL [Mass/Vol] 16 mg/dL Normal [facility] Comment on above: Performed By: #### F T4, CMP, TSH reflex FT4, VITD, LIPD #### [facility] [address] [place], [place] [id number] Cholesterol.total/C holesterol in HDL [Mass ratio] 4 {ratio} Normal [facility] Comment on above: Performed By: #### F T4, CMP, TSH reflex FT4, VITD, LIPD #### [facility] [address] [place], [place] [id number] Triglyceride [Mass/Vol] 78 mg/dL Normal 30-150 [facility] [employer] Comment on above: Result Comment: TRIG ATPIII CLASSIFICATIONS TRIG less than 150 mg/dl Normal TRIG 150-199 mg/dl Borderline High TRIG 200-500 mg/dl High TRIG greather than 500 mg/dl Very High Performed By: #### F T4, CMP, TSH reflex FT4, VITD, LIPD #### [facility] [address] [place], [place] [id number] TSH w/ Reflex to Free T4on 0 10-05-2021 FT4 reflex Free T4 Normal [facility] Comment on above: Performed By: #### F T4, CMP, TSH reflex FT4, VITD, LIPD #### [facility] [address] [place], [place] [id number] TSH 22.300 uIU/mL High 0.400-4.500 [facility] Comment on above: Performed By: #### F T4, CMP, TSH reflex FT4, VITD, LIPD #### [facility] [address] [place], [place] [id number] Vitamin B12/Folateon 022 Cobalamin (Vitamin B12) [Mass/Vol] 365 pg/mL Normal 211-946 [facility] [employer] Comment on above: Performed By: #### B 12/Fol #### [facility] [address] [place], [place] [id number] FOL 6.4 ng/mL Normal >4.7 [facility] [employer] Comment on above: Result Comment: Refe rence range change 05/11/2017. Prior reference range F 4.8-37.3 ng/mL, M 4.5-32.2 ng/mL. Performed By: #### B 12/Fol #### [facility] [address] [place], [place] [id number] Vitamin D 25-OHon 10-05-2021 VIT D 25 OH 31 ng/ml Normal >29 [facility] [employer] Comment on above: Result Comment: Mckenzie min D Status Deficiency <20 ng/mL Insufficiency 20-29 ng/mL Optimal 30-100 ng/mL Possible Toxicity >=150 ng/mL Performed By: #### F T4, CMP, TSH reflex FT4, VITD, LIPD #### [facility] [address] [place], [place] [id number] XR Spine Cervical Complete w /Flex AND [place] 10-05-2021 XR Spine Cervical Complete w/Flex AND [...] by Erwin Blake on 10/05/2021 1150 Normal [facility] XR Spine Lumbar Complete w/F adolfo AND [place] 10-05-2021 XR Spine Lumbar Complete w/Flex AND [...] by Erwin Blake on 10/05/2021 1151 Normal [facility] Special[facility] TSH w/ Reflex to Free T4on 0 09-08-2021 TSH 2.640 uIU/mL Normal 0.400-4.500 [facility] [employer] Comment on above: Performed By: #### F T4, CMP, TSH reflex FT4, VITD, LIPD #### [facility] [address] [place], [place] [id number] FREE T4on 03-18-2021 Free T4 [Mass/Vol] 1.38 ng/dL Normal 0.78-2.19 [facility] Comment on above: Performed By: #### F T4 #### [facility] [address] [place], [place] [address] Dr. Jose Walden TSHon 03-18-2021 TSH 0.187 uIU/mL Critically low 0.470-4.680 [facility] Comment on above: Result Comment: refl ex FT4 Performed By: #### T SH #### [facility] [address] [place] [address] [address] Jose Walden TSH RANGE SEE BELOW Normal [facility] Comment on above: Result Comment: <0.3 4 UIU/ml HYPERTHYROID 0.34-5.60 UIU/ml EUTHYROID >5.60 UIU/ml HYPOTHYROID Performed By: #### T SH #### [facility] [address] [place] [address] Dr. Jose Walden CITRATE URINE 24HRon 021 Citric Acid, U, 24hr Comment Normal 320-1240 [facility] Comment on above: Result Comment: No t otal volume submitted. Unable to calculate 24 hour result. This test was developed and its performance characteristics determined by [facility]. It has not been cleared or approved by the Food and Drug Administration. Performed By: #### C ITRATU #### [facility] [address] [place], [place] [id number] Allie Arianna Citric Acid, Urine 440 mg/L Normal [facility] Comment on above: Performed By: #### C ITRATU #### [facility] [address] [place], [place] [address] Allie Arianna OXALATE 24HR URINEon 021 Oxalates, Urine 19 mg/L Normal Undefined [facility] Comment on above: Performed By: #### T SH #### [facility] [address] [place] [address] Dr. Jose Walden Oxalates, Urine 24hr 18 mg/24 hr Normal 4-31 [facility] Comment on above: Performed By: #### T SH #### [facility] [address] [place] [address] [address] [address] Jose Walden MAGNESIUM 24HR URINEon 01-26 Magnesium 24hr Urine 67.5 mg/24 hr Normal 12.0-293.0 [facility] Comment on above: Performed By: #### T SH #### [facility] [address] [place] [address] Dr. Jose Walden Magnesium UR 7.1 mg/dL Normal Not Estab. [facility] Comment on above: Performed By: #### T SH #### [facility] [address] [place], [place] [address] Dr. Jose Walden PHOSPHORUS 24HR URINEon Phosphorus, Urine 56.0 mg/dL Normal Not Estab. [facility] Comment on above: Performed By: #### P HOS 24 #### [facility] [address] [place] [address] Allie Arianna Phosphorus, Urine 24hr 532 mg/24 hr Normal 261-1078 [facility] Comment on above: Performed By: #### P HOS 24 #### [facility] [address] [place], [place] [address] Allie Arianna URIC ACID 24 HR URINEon Uric Acid, Urine 38.5 mg/dL Normal Not Estab. [facility] Comment on above: Performed By: #### U JORGE 24 #### [facility] [address] [place], [place] [address] Allie Arianna Uric Acid, Urine 24hr 365.8 mg/24 hr Normal 173.7-902.1 [facility] Comment on above: Performed By: #### U JORGE 24 #### [facility] [address] [place], [place] [address] Allie Arianna CALCIUM 24 HR URINEon 2020 CALC, 24 HR UR 177.7 mg/24 hr Normal 100.0-300.0 [facility] Comment on above: Performed By: #### C [id number] #### [facility] [address] [place], [place] [address] Allie Arianna UR CALCIUM 18.7 mg/dL Normal 0.0-21.0 [facility] Comment on above: Performed By: #### C ALC24U #### [facility] [address] [place], [place] [address] Allie Arianna CREA 24 HR URINEon 1 CREA, 24 HR UR 1195.29 mg/24 hr Normal 800.00-1, 800.0 0 [facility] Comment on above: Performed By: #### N A24U, [id number] #### [facility] [address] [place], [place] [address] Allie Arianna UR TOT VOL 950 ml/24 HR Normal [facility] Comment on above: Performed By: #### N A24U, [id number] #### [facility] [address] [place], [place] [address] Allie Arianna Performed By: #### C ALC24U #### [facility] [address] [place], [place] [address] Allie Arianna URINE CREAT 125.82 mg/dL Normal 20.00-300.00 [facility] Comment on above: Performed By: #### N A24U, [id number] #### [facility] [address] [place], [place] [address] Allie Arianna SODIUM 24 HR URINEon 021 NA, 24 HR UR 118 mmol/24 hr Normal 40-[address] [facility] Comment on above: Performed By: #### N A24U, [id number] #### [facility] [address] [place], [place] [address] Allie Arianna Sodium (U) [Moles/Vol] 124 mmol/L Critically high 30-90 [facility] Comment on above: Performed By: #### N A24U, [id number] #### [facility] [address] [place], [place] [address] Allie Arianna PTH INTACTon 01-19-2021 PTH, Intact 27 pg/mL Normal 15-65 [facility] Comment on above: Performed By: #### P THINT #### [facility] [address] [place] [address] Allie NAJERAon 01-18-2021 Urea nitrogen [Mass/Vol] 14.0 mg/dL Normal 7.0-17.0 [facility] Comment on above: Performed By: #### T SH #### [facility] [address] [place] [address] Dr. Jose Walden CALCIUMon 01-18-2021 Calcium [Mass/Vol] 8.6 mg/dL Normal 8.4-10.2 [facility] Comment on above: Performed By: #### T SH #### [facility] [address] [place] [address] Dr. Jose Walden CREATININEon 01-18-2021 Creatinine [Mass/Vol] 0.87 mg/dL Normal 0.52-1.04 [facility] Comment on above: Performed By: #### T SH #### [facility] [address] [place] [address] Dr. Jose Walden EGFR-AF SCOTTISH >60 Normal >=60 [facility] Comment on above: Performed By: #### T SH #### [facility] [address] [place] [address] Dr. Jose Walden EGFR-NON AF SCOTTISH >60 Normal >=60 [facility] Comment on above: Performed By: #### T SH #### [facility] [address] [place] [address] Dr. Jose Walden ELECTROLYTESon 01-18-2021 Anion gap [Moles/Vol] 13.3 mmol/L Normal [facility] Comment on above: Performed By: #### T SH #### [facility] [address] [place] [address] Dr. Jose Walden Chloride [Moles/Vol] 108 mmol/L Critically high 98-107 [facility] Comment on above: Performed By: #### T SH #### [facility] [address] [place] [address] Dr. Jose Walden CO2 [Moles/Vol] 25.4 mmol/L Normal 22.0-30.0 [facility] Comment on above: Performed By: #### T SH #### [facility] [address] [place] [address] [address] Jose Walden Potassium [Moles/Vol] 3.7 mmol/L Normal 3.4-5.0 [facility] Comment on above: Performed By: #### T SH #### [facility] [address] [address] [address] Jose Walden Sodium [Moles/Vol] 143 mmol/L Normal 137-145 [facility] Comment on above: Performed By: #### T SH #### [facility] [address] [address] [address] Jose Walden URIC ACID SERUMon 01-18-2021 Urate [Mass/Vol] 3.3 mg/dL Normal 2.5-6.[address] [facility] Comment on above: Performed By: #### T SH #### [facility] [address] [address] [address] Jose Walden Vital Signs Date Time Vital Sign Value Performing Clinician Facility 02-09-2025 09:17-040 Body height 165.1 cm Phuong Hall MD Work Phone: [facility] 02-09-2025 09:17-0400 Body mass index (BMI) [Ratio] 22.6 kg/m2 Phuong Hall MD Work Phone: [facility] [place] 02-09-2025 09:17-0400 Body weight 61.68 kg Phuong Hall MD Work Phone: [facility] [place] 02-09-2025 09:17-0400 Diastolic blood pressure 65 mm[Hg] Phuong Hall MD Work Phone: [facility] [place] 02-09-2025 09:17-0400 Heart rate 58 /min Phuong Hall MD Work Phone: [facility] [place] 02-09-2025 09:17-0400 Systolic blood pressure 97 mm[Hg] Phuong Hall MD Work Phone: [facility] [place] 01-12-2025 11:14-0400 Body mass index (BMI) [Ratio] 23.53 kg/m2 Diana [place] PA Work Phone: [facility] 01-12-2025 11:14-0400 Body weight 64.14 kg Diana Dodgeey PA Work Phone: [facility] 01-12-2025 11:14-0400 Diastolic blood pressure 68 mm[Hg] Diana Dodgeey PA Work Phone: [facility] 01-12-2025 11:14-0400 Systolic blood pressure 110 mm[Hg] Diana Wang PA Work Phone: [facility] 10-13-2024 09:00-0400 Body mass index (BMI) [Ratio] 23.13 kg/m2 Qiana Toro [employer] Work Phone: [facility] 10-13-2024 09:00-0400 Body temperature 97.3 [degF] Qiana Majors [employer] Work Phone: [facility] 10-13-2024 09:00-0400 Body weight 63.05 kg Qiana Gutierrezs [employer] Work Phone: [facility] 10-13-2024 09:00-0400 Diastolic blood pressure 64 mm[Hg] Qiana Majors [employer] Work Phone: [facility] 10-13-2024 09:00-0400 Heart rate 76 /min Qiana Majors [employer] Work Phone: [facility] 10-13-2024 09:00-0400 SaO2% (BldA) [Mass fraction] 97 % Qiana Majors [employer] Work Phone: [facility] 10-13-2024 09:00-0400 Systolic blood pressure 108 mm[Hg] Qiana Majors [employer] Work Phone: [facility] 08-22-2024 14:06-0500 Body height 165.1 cm Phuong Hall MD Work Phone: [facility] 08-22-2024 14:06-0500 Body mass index (BMI) [Ratio] 23.5 kg/m2 Phuong Hall MD Work Phone: [facility] 08-22-2024 14:06-0500 Body weight 64.05 kg Phuong Hall MD Work Phone: [facility] 08-22-2024 14:06-0500 Diastolic blood pressure 62 mm[Hg] Phuong Hall MD Work Phone: [facility] 08-22-2024 14:06-0500 Heart rate 69 /min Phuong Hall MD Work Phone: [facility] 08-22-2024 14:06-0500 Respiratory rate 18 /min Phuong Hall MD Work Phone: [facility] 08-22-2024 14:06-0500 SaO2% (BldA) [Mass fraction] 99 % Phuong Hall MD Work Phone: [facility] 08-22-2024 14:06-0500 Systolic blood pressure 118 mm[Hg] Phuong Hall MD Work Phone: [facility] 02-23-2023 11:13-0400 Blood Pressure Location Arashkatherine FIELD [facility] 02-23-2023 11:13-0400 Body temperature 98.78 [degF] Arashkatherine FIEDL [facility] 02-23-2023 11:13-0400 Diastolic blood pressure 75 mm[Hg] Arash FIELD [facility] 02-23-2023 11:13-0400 Heart rate 71 /min Arash FIELD [facility] 02-23-2023 11:13-0400 Respiratory rate 16 /min Arash FIELD [facility] 02-23-2023 11:13-0400 Systolic blood pressure 106 mm[Hg] Arash FIELD [facility] 01-11-2023 13:15-0400 Body height 165.1 cm Jerson Dittcristy Other [facility] Other 01-11-2023 13:15-0400 Body mass index (BMI) [Ratio] 22.46 kg/m2 Jerson Goldsmith Other [facility] Other 01-11-2023 13:15-0400 Body weight 61.24 kg Jerson Heydibeto Other [facility] Other 01-11-2023 13:15-0400 Diastolic blood pressure 60 mm[Hg] Jerson Varelacristy Other [facility] Other 01-11-2023 13:15-0400 Systolic blood pressure 94 mm[Hg] Jerson Nicholecristy Other [facility] Other 01-02-2022 10:14-0400 Blood Pressure Location [employer] [facility] 01-02-2022 10:14-0400 Diastolic blood pressure 67 mm[Hg] Arash FIELD [facility] 01-02-2022 10:14-0400 Heart rate 74 /min Arash FIELD [facility] 01-02-2022 10:14-0400 Respiratory rate 16 /min Arash FIELD [facility] 01-02-2022 10:14-0400 Systolic blood pressure 98 mm[Hg] Arash FIELD [facility] 09-02-2021 12:15-0500 Body height 165.1 cm Jerson Goldsmith Other [facility] Other 09-02-2021 12:15-0500 Body mass index (BMI) [Ratio] 22.13 kg/m2 Jerson Goldsmith Other [facility] Other 09-02-2021 12:15-0500 Body weight 60.33 kg Jerson Goldsmith Other [facility] Other Encounters Encounter Date Encounter Type Care Provider Facility Start: 03-02-2025 End: 03-02-2025 Clinisync Result Encounter Generic External Data Provider [facility] Unsolicited Start: 03-02-2025 End: 03-02-2025 Clinisync Result Encounter Generic External Data Provider [facility] External [facility] Unsolicited Start: 02-18-2025 End: 02-18-2025 Telephone encounter Phuong Hall MD Work Phone: [facility] Start: 02-09-2025 End: 02-09-2025 ambulatory Phuong Hall MD Work Phone: [facility] Work Phone: Start: 02-09-2025 End: 02-09-2025 Patient encounter procedure Jerson Goldsmith MD -[facility] Work Phone: Start: 01-12-2025 End: 01-12-2025 Bamboo flowsheet Diana CARLOS Work Phone: [facility] Start: 01-12-2025 End: 01-15-2025 Bamboo flowsheet Diana CARLOS Work Phone: [facility] Start: 01-12-2025 End: 01-15-2025 Clinisync Result Encounter Diana CARLOS Work Phone: [facility] Unsolicited Start: 01-12-2025 End: 01-12-2025 Patient encounter procedure Diana Wang PA Work Phone: [facility] Work Phone: Start: 01-12-2025 End: 01-12-2025 Periodic preventive med est patient 40-64yrs Diana Felipe PA Work Phone: [facility] Comment on above: Well woman exam with routine gynecological exam; Breast cancer screening by mammogram; Postmenopausal state Start: 01-12-2025 End: 01-12-2025 ambulatory DIANA FELIPE Not Available Start: 12-15-2024 End: 12-15-2024 Clinisync Result Encounter Phuong Hall MD Work Phone: [facility] Unsolicited Start: 12-15-2024 End: 12-15-2024 Clinisync Result Encounter Phuong Hall MD Work Phone: [facility] Unsolicited Start: 10-13-2024 End: 10-13-2024 Bamboo flowsheet Qiana Toro [employer] Work Phone: [facility] Start: 10-13-2024 End: 10-13-2024 Bamboo flowsheet Qianaalex Toro [employer] Work Phone: [facility] Start: 10-13-2024 End: 10-13-2024 Office outpatient visit 15 minutes Qiana Toro [employer] Work Phone: [facility] Comment on [...] encounter status Phuong Hall MD Work Phone: [facility] Start: 08-22-2024 End: 08-22-2024 Periodic preventive [...] visit 15 minutes Diana CARLOS Work Phone: [facility] Comment on above: Perimenopausal vasom otor symptoms (Primary Dx); Menopause; Hormone disorder; Pelvic pain in female Start: 08-18-2024 End: 08-18-2024 ambulatory DIANA WANG Not Available Start: 08-18-2024 End: 08-18-2024 Bamboo flowsheet Diana CARLOS Work Phone: [facility] Start: 08-18-2024 End: 08-18-2024 Bamboo [...] Start: 10-23-2023 End: 10-23-2023 ambulatory [facility] Start: 09-20-2023 End: 09-21-2023 ambulatory [facility] Start: 09-20-2023 End: 09-20-2023 Subsequent hospital visit by physician Phuong Hall MD Work Phone: [facility] EKG Comment on above: Renal calculus Start: 09-03-2023 End: 09-04-2023 ambulatory Arash FIELD Facility:[facility] [place] Start: 09-03-2023 End: 09-03-2023 Patient encounter procedure Arash FIELD [facility] [place] Start: 07-12-2023 End: 07-12-2023 ambulatory Jerson Goldsmith Other [facility] Other Start: 07-12-[address] [facility] Start: 05-08-2023 End: 05-08-2023 ambulatory Arash Field Facility:[facility] [place] Start: 05-08-2023 End: 05-08-2023 ambulatory MD Phuong Hall Work Phone: [facility] Work Phone: Start: 05-08-2023 End: 05-08-2023 Patient encounter procedure MD Phuong Hall Work Phone: [facility] [place] Work Phone: Start: 02-23-2023 End: 02-24-2023 ambulatory Arash FIELD Facility:[facility] Start: 02-23-2023 End: 02-23-2023 Patient encounter procedure Arash R FIELD [facility] Start: 01-11-2023 End: 01-11-2023 ambulatory Jerson Goldsmith Other [facility] Other Start: 01-11-2023 Patient encounter procedure Jerson [facility]UB[facility] Start: 01-23-2022 End: 01-23-2022 Patient encounter procedure MD Phuong Hall Work Phone: [facility] [place] Start: 01-02-2022 End: 01-02-2022 Patient encounter procedure Arash FIELD [facility] [place] Start: 12-30-2021 End: 12-31-[address] ARASH FIELD Facility:[facility] Start: 10-24-2021 End: 10-24-2021 ambulatory Jerson Goldsmith Other [facility] Other Start: 10-24-2021 Telephone encounter Jerson Goldsmith [facility] Start: 09-02-2021 End: 09-02-2021 ambulatory Jerson Goldsmith Other [facility] Other Start: 09-02-2021 Patient encounter procedure Jerson Goldsmith [facility] Start: 03-18-2021 End: 03-19-[address] PHUONG HALL Facility:[facility] Start: 01-18-2021 End: 01-19-[address] PHUONG HALL Facility:[facility] Procedures Date Procedure Procedure Detail Performing Clinician Start: 03-02-2025 ALL CBC WITH AUTO DIFF Generic External Data Provider Start: 03-02-2025 ALL SED RATE Generic Ex ternal Data Provider Start: 01-12-2025 IGP,APTIMA HPV,AGE GDLN Generic External Data Provider Start: 01-12-2025 Microscopic observat ion [Identifier] in Cervix by Cyto stain Phuong Hall MD Work Phone: Start: 12-15-2024 XR ABDOMEN 1V Phuong hazel MD Work Phone: Start: 09-01-2024 Mammography Qiana Ruiz gabriel [employer] Work Phone: Start: 09-20-2023 Ecg routine ecg [...] Screening for malign ant neoplasm of colon [facility] Start: 01-13-2028 Screening for malign ant neoplasm of cervix [facility] Start: 09-01-2025 Screening for malign ant neoplasm of breast Mammogram [facility] Start: 02-23-2025 Influenza vaccination Influenza Vacc ine (#1) [facility] Start: 01-12-2025 End: 01-12-2026 DXA Skeletal system Views for bone density DEXA bone density Imaging Routine Postmenopausal state Expected: 01/12/2025 (Approximate), Expires: 01/12/2026 [facility] Work Phone: Comment on above: Expected: 01/12/2025 (Approximate), Expires: 01/12/2026 Start: 01-12-2025 End: 01-12-2025 Patient encounter procedure [facility] Comment on above: Arrived Start: 11-24-2024 End: 08-24-2025 TSH W/REFLEX TO FT4 TSH W/REFLEX TO FT4 Lab Routine Hypothyroidism, unspecified type (CMS/HCC) Expected: 11/24/2024 (Approximate), Expires: 08/24/2025 [facility] Work Phone: Comment on above: Expected: 11/24/2024 (Approximate), Expires: 08/24/2025 Start: 10-13-2024 End: 10-13-2025 EMG AND NERVE CONDUCTION STUDY EMG AND NERVE CONDUCTION STUDY Neurology Routine Numbness Leg pain, left Expected: 10/13/2024 (Approximate), Expires: 10/13/2025 [facility] Work Phone: Comment on above: Expected: 10/13/2024 (Approximate), Expires: 10/13/2025 Start: 10-13-2024 End: 10-13-2024 Patient encounter procedure 10/13/2024 9:00 AM EDT Office Visit [facility] [address] [place] [id number] Qiana Toro NP [address] [place] [address] Arrived [facility] Comment on above: Arrived Start: 09-29-2024 End: 09-29-2024 Patient encounter procedure 09/29/2024 2:00 PM EDT Office Visit [facility] [address] [place] [address] Diana Wang PA [address] [place] [address] [facility] Start: 09-09-2024 End: 09-09-2024 Professional / ancillary services management 09/09/2024 8:00 AM EDT Ancillary Procedure [facility] [address] [address] [facility] Start: 08-22-2024 End: 08-22-2025 CBC W Auto Differential panel - Blood CBC and differential Lab Routine Hypothyroidism, unspecified type (CMS/HCC) Expected: 08/22/2024 (Approximate), Expires: 08/22/2025 [facility] Comment on above: Expected: 08/22/2024 (Approximate), Expires: 08/22/2025 Start: 08-22-2024 End: 08-22-2025 Comprehensive metabolic 2000 panel - Serum or Plasma Comprehensive metabolic panel Lab Routine Hypothyroidism, unspecified type (CMS/HCC) Expected: 08/22/2024, Expires: 08/22/2025 [facility] Comment on above: Expected: 08/22/2024 , Expires: 08/22/2025 Start: 08-22-2024 End: 10-20-2025 DBT Breast - bilateral screening Bilateral screening mammogram with tomosynthesis Imaging Routine Screening mammogram for breast cancer Expected: 08/22/2024, Expires: 10/20/2025 [facility] Comment on above: Expected: 08/22/2024 , Expires: 10/20/2025 Start: 08-22-2024 End: 08-22-2025 Lipid 1996 panel - Serum or Plasma Lipid panel Lab Routine Hypothyroidism, unspecified type (CMS/HCC) Expected: 08/22/2024 (Approximate), Expires: 08/22/2025 [facility] Comment on above: Expected: 08/22/2024 (Approximate), Expires: 08/22/2025 Start: 08-22-2024 End: 08-22-2024 Patient encounter procedure [facility] Comment on above: Arrived Start: 08-22-2024 End: 08-22-2025 TSH W/REFLEX TO FT4 TSH W/REFLEX TO FT4 Lab Routine Hypothyroidism, unspecified type (CMS/HCC) Expected: 08/22/2024 (Approximate), Expires: 08/22/2025 [facility] Work Phone: Comment on above: Expected: 08/22/2024 (Approximate), Expires: 08/22/2025 Start: 08-22-2024 End: 08-22-2025 US Thyroid gland US thyroid Imaging Routine Thyroid enlargement (CMS/HCC) Expected: 08/22/2024, Expires: 08/22/2025 [facility] Comment on above: Expected: 08/22/2024 , Expires: 08/22/2025 Start: 08-18-2024 End: 08-18-2024 Patient encounter procedure [facility] Comment on above: Arrived Start: 08-18-2024 End: 08-18-2025 Cortisol free Cortisol, free Lab Routine Hormone disorder Expected: 08/18/2024 (Approximate), Expires: 08/18/2025 [facility] Comment on above: Expected: 08/18/2024 (Approximate), Expires: 08/18/2025 Start: 08-18-2024 End: 08-18-2025 US Pelvis US Pelvis w/ TV Imaging Routine Pelvic pain in female Expected: 08/18/2024, Expires: 08/18/2025 [facility] Work Phone: Comment on above: Expected: 08/18/2024 , Expires: 08/18/2025 Start: 02-24-2024 Influenza vaccination Influenza Vacc ine (#1) [facility] Start: 10-18-2023 Screening for malign ant neoplasm of breast Breast cancer screen [facility] Start: 01-23-2023 Influenza vaccination Flu vaccine (# 1) [facility] Start: 10-17-2022 Screening for malign ant neoplasm of breast Mammogram [facility] Start: 2022 Shingles vaccine (1 of 2) Shingles vaccine (1 of 2) [facility] Start: 2017 Screening for malign ant neoplasm of colon [facility] Start: 2012 Lipid panel Lipids [facility] Start: 2002 Screening for malign ant neoplasm of cervix [facility] Start: 1993 Screening for malign ant neoplasm of cervix Pap smear [facility] Start: 1991 DTaP/Tdap/Td vaccine (1 - Tdap) DTaP/Tdap/Td vaccine (1 - Tdap) [facility] Start: 1990 Hepatitis C screening Hepatitis C sc reen [facility] Start: 1987 HIV screening HIV screen [facility] Start: 1984 Depression Screen Depression Screen [facility] Start: 01-11-1973 COVID-19 Vaccine (#1) COVID-19 Vacci ne (#1) [facility] Start: 1972 Hepatitis B vaccine (1 of 3 - 3-dose series) Hepatitis B vaccine (1 of 3 - 3-dose series) [facility] Start: 1972 Screening for malign ant neoplasm of colon [facility] Comprehensive metabo lic 2000 panel - Serum or Plasma [facility] DHEA-sulfate DHEA-sulfate Lab Routine Hormone disorder Ordered: 08/18/2024 [facility] Comment on above: Ordered: 08/18/2024 Estradiol Estradiol Lab Ro utine Hormone disorder Ordered: 08/18/2024 [facility] Comment on above: Ordered: 08/18/2024 Estrone Estrone Lab Rout ine Hormone disorder Ordered: 08/18/2024 [facility] Comment on above: Ordered: 08/18/2024 Progesterone Progesterone Lab Routine Hormone disorder Ordered: 08/18/2024 [facility] Comment on above: Ordered: 08/18/2024 TESTOSTERONE, FREE TESTOSTERONE, FREE Lab Routine Hormone disorder Ordered: 08/18/2024 [facility] Comment on above: Ordered: 08/18/2024 Testosterone, free, total Testosterone, free, total Lab Routine Hormone disorder Ordered: 08/18/2024 [facility] Comment on above: Ordered: 08/18/2024 THIN PREP TIS PAP AN D HR HPV DNA THIN PREP TIS PAP AND HR HPV DNA Pathology and Cytology Routine Well woman exam with routine gynecological exam Ordered: 01/12/2025 [facility] Comment on above: Ordered: 01/12/2025 Vitamin D 1,25 dihydroxy Vitamin D 1,25 dihydroxy Lab Routine Hormone disorder Ordered: 08/18/2024 [facility] Comment on above: Ordered: 08/18/2024 [facility] Immunizations Immunization Date Immunization Notes Care Provider Fa cility 06-24-2024 influenza virus vaccine, unspecified formulation Diana CARLOS Work Phone: [facility] 06-22-2022 influenza virus vaccine, unspecified formulation Phuong Hall MD Work Phone: [facility] NEGATED: Highlighted row has not occurred!01-10-2021 SARS-CoV-2 (COVID-19) mRNA-1273 vaccine Arash FIELD [facility] Payers Date Payer Category Payer Self-pay [id number] 2022 [employer] Blue [employer] BCBS [id number] 1972 Unknown [id number] [id number]. 2.593 1972 Unknown [id number] 2.16.840.1.967794.3.579. 2.593 1972 Unknown [id number] 2.16.840.1.545388.3.579. 2.593 1972 Unknown [id number] 2.16.840.1.008914.3.579. 2.727 1972 Unknown [id number] 2.16.840.1.441638.3.579. 2.727 1972 Unknown [id number] 2.16.840.1.844117.3.579. 2.173 1972 Unknown [id number] 2.16.840.1.164518.3.579. 2.173 1972 Unknown [id number] 2.16.840.1.429205.3.579. 2.173 1972 Unknown [id number] 2.16.840.1.756624.3.579. 2.1259 1972 Unknown [id number] 2.16.840.1.345382.3.579. 2.1259 1972 Unknown [id number] 2.16.840.1.601022.3.579. 2.9 1972 Unknown [id number] 2.16.840.1.504253.3.579. 2.9 1972 Unknown [id number] 2.16.840.1.767429.3.579. 2.9 1972 Unknown [id number] 2.16.840.1.772070.3.579. 2.1259 1959 [facility] NAS00 [id number] [id number] Unknown [id number] 2.16.840.1.457758.3.579. 2.531 Social History Date Type Detail Facility Unknown if ever smoked [facility] Start: 09-20-2023 End: 10-11-2024 Sex Assigned At [facility] Start: 01-10-2021 End: 08-22-2024 Tobacco smoking status Never smoked tobacco (finding) [facility] Start: 1970 Sex Assigned At Female F [facility] Start: 09-20-2023 End: 08-22-2024 Tobacco use and exposure Smokeless tobacco non-user [employer] Start: 09-20-2023 End: 01-12-2025 Alcohol intake Ex-drinker (finding) [facility] Start: 09-20-2023 End: 10-11-2024 History of Social function [facility] Start: 1970 Sex Assigned At Not on file B [facility] [employer] [facility] unknown [facility] How often do you nee d to have someone help you when you read instructions, pamphlets, or other written material from your doctor or pharmacy [SILS] Never [facility] Within the last year , have you been afraid of your partner or ex-partner? No [facility] Do you belong to any clubs or organizations such as protestant groups, unions, fraternal or athletic groups, or [...] To some extent [facility] (I/We) worried whe er (my/our) food would run out before (I/we) got money to buy more. Never true [facility] Sex Female (finding) [facility] NEGATED: Highlighted rowStart: NINF History of tobacco use Passive smoker [facility] Functional Status Date Assessment Result Facility 02-23-2023 Functional Status N/A [facility] 01-02-2022 Functional Status N/A [facility] Clinical Notes 09-02-2021 to 02-18-2025 Telephone Encounter - Dylan Sullivan - 02/18/2025 8:46 AM EDTTelephone Encounter - Dylan Sullivan - 02/18/2025 8:46 AM TERRANCE Porter - 01/12/2025 11:00 AM EDT Note Date & Type Note Facility 02-18-2025 Telephone encount er Note Pt was hoping Dr Hall would send orders for her Thyroid labs Please send to [facility] Fax number is [phone] [facility] 02-18-2025 Miscellaneous Notes Formattin g of this note might be different from the original. Pt was hoping Dr Hall would send orders for her Thyroid labs Please send to [facility] Fax number is [phone] documented in this encounter [facility] 01-12-2025 History of Presen t illness Narrative [...] nursing note reviewed. Exam conducted with a auto self service station attendant present. Vitals: Estimated body mass index is [...] of: TERRANCE Ruiz documented in this encounter [facility] 10-13-2024 History of Presen t illness [...] left lower extremity documented in this encounter [facility] 08-22-2024 History of Presen t illness [...] cancer, which required two surgeries. Additionally, her edhmvdku-lt-hix recently suffered a miscarriage. She has been [...] been seeking support from her father and shortage worker. She has an upcoming appointment with a [...] is encouraged to follow up with her shortage worker and consider professional counseling to address ongoing [...] in 12 weeks. documented in this encounter [facility] 08-18-2024 History of Presen t illness [...] of: TERRANCE Ruiz documented in this encounter [facility] 05-16-2024 Telephone encount er Note Approvals with refills [facility] 05-16-2024 Miscellaneous Notes Formattin g of this note might be different from the original. Approvals with refills documented in this encounter [facility] 07-12-2023 Evaluation note Encounter Date Diagnosis Assessment Notes Jun, Ulcerative colitis (ICD-10 - K51.90) [facility] 09-01-2023 Hospital Discharge instructions Follow Up Care 02/23/2023 12:26:27 With:KIM ADLER, Arash Broderick, URL Address: [facility] [address] [place] [address] [phone] When: Unknown [facility] 09-01-2023 Hospital Discharge instructions Patient [...] include: ?8 oz (237 mL) of milk, wvqdett-cqilamyuvjcn-cblxh milk, and calcium- fortifiedfruit juice. Calcium-fortified means [...] ?Spinach (cooked), rhubarb, beets, sweet potatoes, and Cameroonian chard. ?Peanuts. ?Potato chips, kyrgyz fries, and baked potatoes with skin on. ?Nuts and nut products. ?Chocolate. If you regularly take a diuretic medicine, make sure to eat at least 1 or 2 servings of fruits or vegetables that are high in potassium each day. These include: ?Avocado. ?Banana. ?Granger, prune, carrot, or tomato juice. ?Baked potato. [...] magnesium, fish oil, or vitamin B6. Take iogq-tdq-fuhnjfe and prescription medicines only as told by [...] Casseroles. Pizza. Lasagna. Frozen meals. Potato chips. Kinyarwanda fries. The items listed above may not [...] provider. Document Revised: 02/20/2022 Document Reviewed: 02/20/2022 [employer] Patient Education 2022 [employer]. Follow Up Care 10/09/2022 10:30:40 With:KIM ADLER, Arash Broderick, URL Address: [facility] [address] , [place] [address]- When:Within 6 Month(s) Comments:w/CTU & 24hr Urine [facility] 07-20-2023 Evaluation note* Encounter Date Diagnosis Assessment Notes Treatment Notes Treatment Clinical Notes Dec, Ulcerative colitis (ICD-10 - K51.90) Continue lialda 4 tablets daily Rto 1 yr [facility] Other 07-11-2022 Hospital Discharge instructions Patient Education 01/02/2022 10:36:11 Kidney Stones, Xeqq-fp-Qesu Kidney Stones Kidney stones are rock-like masses [...] Follow these instructions at home: Medicines Take ggqq-ipn-rxpppjv and prescription medicines only as told by [...] 11/27/2008 Document Revised: 10/28/2019 Document Reviewed: 10/28/2019 [employer] Patient Education 2020 [employer]. Follow Up Care 01/10/2021 10:24:51 With:Arash FIELD MD, URL Address: [facility] [address], [place] [address]- [phone] When: Unknown Comments:Will schedule Ct scan w/o * stone protocal [facility] 05-02-2022 Evaluation note* Encounter Date Diagnosis Assessment Notes Treatment Notes Treatment Clinical Notes October, Ulcerative colitis (ICD-10 - K51.90) [facility] Other 03-11-2022 Evaluation note* Encounter Date Diagnosis Assessment Notes Treatment Notes Treatment Clinical Notes Aug, Ulcerative colitis (ICD-10 - K51.90) PATIENT DOES CONTINUE ON THE LIALDA CONTINUE ON THE MEDICATION PROCEED WITH COLON [facility] Other Evaluation + Plan note No data available for this section [facility] evaluation + Plan note Future Appointments Appointment Date:09/03/2023 08:45:00 AM Scheduled Provider:Arash FIELD MD Location:[facility] Appointment Type:URO Office Visit [facility] evaluation noteNo assessment information available [facility] Work Phone: Evaluation note* Diagnosis Renal calculus Calculus of kidney [facility] Diagnosis Seasonal allergic rhinitis due to pollen documented in this encounter [facility] Healthcare[facility]* Diagnosis Hypothyroidism, unspecified type (CMS/HCC) documented in this encounter [facility]* Diagnosis Hypothyroidism, unspecified type (CMS/HCC) documented in this encounter [facility]* Diagnosis Perimenopausal vasomotor symptoms- Primary Menopause Symptomatic menopausal or female climacteric states Hormone disorder Unspecified endocrine disorder Pelvic pain in female Unspecified symptom associated with female genital organs documented in this encounter [facility]* Diagnosis Hypothyroidism, unspecified type (CMS/HCC)- Primary Depression, unspecified depression type (CMS/HCC) Screening mammogram for breast cancer Dysphagia, unspecified type Thyroid enlargement (CMS/HCC) Goiter, unspecified Perimenopausal vasomotor symptoms Routine general medical examination at a health care facility documented in this encounter [facility] HealthcareEvaluation note* Diagnosis Hypothyroidism, unspecified type (CMS/HCC)- Primary documented in this encounter [facility]* Diagnosis Numbness- Primary Disturbance of skin sensation Leg pain, left Pain in soft tissues of limb documented in this encounter [facility] HealthcareEvaluation note* Diagnosis Well woman exam with routine gynecological exam Routine gynecological examination Breast cancer screening by mammogram Postmenopausal state Asymptomatic postmenopausal status (age-related) (natural) documented in this encounter [facility]* Diagnosis Onset Date Resolution Status Admit Date GERD (gastroesophageal reflu x disease) acute February 09 9:12am Ulcerative colitis acute February 09, 2025 9:12am [facility] Work Phone: History general Narrative - Reported* Type Description Date Medical History Hypothyroidism Medical History GERD (gastroesophageal reflux di sease) Medical History Depression Medical History Ulcerative colitis Surgical History inguinal hernia repair Surgical History laparoscopy [facility] Other [place] note No data available for this section [facility] reason for referral (narrative)No reason for referral [facility]: Summary Purpose Family History Relationship Condition Age at Onset Recorded Date/T compa sister Malignant neoplasm of breast Unknown grandparent Diabetes mellitus Unknown Heart disease Unknown Relationship Condition Age at Onset Recorded Date/T compa sister Malignant neoplasm of breast Unknown grandparent Diabetes mellitus Unknown Heart disease Unknown Malignant neoplasm Unknown mother Malignant neoplasm Unknown Advance Directives Advance Directive Response Recorded Date/ Time Advance Directives No February 1:26pm Advance Directive Response Recorded Date/ Time Advance Directives No February 12:26pm Chief Complaint and Reason for Visit Chief Complaint N20 R10.9 N39.3 Chief Complaint n20.0 Chief Complaint Admit Date 1 year follow up February 09, 2025 9: 12am Reason for Visit Admit Date GERD (gastroesophageal reflux disease) A ugust 2024 9:12am Ulcerative colitis February 09, 2025 9: 12am Reason for Referral Specialty Diagnoses / Procedures Referred By Filipe t Referred To Contact Cardiology Diagnoses Renal calculus Procedures EKG 12 Lead Kimberly Burton MD [address] [facility], [address] [place] [id number] Referral ID Status Reason Start Date Expiration Date Visits Re quested Visits Authorized [id number] Open 09/20/2023 09/19/2024 1 1 Additional Source Comments INFORMATION SOURCE (unrecogn ized section and content) DATE CREATED AUTHOR 11/19/2021 [facility] dical Specialist DATE CREATED AUTHOR AUTHOR'S ORGANIZ ATION 01/10/2022 [facility] DATE CREATED AUTHOR AUTHOR'S ORGANIZ ATION 05/14/2023 [facility] DATE CREATED AUTHOR AUTHOR'S ORGANIZ ATION 09/05/2023 [facility] DATE CREATED AUTHOR AUTHOR'S ORGANIZ ATION 10/24/2023 [facility] DATE CREATED AUTHOR AUTHOR'S ORGANIZ ATION 01/13/2025 [facility] dical Specialists EPIC REASON FOR VISIT [...] Active Arash Field MD Attending Provider Active Gun Striper Relationship Specialty Start Date End Date Phuong Hall MD [address] [place] [address] PCP - General 09/20/23 Gun Striper Relationship Specialty Start Date End Date Phuong Hall MD [address] [place] [address] PCP - General Family Medicine 10/31/22 Gun Striper Relationship Specialty Start Date End Date Phuong Hall MD [address] [place] [address] PCP - General Family Medicine 10/31/22 Gun Striper Relationship Specialty Start Date End Date Phuong Hall MD [address] [place] [address] PCP - General Family Medicine 10/31/22 Gun Striper Relationship Specialty Start Date End Date Phuong Hall MD [address] [place] [address] PCP - General Family Medicine 10/31/22 Gun Striper Relationship Specialty Start Date End Date Phuong Hall MD [address] [place] [address] PCP - General Family Medicine 10/31/22 Gun Striper Relationship Specialty Start Date End Date Phuong Hall MD [address] [place] [address] PCP - General Family Medicine 10/31/22 Gun Striper Relationship Specialty Start Date End Date Phuong Hall MD [address] [place] [address] PCP - General Family Medicine 10/31/22 Gun Striper Relationship Specialty Start Date End Date Phuong Hall MD [address] [place] [address] PCP - General [facility] 10/31/22 Gun Striper Relationship Specialty Start Date End Date Phuong Hall MD [address] [place] [address] PCP - [facility] 10/31/22 Team Status: Inactive Member Role Status Dates Phuong Hall MD Primary Care Provider Active Sta rt: February 09, 2025 End: February 09, 2025 Jerson Goldsmith MD Attending Provider Active S tart: February 09, 2025 End: February 09, 2025 Goals (unrecognized section and content) Goals may [...] BE BASED ON THE PRIMARY CLINICAL RECORDS. [facility] [employer] [facility]. provides no warranty or guarantee of the accuracy or completeness of information in this document.
== END 2025-03-02 14:13 | disposition home or self-care (01) ==
LOC: LAB 14:13
PROVIDERS: PCP Family Medicine; Visit Provider Family Medicine
DX: E03.9 Hypothyroidism, unspecified (principal)
CPT/HCPCS: 36415; 84443

== ENCOUNTER 2025-03-02 14:14 | Outpatient (OUT) | payer BC, SELFPAY ==
--- OUTSIDE RECORDS SUMMARY | 2024-07-28 07:28 | XMS_ITS | Continuity of Care Document ---
Author Organization [facility] Address [address] [place] [address] Phone Care Team Providers Care Crocodile Farmer Name Role Phone Theron Higgins Unavailable Unavailable [...] Diagnoses Date Provider Providers Copied on Encounter [facility], [address] [place] [address], [id number], tel:[phone] [facility] No Information Bibi Briseno. [address] [place] [address], [id number], [place]. tel:[phone] [facility], [address] [place] [address], [id number], [place] tel:[phone] [facility] lab draw (chief complaint) Encounter for screening for other viral diseases Bibi Briseno. [address] [place] [address], [id number], [place]. tel:[phone] Family History Family Member Type Diagnosis Age [...] Registry Payers Payer name Insurance type Covered alliance party ID Authoriza tion(s) Self Pay Cap 09 [...] Of Treatment Date Type Action Status Goal FIT-DNA. Due on due Goal Unhealthy drug use screening . Due on due Goal CT-Colonography. Due on due Goal FIT. Due on due Goal Zoster vaccine (1st). Due on due Goal Colonoscopy. Due on due Goal Lipid panel. Due on due Goal PRAPARE ASSESSMENT. Due on due Goal FOBT. Due on due Goal Influenza vaccine. Due on due Goal Mammogram. Due on due Goal Hepatitis C screening. Due o n due Goal Tdap Vaccine. Due on 2034 due Goal HPV. Due on due Goal Depression screening. Due on due Goal Tdap due Goal Depression screening. Due on due Goal Influenza vaccine. Due on due Goal Tdap Vaccine. Due on 2034 due Goal FIT. Due on due Goal Lipid panel. Due on due Goal PRAPARE ASSESSMENT. Due on due Goal Unhealthy drug use screening . Due on due Goal Mammogram. Due on due Goal Tdap due Goal HPV. Due on due Goal Hepatitis C screening. Due o n due Goal Zoster vaccine (1st). Due on due Goal CT-Colonography. Due on due Goal Colonoscopy. Due on due Goal FIT-DNA. Due on due Goal FOBT. Due on due History Of Present Illness [...]
--- OUTSIDE RECORDS SUMMARY | 2025-03-02 14:16 | XMS_ITS | Clinical Summary ---
Author Organization [facility] Address [address] [place] [address] Care Team Providers Care Floral Merchandiser Name Role Phone Unavailable Primary Care Provider [...]
[2025-03-02 14:46] LABS: Hematocrit 35.4 % (36.0-48.0); Hemoglobin 11.8 g/dL (12.0-16.0); Immature Granulocytes Abs Auto 0.01 10^3/uL (0.00-0.03); Immature Granulocytes Pct Auto 0.1 % (0.0-0.5); Lymphocytes Absolute Auto 2.9 10^3/uL (1.2-3.8); Mean Corpuscular HGB Conc 33.3 g/dL (29.9-35.2); Mean Corpuscular Hemoglobin 32.2 pg (26.7-34.0); Mean Corpuscular Volume 96.5 fL (81.0-99.0); Platelet Count 246 10^3/uL (150-450); Red Blood Count 3.67 10^6/uL (4.20-5.40); White Blood Count 8.4 10^3/uL (4.0-11.0)
[2025-03-02 15:09] LABS: Alanine Aminotransferase 44 U/L (14-59); Albumin Globulin Ratio 0.8; Albumin Level 3.4 g/dL (3.4-5.0); Alkaline Phosphatase 66 U/L (46-116); Anion Gap 13.8; Aspartate Amino Transferase 24 U/L (15-37); Blood Urea Nitrogen 13.0 mg/dL (7.0-18.0); Calcium 8.3 mg/dL (8.5-10.1); Carbon Dioxide 24.7 mmol/L (21.0-32.0); Chloride 106 mmol/L (98-107); Estimated GFR (African America >60 (>=60 mL/min/1.73m^2); Estimated GFR (Non-African Ame >60 (>=60 mL/min/1.73m^2); Globulin 4.1 g/dL; Glucose 81 mg/dL (74-106); Potassium 3.5 mmol/L (3.5-5.1); Sodium 141 mmol/L (136-145); Total Protein 7.5 g/dL (6.4-8.2)
--- OUTSIDE RECORDS SUMMARY | 2025-03-02 16:25 | XMS_ITS | CCD ---
Author Organization [facility] Care Team Providers Care Dope Sprayer Name Role Phone Jerson Goldsmith Unavailable LARRY JONES Primary Care Physician [phone] KIM, DR MEEK Consulting Unavailable RAFAEL, DR [...] Care Provider MD Arash Field Attending Provider [phone] Arash Field Admitting Unavailable Arash Field Attending Unavailable Phuong Hall Primary Care Unavailable LARRY JONES Primary Care Physician Arash FIELD Attending Unavailable Arash FIELD Attending Unavailable Phuong Hall MD Primary Care Provider [phone] KIMBERLY BURTON Referring Unavailable PHUONG HALL Primary Care Unavailable KIMBERLY BURTON Referring Unavailable PHUONG HALL Primary Care Unavailable KIMBERLY BURTON Admitting Unavailable KIMBERLY BURTON Attending Unavailable PHUONG HALL Primary Care Unavailable Phuong Hall MD Primary Care Provider [phone] DIANA WANG Attending Unavailable PHUONG HALL Attending Unavailable PHUONG HALL Referring Unavailable QIANA TORO Attending Unavailable DIANA WANG Attending Unavailable Rafael ADLER Phuong Primary Care Provider [phone] Rupal ADLER, Jerson Bolden Attending Provider Medications Current Medications Medication Drug Class(es) Dates [...] Start: 07-04-2013 take 4 tablets by mo [facility] every twenty-four hours Lialda 1.2 GM [...] 03/26/20 Status: Or[facility] daily valACYclovir (VALTREX) 500 MG tablet Take 1 tablet by mouth 2 times daily 0 Active take 2 tablets by [facility] every twelve hours Valtrex 500 MG [...] Start Date: 03/26/20 Status: Ordered Vitamin D 86928 U (4 sources) Vitamin D 67786 U as directed Orally Active Completed/Discontinued Medications [...] WITH AUTO DIFFon BASOPHILS ABSOLUTE AUTO 0.1 [facility] Basophils/100 WBC (Bld) 1 % 0.2 - 2.0 % [facility] Eosinophils/100 WBC (Bld) 4.3 % 0.9 - 7.0 % [facility] Erythrocyte distribution width (RBC) [Ratio] 13 % 11.0 - 15.0 % [facility] Hematocrit (Bld) [Volume fraction] 35.4 % Low 36.0 - 48.0 % [facility] Hemoglobin (Bld) [Mass/Vol] 11.8 g/dL Low 12.0 - 16.0 g/dL [facility] IMMATURE GRANULOCYTES ABS AUTO 0.01 [facility] Immature granulocytes/100 WBC (Bld) 0.1 % 0.0 - 0.5 % [facility] Interpretation and review of laboratory results Abnormal [facility] LYMPHOCYTES ABSOLUTE AUTO 2.9 [facility] Lymphocytes/100 WBC (Bld) 35.1 % 20.5 - 60.0 % [facility] MCH (RBC) [Entitic mass] 32.2 pg 26.7 - 34.0 pg [facility] MCHC (RBC) [Mass/Vol] 33.3 g/dL 29.9 - 35.2 g/dL [facility] MCV (RBC) [Entitic vol] 96.5 fL 81.0 - 99.0 fL [facility] MONOCYTES ABSOLUTE AUTO 0.5 [facility] Monocytes/100 WBC (Bld) 6 % 1.7 - 12.0 % [facility] NEUTROPHILS ABSOLUTE AUTO 4.5 [facility] Neutrophils/100 WBC (Bld) 53.5 % 43.0 - 75.0 % [facility] Platelet mean volume (Bld) [Entitic vol] 10.8 fL 9.5 - 13.5 fL [facility] TBH EO # 0.4 [facility] TB PLT 246 [facility] TB RBC 3.67 Low [facility] TB WBC 8.4 [facility] ALL SED RATEon 03-02-2025 TBH SED RATE 22 NINF [facility] IGP,APTIMA HPV,AGE GDLNon AGE GDLN ACOG TESTING Note . [facility] Comment on above: TESTS RESULT FLAG UN ITS REF RANGE LAB Clinician Provided Cytology Information Source.............Cervix;Endocervix No. of containers..01 ThinPrep Vial Age Algo ACOG Niyah... - FLAG LEGEND: L-Low Normal,H-High Normal,LL-Alert Low,HH-Alert High <-Panic Low,>-Panic High,A-Abnormal,AA-Critical Abnormal Performed at: 01 =G [address] [place] [address] Trixie Ramirez MD, HPV APTIMA Negative Negative [facility] Comment on above: This nucleic acid am plification test detects fourteen high- risk HPV types (16,18,31,33,35,39,45,51,52,56,58,59,66,68) without differentiation. Performed at: =[address] [id number] Database Manager: Trixie Ramirez MD, Phone: [phone] Performed at: [address] [id number] Database Manager: Trixie Ramirez MD, Phone: [phone] IGP, APTIMA HPV, RFX 16/18,45 Note . [facility] Comment on above: TESTS RESULT FLAG UN ITS REF RANGE LAB DIAGNOSIS: 02 NEGATIVE FOR INTRAEPITHELIAL LESION OR MALIGNANCY. Specimen adequacy: 02 Satisfactory for evaluation. No endocervical component is identified. Performed by: 02 Nixon Marin, Ultrasound Technologist Sonographer (ASCP) . 02 Note: Note 02 The [...] High,A-Abnormal,AA-Critical Abnormal Performed at: 02 [facility] [address] [place] [address] Trixie Ramirez MD, BRUSH-SPATULA CERVIX ENDOCERVIX [facility] XR ABDOMEN 1Von 12-15-[address] [address] XRay Report Signed Patient: FAUSTO MERRILL MR#: [id number] : 1970 Acct:[id number] Age/Sex: 54 / F ADM Date: 12/15/24 Loc: RAD Attending Dr: PHUONG HALL Ordering Physician: PHUONG HALL Date of Service: 12/15/24 Procedure(s): XR abdomen 1V Accession Number(s): [id number] cc: PHUONG HALL [place] [id number] Patient Name: FAUSTO MERRILL MRN: [facility]:[id number] date: 1970 Sex: F Assigned Patient Location: [facility] Current Patient Location: RAD Accession/Order Number: [id number] Exam Date: 12/15/2024 16:37 Report Date: 12/15/2024 [...] Lopez M.D. 12/15/2024 4:40 PM Dictation Location: [place] [address] Electronically authenticated by: [id number] Y Date: 12/15/2024 16:40 Dictated By: Javier Lopez M.D. Signed By: 12/15/24 1643 DD/ 1640 TD/TT: Parts Driver: [facility] Radiology, Radiologist, - 12/15/2024 [place] [address] XRay Report Signed Patient: FAUSTO MERRILL MR#: [id number] : 1970 Acct:[id number] Age/Sex: 54 / F ADM Date: 12/15/24 Loc: RAD Attending Dr: PHUONG HALL Ordering Physician: PHUONG HALL Date of Service: 12/15/24 Procedure(s): XR abdomen 1V Accession Number(s): [id number] cc: PHUONG HALL [place] [id number] Patient Name: FAUSTO MERRILL MRN: [id number] date: 1970 Sex: F Assigned Patient Location: RAD Current Patient Location: RAD Accession/Order Number: [id number] Exam Date: 12/15/2024 16:37 Report Date: 12/15/2024 [...] Lopez M.D. 12/15/2024 4:40 PM Dictation Location: [place] [address] Electronically authenticated by: [id number] Y Date: 12/15/2024 16:40 Dictated By: Javier Lopez M.D. Signed By: 12/15/24 1643 DD/ 1640 TD/TT: Parts Driver: [facility] Radiology Study observation (narrative) [facility] XR ABDOMEN 1VOrdered By: Johan iologist Radiology on 12-15-2024 [facility] Work Phone: BI MAMMOGRAM SCREENING TOMOS [...] up with ordering provider. Final result Normal [facility] HCG, ,Urineon 10-22 Beta HCG ( test) Ql (U) Negative Normal NEG [facility] Comment on above: Result Comment: Spec imens with hCG levels near the threshold of the test (25 mIU/mL) may give a negative or indeterminate result. In such cases, another test should be performed with a new specimen in 48-72 hours. If early is suspected clinically in this setting, correlation with quantitative serum b-hCG level is suggested. [facility] has confirmed the use of plasma for this test. This has not been cleared or approved by the U.S. Food and Drug Administration. The FDA has determined that such clearance is not necessary. Performed By: #### U HCG #### [facility] [address] [place] [address] Database Manager: Michoacano Gomez MD Basic Metabolic Profon 09-19 Anion gap [Moles/Vol] 9 mmol/L Normal 9-17 [facility] Comment on above: Performed By: #### B MP, CDP #### [facility] [address] [place] [address] [place] [address] Database Manager: Michoacano Gomez MD BUN/CRE Ratio 23 High 9-20 [facility] Comment on above: Performed By: #### B MP, CDP #### [address] [place] [address] Database Manager: Michoacano Gomez MD Calcium [Mass/Vol] 8.7 mg/dL Normal 8.6-10.4 [facility] Comment on above: Performed By: #### B MP, CDP #### [facility] [address] [place] [address] [place] [address] Database Manager: Michoacano Gomez MD Chloride [Moles/Vol] 105 mmol/L Normal 98-107 [facility] Comment on above: Performed By: #### B MP, CDP #### [facility] [address] [place] [address] [place] [address] Database Manager: Michoacano Gomez MD CO2 [Moles/Vol] 25 mmol/L Normal 20-31 [facility] Comment on above: Performed By: #### B MP, CDP #### [facility] [address] [place] [address] Database Manager: Michoacano Gomez MD Creatinine [Mass/Vol] 0.7 mg/dL Normal 0.5-0.9 [facility] Comment on above: Performed By: #### B FRANKLIN, CDP #### [facility] [address] [place] [address] Database Manager: Michoacano Gomez MD GFR/1.73 sq M.predicted among non-blacks MDRD (S/P/Bld) [Vol rate/Area] mL/min/{1.73_m2} Normal >60 [facility] Comment on above: Result Comment: These [...] Performed By: #### B FRANKLIN, CDP #### [facility] [address] [place] [address] Database Manager: Michoacano Gomez MD Glucose [Mass/Vol] 97 mg/dL Normal 70-99 [facility] Comment on above: Performed By: #### B FRANKLIN, CDP #### [facility] [address] [place] [address] Database Manager: Michoacano Gomez MD Potassium [Moles/Vol] 4.0 mmol/L Normal 3.7-5.3 [facility] Comment on above: Performed By: #### B FRANKLIN, CDP #### [facility] [address] [place] [address] Database Manager: Michoacano Gomez MD Sodium [Moles/Vol] 139 mmol/L Normal 135-144 [facility] Comment on above: Performed By: #### B FRANKLIN, CDP #### [facility] [address] [place], [place] [address]18183 Database Manager: Michoacano Gomez MD Urea nitrogen [Mass/Vol] 16 mg/dL Normal 6-20 [facility] Comment on above: Performed By: #### B MP, CDP #### [facility] [address] [place], [place] 70[address]883 Database Manager: Michoacano Gomez MD CBC with Diffon 09-20-2023 Abs. Basophil 0.07 k/uL Normal 0.00-0.20 [facility] Comment on above: Performed By: #### B FRANKLIN, CDP #### [address] [place], [place] [address]283 Database Manager: Michoacano Gomez MD Abs.Imm.Granulocyte <0.03 Normal 0.00-0.30 [facility] Comment on above: Performed By: #### B FRANKLIN, CDP #### [address] [place], [place] [address]15183 Database Manager: Michoacano Gomez MD Abs.Neutrophil (Seg) 3.98 k/uL Normal 1.50-8.10 [facility] Comment on above: Performed By: #### B FRANKLIN, CDP #### [address] [place], [place] 6256883 Database Manager: Michoacano Gomez MD Basophils/100 WBC (Bld) 1 % Normal 0-2 [facility] Comment on above: Performed By: #### B MP, CDP #### [facility] [address] [place] [address] [place], [place] [address]83 Database Manager: Michoacano Gomez MD Eosinophils (Bld) [#/Vol] 0.43 10*3/uL Normal 0.00-0.44 [facility] Comment on above: Performed By: #### B FRANKLIN, CDP #### [facility] [address] [place] [address] [place], [place] 90[address]83 Database Manager: Michoacano Gomez MD Eosinophils/100 WBC (Bld) 6 % High 1-4 [facility] Comment on above: Performed By: #### B FRANKLIN, CDP #### [facility] [address] [place], [place] 9657183 Database Manager: Michoacano Gomez MD Erythrocyte distribution width (RBC) [Ratio] 13.1 % Normal 11.8-14.4 [facility] Comment on above: Performed By: #### B FRANKLIN, CDP #### [facility] [address] [place] [address] [place], [place] 6[address]2683 Database Manager: Michoacano Gomez MD Hematocrit (Bld) [Volume fraction] 38.3 % Normal 36.3-47.1 [facility] Comment on above: Performed By: #### B FRANKLIN, CDP #### [address] [place], [place] 3265283 Database Manager: Michoacano Gomez MD Hemoglobin (Bld) [Mass/Vol] 12.9 g/dL Normal 11.9-15.1 [facility] Comment on above: Performed By: #### B FRANKLIN, CDP #### [address] [place], [place] 6269383 Database Manager: Michoacano Gomez MD Immature granulocytes/100 WBC (Bld) 0 % Normal 0 [facility] Comment on above: Performed By: #### B FRANKLIN, CDP #### [facility] [address] [place] [address] [place], [place] 8633283 Database Manager: Michoacano Gomez MD Lymphocytes (Bld) [#/Vol] 2.69 10*3/uL Normal 1.10-3.70 [facility] Comment on above: Performed By: #### B FRANKLIN, CDP #### [address] [place], [place] 870[address]83 Database Manager: Michoacano Gomez MD Lymphocytes/100 WBC (Bld) 35 % Normal 24-43 [facility] Comment on above: Performed By: #### B FRANKLIN, CDP #### [facility] [address] [place], [place] 9825283 Database Manager: Michoacano Gomez MD MCH (RBC) [Entitic mass] 33.2 pg Normal 25.2-33.5 [facility] Comment on above: Performed By: #### B MP, CDP #### [facility] [address] [place], [place] 1575283 Database Manager: Michoacano Gomez MD MCHC (RBC) [Mass/Vol] 33.7 g/dL Normal 28.4-34.8 [facility] Comment on above: Performed By: #### B FRANKLIN, CDP #### [facility] [address] [place], [place] 6[address]83 Database Manager: Michoacano Gomez MD MCV (RBC) [Entitic vol] 98.7 fL Normal 82.6-102.9 [facility] Comment on above: Performed By: #### B FRANKLIN, CDP #### [facility] [address] [place], [place] 1845683 Database Manager: Michoacano Gomez MD Monocytes (Bld) [#/Vol] 0.55 10*3/uL Normal 0.10-1.20 [facility] Comment on above: Performed By: #### B FRANKLIN, CDP #### [facility] [address] [place], [place] 8113383 Database Manager: Michoacano Gomez MD Monocytes/100 WBC (Bld) 7 % Normal 3-12 [facility] Comment on above: Performed By: #### B FRANKLIN, CDP #### [facility] [address] [place], [place] 9612283 Database Manager: Michoacano Gomez MD Neutrophil (Seg) 51 % Normal 36-65 [facility] Comment on above: Performed By: #### B FRANKLIN, CDP #### [facility] [address] [place], [place] 1774983 Database Manager: Michoacano Gomez MD NRBC Automated 0.0 per 100 WBC Normal 0.0 [facility] Comment on above: Performed By: #### B FRANKLIN, CDP #### [facility] [address] [place], [place] 1129483 Database Manager: Michoacano Gomez MD Platelet mean volume (Bld) [Entitic vol] 10.1 fL Normal 8.1-13.5 [facility] Comment on above: Performed By: #### B FRANKLIN, CDP #### [facility] [address] [place], [place] 459[address]83 Database Manager: Michoacano Goemz MD Platelets (Bld) [#/Vol] 252 10*3/uL Normal 138-453 [facility] Comment on above: Performed By: #### B FRANKLIN, CDP #### [address] [place], [place] 433[address]83 Database Manager: Michoacano Gomez MD RBC (Bld) [#/Vol] 3.88 10*6/uL Low 3.95-5.11 [facility] Comment on above: Performed By: #### B FRANKLIN, CDP #### [address] [place], [place] 5219483 Database Manager: Michoacano Gomez MD WBC (Bld) [#/Vol] 7.7 10*3/uL Normal 3.5-11.3 [facility] Comment on above: Performed By: #### B FRANKLIN, CDP #### [facility] [address] [place], [place] 748[address]83 Database Manager: Michoacano Gomez MD EKG 12 LeadOrdered By: Julito gutierrez on 09-20-2023 Atrial Rate 64 BPM [employer] [facility] Phone: P [place] -4 degrees [facility] [employer] [facility] Phone: P-R Interval 132 ms [facility] Work Phone: Q-T Interval 420 ms [employer] Work Phone: QRS Duration 74 ms [employer] Work Phone: QTc Calculation (Bazett) 433 ms [employer] Work Phone: R [place] 65 degrees [employer] Work Phone: T [place] 54 degrees [employer] Work Phone: Ventricular Rate 64 BPM [employer] Work Phone: [employer] Work Phone: EKG 12 Leadon 09-20-2023 Normal sinus rhythm Normal ECG No previous ECGs available Confirmed by Juilto Pate MD ([id number]) on 09/20/2023 8:55:15 PM [facility] Julito Pate MD - 09/20/2023 Normal sinus rhythm Normal ECG No previous ECGs available Confirmed by Julito Pate MD ([id number]) on 09/20/2023 8:55:15 PM [employer] Physician Orderon 06-07-2023 Physician Order [id number]#1.0 0TIFF Normal [facility] RAD - CT Reporton 05-16-2023 RAD - CT Report [id number]#1.0 0TIFF Normal [facility] Reminderson 05-16-2023 Reminders - From: Celena Beauchamp To: EU - Recalls Field; Sent: 02/23/2023 12:29:57 EDT Show up: 07/26/2023 12:29:00 EST Subject: Ct urogram Due Date/Time: 08/13/2023 12:29:00 EST Reminder/Recall Pt needs Ct Urogram done prior to August 2023 appt. Pt needs to have done at [facility] per PRW. pt completed in Apr. already addressed. BG Normal [facility] CT urogramon 05-08-2023 CT urogram [facility] [place] [address] [place] [address] CT Scan Report Signed Patient: Fausto Merrill MR#: [id number] : 1970 Acct:[id number] Age/Sex: 52 / F ADM Date: 05/08/23 Loc: [facility]: Arash Field MD Copies to: [...] DO 05/08/23 1419 Signed By: 05/08/23 1421 [facility] Lab Reportson 03-30-2023 Lab Reports [id number]#1.0 0TIFF Normal [facility] Lab Reports [id number]#1.0 0TIFF Normal [facility] Lab Reportson 03-04-2023 Lab Reports [id number]#1.00 CD:127 [facility] Lab Reports [id number]#1.0 0CD:127 [facility] Lab Reports [id number]#1.00 CD:127 Normal [facility] Ambulatory Visit Summaryon 0 02-23-2023 Ambulatory Visit Summary FAUSTO MERRILL :1970 Visit Date:02/23/2023 Ambulatory Visit Instructions Your Diagnosis Kidney stone Flank pain Stress incontinence Tests Performed Urnls Dip Stick Auto w/o Microscopy POC 42991 CT Urogram -- Results Pending -- Please [...] Urine Where: [facility] [address], [place] [address]- Medications What How Much When Instructions Unchanged [...] Urnls Dip Stick Auto w/o Microscopy POC 27970 (02/23/2023) Bilirubin Urine Dipstick - Negative Blood Urine Dipstick - 2+ Moderate Glucose Urine Dipstick - Negative Ketones Urine Dipstick - Negative Leukocytes Urine Dipstick - Negative Nitrite Urine Dipstick - Negative Protein Urine Dipstick - Negative Specific [place] Urine Dipstick - 1.025 Urine Appearance Urine [...] ? 8 oz (237 mL) of milk, bmkdzlw-hpliwudrtwtr-i airy milk, and calcium-fortifiedfruit juice. Calcium-fortified means [...] add his (more content not included)... Normal [facility] Patient Educationon 02-24-20 23 Patient Education Nephrology [...] ? 8 oz (237 mL) of milk, tpckbjm-eqrploiabosh-e airy milk, and calcium-fortifiedfruit juice. Calcium-fortified means [...] Spinach (cooked), rhubarb, beets, sweet potatoes, and [place] chard. ? Peanuts. ? Potato chips, albanian fries, and baked potatoes with skin on. ? Nuts and nut products. ? Chocolate. ? If you regularly take a diuretic medicine, make sure to eat at least 1 or 2 servings of fruits or vegetables that are high in potassium each day. These include: ? Avocado. ? Banana. ? [place], prune, carrot, or tomato juice. ? Baked [...] fish oil, or vitamin B6. ? Take mnwv-rts-hfajssp and prescription medicines only as told by [...] -Will order a CTU, pt prefers [facility]. 2. Flank pain (R10.9: Unspecified [...] months [facility] [address] [place] [address]- Additional Instructions: w/CTU & 24hr Urine Patient [...] 40 mg Cap-EC, (more content not included)... [facility] Comment on above: Result Comment: Elec tronically Signed By: Arash FIELD MD\.br\Date and Time Signed: 02/23/23 12:26 EDT\.br\Electronically Co-Signed By: Edwige Barahona\.br\Date and Time Co-Signed: 02/23/23 12:23 EDT RAD - MISCon 02-16-2023 RAD - MISC [id number] 0CD:127 [facility] October 03, 2022 FAUSTO MERRILL [address] [place] [id number] FAUSTO MERRILL 1970 Dear Fausto Merrill, Our records indicate it is time to schedule your follow up appointment with Dr. Field for kidney stones. Please call the office to schedule this appointment and have the KUB x-ray done prior (slip enclosed). Thank You, [facility] at [facility] option #3 [facility] XR KUB 1 VIEWon 12-30-2021 [...] by: CRISTOFER GOODWIN Date: 2021-12-30 17:52 Normal [facility] Free T4on 11-18-2021 Free T4 [Mass/Vol] 1.45 ng/dL Normal 0.80-1.80 [facility] Mortician Helper Comment on above: Performed By: #### T SH reflex FT4, FT4 #### [facility] [address] [place], [place] [id number] TSH w/ Reflex to Free T4on 0 11-18-2021 FT4 reflex Free T4 Normal [facility] Comment on above: Performed By: #### T SH reflex FT4, FT4 #### [facility] [address], [place] [id number] TSH 0.293 uIU/mL Low 0.400-4.500 [facility] Mortician Helper Comment on above: Performed By: #### T SH reflex FT4, FT4 #### [facility] [address] [place], [place] [id number] SCREENING MAMMOGRAM W/DAINA, BILATERAL*on 10-17-2021 SCREENING MAMMOGRAM [...] VERY IMPORTANT TO YOUR HEALTH. THE CURRENT [place] GUIDELINES RECOMMENDS ANNUAL MAMMOGRAPHY BEGINNING AT AGE 40. THIS FACILITY USES A REMINDER SYSTEM TO ENSURE ALL PATIENTS RECEIVE REMINDER NOTIFICATIONS AT THE APPROPRIATE TIME BASED ON THE RECOMMENDATIONS OF THIS EXAM. Report reported and signed by Erwin Blake on 10/25/2021 1137 Normal [facility] Complete Blood Count with Au to Diffon 10-05-2021 Basophils (Bld) [#/Vol] 0.08 10*3/uL Normal 0.00-0.20 [facility] Specialist Comment on above: Performed By: #### F T4, CMP, TSH reflex FT4, VITD, LIPD #### [facility] [address] [place], [place] [id number] Basophils/100 WBC (Bld) 1.3 % Normal [facility] Comment on above: Performed By: #### F T4, CMP, TSH reflex FT4, VITD, LIPD #### [facility] [address], [place] [id number] Eosinophils (Bld) [#/Vol] 0.45 10*3/uL Normal 0.02-0.50 [facility] Comment on above: Performed By: #### F T4, CMP, TSH reflex FT4, VITD, LIPD #### [facility] [address], [place] [id number] Eosinophils/100 WBC (Bld) 7.3 % Normal [facility] Comment on above: Performed By: #### F T4, CMP, TSH reflex FT4, VITD, LIPD #### [facility] [address], [place] [id number] Erythrocyte distribution width (RBC) [Ratio] 13.6 % Normal 11.0-15.0 [facility] Comment on above: Performed By: #### F T4, CMP, TSH reflex FT4, VITD, LIPD #### [facility] [address], [place] [id number] Hematocrit (Bld) [Volume fraction] 38.1 % Normal 35.0-47.0 [facility] Specialist Comment on above: Performed By: #### F T4, CMP, TSH reflex FT4, VITD, LIPD #### [facility] [address] [place], [place] [id number] Hemoglobin (Bld) [Mass/Vol] 12.3 g/dL Normal 11.6-15.5 [facility] Specialist Comment on above: Performed By: #### F T4, CMP, TSH reflex FT4, VITD, LIPD #### [facility] [address] [place], [place] [id number] Lymphocytes (Bld) [#/Vol] 2.7 10*3/uL Normal 0.9-3.9 [facility] Mort[facility] Helper Comment on above: Performed By: #### F T4, CMP, TSH reflex FT4, VITD, LIPD #### [facility] [address] [place], [place] [id number] Lymphocytes/100 WBC (Bld) 43.0 % Normal [facility] Specialist Comment on above: Performed By: #### F T4, CMP, TSH reflex FT4, VITD, LIPD #### [facility] [address] [place], [place] [id number] MCH (RBC) [Entitic mass] 29.9 pg Normal 27.0-33.0 [facility] Specialist Comment on above: Performed By: #### F T4, CMP, TSH reflex FT4, VITD, LIPD #### [facility] [address] [place], [place] [id number] MCHC (RBC) [Mass/Vol] 32.3 g/dL Normal 32.0-36.0 [facility] Helper Comment on above: Performed By: #### F T4, CMP, TSH reflex FT4, VITD, LIPD #### [facility] [address] [place], [place] [id number] MCV (RBC) [Entitic vol] 93 fL Normal 80-100 [facility] Mort[facility] Helper Comment on above: Performed By: #### F T4, CMP, TSH reflex FT4, VITD, LIPD #### [facility] [address] [place], [place] [id number] Monocytes (Bld) [#/Vol] 0.4 10*3/uL Normal 0.2-0.9 [facility] [employer] Comment on above: Performed By: #### F T4, CMP, TSH reflex FT4, VITD, LIPD #### [facility] [address] [place], [place] [id number] Monocytes/100 WBC (Bld) 6.8 % Normal [facility] Specialist Comment on above: Performed By: #### F T4, CMP, TSH reflex FT4, VITD, LIPD #### [facility] [address] [place], [place] [id number] Neutrophils (Bld) [#/Vol] 2.6 10*3/uL Normal 1.5-7.8 [facility] Specialist Comment on above: Performed By: #### F T4, CMP, TSH reflex FT4, VITD, LIPD #### [facility] [address] [place], [place] [id number] Neutrophils/100 WBC (Bld) 41.4 % Normal [facility] Specialist Comment on above: Performed By: #### F T4, CMP, TSH reflex FT4, VITD, LIPD #### [facility] [address] [place], [place] [id number] Platelet mean volume (Bld) [Entitic vol] 11.00 fL Normal 7.50-12.50 [facility] Specialist Comment on above: Performed By: #### F T4, CMP, TSH reflex FT4, VITD, LIPD #### [facility] [address] [place], [place] [id number] Platelets (Bld) [#/Vol] 264 10*3/uL Normal 140-400 [facility] Specialist Comment on above: Performed By: #### F T4, CMP, TSH reflex FT4, VITD, LIPD #### [facility] [address] [place], [place] [id number] RBC (Bld) [#/Vol] 4.12 10*6/uL Normal 3.90-5.20 [facility] Specialist Comment on above: Performed By: #### F T4, CMP, TSH reflex FT4, VITD, LIPD #### [facility] [address] [place], [place] [id number] RDW-SD 46.7 fL Normal 37.0-50.0 [facility] Specialist Comment on above: Performed By: #### F T4, CMP, TSH reflex FT4, VITD, LIPD #### [facility] [address] [place], [place] [id number] WBC (Bld) [#/Vol] 6.2 10*3/uL Normal 3.8-11.0 Theodore rn [place] [facility] Helper Comment on above: Performed By: #### F T4, CMP, TSH reflex FT4, VITD, LIPD #### [facility] [address] [place], [place] [id number] Comprehensive Metabolic Pane vanessa 10-05-2021 Albumin [Mass/Vol] 4.6 g/dL Normal 3.6-5.1 Theodore fu [place] Mort[facility] Helper Comment on above: Performed By: #### F T4, CMP, TSH reflex FT4, VITD, LIPD #### [facility] [address] [place], [place] [id number] Albumin/Globulin [Mass ratio] 1.5 {ratio} Normal 1.0-2.5 [facility] Mortician Helper Comment on above: Performed By: #### F T4, CMP, TSH reflex FT4, VITD, LIPD #### [facility] [address] [place], [place] [id number] ALP [Catalytic activity/Vol] 72 U/L Normal 35-119 [facility] Mortician Helper Comment on above: Performed By: #### F T4, CMP, TSH reflex FT4, VITD, LIPD #### [facility] [address] [place], [place] [id number] ALT [Catalytic activity/Vol] 15 U/L Normal 6-33 [facility] Mortician Helper Comment on above: Result Comment: 05/25 Female reference range changed. Performed By: #### F T4, CMP, TSH reflex FT4, VITD, LIPD #### [facility] [address] [place], [place] [id number] Anion gap [Moles/Vol] 17 mmol/L Normal 12-20 [facility] Mortician Helper Comment on above: Result Comment: Effe ctive 06/30/2019 reference range changed. Performed By: #### F T4, CMP, TSH reflex FT4, VITD, LIPD #### [facility] [address] [place], [place] [id number] AST [Catalytic activity/Vol] 18 U/L Normal 9-34 [facility] Specialist Comment on above: Performed By: #### F T4, CMP, TSH reflex FT4, VITD, LIPD #### [facility] [address] [place], [place] [id number] Bilirubin [Mass/Vol] 0.35 mg/dL Normal 0.30-1.20 [facility] Specialist Comment on above: Performed By: #### F T4, CMP, TSH reflex FT4, VITD, LIPD #### [facility] [address] [place], [place] [id number] BUN/CREA 18 Ratio Normal 6-22 [facility] Specialist Comment on above: Performed By: #### F T4, CMP, TSH reflex FT4, VITD, LIPD #### [facility] [address] [place], [place] [id number] Calcium [Mass/Vol] 9.3 mg/dL Normal 8.6-10.2 [facility] Comment on above: Performed By: #### F T4, CMP, TSH reflex FT4, VITD, LIPD #### [facility] [address] [place], [place] [id number] Chloride [Moles/Vol] 104 mmol/L Normal 98-107 [facility] Specialist Comment on above: Performed By: #### F T4, CMP, TSH reflex FT4, VITD, LIPD #### [facility] [address] [place], [place] [id number] CO2 [Moles/Vol] 20 mmol/L Normal 20-31 [facility] Specialist Comment on above: Performed By: #### F T4, CMP, TSH reflex FT4, VITD, LIPD #### [facility] [address] [place], [place] [id number] Creatinine [Mass/Vol] 0.8 mg/dL Normal 0.6-1.4 [facility] Specialist Comment on above: Performed By: #### F T4, CMP, TSH reflex FT4, VITD, LIPD #### [facility] [address] [place], [place] [id number] eGFRAA 92 mL/min/1.73m2 Normal >60 [facility] Specialist Comment on above: Performed By: #### F T4, CMP, TSH reflex FT4, VITD, LIPD #### [facility] [address] [facility] [place] [place] [id number] eGFRNAA 76 mL/min/1.73m2 Normal >60 [facility] Mortician Helper Comment on above: Performed By: #### F T4, CMP, TSH reflex FT4, VITD, LIPD #### [facility] [address] [facility] [place] [id number] Globulin (S) [Mass/Vol] 3.0 g/dL Normal 1.9-3.7 [facility] Mortician Helper Comment on above: Performed By: #### F T4, CMP, TSH reflex FT4, VITD, LIPD #### [facility] [address] [facility] [place] [id number] Glucose [Mass/Vol] 87 mg/dL Normal 65-99 [place] [facility] Hel[facility] Comment on above: Result Comment: For FASTING Glucose --- ADA reference ranges: Normal 65-99 mg/dl Prediabetes 100-125 Diabetes >/= 126 Performed By: #### F T4, CMP, TSH reflex FT4, VITD, LIPD #### [facility] [address] [place], [place] [id number] Potassium [Moles/Vol] 4.3 mmol/L Normal 3.5-5.5 [facility] Mortician Helper Comment on above: Performed By: #### F T4, CMP, TSH reflex FT4, VITD, LIPD #### [facility] [address] [facility] [place] [id number] Protein [Mass/Vol] 7.6 g/dL Normal 6.1-8.1 Theodore rn [place] [facility] Hel[facility] Comment on above: Performed By: #### F T4, CMP, TSH reflex FT4, VITD, LIPD #### [facility] [address] [facility] [place] [id number] Sodium [Moles/Vol] 137 mmol/L Normal 135-146 Theodore rn [place] [facility] Helper Comment on above: Performed By: #### F T4, CMP, TSH reflex FT4, VITD, LIPD #### [facility] [address] [facility] [place] [id number] Urea nitrogen [Mass/Vol] 14 mg/dL Normal 7-25 [place] [facility] Comment on above: Performed By: #### F T4, CMP, TSH reflex FT4, VITD, LIPD #### [facility] [address] [place], [place] [id number] Free T4on 10-05-2021 Free T4 [Mass/Vol] 1.23 ng/dL Normal 0.80-1.80 [facility] Comment on above: Performed By: #### F T4, CMP, TSH reflex FT4, VITD, LIPD #### [facility] [address] [place], [place] [id number] Lipid Panelon 10-05-2021 Cholesterol [Mass/Vol] 239 mg/dL High 125-200 [facility] Comment on above: Result Comment: Low risk < 200mg/dL Borderline risk 201-239 mg/dl High risk > or equal to 240 Performed By: #### F T4, CMP, TSH reflex FT4, VITD, LIPD #### [facility] [address] [place], [place] [id number] Cholesterol in HDL [Mass/Vol] 55 mg/dL Normal >40 [facility] Comment on above: Result Comment: High Cardiovascular Risk HDL <40 mg/dL Low Cardiovascular Risk HDL > or equal to 60 mg/dl Performed By: #### F T4, CMP, TSH reflex FT4, VITD, LIPD #### [facility] [address] [place], [place] [id number] Cholesterol in LDL [Mass/Vol] 168 mg/dL Normal [facility] Comment on above: Result Comment: LDL ATP III CLASSIFICATION LDL less than 100 mg/dl Optimal LDL 100-129 mg/dl Near or above optimal LDL 130-159 Borderline high LDL 160-189 High LDL greater than 189 mg/dl Very High Performed By: #### F T4, CMP, TSH reflex FT4, VITD, LIPD #### [facility] [address] [place], [place] [id number] Cholesterol in VLDL [Mass/Vol] 16 mg/dL Normal [facility] Comment on above: Performed By: #### F T4, CMP, TSH reflex FT4, VITD, LIPD #### [facility] [address] [place], [place] [id number] Cholesterol.total/C holesterol in HDL [Mass ratio] 4 {ratio} Normal [facility] Specialist Comment on above: Performed By: #### F T4, CMP, TSH reflex FT4, VITD, LIPD #### [facility] [address] [place], [place] [id number] Triglyceride [Mass/Vol] 78 mg/dL Normal 30-150 [facility] Mortician Helper Comment on above: Result Comment: TRIG ATPIII CLASSIFICATIONS TRIG less than 150 mg/dl Normal TRIG 150-199 mg/dl Borderline High TRIG 200-500 mg/dl High TRIG greather than 500 mg/dl Very High Performed By: #### F T4, CMP, TSH reflex FT4, VITD, LIPD #### [facility] [address] [place], [place] [id number] TSH w/ Reflex to Free T4on 0 10-05-2021 FT4 reflex Free T4 Normal [facility] Specialist Comment on above: Performed By: #### F T4, CMP, TSH reflex FT4, VITD, LIPD #### [facility] [address] [place], [place] [id number] TSH 22.300 uIU/mL High 0.400-4.500 [facility] Specialist Comment on above: Performed By: #### F T4, CMP, TSH reflex FT4, VITD, LIPD #### [facility] [address] [place], [place] [id number] Vitamin B12/Folateon 022 Cobalamin (Vitamin B12) [Mass/Vol] 365 pg/mL Normal 211-946 [facility] Mortician Helper Comment on above: Performed By: #### B 12/Fol #### [facility] [address] [place], [place] [id number] FOL 6.4 ng/mL Normal >4.7 [facility] Mortician Helper Comment on above: Result Comment: Refe rence range change 05/11/2017. Prior reference range F 4.8-37.3 ng/mL, M 4.5-32.2 ng/mL. Performed By: #### B 12/Fol #### [facility] [address] [place], [place] [id number] Vitamin D 25-OHon 10-05-2021 VIT D 25 OH 31 ng/ml Normal >29 [facility] Mortician Helper Comment on above: Result Comment: Mckenzie min D Status Deficiency <20 ng/mL Insufficiency 20-29 ng/mL Optimal 30-100 ng/mL Possible Toxicity >=150 ng/mL Performed By: #### F T4, CMP, TSH reflex FT4, VITD, LIPD #### [facility] [address] [place], [place] [id number] XR Spine Cervical Complete w /Flex AND [place] 10-05-2021 XR Spine Cervical Complete w/Flex AND [...] by Erwin Blake on 10/05/2021 1150 Normal [facility] Specialist XR Spine Lumbar Complete w/F adolfo AND [place] 10-05-2021 XR Spine Lumbar Complete w/Flex AND [...] by Erwin Blake on 10/05/2021 1151 Normal [facility] Specialist TSH w/ Reflex to Free T4on 0 09-08-2021 TSH 2.640 uIU/mL Normal 0.400-4.500 [facility] Mortician Helper Comment on above: Performed By: #### F T4, CMP, TSH reflex FT4, VITD, LIPD #### [facility] [address] [place], [place] [id number] FREE T4on 03-18-2021 Free T4 [Mass/Vol] 1.38 ng/dL Normal 0.78-2.19 [facility] Comment on above: Performed By: #### F T4 #### [facility] [address] [place], [place] [address] Dr. Jose Walden TSHon 03-18-2021 TSH 0.187 uIU/mL Critically low 0.470-4.680 [facility] Comment on above: Result Comment: refl ex FT4 Performed By: #### T SH #### [facility] [address] [place] [address] [address] Jose Walden TSH RANGE SEE BELOW Normal [facility] Comment on above: Result Comment: <0.3 4 UIU/ml HYPERTHYROID 0.34-5.60 UIU/ml EUTHYROID >5.60 UIU/ml HYPOTHYROID Performed By: #### T SH #### [facility] [address] [place] [address] Dr. Jose Walden CITRATE URINE 24HRon 021 Citric Acid, U, 24hr Comment Normal 320-1240 [facility] Comment on above: Result Comment: No t otal volume submitted. Unable to calculate 24 hour result. This test was developed and its performance characteristics determined by [facility]. It has not been cleared or approved by the Food and Drug Administration. Performed By: #### C ITRATU #### [facility] [address] [place], [place] [id number] Allie Arianna Citric Acid, Urine 440 mg/L Normal [facility] Comment on above: Performed By: #### C ITRATU #### [facility] [address] [place], [place] [address] Allie Arianna OXALATE 24HR URINEon 021 Oxalates, Urine 19 mg/L Normal Undefined [facility] Comment on above: Performed By: #### T SH #### [facility] [address] [place] [address] Dr. Jose Walden Oxalates, Urine 24hr 18 mg/24 hr Normal 4-31 [facility] Comment on above: Performed By: #### T SH #### [facility] [address] [place] [address] [address] Jose Walden MAGNESIUM 24HR URINEon 01-26 Magnesium 24hr Urine 67.5 mg/24 hr Normal 12.0-293.0 [facility] Comment on above: Performed By: #### T SH #### [facility] [address] [place] [address] Dr. Jose Walden Magnesium UR 7.1 mg/dL Normal Not Estab. [facility] Comment on above: Performed By: #### T SH #### [facility] [address] [place], [place] [address] Dr. Jose Walden PHOSPHORUS 24HR URINEon Phosphorus, Urine 56.0 mg/dL Normal Not Estab. [facility] Comment on above: Performed By: #### P HOS 24 #### [facility] [address] [place] [address] Allie Arianna Phosphorus, Urine 24hr 532 mg/24 hr Normal 261-1078 [facility] Comment on above: Performed By: #### P HOS 24 #### [facility] [address] [place], [place] [address] Allie Arianna URIC ACID 24 HR URINEon Uric Acid, Urine 38.5 mg/dL Normal Not Estab. [facility] Comment on above: Performed By: #### U JORGE 24 #### [facility] [address] [place], [place] [address] Allie Arianna Uric Acid, Urine 24hr 365.8 mg/24 hr Normal 173.7-902.1 [facility] Comment on above: Performed By: #### U JORGE 24 #### [facility] [address] [place], [place] [address] Allie Arianna CALCIUM 24 HR URINEon 2020 CALC, 24 HR UR 177.7 mg/24 hr Normal 100.0-300.0 [facility] Comment on above: Performed By: #### C [id number] #### [facility] [address] [place], [place] [address] Allie Arianna UR CALCIUM 18.7 mg/dL Normal 0.0-21.0 [facility] Comment on above: Performed By: #### C [id number] #### [facility] [address] [place], [place] [address] Allie Arianna CREA 24 HR URINEon 1 CREA, 24 HR UR 1195.29 mg/24 hr Normal 800.00-1, 800.0 0 [facility] Comment on above: Performed By: #### N A24U, [id number] #### [facility] [address] [place], [place] [address] Allie Arianna UR TOT VOL 950 ml/24 HR Normal [facility] Comment on above: Performed By: #### N A24U, [id number] #### [facility] [address] [place], [place] [address] Allie Arianna Performed By: #### C [id number] #### [facility] [address] [place], [place] [address] Allie Arianna URINE CREAT 125.82 mg/dL Normal 20.00-300.00 [facility] Comment on above: Performed By: #### N A24U, [id number] #### [facility] [address] [place], [place] [address] Allie Arianna SODIUM 24 HR URINEon 021 NA, 24 HR UR 118 mmol/24 hr Normal 40-220 [facility] Comment on above: Performed By: #### N A24U, [id number] #### [facility] [address] [place], [place] [address] Allie Arianna Sodium (U) [Moles/Vol] 124 mmol/L Critically high 30-90 [facility] Comment on above: Performed By: #### N A24U, [id number] #### [facility] [address] [place], [place] [address] Allie Arianna PTH INTACTon 01-19-2021 PTH, Intact 27 pg/mL Normal 15-65 [facility] Comment on above: Performed By: #### P THINT #### [facility] [address] [address] Allie NAJERAon 01-18-2021 Urea nitrogen [Mass/Vol] 14.0 mg/dL Normal 7.0-17.0 [facility] Comment on above: Performed By: #### T SH #### [facility] [address] [place] [address] Dr. Jose Walden CALCIUMon 01-18-2021 Calcium [Mass/Vol] 8.6 mg/dL Normal 8.4-10.2 [facility] Comment on above: Performed By: #### T SH #### [facility] [address] [place] [address] Dr. Jose Walden CREATININEon 01-18-2021 Creatinine [Mass/Vol] 0.87 mg/dL Normal 0.52-1.04 [facility] Comment on above: Performed By: #### T SH #### [facility] [address] [place] [address] Dr. Jose Walden EGFR-AF [place] ISLANDER >60 Normal >=60 [facility] Comment on above: Performed By: #### T SH #### [facility] [address] [place] [address] Dr. Jose Walden EGFR-NON AF [place] ISLANDER >60 Normal >=60 [facility] Comment on above: Performed By: #### T SH #### [facility] [address] [place] [address] Dr. Jose Walden ELECTROLYTESon 01-18-2021 Anion gap [Moles/Vol] 13.3 mmol/L Normal [facility] Comment on above: Performed By: #### T SH #### [facility] [address] [place] [address] Dr. Jose aWlden Chloride [Moles/Vol] 108 mmol/L Critically high 98-107 [facility] Comment on above: Performed By: #### T SH #### [facility] [address] [place] [address] Dr. Jose Walden CO2 [Moles/Vol] 25.4 mmol/L Normal 22.0-30.0 [facility] Comment on above: Performed By: #### T SH #### [facility] [address] [address] [address] Jose Walden Potassium [Moles/Vol] 3.7 mmol/L Normal 3.4-5.0 [facility] Comment on above: Performed By: #### T SH #### [facility] [address] [address] [address] Jose Walden Sodium [Moles/Vol] 143 mmol/L Normal 137-145 [facility] Comment on above: Performed By: #### T SH #### [facility] [address] [address] [address] Jose Walden URIC ACID SERUMon 01-18-2021 Urate [Mass/Vol] 3.3 mg/dL Normal 2.5-6.2 [facility] Comment on above: Performed By: #### T SH #### [facility] [address] [address] [address] Jose Walden Vital Signs Date Time Vital Sign Value Performing Clinician Facility 02-09-2025 09:17-040 Body height 165.1 cm Phuong Hall MD Work Phone: [facility] [place] [facility] 02-09-2025 09:17-0400 Body mass index (BMI) [Ratio] 22.6 kg/m2 Phuong Hall MD Work Phone: [facility] [place] [facility] 02-09-2025 09:17-0400 Body weight 61.68 kg Phuong Hall MD Work Phone: [facility] [place] [facility] 02-09-2025 09:17-0400 Diastolic blood pressure 65 mm[Hg] Phuong Hall MD Work Phone: [facility] [place] [facility] 02-09-2025 09:17-0400 Heart rate 58 /min Phuong Hall MD Work Phone: [facility] [place] [facility] 02-09-2025 09:17-0400 Systolic blood pressure 97 mm[Hg] Phuong Hall MD Work Phone: [facility] [place] [facility] 01-12-2025 11:14-0400 Body mass index (BMI) [Ratio] 23.53 kg/m2 Diana Gaithersburg PA Work Phone: [facility] 01-12-2025 11:14-0400 Body weight 64.14 kg Diana Dodgeey PA Work Phone: [facility] 01-12-2025 11:14-0400 Diastolic blood pressure 68 mm[Hg] Diana Dodgeey PA Work Phone: [facility] 01-12-2025 11:14-0400 Systolic blood pressure 110 mm[Hg] Diana Wang PA Work Phone: [facility] 10-13-2024 09:00-0400 Body mass index (BMI) [Ratio] 23.13 kg/m2 Qiana Toro [employer] TECHNICIAN Work Phone: [facility] 10-13-2024 09:00-0400 Body temperature 97.3 [degF] Qiana Majors [employer] PAT[employer] LAYOUT TECHNICIAN Work Phone: [facility] 10-13-2024 09:00-0400 Body weight 63.05 kg Qiana Gutierrezs [employer]WING PAT[employer] LAYOUT TECHNICIAN Work Phone: [facility] 10-13-2024 09:00-0400 Diastolic blood pressure 64 mm[Hg] Qiana Majors [employer]WING PAT[employer] LAYOUT TECHNICIAN Work Phone: [facility] 10-13-2024 09:00-0400 Heart rate 76 /min Qiana Majors [employer] LAYOUT TECHNICIAN Work Phone: [facility] 10-13-2024 09:00-0400 SaO2% (BldA) [Mass fraction] 97 % Qiana Majors [employer] LAYOUT TECHNICIAN Work Phone: [facility] 10-13-2024 09:00-0400 Systolic blood pressure 108 mm[Hg] Qiana Majors [employer]WING PAT[employer] LAYOUT TECHNICIAN Work Phone: [facility] 08-22-2024 14:06-0500 Body height 165.1 cm Phuong Hall MD Work Phone: [facility] 08-22-2024 14:06-0500 Body mass index (BMI) [Ratio] 23.5 kg/m2 Phuong Hall MD Work Phone: [facility] 08-22-2024 14:06-0500 Body weight 64.05 kg Phuong Hall MD Work Phone: [facility] 08-22-2024 14:06-0500 Diastolic blood pressure 62 mm[Hg] Phuong Hall MD Work Phone: [facility] 08-22-2024 14:06-0500 Heart rate 69 /min Phuong Hall MD Work Phone: [facility] 08-22-2024 14:06-0500 Respiratory rate 18 /min Phuong Hall MD Work Phone: [facility] 08-22-2024 14:06-0500 SaO2% (BldA) [Mass fraction] 99 % Phuong Hall MD Work Phone: [facility] 08-22-2024 14:06-0500 Systolic blood pressure 118 mm[Hg] Phuong Hall MD Work Phone: [facility] 02-23-2023 11:13-0400 Blood Pressure Location Arashkatherine [facility] 02-23-2023 11:13-0400 Body temperature 98.78 [degF] Arashkatherine FIELD [facility] 02-23-2023 11:13-0400 Diastolic blood pressure 75 mm[Hg] Arash FIELD [facility] 02-23-2023 11:13-0400 Heart rate 71 /min Arash FIELD [facility] 02-23-2023 11:13-0400 Respiratory rate 16 /min Arash FIELD [facility] 02-23-2023 11:13-0400 Systolic blood pressure 106 mm[Hg] Arash FIELD [facility] 01-11-2023 13:15-0400 Body height 165.1 cm Jerson Dittcristy Other [employer] Other 01-11-2023 13:15-0400 Body mass index (BMI) [Ratio] 22.46 kg/m2 Jerson Goldsmith Other [employer] Other 01-11-2023 13:15-0400 Body weight 61.24 kg Jerson Heydibeto Other [employer] Other 01-11-2023 13:15-0400 Diastolic blood pressure 60 mm[Hg] Jerson Varelacristy Other [employer] Other 01-11-2023 13:15-0400 Systolic blood pressure 94 mm[Hg] Jerson Nicholecristy Other [employer] Other 01-02-2022 10:14-0400 Blood Pressure Location [facility]Rank [facility] 01-02-2022 10:14-0400 Diastolic blood pressure 67 mm[Hg] Arash FIELD [facility] 01-02-2022 10:14-0400 Heart rate 74 /min Arash FIELD [facility] 01-02-2022 10:14-0400 Respiratory rate 16 /min Arash FIELD [facility] 01-02-2022 10:14-0400 Systolic blood pressure 98 mm[Hg] Arash FIELD [facility] 09-02-2021 12:15-0500 Body height 165.1 cm Jerson Goldsmith Other [employer] Other 09-02-2021 12:15-0500 Body mass index (BMI) [Ratio] 22.13 kg/m2 Jerson Goldsmith Other [employer] Other 09-02-2021 12:15-0500 Body weight 60.33 kg Jerson Goldsmith Other [employer] Other Encounters Encounter Date Encounter Type Care Provider Facility Start: 03-02-2025 End: 03-02-2025 Clinisync Result Encounter Generic External Data Provider [facility] External Department Unsolicited Start: 03-02-2025 End: 03-02-2025 Clinisync Result Encounter Generic External Data Provider [facility] External Department Unsolicited Start: 02-18-2025 End: 02-18-2025 Telephone encounter Phuong Hall MD Work Phone: [facility] Start: 02-09-2025 End: 02-09-2025 ambulatory Phuong Hall MD Work Phone: [facility] Work Phone: Start: 02-09-2025 End: 02-09-2025 [...] 10-13-2024 End: 10-13-2024 Bamboo flowsheet Qiana Toro SEWING PATTERN LAYOUT TECHNICIAN Work Phone: [facility] Start: 10-13-2024 End: 10-13-2024 Bamboo flowsheet Qianaalex Toro SEWING PATTERN LAYOUT TECHNICIAN Work Phone: [facility] Start: 10-13-2024 End: 10-13-2024 Office outpatient visit 15 minutes Qiana Toro SEWING PATTERN LAYOUT TECHNICIAN Work Phone: [facility] Comment on [...] status Phuong Hall MD Work Phone: [facility] Start: 08-22-2024 End: 08-22-2024 Periodic [...] Start: 10-23-2023 End: 10-23-2023 ambulatory [facility] Start: 09-20-2023 End: 09-21-2023 ambulatory [facility] Start: 09-20-2023 End: 09-20-2023 Subsequent hospital visit by physician Phuong Hall MD Work Phone: [facility] EKG Comment on above: Renal calculus Start: 09-03-2023 End: 09-04-2023 ambulatory Arash FIELD Facility:[facility] [place] Start: 09-03-2023 End: 09-03-2023 Patient encounter procedure Arash FIELD [facility] [place] Start: 07-12-2023 End: 07-12-2023 ambulatory Jerson Goldsmith Other [employer] Other Start: 07-12-[address] [facility] Start: 05-08-2023 End: 05-08-2023 ambulatory Arash Field Facility:[facility] Start: 05-08-2023 End: 05-08-2023 ambulatory MD Phuong Hall Work Phone: [facility] Work Phone: Start: 05-08-2023 End: 05-08-2023 Patient encounter procedure MD Phuong Hall Work Phone: [facility] [place] Work Phone: Start: 02-23-2023 End: 02-24-2023 ambulatory Arash FIELD Facility:[facility] Start: 02-23-2023 End: 02-23-2023 Patient encounter procedure Arash R FIELD [facility] Start: 01-11-2023 End: 01-11-2023 ambulatory Jerson Goldsmith Other [employer] Other Start: 01-11-2023 Patient encounter procedure Jerson RUBIN [facility] Start: 01-23-2022 End: 01-23-2022 Patient encounter procedure MD Phuong Hall Work Phone: [facility] [place] Start: 01-02-2022 End: 01-02-2022 Patient encounter procedure Arash FIELD [facility] [place] Start: 12-30-2021 End: 12-31-[address] ARASH FIELD Facility:[facility] Start: 10-24-2021 End: 10-24-2021 ambulatory Jerson Goldsmith Other [employer] Other Start: 10-24-2021 Telephone encounter Jerson Goldsmith FP [facility] Start: 09-02-2021 End: 09-02-2021 ambulatory Jerson Goldsmith Other [employer] Other Start: 09-02-2021 Patient encounter procedure Jerson [...] Phone: Start: 09-01-2024 Mammography Qiana Ruiz gabriel SEWING PATTERN LAYOUT TECHNICIAN Work Phone: Start: 09-20-2023 Ecg routine ecg [...] calculus of kidney Arash FIELD Colonoscopy Arash IFELD Colonoscopy Arash FIELD Ligation of fallopian tube P clarita FIELD Plan of Treatment Date Care Activity Detail Author Start: 09-23-2031 Screening for malign ant neoplasm of colon [facility] Start: 01-13-2028 Screening for malign ant neoplasm of cervix [facility] Start: 09-01-2025 Screening for malign ant neoplasm of breast Mammogram [facility] Start: 02-23-2025 Influenza vaccination Influenza Vacc ine (#1) [facility] Start: 01-12-2025 End: 01-12-2026 DXA Skeletal system Views for bone density DEXA bone density Imaging Routine Postmenopausal state Expected: 01/12/2025 (Approximate), Expires: 01/12/2026 [facility] Work Phone: Comment on above: Expected: 01/12/2025 (Approximate), Expires: 01/12/2026 Start: 01-12-2025 End: 01-12-2025 Patient encounter procedure [facility] Comment on above: Arrived [...] EDT Office Visit [facility] [address] [place] [id number] Qiana Toro NP [address] [place] [address] Arrived [facility] Comment on above: Arrived Start: 09-29-2024 End: 09-29-2024 Patient encounter procedure 09/29/2024 2:00 PM EDT Office Visit [facility] [address] [place] [address] Diana Wang PA [address] [place] [address] [facility] Start: 09-09-2024 End: 09-09-2024 Professional / ancillary services management 09/09/2024 8:00 AM EDT Ancillary Procedure [facility] [address] [facility] [facility] [place] [address] [facility] Start: 08-22-2024 End: 08-22-2025 CBC W Auto Differential panel - Blood CBC and differential Lab Routine Hypothyroidism, unspecified type (CMS/HCC) Expected: 08/22/2024 (Approximate), Expires: 08/22/2025 [facility] Comment on above: Expected: 08/22/2024 (Approximate), Expires: 08/22/2025 Start: 08-22-2024 End: 08-22-2025 Comprehensive metabolic 2000 panel - Serum or Plasma Comprehensive metabolic panel Lab Routine Hypothyroidism, unspecified type (CMS/HCC) Expected: 08/22/2024, Expires: 08/22/2025 [facility] Comment on above: Expected: 08/22/2024 , Expires: 08/22/2025 Start: 08-22-2024 End: 10-20-2025 DBT Breast - bilateral screening Bilateral screening mammogram with tomosynthesis Imaging Routine Screening mammogram for breast cancer Expected: 08/22/2024, Expires: 10/20/2025 [facility] Comment on above: Expected: 08/22/2024 , Expires: 10/20/2025 Start: 08-22-2024 End: 08-22-2025 Lipid 1996 panel - Serum or Plasma Lipid panel Lab Routine Hypothyroidism, unspecified type (CMS/HCC) Expected: 08/22/2024 (Approximate), Expires: 08/22/2025 [facility] Comment on above: Expected: 08/22/2024 (Approximate), Expires: 08/22/2025 Start: 08-22-2024 End: 08-22-2024 Patient encounter procedure [facility] Comment on above: Arrived Start: 08-22-2024 End: 08-22-2025 TSH W/REFLEX TO FT4 TSH W/REFLEX TO FT4 Lab Routine Hypothyroidism, unspecified type (CMS/HCC) Expected: 08/22/2024 (Approximate), Expires: 08/22/2025 [facility] Work Phone: Comment on above: Expected: 08/22/2024 (Approximate), Expires: 08/22/2025 Start: 08-22-2024 End: 08-22-2025 US Thyroid gland US thyroid Imaging Routine Thyroid enlargement (CMS/HCC) Expected: 08/22/2024, Expires: 08/22/2025 [facility] Comment on above: Expected: 08/22/2024 , Expires: 08/22/2025 Start: 08-18-2024 End: 08-18-2024 Patient encounter procedure [facility] Comment on above: Arrived Start: 08-18-2024 End: 08-18-2025 Cortisol free Cortisol, free Lab Routine Hormone disorder Expected: 08/18/2024 (Approximate), Expires: 08/18/2025 [facility] Comment on above: Expected: 08/18/2024 (Approximate), Expires: 08/18/2025 Start: 08-18-2024 End: 08-18-2025 US Pelvis US Pelvis w/ TV Imaging Routine Pelvic pain in female Expected: 08/18/2024, Expires: 08/18/2025 [facility] Work Phone: Comment on above: Expected: 08/18/2024 , Expires: 08/18/2025 Start: 02-24-2024 Influenza vaccination Influenza Vacc ine (#1) [facility] Start: 10-18-2023 Screening for malign ant neoplasm of breast Breast cancer screen [facility] Start: 01-23-2023 Influenza vaccination Flu vaccine (# 1) [facility] Start: 10-17-2022 Screening for malign ant neoplasm of breast Mammogram [facility] Start: 2022 Shingles vaccine (1 of 2) Shingles vaccine (1 of 2) [facility] Start: 2017 Screening for malign ant neoplasm of colon [facility] Start: 2012 Lipid panel Lipids [facility] Start: 2002 Screening for malign ant neoplasm of cervix [facility] Start: 1993 Screening for malign ant neoplasm of cervix Pap smear [facility] Start: 1991 DTaP/Tdap/Td vaccine (1 - Tdap) DTaP/Tdap/Td vaccine (1 - Tdap) [facility] Start: 1990 Hepatitis C screening Hepatitis C sc reen [facility] Start: 1987 HIV screening HIV screen [facility] Start: 1984 Depression Screen Depression Screen [facility] Start: 01-11-1973 COVID-19 Vaccine (#1) COVID-19 Vacci ne (#1) [facility] Start: 1972 Hepatitis B vaccine (1 of 3 - 3-dose series) Hepatitis B vaccine (1 of 3 - 3-dose series) [facility] Start: 1972 Screening for malign ant neoplasm of colon [facility] Comprehensive metabo lic 2000 panel - Serum or Plasma [facility] DHEA-sulfate DHEA-sulfate Lab Routine Hormone disorder Ordered: 08/18/2024 [facility] Comment on above: Ordered: 08/18/2024 Estradiol Estradiol Lab Ro utine Hormone disorder Ordered: 08/18/2024 [facility] Comment on above: Ordered: 08/18/2024 Estrone Estrone Lab Rout ine Hormone disorder Ordered: 08/18/2024 [facility] Comment on above: Ordered: 08/18/2024 Progesterone Progesterone Lab Routine Hormone disorder Ordered: 08/18/2024 [facility] Comment on above: Ordered: 08/18/2024 TESTOSTERONE, FREE TESTOSTERONE, FREE Lab Routine Hormone disorder Ordered: 08/18/2024 [facility] Comment on above: Ordered: 08/18/2024 Testosterone, free, total Testosterone, free, total Lab Routine Hormone disorder Ordered: 08/18/2024 [facility] Comment on above: Ordered: 08/18/2024 THIN PREP TIS PAP AN D HR HPV DNA THIN PREP TIS PAP AND HR HPV DNA Pathology and Cytology Routine Well woman exam with routine gynecological exam Ordered: 01/12/2025 [facility] Comment on above: Ordered: 01/12/2025 Vitamin D 1,25 dihydroxy Vitamin D 1,25 dihydroxy Lab Routine Hormone disorder Ordered: 08/18/2024 [facility] Comment on above: Ordered: 08/18/2024 [facility] Immunizations Immunization Date Immunization Notes Care Provider Fa cility 06-24-2024 influenza virus vaccine, unspecified formulation Diana CARLOS Work Phone: [facility] 06-22-2022 influenza virus vaccine, unspecified formulation Phuong Hall MD Work Phone: [facility] NEGATED: Highlighted row has not occurred!01-10-2021 SARS-CoV-2 (COVID-19) mRNA-1273 vaccine Arash FIELD [facility] Payers Date Payer Category Payer Self-pay [id number] 2022 Blue Cross Blue Shield BCBS [id number] 1972 Unknown [id number] [id number]. 2.593 1972 Unknown [id number] 2.16.840.1.628824.3.579. 2.593 1972 Unknown [id number] 2.16.840.1.963684.3.579. 2.593 1972 Unknown [id number] 2.16.840.1.120402.3.579. 2.727 1972 Unknown [id number] 2.16.840.1.340604.3.579. 2.727 1972 Unknown [id number] 2.16.840.1.161993.3.579. 2.173 1972 Unknown [id number] 2.16.840.1.924866.3.579. 2.173 1972 Unknown [id number] 2.16.840.1.558790.3.579. 2.173 1972 Unknown [id number] 2.16.840.1.474379.3.579. 2.1259 1972 Unknown [id number] 2.16.840.1.694077.3.579. 2.1259 1972 Unknown [id number] 2.16.840.1.043954.3.579. 2.9 1972 Unknown [id number] 2.16.840.1.653958.3.579. 2.9 1972 Unknown [id number] 2.16.840.1.522431.3.579. 2.9 1972 Unknown [id number] 2.16.840.1.807321.3.579. 2.1259 1959 [facility] [id number] 2.16.840.1.546150.19 Unknown [id number] 2.16.840.1.158172.3.579. 2.531 Social History Date Type Detail Facility Unknown if ever smoked [employer] Other Start: 09-20-2023 End: 10-11-2024 Sex Assigned At [employer] Other Start: 01-10-2021 End: 08-22-2024 Tobacco smoking status Never smoked tobacco (finding) [facility] Start: 1970 Sex Assigned At Female F [facility] Start: 09-20-2023 End: 08-22-2024 Tobacco use and exposure Smokeless tobacco non-user [employer] Start: 09-20-2023 End: 01-12-2025 Alcohol intake Ex-drinker (finding) [employer] Start: 09-20-2023 End: 10-11-2024 History of Social function [employer] Start: 1970 Sex Assigned At Not on file B ON [facility]BO [facility] consumption unknown [facility] [...] to any clubs or organizations such as confucianist groups, unions, fraternal or athletic groups, or [...] Never true [facility] Sex Female (finding) [facility] NEGATED: Highlighted rowStart: NINF History of tobacco use Passive smoker [facility] Functional Status Date Assessment Result Facility 02-23-2023 Functional Status N/A [facility] 01-02-2022 Functional Status N/A [facility] Clinical Notes 09-02-2021 to 02-18-2025 Telephone Encounter - Dylan Sullivan - 02/18/2025 8:46 AM EDTTelephone Encounter - Dylan Sullivan - 02/18/2025 8:46 AM TERRANCE Porter - 01/12/2025 11:00 AM EDT Note Date & Type Note Facility 02-18-2025 Telephone encount er Note Pt was hoping Dr Hall would send orders for her Thyroid labs Please send to [facility] Fax number is [phone] [facility] 02-18-2025 Miscellaneous Notes Formattin g of this note might be different from the original. Pt was hoping Dr Hall would send orders for her Thyroid labs Please send to [facility] Fax number is [phone] documented in this encounter [facility] 01-12-2025 History of Presen t illness [...] nursing note reviewed. Exam conducted with a oven drier tender present. Vitals: Estimated body mass index is [...] of: TERRANCE Ruiz documented in this encounter [facility] 10-13-2024 History of Presen t illness [...] left lower extremity documented in this encounter [facility] 08-22-2024 History of Presen t illness [...] cancer, which required two surgeries. Additionally, her hbeiyfth-ua-mjh recently suffered a miscarriage. 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 She has an upcoming appointment with a [...] is encouraged to follow up with her wharf labourer and consider professional counseling to address ongoing [...] in 12 weeks. documented in this encounter [facility] 08-18-2024 History of Presen t illness [...] of: TERRANCE Ruiz documented in this encounter [facility] 05-16-2024 Telephone encount er Note Approvals with refills [facility] 05-16-2024 Miscellaneous Notes Formattin g of this note might be different from the original. Approvals with refills documented in this encounter [facility] 07-12-2023 Evaluation note Encounter Date Diagnosis Assessment Notes Jun, Ulcerative colitis (ICD-10 - K51.90) [employer] 09-01-2023 Hospital Discharge instructions Follow Up Care 02/23/2023 12:26:27 With:KIM ADLER, Arash Broderick, URL Address: [facility] [address], [place] [address] [phone] When: Unknown [facility] 09-01-2023 Hospital Discharge instructions Patient Education [...] include: ?8 oz (237 mL) of milk, mbtoteb-fqswsihoeape-rorka milk, and calcium- fortifiedfruit juice. Calcium-fortified means [...] ?Spinach (cooked), rhubarb, beets, sweet potatoes, and Kittitian chard. ?Peanuts. ?Potato chips, albanian fries, and baked potatoes with skin on. ?Nuts and nut products. ?Chocolate. If you regularly take a diuretic medicine, make sure to eat at least 1 or 2 servings of fruits or vegetables that are high in potassium each day. These include: ?Avocado. ?Banana. ?[place], prune, carrot, or tomato juice. ?Baked potato. [...] magnesium, fish oil, or vitamin B6. Take uvcm-usf-fcchxht and prescription medicines only as told by [...] Casseroles. Pizza. Lasagna. Frozen meals. Potato chips. Sinhala fries. The items listed above may not [...] provider. Document Revised: 02/20/2022 Document Reviewed: 02/20/2022 [employer] Patient Education 2022 [employer] ([employer]). Follow Up Care 10/09/2022 10:30:40 With:KIM ADLER, Arash Broderick, URL Address: [facility] [address] [place] [address]- When:Within 6 Month(s) Comments:w/CTU & 24hr Urine [facility] 07-20-2023 Evaluation note* Encounter Date Diagnosis Assessment Notes Treatment Notes Treatment Clinical Notes Dec, Ulcerative colitis (ICD-10 - K51.90) Continue lialda 4 tablets daily Rto 1 yr [employer] Other 07-11-2022 Hospital Discharge instructions Patient Education 01/02/2022 10:36:11 Kidney Stones, Gebn-at-Dkaj Kidney Stones Kidney stones are rock-like masses [...] Follow these instructions at home: Medicines Take vfxz-usw-ivslcku and prescription medicines only as told by [...] 11/27/2008 Document Revised: 10/28/2019 Document Reviewed: 10/28/2019 [employer] Patient Education 2020 [employer] ([employer]). Follow Up Care 01/10/2021 10:24:51 With:Arash FIELD MD, URL Address: [facility] [address], [place] [address] [phone] When: Unknown Comments:Will schedule Ct scan w/o * stone protocal [facility] 05-02-2022 Evaluation note* Encounter Date Diagnosis Assessment Notes Treatment Notes Treatment Clinical Notes October, Ulcerative colitis (ICD-10 - K51.90) [employer] Other 03-11-2022 Evaluation note* Encounter Date Diagnosis Assessment Notes Treatment Notes Treatment Clinical Notes Aug, Ulcerative colitis (ICD-10 - K51.90) PATIENT DOES CONTINUE ON THE LIALDA CONTINUE ON THE MEDICATION PROCEED WITH COLON [employer] Other Evaluation + Plan note No data available for this section [facility] evaluation + Plan note Future Appointments Appointment Date:09/03/2023 08:45:00 AM Scheduled Provider:Arash FIELD MD Location:[facility] Appointment Type:URO Office Visit [facility] evaluation noteNo assessment information available [facility] Work Phone: Evaluation note* Diagnosis Renal calculus Calculus of kidney [facility] Diagnosis Seasonal allergic rhinitis due to pollen documented in this encounter [facility]* Diagnosis Hypothyroidism, unspecified type (CMS/HCC) documented in this encounter [facility]* Diagnosis Hypothyroidism, unspecified type (CMS/HCC) documented in this encounter [facility]* Diagnosis Perimenopausal vasomotor symptoms- Primary Menopause Symptomatic menopausal or female climacteric states Hormone disorder Unspecified endocrine disorder Pelvic pain in female Unspecified symptom associated with female genital organs documented in this encounter [facility]* Diagnosis Hypothyroidism, unspecified type (CMS/HCC)- Primary Depression, unspecified depression type (CMS/HCC) Screening mammogram for breast cancer Dysphagia, unspecified type Thyroid enlargement (CMS/HCC) Goiter, unspecified Perimenopausal vasomotor symptoms Routine general medical examination at a health care facility documented in this encounter [facility]* Diagnosis Hypothyroidism, unspecified type (CMS/HCC)- Primary documented in this encounter [facility]* Diagnosis Numbness- Primary Disturbance of skin sensation Leg pain, left Pain in soft tissues of limb documented in this encounter [facility]* Diagnosis Well woman exam with routine gynecological exam Routine gynecological examination Breast cancer screening by mammogram Postmenopausal state Asymptomatic postmenopausal status (age-related) (natural) documented in this encounter [facility]* Diagnosis Onset Date Resolution Status Admit Date GERD (gastroesophageal reflu x disease) acute February 09 9:12am Ulcerative colitis acute February 09, 2025 9:12am [facility] Work Phone: History general Narrative - Reported* Type Description Date Medical History Hypothyroidism Medical History GERD (gastroesophageal reflux di sease) Medical History Depression Medical History Ulcerative colitis Surgical History inguinal hernia repair Surgical History laparoscopy [employer] [facility] [place] note No data available for this section [facility] reason for referral (narrative)No reason for referral [facility] Work Phone: Summary Purpose Family History [...] EKG 12 Lead Kimberly Burton MD [address] [facility] [address], [address] [place] [id number] Referral ID Status Reason Start Date Expiration Date Visits Re quested Visits Authorized [id number] Open 09/20/2023 09/19/2024 1 1 Additional Source Comments INFORMATION SOURCE (unrecogn ized section and content) DATE CREATED AUTHOR 11/19/2021 [facility] dical Specialist DATE CREATED AUTHOR AUTHOR'S ORGANIZ ATION 01/10/2022 [facility] DATE CREATED AUTHOR AUTHOR'S ORGANIZ ATION 05/14/2023 [facility] DATE CREATED AUTHOR AUTHOR'S ORGANIZ ATION 09/05/2023 [facility] DATE CREATED AUTHOR AUTHOR'S ORGANIZ ATION 10/24/2023 [facility] DATE CREATED AUTHOR AUTHOR'S ORGANIZ ATION 01/13/2025 [facility] dical Specialists EPIC REASON FOR VISIT [...] Active Arash Field MD Attending Provider Active Dope Sprayer Relationship Specialty Start Date End Date Phuong Hall MD [address] [place] [address] PCP - General 09/20/23 Dope Sprayer Relationship Specialty Start Date End Date Phuong Hall MD [address] [place] [address] PCP - General Family Medicine 10/31/22 Dope Sprayer Relationship Specialty Start Date End Date Phuong Hall MD [address] [place] [address] PCP - General Family Medicine 10/31/22 Dope Sprayer Relationship Specialty Start Date End Date Phuong Hall MD [address] [place] [address] PCP - General Family Medicine 10/31/22 Dope Sprayer Relationship Specialty Start Date End Date Phuong Hall MD [address] [place] [address] PCP - General Family Medicine 10/31/22 Dope Sprayer Relationship Specialty Start Date End Date Phuong Hall MD [address] [place] [address] PCP - General Family Medicine 10/31/22 Dope Sprayer Relationship Specialty Start Date End Date Phuong Hall MD [address] [place] [address] PCP - General Family Medicine 10/31/22 Dope Sprayer Relationship Specialty Start Date End Date Phuong Hall MD [address] [place] [address] PCP - General Family Medicine 10/31/22 Dope Sprayer Relationship Specialty Start Date End Date Phuong Hall MD [address] [place] [address] PCP - General [facility] 10/31/22 Dope Sprayer Relationship Specialty Start Date End Date Phuong Hall MD [address] [place] [address] PCP - [facility] 10/31/22 Team Status: Inactive Member Role [...] BE BASED ON THE PRIMARY CLINICAL RECORDS. [facility] [facility]. provides no warranty or guarantee [id number] the accuracy [phone] completeness of information in this [id number]
== END 2025-03-02 14:15 | disposition home or self-care (01) ==
PROVIDERS: PCP Family Medicine; Visit Provider Internal Medicine
DX: E03.9 Hypothyroidism, unspecified (principal); K51.00 Ulcerative (chronic) pancolitis without complications
CPT/HCPCS: 36415; 80053; 84443; 85025; 85652; 86140